=== PATIENT | female | born 1940 | race Caucasian/White ===

== ENCOUNTER 2017-10-14 03:24 | Emergency (ER) | payer OTHER ==
--- NOTE | 2017-10-14 04:00 | EDPHYS ---
Physician Documentation [facility] Name: Aida Robertson Age: 77 yrs Sex: Female : 1940 Arrival Date: 10/14/2017 Time: 03:25 Bed 6 Private MD: SUSI VILLAR ED Physician Narciso Omer HPI: 10/14 03:54 This 77 yrs old Female presents to ER via Wheelchair with complaints of Foot rn Pain. 03:54 The patient presents with pain, that is chronic. The complaints affect the right foot. rn Onset: The symptoms/episode began/occurred 2 day(s) ago. Modifying factors: The symptoms are alleviated by elevation of extremity, the symptoms are aggravated by weight bearing, movement, wearing shoes. Severity of symptoms: At their worst the symptoms were mild, in the emergency department the symptoms have improved. The patient has experienced similar episodes in the past. The patient has been recently seen by a physician:. 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 . Historical: - Allergies: 03:47 Aspirin; lp1 03:47 Vancomycin; sensitivity; lp1 - Home Meds: 03:47 Crestor 5 mg Oral tab 1 tab Mon, Wed, Fri [Active]; Lumigan 0.01 % ophthalmic drop lp1 daily [Active]; metformin 500 mg Oral tab 1 tab 2 times per day [Active]; metoprolol succinate 50 mg Oral Tb24 1 tab once daily [Active]; losartan 100 mg Oral tab 1 tab nightly [Active]; - PMHx: 03:47 Arthritis; breast cancer; c-pap; Hypertension; Lymphadema Right Arm; lymphedema to R lp1 arm s/p breast cancer radiation; Migraines; scoliosis; Hyperlipidemia; Diabetes - NIDDM; Glaucoma; - PSHx: 03:47 R hip surgery; Left knee surgery; R foot surery; Carpal Tunnel Repair; cataracts; lp1 - Immunization history:: Adult Immunizations up to date. - Social history:: Smoking status: Patient/guardian denies using tobacco, never smoked. - Ebola Screening: : No symptoms or risks identified at this time. - Family history:: not pertinent. - Hospitalizations: : No recent hospitalization is reported. ROS: 03:54 Constitutional: Negative for fever, chills, and weight loss, MS/Extremity: Negative for rn injury and deformity, Neuro: Negative for weakness, numbness, tingling Exam: 03:54 Constitutional: This is a well developed, well nourished patient who is awake, alert, rn and in no acute distress. Skin: Warm, dry with normal turgor. Normal color with no rashes, no lesions, and no evidence of cellulitis. MS/ Extremity: Pulses equal, no cyanosis. Neurovascular intact. Full, normal range of motion. Equal circumference. Well healed surgical scars along dorsum of right 2nd/3rd toes, no fluctuance, no warmth, no erythema. Vital Signs: 03:43 BP 144 / 75; Pulse 78; Resp 18; Temp 98.5(O); Pulse Ox 100% on R/A; Weight 68.04 kg; lp1 Height 4 ft. 11 in. (149.86 cm); Pain 0/10; 03:43 Body Mass Index 30.30 (68.04 kg, 149.86 cm) lp1 MDM: 03:39 Patient medically screened. rn 03:54 Differential diagnosis: sprain, arthritis, gout. Differential diagnosis: neuropathy. rn Data reviewed: vital signs, nurses notes. Counseling: I had a detailed discussion with the patient and/or guardian regarding: the historical points, exam findings, and any diagnostic results supporting the discharge/admit diagnosis, the need for outpatient follow up, to return to the emergency department if symptoms worsen or persist or if there are any questions or concerns that arise at home. Response to treatment: the patient's condition has returned to base line, the patient is now symptom free, and as a result, I will discharge patient. Special discussion: Based on the history and exam findings, there is no indication for further emergent testing or inpatient evaluation. I discussed with the patient/guardian the need to see the footwear factory worker for further evaluation of the symptoms. 03:54 ED course: No acute complaints or findings on exam, recommend f/u with her marketing production coordinator rn for further recs.. Administered Medications: No medications were administered Disposition: 10/14/17 03:59 Discharged to Home. Impression: Pain in right foot. - Condition is Stable. - Discharge Instructions: Musculoskeletal Pain, Pain Without a Known Cause. - Medication Reconciliation Form, Thank You Letter, Antibiotic Education, Prescription Opioid Use form. - Follow up: Private Physician; When: As needed; Reason: Recheck today's complaints, Re-evaluation by your physician. - Problem is new. - Symptoms have improved. Signatures: Narciso Omer MD MD rn JonesDebbie RN RN lp1 Corrections: (The following items were deleted from the chart) 04:08 03:59 10/14/2017 03:59 Discharged to Home. Impression: Pain in right foot. Condition is lp1 Stable. Forms are Medication Reconciliation Form, Thank You Letter, Antibiotic Education, Prescription Opioid Use. Follow up: Private Physician; When: As needed; Reason: Recheck today's complaints, Re-evaluation by your physician. Problem is new. Symptoms have improved. rn
--- NOTE | 2017-10-14 04:00 | ER ---
Nurse's Notes [facility] Name: Aida Robertson Age: 77 yrs Sex: Female : 1940 Arrival Date: 10/14/2017 Time: 03:25 Bed 6 Private MD: SUSI VILLAR Diagnosis: Pain in right foot Presentation: 10/14 03:40 Presenting complaint: Patient states: Pain to R great toe x2 days; states after a long lp1 day, R great toe will be red at end of the day; hx of R foot surgery from arthritis. Transition of care: patient was not received from another setting of care. Onset of symptoms was October 14, 2017. Risk Assessment: Do you want to hurt yourself or someone else? Patient reports no desire to harm self or others. Initial Sepsis Screen: Does the patient meet any 2 criteria? No. Patient's initial sepsis screen is negative. Does the patient have a suspected source of infection? No. Patient's initial sepsis screen is negative. Care prior to arrival: None. 03:40 Method Of Arrival: Wheelchair lp1 03:40 Acuity: MIRNA 5 lp1 Historical: - Allergies: 03:47 Aspirin; lp1 03:47 Vancomycin; sensitivity; lp1 - Home Meds: 03:47 Crestor 5 mg Oral tab 1 tab Mon, Wed, Fri [Active]; Lumigan 0.01 % ophthalmic drop lp1 daily [Active]; metformin 500 mg Oral tab 1 tab 2 times per day [Active]; metoprolol succinate 50 mg Oral Tb24 1 tab once daily [Active]; losartan 100 mg Oral tab 1 tab nightly [Active]; - PMHx: 03:47 Arthritis; breast cancer; c-pap; Hypertension; Lymphadema Right Arm; lymphedema to R lp1 arm s/p breast cancer radiation; Migraines; scoliosis; Hyperlipidemia; Diabetes - NIDDM; Glaucoma; - PSHx: 03:47 R hip surgery; Left knee surgery; R foot surery; Carpal Tunnel Repair; cataracts; lp1 - Immunization history:: Adult Immunizations up to date. - Social history:: Smoking status: Patient/guardian denies using tobacco, never smoked. - Ebola Screening: : No symptoms or risks identified at this time. - Family history:: not pertinent. - Hospitalizations: : No recent hospitalization is reported. Screenin:47 Abuse screen: Denies threats or abuse. Denies injuries from another. Nutritional lp1 screening: No deficits noted. Tuberculosis screening: No symptoms or risk factors identified. Fall Risk None identified. Assessment: 03:47 General: Appears in no apparent distress. Behavior is calm, cooperative, appropriate lp1 for age. Pain: Complains of pain in right first toe, right second toe and right third toe Pain currently is 0 out of 10 on a pain scale. Quality of pain is described as aching. Neuro: Level of Consciousness is awake, alert, obeys commands. Cardiovascular: Patient's skin is warm and dry. Respiratory: Respiratory effort is even, unlabored. GI: No signs and/or symptoms were reported involving the gastrointestinal system. : No signs and/or symptoms were reported regarding the genitourinary system. EENT: No signs and/or symptoms were reported regarding the EENT system. Derm: Skin is pink, warm \T\ dry. Musculoskeletal: Circulation, motion, and sensation intact. Capillary refill < 3 seconds, in bilateral toes. Vital Signs: 03:43 BP 144 / 75; Pulse 78; Resp 18; Temp 98.5(O); Pulse Ox 100% on R/A; Weight 68.04 kg; lp1 Height 4 ft. 11 in. (149.86 cm); Pain 0/10; 03:43 Body Mass Index 30.30 (68.04 kg, 149.86 cm) lp1 ED Course: 03:25 Patient arrived in ED. ds1 03:25 Gerson Chan MD is Private Physician. ds1 03:29 SUSI VILLAR is Private Physician. ds1 03:39 Narciso Omer MD is Attending Physician. rn 03:40 Debbie Jones, ANNE is Primary Nurse. lp1 03:43 Triage completed. lp1 03:43 Arm band placed on left wrist. lp1 03:49 Patient has correct armband on for positive identification. lp1 03:49 No provider procedures requiring assistance completed. Patient did not have IV access lp1 during this emergency room visit. Administered Medications: No medications were administered Outcome: 03:59 Discharge ordered by . rn 04:08 Discharged to home ambulatory, with significant other. lp1 04:08 Condition: good 04:08 Discharge instructions given to patient, Instructed on discharge instructions, follow up and referral plans. Demonstrated understanding of instructions, follow-up care. 04:08 Patient left the ED. lp1 Signatures: Nataliya Ruiz ds1 Narciso Omer MD MD rn Debbie Jones RN RN lp1
[2017-10-14 04:12] VITALS: BP 144/75; TEMP 98.5; O2SAT 100
== END 2017-10-14 04:08 | disposition home or self-care (01) ==
LOC: ER 03:24
DX: M79.671 Pain in right foot (principal); I10 Essential (primary) hypertension; E78.5 Hyperlipidemia, unspecified; E11.9 Type 2 diabetes mellitus without complications; Z88.6 Allergy status to analgesic agent; Z88.1 Allergy status to other antibiotic agents
CPT/HCPCS: 99281

== ENCOUNTER 2018-01-28 06:46 | Day surgery (SDC) | payer OTHER ==
[2018-01-25 15:49] LABS: Urine Appearance CLEAR; Urine Bilirubin NEGATIVE (NEG); Urine Blood TRACE (NEG); Urine Color YELLOW; Urine Glucose NEGATIVE (NEG); Urine Protein NEGATIVE (NEG); Urine Urobilinogen 0.2 mg/dL (0.2-1.0)
[2018-01-25 16:01] LABS: Urine Microscopic Reflex NO UMIC
[2018-01-25 16:13] LABS: Absolute Lymphocytes (CBC) 1.9 K/uL (0.7-4.9); Absolute Monocytes 0.6 K/uL (0.1-1.3); Absolute Neutrophil 5.2 K/uL (1.8-8.0); Basophils % 1.6 % (0-1.3); Eosinophils % 4.2 % (0-4.4); Hematocrit 44.5 % (36.0-45.0); Lymphocytes % 23.2 % (15.3-44.8); MCH 30.3 pg (27.0-35.0); MCV 89.5 fL (80-100); MPV 10.6 fL (7.6-11.3); Monocytes % 7.1 % (3.3-12.3); RBC Red Blood Cell Count 4.97 M/uL (3.86-4.86)
[2018-01-25 16:56] LABS: Protime INR 0.93
[2018-01-28] MEDS ORDERED: CEFAZOLIN/SWI 1gm 1 GM/10 ML SYR ONE ×2 (07:00→07:13)
[2018-01-28] MEDS ORDERED: NA CHLORIDE 0.9% 100 ML IV ONE (07:13)
[2018-01-28] MEDS ORDERED: ROCURONIUM 50 MG/5 ML VIAL IV ONE ×2 (07:13→09:41)
[2018-01-28] MEDS ORDERED: NA CHLORIDE 0.9% 1,000 ML ONE ×2 (07:13→09:14)
[2018-01-28] MEDS ORDERED: VASOPRESSIN 20 UNIT/ML VIAL ONE (07:13)
[2018-01-28] MEDS ORDERED: PROPOFOL 200 MG/20 ML VIAL IV ONE (07:13)
[2018-01-28] MEDS ORDERED: GLYCOPYRROLATE 0.2 MG/ML SYR ONE (07:14)
[2018-01-28] MEDS ORDERED: FENTANYL CITR 250 MCG/5 ML ONE (07:15)
[2018-01-28] MEDS ORDERED: LIDOCAINE 2% MPF 5 ML VIAL ONE (07:15)
[2018-01-28] MEDS ORDERED: NEOSTIGMINE 1 MG/ML -5 ML SYRINGE ONE (07:17)
[2018-01-28] MEDS ORDERED: ONDANSETRON HCL 40 MG/20 ML VIAL ONE (07:17)
[2018-01-28] MEDS: NA CHLORIDE 0.9% 1,000 ML ONE ×2 (07:34→07:46)
[2018-01-28] MEDS ORDERED: EPHEDRINE SULF 50 MG/10 ML SYR ONE (08:09)
[2018-01-28] MEDS: MEPERIDINE HCL 50 MG/ML AMP ONE ×4 (10:45→11:07)
[2018-01-28 11:00] VITALS: O2SAT 95
[2018-01-28] MEDS ORDERED: ACETAMINOPHEN 500 MG TAB PO PRN (11:11)
[2018-01-28] MEDS ORDERED: MORPHINE 4 MG/ML SYR IV PRN (11:11)
[2018-01-28] MEDS ORDERED: ONDANSETRON 4 MG/2 ML VIAL IV PRN (11:11)
[2018-01-28] MEDS ORDERED: IBUPROFEN 200 MG TAB PO PRN (11:11)
--- NOTE | 2018-01-28 11:21 | P.OP ---
Foot Orthopedist: Audrey Hernandez Preoperative diagnosis: [id number],incomplete uterovg porlapse, STEVEN Postoperative diagnosis: same Primary procedure: anterior repair with uphold, bilat SSLFcolpopexy, TVT-O,cysto Anesthesia: GETA Estimated blood loss: 100 Specimen: none Findings: 0/+2/-1/4/mod/7/-1/-1/-2 Operative Technique: vaginal Complications: None Drain(s): Urinary catheter Implants: uphold, tvt-o Transferred to: Recovery Room Condition: Good
[2018-01-28] MEDS ORDERED: MEPERIDINE HCL 25 MG/0.5 ML ONE (11:24)
[2018-01-28] MEDS ORDERED: Ringers Lactate 1,000 ML IV SCH (12:00)
[2018-01-28 12:22] VITALS: BMI 30.8
[2018-01-28] MEDS ORDERED: CEFAZOLIN/NS 1gm 1 GM/50 ML BAG IVPB SCH (15:30)
[2018-01-28] MEDS ORDERED: CEFAZOLIN/SWI 1gm 1 GM/10 ML SYR IV SCH (15:30)
[2018-01-28] MEDS ORDERED: BIMATOPROST OPHTH DROPS/2.5 ML BTL OPTH SCH (22:30)
--- NOTE | 2018-01-28 22:32 | OP ---
Date of Procedure: 01/28/2018 Surgeon: Cinthia Jacob MD Preoperative Diagnoses: Stage III anterior wall prolapse, incomplete uterovaginal prolapse, occult s tress urinary incontinence, rectocele. Postoperative Diagnoses: Stage III anterior wall prolapse, incomplete uterovaginal prolapse which in clude apical defect with uterine prolapse, insignificant rectocele, occult stress urinary incontinenc e. Procedures Performed: 1.Anterior repair with uphold graft (cystocele repair). 2.Bilateral sacrospinous ligament fixation for history of colpopexy. 3.Midurethral sling and cystoscopy. Anesthesia: General. Specimens: None. Complications: None. Drains: Xiao catheter and vaginal packing. Patient's Condition: Stable. Findings: POP-Q is as follows: 0, +2, -1, 4 cm, moderate, 7 cm, -1, -1, and -2. The patient is a 78-year-old who has been seeing me for her prolapse. After initial evaluation where she told me that she had been using pessary for a little bit; she had stopped that. She was unable to keep herself happy with the use of pessary. She could not do any self-care. She did not do well with coming back to the office. She wanted to have a surgical repair for fixation. The pessary did cause her to have stress urinary incontinence and so the patient was very insistent on having a surgi joey repair. We discussed about all the options of vaginal and abdominal reconstruction without any g raft augmentation with the biologic versus synthetic graft augmentation. Once all the benefits and r isks of all these were discussed, we agreed to proceed with the surgical repair vaginally with the us e of a synthetic graft augmentation on the anterior wall given the fact that this had best result as compared to primary repair on the anterior compartment done vaginally. She had medical clearance from Dr. Perez. She has been doing mostly well excepting for her back valentina n and scoliosis and her knee problems. She is a relatively healthy patient except for a remote histo ry of right breast cancer 19 years ago. She was evaluated with a cystoscopy and urodynamics in the o ffice, and found to have occult stress urinary incontinence. No evidence of any bladder tumors. After delay in the scheduled surgery for her 's health reasons, she finally came back. We agustina ked about the entire reconstruction, recovery, risks, and benefits, and she wanted to proceed with he r surgical repair. So, she was consented and brought to the OR. Description Of Procedure: After informed consent was verified, the patient was taken back to the OR, placed in a supine fashion on the operating table. She was placed in Henry stirrups and placed in a dorsal lithotomy position even before she was put to sleep. Then, she was given general anesthesia. She could not externally rotate her hip and the flexion at the knee was greater than 90 degrees in the obtuse angle due to the knee replacement on the left side. She had a hip replacement on the righ t and knee replacement on the left. Once this was positioned as optimally as possible for the patien t from her back pain standpoint, a large pink eggcrate was tucked under her bottom in the back betwee n the bed and the body. Vulva, vagina, and perineum were prepped and draped in a sterile fashion. Xiao was placed to drain the bladder and retracted with a Lupe occluding the Xiao catheter. The anterior wall starting abov e the level of the urethrovesical junction was held with Allis clamps all the way to the apex close t o the cervix. Once this was found, then the anterior midline was injected with dilute vasopressin 20 units in 50 cc of normal saline. About 20 units were injected here. Then, after the 15 blade was u sed to make an incision in the anterior wall, the incision was extended superiorly and inferiorly all the way to the neck of the bladder and posteriorly to the cervix. The bladder was dissected away fr om the vaginal epithelium, cervical epithelium, and the endopelvic fascia after entering the vesicova ginal space. The bladder was dissected first on the right side all the way to the sulcus and on the left side as well. The bladder was dissected all the way to the level of the cervix. Once this was done, I was able to open up the bladder incision under the urethrovesical junction as well. Once the bladder was dissected on all sides and reduced, the lateral paravaginal spaces were entered, first o n the right side, then on the left side. The ischial spine was palpated and going to the parametrium into the posterior pararectal space. The sacrospinous ligament was exposed through the coccygeus. The rectum was swept medially. Same dissection was performed in the opposite side as well. The sacr ospinous ligament was well exposed. Then, I was able to get the uphold open and the stitch was place d on the sacrospinous ligament on the right side, about 2 cm medial and posterior to the ischial spin e. Similar thing was done on the opposite side as well, and the bite on the left side appeared to be slightly less robust but it definitely went through the sacrospinous ligament. This was more calcif ied, so there was difficulty passing it. Once these were pulled through, the graft was attached at t he cervix with 3 PDS sutures in the midline and on either sides to the cervix. Then, the bladder was reduced into pursestring sutures with 3-0 Vicryl. The closure of the vaginal wall was done with 2-0 Vicryl in a continuous running horizontal mattress fashion for the first half and then the graft was tensioned appropriately pulling the uterus back up to at least -6. Once the graft was appropriately placed, the anterior part of the graft to the distal end was attached to the suburethral port below the urethrovesical junction with the help of 3-0 Monocryl in the center and on both sides. The mesh was laid flat. The arms were tensioned appropriately and the sheaths were taken out. The rest of th e closure was done in a continuous running locked fashion. Once this was done, Xiao was removed and cystoscopy was performed. No evidence of any trauma or foreign body in the bladder. There were nor mal jets of urine from both ureteric orifices. The suburethral area was identified again. Mid urethral area was picked up with the help of two Faheem s clamps on either side in the periurethral area. Injection with one vasopressin was done in the mid line as well as on the sides. Then, after making a 1 cm incision in the midline, a track was created all the way to the obturator space, dissecting into 45-degree angle to the midline vertical planes p ointing toward the ipsilateral shoulder, hugging the inferior pubic ramus and just entering the obtur ator space. Once this was done on the right side, similar dissection was performed on the left side. The TVT-O was opened up distally. Wing guide was placed. The spike was passed along the wing guid e after the obturator membrane was perforated. The wing guide was removed and this was rotated to ex it at the point that was marked for the exit points of the TVT-O as usual. On the left side, in a si milar fashion, the wing guide was placed, the spike was passed, and this was retrieved. Both sheaths were pulled out, both plastic dilators were pulled out. The sheath was left in place. The subureth ral area was visualized. The mesh was lying appropriately. Then using Metzenbaum scissors between t he urethra and the mesh, the arms were tensioned, sheaths were removed, and this mesh was cut very fl ushed with the skin. The skin incisions were closed with the help of Dermabond in the center and the re was a tear of the vaginal epithelium on the right side proximally, so this was repaired with the h elp of a 3-0 Vicryl in a continuous running locked fashion. The rest of the incision was closed with the help of a continuous running locked fashion 3-0 Vicryl as well. Cystoscopy was performed again. No evidence of any urethral erosion or problem of bladder perforation. The catheter was left in pl xiomara. Rectal exam was performed. No evidence of any trauma to the rectum. On examination of the pos terior wall after changing the gloves, the posterior wall was very nicely pulled up and did not appea r to have a major defect. The perineal body was moderate. However, the patient had no posterior com plaints. So, this was left alone. All the instruments, needle, and sponge counts were done and were correct at the end of the case. She tolerated the procedure well. She was recovered from anesthesi a and taken to PACU in a stable condition. She will follow up with me. She will be [facility] to [facility] or for overnight observation. In the morning, she will have a voiding trial. However, the packing a nd the Xiao were removed and she will be discharged home. After she recovered, she was doing well. Her back was not hurting too badly in the PACU. She had mild complaints of lower abdominal discomfo rt. So, she was overall well controlled. She has a followup appointment with me to see me back in 1 week. VIK/BELLA Voice ID: [id number] Report ID: [id number]
[2018-01-29] MEDS ORDERED: LEVOTHYROXINE SOD 0.025 MG TAB PO SCH (06:00)
[2018-01-29] MEDS ORDERED: METOPROLOL TAR 50 MG TAB PO SCH (06:00)
[2018-01-29 06:04] LABS: Absolute Lymphocytes (CBC) 1.9 K/uL (0.7-4.9); Absolute Monocytes 0.6 K/uL (0.1-1.3); Absolute Neutrophil 3.8 K/uL (1.8-8.0); Basophils % 0.6 % (0-1.3); Eosinophils % 4.1 % (0-4.4); Lymphocytes % 28.7 % (15.3-44.8); MCH 30.5 pg (27.0-35.0); MCV 90.2 fL (80-100); MPV 9.7 fL (7.6-11.3); RBC Red Blood Cell Count 3.88 M/uL (3.86-4.86)
[2018-01-29] MEDS ORDERED: METFORMIN HCL 500 MG TAB PO SCH (08:00)
[2018-01-29 08:23] VITALS: BP 144/71; TEMP 97
[2018-01-29] MEDS ORDERED: ROSUVASTATIN 10 MG TAB PO SCH (17:00)
[2018-01-29] MEDS ORDERED: LOSARTAN POTASSIUM 50 MG TABLET PO SCH (17:30)
== END 2018-01-29 09:55 | disposition home or self-care (01) ==
LOC: OR 06:46 → 2ND-WC 10:51 → OR 01-29 09:55
PROVIDERS: ATTEND Obstetrics & Gynecology
PROC: 0USG7ZZ Reposition Vagina, Via Natural or Artificial Opening (ICD-10-PCS; 2018-01-28)
PROC: 0TSD0ZZ Reposition Urethra, Open Approach (ICD-10-PCS; 2018-01-28)
PROC: 0JUC0JZ Supplement of Pelvic Region Subcutaneous Tissue and Fascia with Synthetic Substitute, Open Approach (ICD-10-PCS; principal; 2018-01-28 07:30)
DX: N81.2 Incomplete uterovaginal prolapse (principal); N39.3 Stress incontinence (female) (male); E11.9 Type 2 diabetes mellitus without complications; I10 Essential (primary) hypertension; E78.5 Hyperlipidemia, unspecified; K21.9 Gastro-esophageal reflux disease without esophagitis; G47.33 Obstructive sleep apnea (adult) (pediatric); Z88.3 Allergy status to other anti-infective agents; Z85.3 Personal history of malignant neoplasm of breast; Z82.49 Family history of ischemic heart disease and other diseases of the circulatory system
CPT/HCPCS: 36415 ×2; 57240; 57267; 57282; 57288; 81003; 82962 ×2; 85025 ×2; 85610; 85730; 86850; 86900; 86901; J0690 ×2; J2175 ×2; J2405; J2710; J7030 ×3

== ENCOUNTER → 2018-08-04 | Day surgery (SDC) | payer OTHER ==
--- OUTSIDE RECORDS SUMMARY | 2018-08-04 09:51 | XMS REPORT | Continuity of Care Document ---
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 [facility] Sleep apnea Resolved Problem 06/26/2018 [facility] UNILATERAL Active PRIMARY [facility] OSTEOARTHRITIS, LEFT Medications Medication Details Route Status Patient Ordering Order Source Instructions Provider Date rivaroxaban 10 mg 10 mg=1 tab, Active oral tablet PO, Q24H, 0 2018 [facility] Refill(s) Acetaminophen 325 1 tab, PO, Q4H, Active MG / Hydrocodone PRN Pain Score 2018 [facility] Bitartrate 10 MG 4-6, 0 Oral Tablet Refill(s) [[place] 10/325] Lopressor 50 mg, 1 tab, Inactive Route: PO, Drug 2018 [facility] form: TAB, Daily, Dosing Weight 70.455, kg, Start date: 06/24/18 9:00:00 BROADCAST SUPERVISOR, Duration: 30 day, Stop date: 07/23/18 9:00:00 CDTNotes: (Same as: Lopressor) Synthroid 25 microgram, 1 Inactive tab, Route: PO, 2018 [facility] Drug form: TAB, Q630AM, Dosing Weight 70.455, kg, Start date: 06/24/18 6:30:00 BROADCAST SUPERVISOR, Duration: 30 day, Stop date: 07/23/18 6:30:00 CDTNotes: Take 1 hour before or 2 hours after meal; Enteral feeds may interefere with the absorption of this medication. (Same as:Levothroid) Losartan 100 mg, 2 tab, No Longer Route: PO, Drug Active 2018 [facility] form: TAB, Bedtime, Dosing Weight 70.455, kg, Start date: 06/23/18 21:00:00 BROADCAST SUPERVISOR, Duration: 30 day, Stop date: 07/22/18 21:00:00 CDTNotes: (Same as: Cozaar) rosuvastatin 5 mg, 1 tab, No Longer Route: PO, Drug Active 2018 [facility] form: TAB, Q-M-W-F, Dosing Weight 70.455, kg, Start date: 06/23/18 21:00:00 BROADCAST SUPERVISOR, Duration: 30 day, Stop date: 07/21/18 21:00:00 CDTNotes: Same as Crestor Melatonin 3 mg, 1 tab, No Longer Route: PO, Drug Active 2018 [facility] form: TAB, Bedtime, Dosing Weight 70.455, kg, PRN Insomnia, Start date: 06/23/18 10:09:00 BROADCAST SUPERVISOR, Duration: 30 day, Stop date: 07/23/18 10:08:00 CDTNotes: (Same as: Melatonin) Thyroxine 25 microgram, 1 Inactive tab, Route: PO, 2018 [facility] Drug form: TAB, Q630AM, Dosing Weight 70.455, kg, Start date: 06/23/18 7:30:00 BROADCAST SUPERVISOR, Duration: 30 day, Stop date: 07/23/18 6:30:00 CDTNotes: Take 1 hour before or 2 hours after meal; Enteral feeds may interefere with the absorption of this medication. (Same as:Levothroid) Levothyroxine 25 microgram=1 Active Sodium 0.025 MG tab, PO, Daily, 2018 [facility] Oral Tablet 0 Refill(s) [Synthroid] Saline Flush 0.9% 10 ml, Route: No Longer IVP, Drug Form: Active 2018 [facility] INJ, Dosing Weight 69.545, kg, Q12H, Start date: 06/22/18 21:00:00 BROADCAST SUPERVISOR, Duration: 30 day, Stop date: 07/22/18 9:00:00 CDTNotes: (Same as: BD Posiflush) Vancomycin 1,000 mg, No Longer Route: IVPB, Active 2018 [facility] [id number], Dosing Weight 69.545, kg, Time Critical Medication, Start date: 06/22/18 18:00:00 BROADCAST SUPERVISOR, Duration: 2 doses or times, Stop date: 06/23/18 6:00:00 BROADCAST SUPERVISOR, Pharmacy to adjust dose for renal function, ABX Indication: Surgical Pr...Notes: TIME CRITICAL MEDICATION (Same As: Vancocin) Infusion rate 2001 mg: infuse over 2.5 hours For adult patients only: Round to nearest 250 mg per Medical Staff approval MEDICATION WASTE Product Size: 1000 mg Product Wasted: ___ mg Zofran 4 mg, 1 tab, No Longer Route: PO, Drug Active 2018 [facility] form: TAB, Q8H, Dosing Weight 70.455, kg, PRN Nausea, Start date: 06/22/18 17:09:00 BROADCAST SUPERVISOR, Duration: 30 day, Stop date: 07/22/18 17:08:00 CDTNotes: (Same as: Zofran) rivaroxaban 10 mg, 1 tab, No Longer Route: PO, Drug Active 2018 [facility] form: TAB, Q24H, Dosing Weight 69.545, kg, Start date: 06/22/18 15:15:00 BROADCAST SUPERVISOR, Stop date: 07/21/18 15:15:00 CDTNotes: (Same as: Xarelto) Cefazolin 1 gm, Route: No Longer IV, ABXQ8H, 2018 [facility] Dosing Weight 69.545, kg, Start date: 06/22/18 14:00:00 BROADCAST SUPERVISOR, Duration: 3 doses or times, Stop date: 06/23/18 7:05:00 BROADCAST SUPERVISOR, ABX Indication: Surgical ProphylaxisNote s: (Same As: Ancef Kefzol) MEDICATION WASTE Product Size: 1000 mg Product Wasted: ___ mg Streptococcus 0.5 mL, Route: No Longer pneumoniae IM, Drug Form: Active 2018 [facility] serotype 1 INJ, ONCALL, capsular antigen Start date: diphtheria [id number] 06/22/18 protein conjugate 10:32:40 BROADCAST SUPERVISOR, vaccine / Stop date: Streptococcus 07/22/18 pneumoniae 10:27:40 serotype 14 CDTNotes: Shake capsular antigen well prior to diphtheria [id number] use (Same as: protein conjugate Prevnar 13) vaccine / Streptococcus pneumoniae serotype 18C capsular antigen d Acetaminophen 325 2 tab, Route: No Longer MG / Hydrocodone PO, Drug Form: Active 2018 [facility] Bitartrate 10 MG TAB, Dosing Oral Tablet Weight 69.545, [[place] 10/325] kg, TID, PRN Pain Score 4-6, Start date: 06/22/18 9:18:00 BROADCAST SUPERVISOR, Duration: 4 doses or times, Stop date: Limited # of timesNotes: Do not exceed 4gm/day of acetaminophen. (Same as: [place] 325/10) Dilaudid 0.5 mg, 0.5 mL, No Longer Route: IVP, Active 2018 [facility] Drug form: SOLN, Q4H, Dosing Weight 69.545, kg, PRN Pain Score 7-10, Start date: 06/22/18 9:18:00 BROADCAST SUPERVISOR, Duration: 30 day, Stop date: 07/22/18 9:17:00 CDTNotes: (Same as: Dilaudid) Saline Flush 0.9% 10 ml, Route: No Longer IVP, Drug Form: Active 2018 [facility] INJ, Dosing Weight 69.545, kg, PRN, PRN Line Flush, Start date: 06/22/18 9:18:00 BROADCAST SUPERVISOR, Duration: 30 day, Stop date: 07/22/18 10:17:00 CDTNotes: (Same as: BD Posiflush) 1/2 NS 1,000 mL 1,000 mL, Rate: No Longer 75 ml/hr, Active 2018 [facility] Infuse over: 13.3 hr, Route: IV, Dosing Weight 69.545 kg, Total Volume: 1,000, Start date: 06/22/18 9:18:00 BROADCAST SUPERVISOR, Duration: 30 day, Stop date: 07/22/18 9:17:00 CDT, 1.74, m2 Ofirmev 1,000 mg, Inactive Route: IV, Drug 2018 [facility] form: INJ, ONCE, Dosing Weight 69.545, kg, PRN Pain Score 1-3, for > or=50 kg, Start date: 06/22/18 9:17:00 BROADCAST SUPERVISOR, Substitute Allowed No Oxycodone 10 mg, Route: Inactive PO, Drug form: 2019 [facility] TAB, Q4H, Dosing Weight 69.545, kg, PRN Pain Score 7-10, Start date: 06/22/18 9:17:00 BROADCAST SUPERVISOR, Duration: 30 day, Stop date: 07/22/18 9:16:00 CDT Hydromorphone 0.5 mg, Route: Inactive IVP, Q5Min, 2018 [facility] Dosing Weight 69.545, kg, PRN Pain Score 7-10, Start date: 06/22/18 9:17:00 BROADCAST SUPERVISOR, Duration: 4 doses or times, Stop date: Limited # of times Fentanyl 25 microgram, Inactive Route: IVP, 2018 [facility] Q5Min, Dosing Weight 69.545, kg, PRN Pain Score 4-6, Priority: Routine, Start date: 06/22/18 9:17:00 BROADCAST SUPERVISOR, Duration: 4 doses or times, Stop date: Limited # of times Labetalol 10 mg, Route: Inactive IVP, Q5Min, 2018 [facility] Dosing Weight 69.545, kg, PRN Elevated BP, Start date: 06/22/18 9:17:00 BROADCAST SUPERVISOR, Duration: 5 doses or times, Stop date: Limited # of times esmolol 10 mg, Route: Inactive IVP, Q5Min, 2018 [facility] Dosing Weight 69.545, kg, PRN Other -See Comment, Start date: 06/22/18 9:17:00 BROADCAST SUPERVISOR, Duration: 5 doses or times, Stop date: Limited # of times Hydralazine 10 mg, Route: Inactive IVP, Q20Min, 2018 [facility] Dosing Weight 69.545, kg, PRN Elevated BP, Start date: 06/22/18 9:17:00 BROADCAST SUPERVISOR, Duration: 2 doses or times, Stop date: Limited # of times Ondansetron 4 mg, Route: Inactive IVP, ONCE, 2018 [facility] Dosing Weight 69.545, kg, PRN Nausea & Vomiting, Start date: 06/22/18 9:17:00 BROADCAST SUPERVISOR Meperidine 12.5 mg, Route: Inactive IVP, Q30Min, 2018 [facility] Dosing Weight 69.545, kg, PRN Other -See Comment, For shivering, Start date: 06/22/18 9:17:00 BROADCAST SUPERVISOR, Duration: 2 doses or times, Stop date: Limited # of times Albuterol 0.83 2.49 mg, Route: Inactive MH MG/ML Inhalant NEB, Q20Min, 2018 [facility] Solution Dosing Weight 69.545, kg, PRN Wheezing, Priority: STAT, Start date: 06/22/18 9:17:00 BROADCAST SUPERVISOR, Duration: 30 day, Stop date: 07/22/18 10:16:00 CDT Diphenhydramine 12.5 mg, Route: Inactive 06/22/ MH IVP, Drug form: 2018 [facility] INJ, Q6H, Dosing Weight 69.545, kg, PRN Itching, Start date: 06/22/18 9:17:00 BROADCAST SUPERVISOR, Duration: 30 day, Stop date: 07/22/18 9:16:00 CDT Naloxone 0.4 mg, Route: Inactive MH IVP, Q2MIN, 2018 [facility] Dosing Weight 69.545, kg, PRN Narcotic Reversal, Start date: 06/22/18 9:17:00 BROADCAST SUPERVISOR, Duration: 8 doses or times, Stop date: Limited # of times Flumazenil 0.2 mg, Route: Inactive IVP, PRN, 2018 [facility] Dosing Weight 69.545, kg, PRN Benzodiazepine Reversal, Initial dose, Start date: 06/22/18 9:17:00 BROADCAST SUPERVISOR, Duration: 30 day, Stop date: 07/22/18 10:16:00 CDT neostigmine Route: IV, Drug Inactive 06/22/ MH (ANES) form: INJ, 2018 ONCE, Stop date: 06/22/18 9:00:00 BROADCAST SUPERVISOR glycopyrrolate Route: IV, Drug Inactive 06/22/ MH (ANES) form: INJ, 2018 ONCE, Stop date: 06/22/18 9:00:00 BROADCAST SUPERVISOR phenylephrine Route: IV, Drug Inactive 06/22/ MH (ANES) form: INJ, 2018 ONCE, Stop date: 06/22/18 7:52:00 BROADCAST SUPERVISOR ePHEDrine (ANES) Route: IV, Drug Inactive 06/22/ MH form: INJ, 2018 ONCE, Stop date: 06/22/18 7:52:00 BROADCAST SUPERVISOR tranexamic acid Route: IV, Drug Inactive 06/22/ MH (ANES) form: INJ, 2018, Stop date: 06/22/18 7:42:00 BROADCAST SUPERVISOR famotidine (ANES) Route: IV, Drug Inactive 06/22/ MH form: INJ, 2018, Stop date: 06/22/18 7:42:00 BROADCAST SUPERVISOR ondansetron Route: IV, Drug Inactive 06/22/ MH (ANES) form: INJ2018, Stop date: 06/22/18 7:42:00 BROADCAST SUPERVISOR acetaminophen Route: IV, Drug Inactive 06/22/ MH (ANES) form: INJ2018, Stop date: 06/22/18 7:42:00 BROADCAST SUPERVISOR ceFAZolin (ANES) Route: IV, Drug Inactive 06/22/ MH form: INJ2018, Stop date: 06/22/18 7:42:00 BROADCAST SUPERVISOR fentaNYL (ANES) Route: IV, Drug Inactive 06/22/ MH form: INJ2018, Stop date: 06/22/18 7:37:00 BROADCAST SUPERVISOR propofol (ANES) Route: IV, Drug Inactive 06/22/ MH form: INJ2018, Stop date: 06/22/18 7:37:00 BROADCAST SUPERVISOR rocuronium (ANES) Route: IV, Drug Inactive 06/22/ MH form: INJ2018, Stop date: 06/22/18 7:37:00 BROADCAST SUPERVISOR lidocaine (ANES) Route: IV, Drug Inactive 06/22/ MH form: INJ2018, Stop date: 06/22/18 7:32:00 BROADCAST SUPERVISOR vancomycin (ANES) Route: IV, Drug Inactive 06/22/ MH 1000 mg form: INJ, 2018 Start date: 06/22/18 6:45:00 BROADCAST SUPERVISOR, Stop date: 06/22/18 7:45:00 BROADCAST SUPERVISOR Lactated Ringers Route: IV, Inactive 06/22/ MH Injection IV Total Volume: 2018 (ANES) 1000 mL 1,000, Start date: 06/22/18 6:30:00 BROADCAST SUPERVISOR, Stop date: 06/22/18 7:30:00 BROADCAST SUPERVISOR gabapentin 600 MG 600 mg, 1 tab, Inactive Oral Tablet Route: PO, 2018, Dosing Weight 69.545, kg, Start date: 06/22/18 6:15:00 BROADCAST SUPERVISOR, Stop date: 06/22/18 6:15:00 BROADCAST SUPERVISOR ropivacaine 100 mL, Route: No Longer InFILtration(lo Active 2018 [facility]), Drug Form: INJ, Dosing Weight 69.545, kg, ONCALL, Start date: 06/21/18 20:00:00 BROADCAST SUPERVISOR, Duration: 30 day, Stop date: 07/21/18 20:59:00 CDTNotes: NOT FOR IV use Ropivacaine 5 mg/mL (49.25 mL) Epinephrine 1 mg/mL (0.5 mL) Clonidine 0.1 mg/mL (0.8 mL) Ketorolac 30 mg/mL (1 mL) Normal Saline 48.45 mL Calcium Chloride 1,000 mL, Rate: No Longer 0.0014 MEQ/ML / 25 ml/hr, Active 2018 [facility] Potassium Infuse over: 40 Chloride 0.004 hr, Route: IV, MEQ/ML / Sodium Dosing Weight Chloride 0.103 69.545 kg, MEQ/ML / Sodium Total Volume: Lactate 0.028 1,000, Start MEQ/ML Injectable date: 06/21/18 Solution 19:15:00 BROADCAST SUPERVISOR, Duration: 30 day, Stop date: 07/21/18 19:14:00 CDT Allergies, Adverse Reactions, Alerts Substance Category Reaction Severity Reaction Status Date Comments Source type Reported ciprofloxaci Assertion Drug Active n allergy [facility] vancomycin Assertion Drug Active allergy [facility] aspirin Assertion Drug Active allergy [facility] Adhesive Assertion Propensity Active Tape to adverse [facility] reactions to substance PHENobarbita Assertion Drug Active l allergy [facility] Immunizations Immunization Date Given Site Status Last Updated Comments Source Results Order Name Results Value Reference Date Interpretation Comments Source Range HEMATOLOGY MPV 9.8 fL 7.4 - 10.4 06/24 [facility] HEMATOLOGY Platelet 192 K/CMM 133 - 450 06/24 [facility] HEMATOLOGY RBC 4.06 M/CMM 4.20 - 06/24 5.40 [facility] HEMATOLOGY Hgb 12.3 g/dL 12.0 - 06/24 16.0 [facility] HEMATOLOGY Hct 36.8 % 36.0 - 06/24 48.0 [facility] HEMATOLOGY MCV 90.6 fL 80.0 - 06/24 98.0 /2019 [facility] HEMATOLOGY RDW 14.6 % 11.5 - 06/24 [facility] 14.5 [facility] HEMATOLOGY MCH 30.2 pg 27.0 - 06/24 31.0 [facility] HEMATOLOGY MCHC 33.3 g/dL 32.0 - 06/24 MH 36.0 /2018 [facility] HEMATOLOGY WBC 8.6 K/CMM 3.7 - 10.4 06/24 [facility] HEMATOLOGY Lymphocytes 1.5 K/CMM 1.0 - 5.5 06/24 MH # /2019 [facility] HEMATOLOGY Monocytes # 0.8 K/CMM 0.0 - 0.8 06/24 [facility] HEMATOLOGY Eosinophils 0.3 K/CMM 0.0 - 0.5 06/24 # /2018 [facility] HEMATOLOGY Lymphocytes 17.7 % 20.0 - 06/24 MH 40.0 /2018 [facility] HEMATOLOGY Monocytes 8.8 % 2.0 - 12.0 06/24 /2018 [facility] HEMATOLOGY Eosinophils 3.0 % 0.0 - 4.0 06/24 [facility] HEMATOLOGY Neutrophils 6.0 K/CMM 1.5 - 8.1 06/24 MH # /2019 [facility] HEMATOLOGY Basophils 0.4 % 0.0 - 1.0 06/24 /2018 [facility] HEMATOLOGY Segs 70.1 % 45.0 - 03 MH 75.0 /2019 [facility] HEMATOLOGY RBC 3.65 M/CMM 4.20 - 06/23 MH 5.40 /2019 [facility] HEMATOLOGY Hgb 11.1 g/dL 12.0 - 06/23 16.0 [facility] HEMATOLOGY Platelet 158 K/CMM 133 - 450 06/23 [facility] HEMATOLOGY RDW 14.5 % 11.5 - 06/23 MH 14.5 2019 [facility] HEMATOLOGY MCV 90.8 fL 80.0 - 06/23 MH 98.0 2019 [facility] HEMATOLOGY MCH 30.4 pg 27.0 - 06/23 31.0 [facility] HEMATOLOGY MPV 9.5 fL 7.4 - 10.4 06/23 [facility] HEMATOLOGY Hct 33.1 % 36.0 - 06/23 48.0 /2019 [facility] HEMATOLOGY WBC 7.1 K/CMM 3.7 - 10.4 06/23 [facility] HEMATOLOGY MCHC 33.5 g/dL 32.0 - 06/23 MH 36.0 [facility] HEMATOLOGY Segs 68.7 % 45.0 - 03/ 75.0 /2019 [facility] HEMATOLOGY Lymphocytes 20.3 % 20.0 - 03/ 40.0 /2018 [facility] HEMATOLOGY Monocytes 9.2 % 2.0 - 12.0 06/23 [facility] HEMATOLOGY Eosinophils 1.3 % 0.0 - 4.0 06/23 [facility] HEMATOLOGY Basophils 0.5 % 0.0 - 1.0 06/23 [facility] HEMATOLOGY Eosinophils 0.1 K/CMM 0.0 - 0.5 06/23 # [facility] HEMATOLOGY Neutrophils 4.9 K/CMM 1.5 - 8.1 06/23 [facility] HEMATOLOGY Lymphocytes 1.5 K/CMM 1.0 - 5.5 06/23 [facility] HEMATOLOGY Monocytes # 0.7 K/CMM 0.0 - 0.8 06/23 [facility] Pelvis AP Pelvis AP DX Patient Name: AJAY CORTEZ 06/22 - - [facility] : 1940; Age: 78 years y/o Female MR: [id number] Read by: Galen Arnold MD Dictated Date/time: 06/22/18 10:34 Electronically Signed by: Galen Arnold MD 06/22/18 10:35 FINAL REPORT PELVIS, 1 view, portable, postoperative HISTORY: Postoperative study, following left hip arthroplasty. TECHNIQUE: A single portable postoperative frontal view of the pelvis was obtained. IMPRESSION: The left total hip prosthesis is in good position. There is no evidence of unexpected fracture or other complication. There is postoperative soft tissue gas. The right hip prosthesis is also noted. SL: [id number] Pelvis AP Pelvis AP DX Patient Name: AJAY CORTEZ 06/22 - - [facility] : 1940; Age: 78 years y/o Female MR: [id number] Read by: Galen Arnold MD Dictated Date/time: 06/22/18 10:33 Electronically Signed by: Galen Arnold MD 06/22/18 10:34 FINAL REPORT * PELVIS, 1 view, intraoperative HISTORY: Intraoperative radiograph obtained during left hip arthroplasty. TECHNIQUE: A single portable intraoperative frontal view of the pelvis was obtained. IMPRESSION: There has been resection of the left femoral head and neck. The acetabular component has been placed. There is a femoral sizing component. There is no evidence of unexpected fracture. There is operative soft tissue gas. A right hip prosthesis is noted. SL: [id number] URINE AND UA Glucose Negative Negative 06/17 STOOL [facility] (06/17/18 9:53 AM) URINE AND UA Protein Negative Negative 06/17 STOOL [facility] (06/17/18 9:53 AM) URINE AND UA Bili Negative Negative 06/17 [facility] *NA* (06/17/18 9:53 AM) URINE AND UA Ketones Negative Negative 06/17 STOOL [facility] *NA* (06/17/18 9:53 AM) URINE AND UA pH 6.0 5.0 - 8.0 06/17 STOOL [facility] URINE AND UA Spec Grav 1.020 <=1.030 06/17 [facility] URINE AND UA Leuk Est Negative Negative 06/17 STOOL [facility] (06/17/18 9:53 AM) URINE AND UA WBC 1 /HPF 0 - 5 06/17 STOOL [facility] URINE AND UA Blood Small Negative 06/17 STOOL [facility] *ABN* (06/17/18 9:53 AM) URINE AND UA Nitrite Negative Negative 06/17 STOOL [facility] (06/17/18 9:53 AM) URINE AND UA Sq Epi Occasional Few /LPF 06/17 [facility]OOL /LPF [facility] URINE AND UA 0.2 EU/dL 0.1 - 1.0 06/17 STOOL Urobilinogen [facility] URINE AND UA Bacteria Occasional None Seen 06/17 [facility]OOL /HPF /HPF /2018 [facility] URINE AND UA RBC 3 /HPF 0 - 2 06/17 STOOL [facility] URINE AND UA Turbidity Clear Clear 06/17 STOOL [facility] (06/17/18 9:53 AM) URINE AND UA Color Yellow Yellow 06/17 STOOL [facility] *NA* (06/17/18 9:53 AM) BLOOD BANK Antibody Negative 06/17 RESULTS Scrn [facility] (06/17/18 9:36 AM) BLOOD BANK ABO/Rh A POS 06/17 RESULTS /2018 [facility] SPECIAL Hgb A1C 6.7 % <=5.6 % 06/17 CHEMISTRY /2018 [facility] Vital Signs Vital Sign Value Date Comments Source Temperature Oral (F) 98 F 06/24/2018 [facility] Heart Rate 75 06/24/2018 [facility] Respitory Rate 16 06/24/2018 [facility] Systolic (mm Hg) 118 06/24/2018 [facility] Diastolic (mm Hg) 73 06/24/2018 [facility] Systolic (mm Hg) 138 06/24/2018 [facility] Diastolic (mm Hg) 82 06/24/2018 [facility] Respitory Rate 16 06/24/2018 [facility] Heart Rate 97 06/24/2018 [facility] Temperature Oral (F) 98.9 F 06/24/2018 [facility] Heart Rate 84 06/24/2018 [facility] Temperature Oral (F) 97.9 F 06/24/2018 [facility] Systolic (mm Hg) 136 06/24/2018 [facility] Diastolic (mm Hg) 79 06/24/2018 [facility] Respitory Rate 16 06/24/2018 [facility] BMI Calculated 30.33 06/22/2018 [facility] Weight 70.455 06/22/2018 [facility] Height 152.4 cm 06/22/2018 [facility] BMI Calculated 29.94 06/17/2018 [facility] Height 152.4 cm 06/17/2018 [facility] Weight 69.545 06/17/2018 [facility] Encounters Location Location Encounter Encounter Reason Attending ADM DC Status Source Details Type Number For Provider Date Date Visit [facility] Inpatient [id number] Debbie 06/22 06/24 [place] /2018 [facility] Procedures Procedure Code Date Perfomer Comments Source Arthroplasty of [id number] right large [facility] joint of toe foot<sup>1</sup> Arthroscopy of [id number] left [facility] knee<sup>2</sup> Breast [id number] right breast [facility] lumpectomy<sup>3</ sup> Hip [id number] right-replacem [facility] arthroplasty<sup>4 ent </sup> Knee [id number] left [facility] replacement<sup>5< /sup>
--- NOTE | 2018-08-04 11:15 | RAD REPORT ---
EXAM DESCRIPTION: Ultrasound-guided vacuum assisted left breast core biopsy CLINICAL HISTORY: Breast mass R92.8 COMPARISON: U/S GUIDED FNA-NON BREAST dated 08/30/2007; 3D DIAG UNI F/U dated 06/18/2018; 3D SCR TU BI LAT W/CAD dated 06/03/2018 FINDINGS: Informed consent was obtained and time-out was performed. The patient's left breast was prepped and draped in the usual sterile fashion. 1% lidocaine was used for local anesthetic purposes. Utilizing aseptic technique and ultrasound guidance, a 12 gauge vacuum assisted core biopsy device wa s used to obtain a single core specimen through the small mass of interest in the left upper outer qu adrant. A post biopsy clip was then placed. All collected material was sent for cytology. Patient tolerated procedure well. IMPRESSION: Successful ultrasound guided vacuum assisted left breast mass biopsy.
== END ==
LOC: DS 09:46
PROVIDERS: ATTEND Obstetrics & Gynecology
DX: C50.912 Malignant neoplasm of unspecified site of left female breast (principal)
CPT/HCPCS: 19083; 88305

== ENCOUNTER 2018-10-13 07:32 | Day surgery (SDC) | payer OTHER ==
--- NOTE | 2018-10-08 10:47 | EKG ---
Test Date: 2018-10-08 Test Time: 09:44:13 Production Finisher: [employer] MEASUREMENT RESULTS: Intervals: Rate: 63 AL: 210 QRSD: 66 QT: 390 QTc: 399 [place]: P: 35 AL: 210 QRS: 1 T: 51 INTERPRETIVE STATEMENTS: Sinus rhythm with 1st degree AV block Low voltage QRS Borderline ECG Compared to ECG 03/05/2017 09:32:27 First degree AV block now present Electronically Signed On 10-08-18 10:47:30 CDT by Vincent Perez
[2018-10-08 11:09] LABS: Absolute Lymphocytes (CBC) 1.6 K/uL (0.7-4.9); Basophils % 0.6 % (0-1.3); Eosinophils % 5.9 % (0-4.4); Hematocrit 44.5 % (36.0-45.0); MPV 9.7 fL (7.6-11.3); RBC Red Blood Cell Count 4.96 M/uL (3.86-4.86)
[2018-10-08 11:21] LABS: Potassium 4.4 mmol/L (3.5-5.1)
--- OUTSIDE RECORDS SUMMARY | 2018-10-13 07:38 | XMS REPORT | Continuity of Care Document ---
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 [facility] Sleep apnea Resolved Problem 06/26/2018 [facility] UNILATERAL Active PRIMARY [facility] OSTEOARTHRITIS, LEFT Medications Medication Details Route Status Patient Ordering Order Source Instructions Provider Date rivaroxaban 10 mg 10 mg=1 tab, Active oral tablet PO, Q24H, 0 2018 [facility] Refill(s) Acetaminophen 325 1 tab, PO, Q4H, Active MG / Hydrocodone PRN Pain Score 2018 [facility] Bitartrate 10 MG 4-6, 0 Oral Tablet Refill(s) [Biddle 10/325] Lopressor 50 mg, 1 tab, Inactive Route: PO, Drug 2018 [facility] form: TAB, Daily, Dosing Weight 70.455, kg, Start date: 06/24/18 9:00:00 [employer], Duration: 30 day, Stop date: 07/23/18 9:00:00 CDTNotes: (Same as: Lopressor) Synthroid 25 microgram, 1 Inactive tab, Route: PO, 2018 [facility] Drug form: TAB, Q630AM, Dosing Weight 70.455, kg, Start date: 06/24/18 6:30:00 [employer], Duration: 30 day, Stop date: 07/23/18 6:30:00 CDTNotes: Take 1 hour before or 2 hours after meal; Enteral feeds may interefere with the absorption of this medication. (Same as:Levothroid) Losartan 100 mg, 2 tab, No Longer Route: PO, Drug Active 2018 [facility] form: TAB, Bedtime, Dosing Weight 70.455, kg, Start date: 06/23/18 21:00:00 [employer], Duration: 30 day, Stop date: 07/22/18 21:00:00 CDTNotes: (Same as: Cozaar) rosuvastatin 5 mg, 1 tab, No Longer Route: PO, Drug Active 2018 [facility] form: TAB, Q-M-W-F, Dosing Weight 70.455, kg, Start date: 06/23/18 21:00:00 [employer], Duration: 30 day, Stop date: 07/21/18 21:00:00 CDTNotes: Same as Crestor Melatonin 3 mg, 1 tab, No Longer Route: PO, Drug Active 2018 [facility] form: TAB, Bedtime, Dosing Weight 70.455, kg, PRN Insomnia, Start date: 06/23/18 10:09:00 [employer], Duration: 30 day, Stop date: 07/23/18 10:08:00 CDTNotes: (Same as: Melatonin) Thyroxine 25 microgram, 1 Inactive tab, Route: PO, 2018 [facility] Drug form: TAB, Q630AM, Dosing Weight 70.455, kg, Start date: 06/23/18 7:30:00 [employer], Duration: 30 day, Stop date: 07/23/18 6:30:00 CDTNotes: Take 1 hour before or 2 hours after meal; Enteral feeds may interefere with the absorption of this medication. (Same as:Levothroid) Levothyroxine 25 microgram=1 Active Sodium 0.025 MG tab, PO, Daily, 2018 [facility] Oral Tablet 0 Refill(s) [Synthroid] Saline Flush 0.9% 10 ml, Route: No Longer IVP, Drug Form: Active 2018 [facility] INJ, Dosing Weight 69.545, kg, Q12H, Start date: 06/22/18 21:00:00 [employer], Duration: 30 day, Stop date: 07/22/18 9:00:00 CDTNotes: (Same as: BD Posiflush) Vancomycin 1,000 mg, No Longer Route: IVPB, Active 2018 [facility] [id number], Dosing Weight 69.545, kg, Time Critical Medication, Start date: 06/22/18 18:00:00 [employer], Duration: 2 doses or times, Stop date: 06/23/18 6:00:00 [employer], Pharmacy to adjust dose for renal function, ABX Indication: Surgical Pr...Notes: TIME CRITICAL MEDICATION (Same As: Vancocin) Infusion rate 2001 mg: infuse over 2.5 hours For adult patients only: Round to nearest 250 mg per Medical Staff approval MEDICATION WASTE Product Size: 1000 mg Product Wasted: ___ mg Zofran 4 mg, 1 tab, No Longer Route: PO, Drug Active 2018 [facility] form: TAB, Q8H, Dosing Weight 70.455, kg, PRN Nausea, Start date: 06/22/18 17:09:00 [employer], Duration: 30 day, Stop date: 07/22/18 17:08:00 CDTNotes: (Same as: Zofran) rivaroxaban 10 mg, 1 tab, No Longer Route: PO, Drug Active 2018 [facility] form: TAB, Q24H, Dosing Weight 69.545, kg, Start date: 06/22/18 15:15:00 [employer], Stop date: 07/21/18 15:15:00 CDTNotes: (Same as: Xarelto) Cefazolin 1 gm, Route: No Longer IV, ABXQ8H, 2018 [facility] Dosing Weight 69.545, kg, Start date: 06/22/18 14:00:00 [employer], Duration: 3 doses or times, Stop date: 06/23/18 7:05:00 [employer], ABX Indication: Surgical ProphylaxisNote s: (Same As: Ancef Kefzol) MEDICATION WASTE Product Size: 1000 mg Product Wasted: ___ mg Streptococcus 0.5 mL, Route: No Longer pneumoniae IM, Drug Form: Active 2018 [facility] serotype 1 INJ, ONCALL, capsular antigen Start date: diphtheria [id number] 06/22/18 protein conjugate 10:32:40 [employer], vaccine / Stop date: Streptococcus 07/22/18 pneumoniae 10:27:40 serotype 14 CDTNotes: Shake capsular antigen well prior to diphtheria [id number] use (Same as: protein conjugate Prevnar 13) vaccine / Streptococcus pneumoniae serotype 18C capsular antigen d Acetaminophen 325 2 tab, Route: No Longer MG / Hydrocodone PO, Drug Form: Active 2018 [facility] Bitartrate 10 MG TAB, Dosing Oral Tablet Weight 69.545, [Biddle 10/325] kg, TID, PRN Pain Score 4-6, Start date: 06/22/18 9:18:00 [employer], Duration: 4 doses or times, Stop date: Limited # of timesNotes: Do not exceed 4gm/day of acetaminophen. (Same as: Biddle 325/10) Dilaudid 0.5 mg, 0.5 mL, No Longer Route: IVP, Active 2018 [facility] Drug form: SOLN, Q4H, Dosing Weight 69.545, kg, PRN Pain Score 7-10, Start date: 06/22/18 9:18:00 [employer], Duration: 30 day, Stop date: 07/22/18 9:17:00 CDTNotes: (Same as: Dilaudid) Saline Flush 0.9% 10 ml, Route: No Longer IVP, Drug Form: Active 2018 [facility] INJ, Dosing Weight 69.545, kg, PRN, PRN Line Flush, Start date: 06/22/18 9:18:00 [employer], Duration: 30 day, Stop date: 07/22/18 10:17:00 CDTNotes: (Same as: BD Posiflush) 1/2 NS 1,000 mL 1,000 mL, Rate: No Longer 75 ml/hr, Active 2018 [facility] Infuse over: 13.3 hr, Route: IV, Dosing Weight 69.545 kg, Total Volume: 1,000, Start date: 06/22/18 9:18:00 [employer], Duration: 30 day, Stop date: 07/22/18 9:17:00 CDT, 1.74, m2 Ofirmev 1,000 mg, Inactive Route: IV, Drug 2018 [facility] form: INJ, ONCE, Dosing Weight 69.545, kg, PRN Pain Score 1-3, for > or=50 kg, Start date: 06/22/18 9:17:00 [employer], Substitute Allowed No Oxycodone 10 mg, Route: Inactive PO, Drug form: 2019 [facility] TAB, Q4H, Dosing Weight 69.545, kg, PRN Pain Score 7-10, Start date: 06/22/18 9:17:00 [employer], Duration: 30 day, Stop date: 07/22/18 9:16:00 CDT Hydromorphone 0.5 mg, Route: Inactive IVP, Q5Min, 2018 [facility] Dosing Weight 69.545, kg, PRN Pain Score 7-10, Start date: 06/22/18 9:17:00 [employer], Duration: 4 doses or times, Stop date: Limited # of times Fentanyl 25 microgram, Inactive Route: IVP, 2018 [facility] Q5Min, Dosing Weight 69.545, kg, PRN Pain Score 4-6, Priority: Routine, Start date: 06/22/18 9:17:00 [employer], Duration: 4 doses or times, Stop date: Limited # of times Labetalol 10 mg, Route: Inactive IVP, Q5Min, 2018 [facility] Dosing Weight 69.545, kg, PRN Elevated BP, Start date: 06/22/18 9:17:00 [employer], Duration: 5 doses or times, Stop date: Limited # of times esmolol 10 mg, Route: Inactive IVP, Q5Min, 2018 [facility] Dosing Weight 69.545, kg, PRN Other -See Comment, Start date: 06/22/18 9:17:00 [employer], Duration: 5 doses or times, Stop date: Limited # of times Hydralazine 10 mg, Route: Inactive IVP, Q20Min, 2018 [facility] Dosing Weight 69.545, kg, PRN Elevated BP, Start date: 06/22/18 9:17:00 [employer], Duration: 2 doses or times, Stop date: Limited # of times Ondansetron 4 mg, Route: Inactive IVP, ONCE, 2018 [facility] Dosing Weight 69.545, kg, PRN Nausea & Vomiting, Start date: 06/22/18 9:17:00 [employer] Meperidine 12.5 mg, Route: Inactive IVP, Q30Min, 2018 [facility] Dosing Weight 69.545, kg, PRN Other -See Comment, For shivering, Start date: 06/22/18 9:17:00 [employer], Duration: 2 doses or times, Stop date: Limited # of times Albuterol 0.83 2.49 mg, Route: Inactive MH MG/ML Inhalant NEB, Q20Min, 2018 [facility] Solution Dosing Weight 69.545, kg, PRN Wheezing, Priority: STAT, Start date: 06/22/18 9:17:00 [employer], Duration: 30 day, Stop date: 07/22/18 10:16:00 CDT Diphenhydramine 12.5 mg, Route: Inactive 06/22/ MH IVP, Drug form: 2018 [facility] INJ, Q6H, Dosing Weight 69.545, kg, PRN Itching, Start date: 06/22/18 9:17:00 [employer], Duration: 30 day, Stop date: 07/22/18 9:16:00 CDT Naloxone 0.4 mg, Route: Inactive MH IVP, Q2MIN, 2018 [facility] Dosing Weight 69.545, kg, PRN Narcotic Reversal, Start date: 06/22/18 9:17:00 [employer], Duration: 8 doses or times, Stop date: Limited # of times Flumazenil 0.2 mg, Route: Inactive IVP, PRN, 2018 [facility] Dosing Weight 69.545, kg, PRN Benzodiazepine Reversal, Initial dose, Start date: 06/22/18 9:17:00 [employer], Duration: 30 day, Stop date: 07/22/18 10:16:00 CDT neostigmine Route: IV, Drug Inactive 06/22/ MH (ANES) form: INJ, 2018 ONCE, Stop date: 06/22/18 9:00:00 [employer] glycopyrrolate Route: IV, Drug Inactive 06/22/ MH (ANES) form: INJ, 2018 ONCE, Stop date: 06/22/18 9:00:00 [employer] phenylephrine Route: IV, Drug Inactive 06/22/ MH (ANES) form: INJ, 2018 ONCE, Stop date: 06/22/18 7:52:00 [employer] ePHEDrine (ANES) Route: IV, Drug Inactive 06/22/ MH form: INJ, 2018 ONCE, Stop date: 06/22/18 7:52:00 [employer] tranexamic acid Route: IV, Drug Inactive 06/22/ MH (ANES) form: INJ, 2018, Stop date: 06/22/18 7:42:00 [employer] famotidine (ANES) Route: IV, Drug Inactive 06/22/ MH form: INJ, 2018, Stop date: 06/22/18 7:42:00 [employer] ondansetron Route: IV, Drug Inactive 06/22/ MH (ANES) form: [id number], Stop date: 06/22/18 7:42:00 [employer] acetaminophen Route: IV, Drug Inactive 06/22/ MH (ANES) form: INJ2018, Stop date: 06/22/18 7:42:00 [employer] ceFAZolin (ANES) Route: IV, Drug Inactive 06/22/ MH form: [id number], Stop date: 06/22/18 7:42:00 [employer] fentaNYL (ANES) Route: IV, Drug Inactive 06/22/ MH form: [id number], Stop date: 06/22/18 7:37:00 [employer] propofol (ANES) Route: IV, Drug Inactive 06/22/ MH form: INJ2018, Stop date: 06/22/18 7:37:00 [employer] rocuronium (ANES) Route: IV, Drug Inactive 06/22/ MH form: INJ2018, Stop date: 06/22/18 7:37:00 [employer] lidocaine (ANES) Route: IV, Drug Inactive 06/22/ MH form: [id number], Stop date: 06/22/18 7:32:00 [employer] vancomycin (ANES) Route: IV, Drug Inactive 06/22/ MH 1000 mg form: INJ, 2018 Start date: 06/22/18 6:45:00 [employer], Stop date: 06/22/18 7:45:00 [employer] Lactated Ringers Route: IV, Inactive 06/22/ MH Injection IV Total Volume: 2018 (ANES) 1000 mL 1,000, Start date: 06/22/18 6:30:00 [employer], Stop date: 06/22/18 7:30:00 [employer] gabapentin 600 MG 600 mg, 1 tab, Inactive Oral Tablet Route: PO, 2018, Dosing Weight 69.545, kg, Start date: 06/22/18 6:15:00 [employer], Stop date: 06/22/18 6:15:00 [employer] ropivacaine 100 mL, Route: No Longer InFILtration(lo Active 2018 [facility]), Drug Form: INJ, Dosing Weight 69.545, kg, ONCALL, Start date: 06/21/18 20:00:00 [employer], Duration: 30 day, Stop date: 07/21/18 20:59:00 CDTNotes: NOT FOR IV use Ropivacaine 5 mg/mL (49.25 mL) Epinephrine 1 mg/mL (0.5 mL) Clonidine 0.1 mg/mL (0.8 mL) Ketorolac 30 mg/mL (1 mL) Normal Saline 48.45 mL Calcium Chloride 1,000 mL, Rate: No Longer 0.0014 MEQ/ML / 25 ml/hr, Active 2018 [facility] Potassium Infuse over: 40 Chloride 0.004 hr, Route: IV, MEQ/ML / Sodium Dosing Weight Chloride 0.103 69.545 kg, MEQ/ML / Sodium Total Volume: Lactate 0.028 1,000, Start MEQ/ML Injectable date: 06/21/18 Solution 19:15:00 [employer], Duration: 30 day, Stop date: 07/21/18 19:14:00 CDT Allergies, Adverse Reactions, Alerts Substance Category Reaction Severity Reaction Status Date Comments Source type Reported ciprofloxaci Assertion Drug Active n allergy [facility] vancomycin Assertion Drug Active allergy [facility] aspirin Assertion Drug Active allergy [facility] Adhesive Assertion Propensity Active Tape to adverse [facility] reactions to substance PHENobarbita Assertion Drug Active l allergy [facility] Immunizations Immunization Date Given Site Status Last Updated Comments Source Results Order Name Results Value Reference Date Interpretation Comments Source Range HEMATOLOGY MPV 9.8 fL 7.4 - 10.4 06/24 [facility] HEMATOLOGY Platelet 192 K/CMM 133 - 450 06/24 [facility] HEMATOLOGY RBC 4.06 M/CMM 4.20 - 06/24 5.40 [facility] HEMATOLOGY Hgb 12.3 g/dL 12.0 - 06/24 16.0 [facility] HEMATOLOGY Hct 36.8 % 36.0 - 06/24 48.0 [facility] HEMATOLOGY MCV 90.6 fL 80.0 - 06/24 [...] % 20.0 - 06/24 MH 40.0 /2018 [facility] HEMATOLOGY Monocytes 8.8 % 2.0 - 12.0 06/24 /2018 [facility] HEMATOLOGY Eosinophils 3.0 % 0.0 - 4.0 06/24 [facility] HEMATOLOGY Neutrophils 6.0 K/CMM 1.5 - 8.1 06/24 MH # /2019 [facility] HEMATOLOGY Basophils 0.4 % 0.0 - 1.0 06/24 /2018 [facility] HEMATOLOGY Segs 70.1 % 45.0 - 03 MH 75.0 /2019 [facility] HEMATOLOGY RBC 3.65 M/CMM 4.20 - 06/23 MH 5.40 /2019 [facility] HEMATOLOGY Hgb 11.1 g/dL 12.0 - 06/23 16.0 [facility] HEMATOLOGY Platelet 158 K/CMM 133 - 450 06/23 [facility] HEMATOLOGY RDW 14.5 % 11.5 - 06/23 MH 14.5 2019 [facility] HEMATOLOGY MCV 90.8 fL 80.0 - 06/23 MH 98.0 2019 [facility] HEMATOLOGY MCH 30.4 pg 27.0 - 06/23 31.0 [facility] HEMATOLOGY MPV 9.5 fL 7.4 - 10.4 06/23 [facility] HEMATOLOGY Hct 33.1 % 36.0 - 06/23 48.0 /2019 [facility] HEMATOLOGY WBC 7.1 K/CMM 3.7 - 10.4 06/23 [facility] HEMATOLOGY MCHC 33.5 g/dL 32.0 - 06/23 MH 36.0 [facility] HEMATOLOGY Segs 68.7 % 45.0 - 03/ 75.0 /2019 [facility] HEMATOLOGY Lymphocytes 20.3 % 20.0 - 03/ 40.0 /2018 [facility] HEMATOLOGY Monocytes 9.2 % 2.0 - 12.0 06/23 [facility] HEMATOLOGY Eosinophils 1.3 % 0.0 - 4.0 06/23 [facility] HEMATOLOGY Basophils 0.5 % 0.0 - 1.0 06/23 [facility] HEMATOLOGY Eosinophils 0.1 K/CMM 0.0 - 0.5 06/23 # [facility] HEMATOLOGY Neutrophils 4.9 K/CMM 1.5 - 8.1 06/23 [facility] HEMATOLOGY Lymphocytes 1.5 K/CMM 1.0 - 5.5 06/23 [facility] HEMATOLOGY Monocytes # 0.7 K/CMM 0.0 - 0.8 06/23 [facility] Pelvis AP Pelvis AP DX Patient Name: AJAY CORTEZ 06/22 - - [facility] : 1940; Age: 78 years y/o Female MR: [id number] Read by: Galen Arnold MD Dictated Date/time: [...] right hip prosthesis is also noted. SL: [id number] Pelvis AP Pelvis AP DX Patient Name: AJAY CORTEZ 06/22 - - [facility] : 1940; Age: 78 years y/o Female MR: [id number] Read by: Galen Arnold MD Dictated Date/time: [...] A right hip prosthesis is noted. SL: [id number] URINE AND UA Glucose Negative Negative 06/17 STOOL [facility] (06/17/18 9:53 AM) URINE AND UA Protein Negative Negative 06/17 STOOL [facility] (06/17/18 9:53 AM) URINE AND UA Bili Negative Negative 06/17 [facility] *NA* (06/17/18 9:53 AM) URINE AND UA Ketones Negative Negative 06/17 STOOL [facility] *NA* (06/17/18 9:53 AM) URINE AND UA pH 6.0 5.0 - 8.0 06/17 STOOL [facility] URINE AND UA Spec Grav 1.020 <=1.030 06/17 [facility] URINE AND UA Leuk Est Negative Negative 06/17 STOOL [facility] (06/17/18 9:53 AM) URINE AND UA WBC 1 /HPF 0 - 5 06/17 STOOL [facility] URINE AND UA Blood Small Negative 06/17 STOOL [facility] *ABN* (06/17/18 9:53 AM) URINE AND UA Nitrite Negative Negative 06/17 STOOL [facility] (06/17/18 9:53 AM) URINE AND UA Sq Epi Occasional Few /LPF 06/17 STOOL /LPF [facility] URINE AND UA 0.2 EU/dL 0.1 - 1.0 06/17 STOOL Urobilinogen [facility] URINE AND UA Bacteria Occasional None Seen 06/17 STOOL /HPF /HPF /2018 [facility] URINE AND UA RBC 3 /HPF 0 - 2 06/17 STOOL [facility] URINE AND UA Turbidity Clear Clear 06/17 STOOL [facility] (06/17/18 9:53 AM) URINE AND UA Color Yellow Yellow 06/17 STOOL [facility] *NA* (06/17/18 9:53 AM) BLOOD BANK Antibody Negative 06/17 RESULTS Scrn [facility] (06/17/18 9:36 AM) BLOOD BANK ABO/Rh A POS 06/17 RESULTS /2018 [facility] SPECIAL Hgb A1C 6.7 % <=5.6 % 06/17 CHEMISTRY /2018 [facility] Vital Signs Vital Sign Value Date Comments Source Temperature Oral (F) 98 F 06/24/2018 [facility] Heart Rate 75 06/24/2018 [facility] Respitory Rate 16 06/24/2018 [facility] Systolic (mm Hg) 118 06/24/2018 [facility] Diastolic (mm Hg) 73 06/24/2018 [facility] Systolic (mm Hg) 138 06/24/2018 [facility] Diastolic (mm Hg) 82 06/24/2018 [facility] Respitory Rate 16 06/24/2018 [facility] Heart Rate 97 06/24/2018 [facility] Temperature Oral (F) 98.9 F 06/24/2018 [facility] Heart Rate 84 06/24/2018 [facility] Temperature Oral (F) 97.9 F 06/24/2018 [facility] Systolic (mm Hg) 136 06/24/2018 [facility] Diastolic (mm Hg) 79 06/24/2018 [facility] Respitory Rate 16 06/24/2018 [facility] BMI Calculated 30.33 06/22/2018 [facility] Weight 70.455 06/22/2018 [facility] Height 152.4 cm 06/22/2018 [facility] BMI Calculated 29.94 06/17/2018 [facility] Height 152.4 cm 06/17/2018 [facility] Weight 69.545 06/17/2018 [facility] Encounters Location Location Encounter Encounter Reason Attending ADM DC Status Source Details Type Number For Provider Date Date Visit [facility] Inpatient [id number] Debbie 06/22 06/24 [place] /2018 [facility] Procedures Procedure Code Date Perfomer Comments Source Arthroplasty of [id number] right large [facility] joint of toe foot<sup>1</sup> Arthroscopy of [id number] left [facility] knee<sup>2</sup> Breast [id number] right breast [facility] lumpectomy<sup>3</ sup> Hip [id number] right-replacem [facility] arthroplasty<sup>4 ent </sup> Knee [id number] left [facility] replacement<sup>5< /sup>
[2018-10-13] MEDS ORDERED: CEFAZOLIN/SWI 1gm 1 GM/10 ML SYR ONE (08:04)
[2018-10-13] MEDS ORDERED: NA CHLORIDE 0.9% 1,000 ML ONE (08:04)
[2018-10-13] MEDS ORDERED: MIDAZOLAM HCL 2 MG/2 ML INJ ONE (10:36)
[2018-10-13] MEDS ORDERED: PROPOFOL 200 MG/20 ML VIAL IV ONE (10:36)
[2018-10-13] MEDS ORDERED: FENTANYL CITR 250 MCG/5 ML ONE (10:37)
[2018-10-13] MEDS ORDERED: LIDOCAINE 2% MPF 5 ML VIAL ONE (10:37)
[2018-10-13] MEDS ORDERED: GLYCOPYRROLATE 0.2 MG/ML SYR ONE (10:37)
[2018-10-13] MEDS ORDERED: ROCURONIUM 50 MG/5 ML VIAL IV ONE ×2 (10:38→11:06)
[2018-10-13] MEDS ORDERED: METHYLENE BLUE 0.5% 10 ML AMP ONE (10:39)
[2018-10-13] MEDS ORDERED: EPHEDRINE SULF 50 MG/ML VIAL ONE (11:06)
--- NOTE | 2018-10-13 11:37 | RAD REPORT ---
EXAM DESCRIPTION: US - Surgical Specimen - 10/13/2018 11:30 am CLINICAL HISTORY: SPEC Status postlumpectomy for carcinoma. COMPARISON: Brst,Preop NL Wire Init w/Guid dated 10/13/2018 FINDINGS: Sonography of the surgical specimen was performed. Small hypoechoic mass of interest is se en within the specimen. Findings were communicated to Dr. Montes De Oca.
[2018-10-13] MEDS ORDERED: NEOSTIGMINE 1 MG/ML -10 ML VIAL ONE (11:53)
[2018-10-13] MEDS: MEPERIDINE HCL 50 MG/ML AMP ONE ×3 (12:02→12:12)
[2018-10-13] MEDS ORDERED: NA CHLORIDE 0.9% 500 ML ONE (12:21)
[2018-10-13] MEDS: MEPERIDINE HCL 25 MG/0.5 ML ONE ×2 (12:24→12:29)
[2018-10-13] MEDS ORDERED: ONDANSETRON 4 MG/2 ML VIAL IV ONE (13:20)
[2018-10-13] MEDS ORDERED: ONDANSETRON 4 MG/2 ML VIAL ONE (13:38)
[2018-10-13] MEDS ORDERED: HYDROCODONE/APAP 5/325 MG TAB ONE (14:19)
[2018-10-13 14:43] VITALS: BP 127/44; TEMP 98.5; O2SAT 94
--- NOTE | 2018-10-13 23:00 | OP ---
Date of Procedure: 10/13/2018 Surgeon: Eusebio Montes De Oca MD Repairer Shoe Sticks: AGUSTIN Boateng. Preoperative Diagnosis: Left breast cancer. Postoperative Diagnosis: Left breast cancer. Procedure: Needle localization, left breast lumpectomy, and sentinel node biopsy. Estimated Blood Loss: Minimal. Specimen: Tyner node, which was negative for metastatic disease and lumpectomy specimen, which ma rgins were negative. Findings: As above. Anesthesia: General. Complications: None. Disposition: The patient tolerated the procedure in stable condition, was taken to recovery in good general condition. Procedure In Detail: The patient was brought to the OR and placed in supine position and then under sterile condition, methylene blue injected around the nipple-areolar margin and breast massaged and t hen patient was prepped and draped in usual sterile fashion. Then, the counting device used to isola te the sentinel node in the left axilla and then a 3-cm incision made and all the numbers recorded on the medical records and then a blue lymph node deep in the subcutaneous tissue identified, vascular clips use and vascular component of the lymph node clipped and then the lymph node sent to Pathology. Frozen section revealed no evidence of metastatic disease. Wound irrigated. Bleeding controlled w ith cautery. A 3-0 chromic used to approximate the subcutaneous tissue and close the skin. Then, a 6 x 4 cm incision made in the upper left breast around the needle that was present and then core tiss ue around the tip of the needle excised all the way around with flaps being created and then the lump ectomy specimen sent to Radiology, confirmation obtained. Margins negative. Wound was irrigated, bl eeding controlled with cautery. A 3-0 chromic used to approximate subcutaneous tissue and close the skin. Sterile dressing was applied. The patient was awakened and taken to Recovery in good general condition. Discharge Note: The patient will go to day surgery and home when stable. Disposition: Home. Condition: Stable. Discharge Instructions: Resume home meds and diet. Activity as tolerated. Keep dressing clean and dry. Sponge bathe only. Follow up in my office in 1 week. Call for appointment. Tylenol No. 3 one tablet p.o. q.4 p.r.n. pain, Keflex 500 mg p.o. q.6. /MODL Voice ID: [id number] Report ID: [id number]
== END 2018-10-13 15:20 | disposition home or self-care (01) ==
LOC: OR 07:32
PROVIDERS: ATTEND Surgery
PROC: 07B60ZX Excision of Left Axillary Lymphatic, Open Approach, Diagnostic (ICD-10-PCS; 2018-10-13)
PROC: 3E0W3KZ Introduction of Other Diagnostic Substance into Lymphatics, Percutaneous Approach (ICD-10-PCS; 2018-10-13)
PROC: 0HBU0ZX Excision of Left Breast, Open Approach, Diagnostic (ICD-10-PCS; principal; 2018-10-13 10:00)
DX: C50.912 Malignant neoplasm of unspecified site of left female breast (principal); Z17.0 Estrogen receptor positive status [ER+]; I10 Essential (primary) hypertension; E11.9 Type 2 diabetes mellitus without complications; Z79.84 Long term (current) use of oral hypoglycemic drugs; Z79.899 Other long term (current) drug therapy
CPT/HCPCS: 19125; 38525; 38900; 93005; 85025; 80048; 36415; 82962 ×2; 88307; 88333; 76098; J2704; J2710; J3010; J2175 ×2; J0690; J7030; J2405 ×2; 88305; 88331; J2250

== ENCOUNTER 2018-10-22 08:50 | Day surgery (SDC) | payer OTHER ==
--- OUTSIDE RECORDS SUMMARY | 2018-10-22 08:57 | XMS REPORT | Continuity of Care Document ---
:1940 Author Organization [facility] Care Team Providers Name Role Phone [facility] Unavailable Unavailable Problems Problem Status Onset Classification Date Comments Source Date Reported UNK Active 05/13/19 [place] 19 YOUNG Active 09/30/19 Finding 10/13/[address] [facility] Cellulitis of Active 09/30/19 Finding 10/13/[address] [facility] [place] DM2 Active 09/30/19 Finding 10/13/[address] [facility] HLD Active 09/30/19 Finding 10/13/[address] [facility] Sciatic leg pain Active 09/30/19 Finding 10/13/[address] [facility] Glaucoma Active 09/30/19 Finding 10/13/[address] [facility] HTN Active 09/30/19 Finding 10/13/[address] 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 [place] Bacteremia due to Active Finding 10/13/[address] [facility] [facility] St[facility] [place] UNILATERAL Active [facility] PRIMARY OSTEOARTHRITIS, LEFT Medications Medication Details Route Status Patient Ordering Order Source Instructions Provider Date Grape Seed DAILY ORAL Active 10/08/ [facility] [place] L.Acidoph,[place] DAILY ORAL Active 10/08/ [facility], B.Lactis [facility] [place] Magnesium Oxide DAILY ORAL Active [facility] [place] Milk Thistle DAILY ORAL Active 06/21/ [facility] [place] Selenium DAILY ORAL Active [facility] [place] Turmeric Root DAILY ORAL Active [facility] Extract 2019 [place] Ubidecarenone/Vi DAILY ORAL Active [facility] Acetate 2019 [facility] [place] Vitamin E DAILY ORAL Active . 2019 [facility] Vitamin B DAILY ORAL Active [facility] Complex 2019 [facility] [place] Ascorbic Acid DAILY ORAL Active [facility] 2019 [facility] [place] rivaroxaban 10 10 mg=1 tab, Active mg oral tablet PO, Q24H, 0 2018 [facility] Refill(s) Acetaminophen 1 tab, PO, Q4H, Active 325 MG / PRN Pain Score 2018 [facility] Hydrocodone 4-6, 0 Bitartrate 10 MG Refill(s) Oral Tablet [[place] 10/325] Lopressor 50 mg, 1 tab, Inactive Route: PO, Drug 2018 [facility] form: TAB, Daily, Dosing Weight 70.455, kg, Start date: 06/24/18 9:00:00 LOADER OPERATOR SUPERVISOR, Duration: 30 day, Stop date: 07/23/18 9:00:00 CDTNotes: (Same as: Lopressor) Synthroid 25 microgram, 1 Inactive tab, Route: PO, 2018 [facility] Drug form: TAB, Q630AM, Dosing Weight 70.455, kg, Start date: 06/24/18 6:30:00 LOADER OPERATOR SUPERVISOR, Duration: 30 day, Stop date: 07/23/18 6:30:00 CDTNotes: Take 1 hour before or 2 hours after meal; Enteral feeds may interefere with the absorption of this medication. (Same as:Levothroid) Losartan 100 mg, 2 tab, No Longer Route: PO, Drug Active 2018 [facility] form: TAB, Bedtime, Dosing Weight 70.455, kg, Start date: 06/23/18 21:00:00 LOADER OPERATOR SUPERVISOR, Duration: 30 day, Stop date: 07/22/18 21:00:00 CDTNotes: (Same as: Cozaar) rosuvastatin 5 mg, 1 tab, No Longer Route: PO, Drug Active 2018 [facility] form: TAB, Q-M-W-F, Dosing Weight 70.455, kg, Start date: 06/23/18 21:00:00 LOADER OPERATOR SUPERVISOR, Duration: 30 day, Stop date: 07/21/18 21:00:00 CDTNotes: Same as Crestor Melatonin 3 mg, 1 tab, No Longer Route: PO, Drug Active 2018 [facility] form: TAB, Bedtime, Dosing Weight 70.455, kg, PRN Insomnia, Start date: 06/23/18 10:09:00 LOADER OPERATOR SUPERVISOR, Duration: 30 day, Stop date: 07/23/18 10:08:00 CDTNotes: (Same as: Melatonin) Thyroxine 25 microgram, 1 Inactive tab, Route: PO, 2018 [facility] Drug form: TAB, Q630AM, Dosing Weight 70.455, kg, Start date: 06/23/18 7:30:00 LOADER OPERATOR SUPERVISOR, Duration: 30 day, Stop date: 07/23/18 6:30:00 CDTNotes: Take 1 hour before or 2 hours after meal; Enteral feeds may interefere with the absorption of this medication. (Same as:Levothroid) Levothyroxine 25 microgram=1 Active Sodium 0.025 MG tab, PO, Daily, 2018 [facility] Oral Tablet 0 Refill(s) [Synthroid] Saline Flush 10 ml, Route: No Longer 0.9% IVP, Drug Form: Active 2018 [facility] INJ, Dosing Weight 69.545, kg, Q12H, Start date: 06/22/18 21:00:00 LOADER OPERATOR SUPERVISOR, Duration: 30 day, Stop date: 07/22/18 9:00:00 CDTNotes: (Same as: BD Posiflush) Vancomycin 1,000 mg, No Longer Route: IVPB, Active 2018 [facility] [id number], Dosing Weight 69.545, kg, Time Critical Medication, Start date: 06/22/18 18:00:00 LOADER OPERATOR SUPERVISOR, Duration: 2 doses or times, Stop date: 06/23/18 6:00:00 LOADER OPERATOR SUPERVISOR, Pharmacy to adjust dose for renal function, ABX Indication: Surgical Pr...Notes: TIME CRITICAL MEDICATION (Same As: Vancocin) Infusion rate 2001 mg: infuse over 2.5 hours For adult patients only: Round to nearest 250 mg per Medical Staff approval MEDICATION WASTE Product Size: 1000 mg Product Wasted: ___ mg Zofran 4 mg, 1 tab, No Longer Route: PO, Drug Active 2018 [facility] form: TAB, Q8H, Dosing Weight 70.455, kg, PRN Nausea, Start date: 06/22/18 17:09:00 LOADER OPERATOR SUPERVISOR, Duration: 30 day, Stop date: 07/22/18 17:08:00 CDTNotes: (Same as: Zofran) rivaroxaban 10 mg, 1 tab, No Longer Route: PO, Drug Active 2018 [facility] form: TAB, Q24H, Dosing Weight 69.545, kg, Start date: 06/22/18 15:15:00 LOADER OPERATOR SUPERVISOR, Stop date: 07/21/18 15:15:00 CDTNotes: (Same as: Xarelto) Cefazolin 1 gm, Route: No Longer IV, ABXQ8H, Active 2018 [facility] Dosing Weight 69.545, kg, Start date: 06/22/18 14:00:00 LOADER OPERATOR SUPERVISOR, Duration: 3 doses or times, Stop date: 06/23/18 7:05:00 LOADER OPERATOR SUPERVISOR, ABX Indication: Surgical ProphylaxisNote s: (Same As: Ancef, Kefzol) MEDICATION WASTE Product Size: 1000 mg Product Wasted: ___ mg Streptococcus 0.5 mL, Route: No Longer pneumoniae IM, Drug Form: Active 2018 [facility] serotype 1 INJ, ONCALL, capsular antigen Start date: diphtheria 06/22/18 [id number] protein 10:32:40 LOADER OPERATOR SUPERVISOR, conjugate Stop date: 07/22/18 Streptococcus 10:27:40 pneumoniae CDTNotes: Shake serotype 14 well prior to capsular antigen use (Same as: diphtheria Prevnar 13) [id number] protein conjugate vaccine / Streptococcus pneumoniae serotype 18C capsular antigen d Acetaminophen 2 tab, Route: No Longer 325 MG / PO, Drug Form: Active 2018 [facility] Hydrocodone TAB, Dosing Bitartrate 10 MG Weight 69.545, Oral Tablet kg, TID, PRN [[place] 10/325] Pain Score 4-6, Start date: 06/22/18 9:18:00 LOADER OPERATOR SUPERVISOR, Duration: 4 doses or times, Stop date: Limited # of timesNotes: Do not exceed 4gm/day of acetaminophen. (Same as: [place] 325/10) Dilaudid 0.5 mg, 0.5 mL, No Longer Route: IVP, Active 2018 [facility] Drug form: SOLN, Q4H, Dosing Weight 69.545, kg, PRN Pain Score 7-10, Start date: 06/22/18 9:18:00 LOADER OPERATOR SUPERVISOR, Duration: 30 day, Stop date: 07/22/18 9:17:00 CDTNotes: (Same as: Dilaudid) Saline Flush 10 ml, Route: No Longer 0.9% IVP, Drug Form: Active 2018 [facility] INJ, Dosing Weight 69.545, kg, PRN, PRN Line Flush, Start date: 06/22/18 9:18:00 LOADER OPERATOR SUPERVISOR, Duration: 30 day, Stop date: 07/22/18 10:17:00 CDTNotes: (Same as: BD Posiflush) 1/2 NS 1,000 mL 1,000 mL, Rate: No Longer 75 ml/hr, Active 2018 [facility] Infuse over: 13.3 hr, Route: IV, Dosing Weight 69.545 kg, Total Volume: 1,000, Start date: 06/22/18 9:18:00 LOADER OPERATOR SUPERVISOR, Duration: 30 day, Stop date: 07/22/18 9:17:00 CDT, 1.74, m2 Ofirmev 1,000 mg, Inactive Route: IV, Drug 2018 [facility] form: INJ, ONCE, Dosing Weight 69.545, kg, PRN Pain Score 1-3, for > or=50 kg, Start date: 06/22/18 9:17:00 LOADER OPERATOR SUPERVISOR, Substitute Allowed No Oxycodone 10 mg, Route: Inactive PO, Drug form: 2018 [facility] TAB, Q4H, Dosing Weight 69.545, kg, PRN Pain Score 7-10, Start date: 06/22/18 9:17:00 LOADER OPERATOR SUPERVISOR, Duration: 30 day, Stop date: 07/22/18 9:16:00 CDT Hydromorphone 0.5 mg, Route: Inactive IVP, Q5Min, 2018 [facility] Dosing Weight 69.545, kg, PRN Pain Score 7-10, Start date: 06/22/18 9:17:00 LOADER OPERATOR SUPERVISOR, Duration: 4 doses or times, Stop date: Limited # of times Fentanyl 25 microgram, Inactive Route: IVP, 2018 [facility] Q5Min, Dosing Weight 69.545, kg, PRN Pain Score 4-6, Priority: Routine, Start date: 06/22/18 9:17:00 LOADER OPERATOR SUPERVISOR, Duration: 4 doses or times, Stop date: Limited # of times Labetalol 10 mg, Route: Inactive IVP, Q5Min, 2018 [facility] Dosing Weight 69.545, kg, PRN Elevated BP, Start date: 06/22/18 9:17:00 LOADER OPERATOR SUPERVISOR, Duration: 5 doses or times, Stop date: Limited # of times esmolol 10 mg, Route: Inactive IVP, Q5Min, 2018 [facility] Dosing Weight 69.545, kg, PRN Other -See Comment, Start date: 06/22/18 9:17:00 LOADER OPERATOR SUPERVISOR, Duration: 5 doses or times, Stop date: Limited # of times Hydralazine 10 mg, Route: Inactive IVP, Q20Min, 2018 [facility] Dosing Weight 69.545, kg, PRN Elevated BP, Start date: 06/22/18 9:17:00 LOADER OPERATOR SUPERVISOR, Duration: 2 doses or times, Stop date: Limited # of times Ondansetron 4 mg, Route: Inactive IVP, ONCE, 2018 [facility] Dosing Weight 69.545, kg, PRN Nausea & Vomiting, Start date: 06/22/18 9:17:00 LOADER OPERATOR SUPERVISOR Meperidine 12.5 mg, Route: Inactive IVP, Q30Min, 2018 [facility] Dosing Weight 69.545, kg, PRN Other -See Comment, For shivering, Start date: 06/22/18 9:17:00 LOADER OPERATOR SUPERVISOR, Duration: 2 doses or times, Stop date: Limited # of times Albuterol 0.83 2.49 mg, Route: Inactive MH MG/ML Inhalant NEB, Q20Min, 2018 [facility] Solution Dosing Weight 69.545, kg, PRN Wheezing, Priority: STAT, Start date: 06/22/18 9:17:00 LOADER OPERATOR SUPERVISOR, Duration: 30 day, Stop date: 07/22/18 10:16:00 CDT Diphenhydramine 12.5 mg, Route: Inactive MH IVP, Drug form: 2018 [facility] INJ, Q6H, Dosing Weight 69.545, kg, PRN Itching, Start date: 06/22/18 9:17:00 LOADER OPERATOR SUPERVISOR, Duration: 30 day, Stop date: 07/22/18 9:16:00 CDT Naloxone 0.4 mg, Route: Inactive MH IVP, Q2MIN, 2018 [facility] Dosing Weight 69.545, kg, PRN Narcotic Reversal, Start date: 06/22/18 9:17:00 LOADER OPERATOR SUPERVISOR, Duration: 8 doses or times, Stop date: Limited # of times Flumazenil 0.2 mg, Route: Inactive MH IVP, PRN, 2018 [facility] Dosing Weight 69.545, kg, PRN Benzodiazepine Reversal, Initial dose, Start date: 06/22/18 9:17:00 LOADER OPERATOR SUPERVISOR, Duration: 30 day, Stop date: 07/22/18 10:16:00 CDT neostigmine Route: IV, Drug Inactive 06/22/ MH (ANES) form: INJ, 2018 ONCE, Stop date: 06/22/18 9:00:00 LOADER OPERATOR SUPERVISOR glycopyrrolate Route: IV, Drug Inactive 06/22/ MH (ANES) form: INJ, 2018 ONCE, Stop date: 06/22/18 9:00:00 LOADER OPERATOR SUPERVISOR phenylephrine Route: IV, Drug Inactive 06/22/ MH (ANES) form: INJ, 2018 ONCE, Stop date: 06/22/18 7:52:00 LOADER OPERATOR SUPERVISOR ePHEDrine (ANES) Route: IV, Drug Inactive 06/22/ MH form: INJ, 2018 ONCE, Stop date: 06/22/18 7:52:00 LOADER OPERATOR SUPERVISOR tranexamic acid Route: IV, Drug Inactive 06/22/ MH (ANES) form: INJ, 2018 ONCE, Stop date: 06/22/18 7:42:00 LOADER OPERATOR SUPERVISOR famotidine Route: IV, Drug Inactive 03/05/ MH (ANES) form: INJ, 2018 ONCE, Stop date: 06/22/18 7:42:00 LOADER OPERATOR SUPERVISOR ondansetron Route: IV, Drug Inactive 06/22/ MH (ANES) form: INJ, 2018, Stop date: 06/22/18 7:42:00 LOADER OPERATOR SUPERVISOR acetaminophen Route: IV, Drug Inactive /05/ MH (ANES) form: INJ, 2018, Stop date: 06/22/18 7:42:00 LOADER OPERATOR SUPERVISOR ceFAZolin (ANES) Route: IV, Drug Inactive 05/ MH form: INJ, 2018, Stop date: 06/22/18 7:42:00 LOADER OPERATOR SUPERVISOR fentaNYL (ANES) Route: IV, Drug Inactive 05/ MH form: INJ, 2018, Stop date: 06/22/18 7:37:00 LOADER OPERATOR SUPERVISOR propofol (ANES) Route: IV, Drug Inactive 05/ MH form: INJ, 2018, Stop date: 06/22/18 7:37:00 LOADER OPERATOR SUPERVISOR rocuronium Route: IV, Drug Inactive 06/22/ MH (ANES) form: INJ, 2018, Stop date: 06/22/18 7:37:00 LOADER OPERATOR SUPERVISOR lidocaine (ANES) Route: IV, Drug Inactive 06/22/ MH form: INJ, 2018, Stop date: 06/22/18 7:32:00 LOADER OPERATOR SUPERVISOR vancomycin Route: IV, Drug Inactive 06/22/ MH (ANES) 1000 mg form: INJ, 2018 Start date: 06/22/18 6:45:00 LOADER OPERATOR SUPERVISOR, Stop date: 06/22/18 7:45:00 LOADER OPERATOR SUPERVISOR Lactated Ringers Route: IV, Inactive 06/22/ MH Injection IV Total Volume: 2018 (ANES) 1000 mL 1,000, Start date: 06/22/18 6:30:00 LOADER OPERATOR SUPERVISOR, Stop date: 06/22/18 7:30:00 LOADER OPERATOR SUPERVISOR gabapentin 600 600 mg, 1 tab, Inactive 06/22/ MH MG Oral Tablet Route: PO, 2018, Dosing Weight 69.545, kg, Start date: 06/22/18 6:15:00 LOADER OPERATOR SUPERVISOR, Stop date: 06/22/18 6:15:00 LOADER OPERATOR SUPERVISOR ropivacaine 100 mL, Route: No Longer InFILtration(lo Active 2018 joey), Drug Form: INJ, Dosing Weight 69.545, kg, ONCALL, Start date: 06/21/18 20:00:00 LOADER OPERATOR SUPERVISOR, Duration: 30 day, Stop date: 07/21/18 20:59:00 CDTNotes: NOT FOR IV use Ropivacaine 5 mg/mL (49.25 mL) Epinephrine 1 mg/mL (0.5 mL) Clonidine 0.1 mg/mL (0.8 mL) Ketorolac 30 mg/mL (1 mL) Normal Saline 48.45 mL Calcium Chloride 1,000 mL, Rate: No Longer 06/22/ 0.0014 MEQ/ML / 25 ml/hr, Active 2018 [facility] Potassium Infuse over: 40 Chloride 0.004 hr, Route: IV, MEQ/ML / Sodium Dosing Weight Chloride 0.103 69.545 kg, MEQ/ML / Sodium Total Volume: Lactate 0.028 1,000, Start MEQ/ML date: 06/21/18 Injectable 19:15:00 LOADER OPERATOR SUPERVISOR, Solution Duration: 30 day, Stop date: 07/21/18 19:14:00 CDT Metoprolol DAILY AT [address] Tartrate 2018 [facility] Losartan DAILY AFTER ORAL Active St. Potassium SUPPER 2018 [facility] [place] Levothyroxine DAILY ORAL Active [facility] Sodium 2017 [facility] [place] Bimatoprost AT BEDTIME EACH Active [facility] EYE 2017 [facility] [place] Rosuvastatin Thu,Thu,Thursday ORAL Active [facility] [place] Metformin Hcl TWICE DAILY ORAL Active St. WITH MEALS 2017 [facility] [place] Allergies, Adverse Reactions, Alerts Substance Category Reaction Severity Reaction Status Date Comments Source type Reported vancomycin migraine [facility]ergy to [facility] aspirin STOMACH Moderate Allergy to Active [facility] PROBLEMS [facility]stance [facility] NSAIDS stomach Allergy to Active [facility] (Non-S[facility]oid problems Substance [facility] [place] Anti-Inflamm t a ciprofloxaci Assertion Drug Active n allergy [place] Adhesive Assertion Propensity Active Tape to adverse [place] reactions to substance PHENobarbita Assertion Drug Active MH l allergy [place] Immunizations No Data Provided for This Section Results Order Name Results Value Reference Date Interpretation Comments Source Range Laboratory Bedside 85 65 - 120 10/13 [facility] Studies Glucose /2018 [facility] Laboratory Sodium Level 141 136 - 145 10/08 [facility]. Studies /2018 [facility] Laboratory Potassium 4.4 3.5 - 5.1 10/08 [facility] Studies Level /2018 [facility] [place] Laboratory Glucose Level 118 74 - 106 10/08 [facility]. Studies /2018 [facility] [place] Laboratory Estimat 87 90 10/08 [facility] Studies Glomerular /2018 [facility] Filtration [place] Rate Laboratory Creatinine 0.66 0.55 - 1.3 10/08 [facility]. Studies [facility] [place] Laboratory Chloride 106 98 - 107 10/08 [facility] Studies Level /2018 [facility] [place] Laboratory Carbon 28 21 - 32 10/08 [facility] Studies Dioxide Level /2018 [facility] [place] Laboratory Calcium Level 9.3 8.5 - 10.1 10/08 [facility]. Studies [facility] [place] Laboratory Blood Urea 19 7 - 18 10/08 [facility] Studies Nitrogen [facility] [place] Laboratory White Blood 9.0 4.3 - 10.9 10/08 [facility] Studies Count /2018 [facility] [place] Laboratory Red Cell 14.6 12.1 - 10/08 [facility] Studies Distribution 15.2 [facility] Width [place] Laboratory Red Blood 4.96 3.86 - 10/08 [facility] Studies Count 4.86 [facility] [place] Laboratory Platelet 227 152 - 406 10/08 [facility] Studies Count /2018 [facility] [place] Laboratory Neutrophils % 69.5 41.7 - 10/08 [facility]. Studies 73.7 /2018 [facility] [place] Laboratory Monocytes % 6.0 3.3 - 12.3 10/08 [facility]. Studies /2018 [facility] [place] Laboratory Mean Platelet 9.7 7.6 - 11.3 10/08 [facility] Studies Volume /2018 [facility] [place] Laboratory Mean 89.6 80 - 100 10/08 [facility] Studies Corpuscular /2019 [facility] Volume [place] Laboratory Mean 32.3 32.0 - 10/08 [facility]. Studies Corpuscular 36.0 /2018 [facility] Hemoglobin [place] [facility] Laboratory Mean 29.0 27.0 - 10/08 [facility]. Studies Corpuscular 35.0 /2018 [facility] Hemoglobin [place] Laboratory Lymphocytes % 18.0 15.3 - 10/[address] [facility] [address] Studies 44.8 /2018 [facility] [place] Laboratory Hemoglobin 14.4 12.0 - 10/[address] [facility] [address] Studies 15.0 /2018 [facility] [place] Laboratory Hematocrit 44.5 36.0 - 10/[address] [facility] [address] Studies 45.0 /2018 [facility] [place] Laboratory Eosinophils % 5.9 0 - 4.4 10/08 [facility] [address] Studies /2018 [facility] [place] Laboratory Basophils % 0.6 0 - 1.3 10/08 [facility]. Studies /2018 [facility] [place] Laboratory Absolute 6.3 1.8 - 8.0 10/08 [facility]. Studies Neutrophil /2018 [facility] [place] Laboratory Absolute 0.5 0.1 - 1.3 10/08 [facility]. Studies Monocytes /2018 [facility] (CBC) [place] Laboratory Absolute 1.6 0.7 - 4.9 10/08 [facility]. Studies Lymphocytes [facility] (CBC) [place] Laboratory Absolute 0.5 0 - 0.5 10/08 [facility]. Studies Eosinophils [facility] (CBC) [place] Laboratory Absolute 0.1 0 - 0.5 10/08 [facility]. Studies Basophils [facility] (CBC) [place] HEMATOLOGY MPV 9.8 7.4 - 10.4 06/24 [facility] HEMATOLOGY Platelet 192 133 - 450 06/24 /2018 [facility] HEMATOLOGY RBC 4.06 4.20 - 06/24 5.40 /2018 [facility] HEMATOLOGY Hgb 12.3 12.0 - 06/24 16.0 /2018 [facility] HEMATOLOGY Hct 36.8 36.0 - 06/24 48.0 /2018 [facility] HEMATOLOGY MCV 90.6 80.0 - 06/24 98.0 /2018 [facility] HEMATOLOGY RDW 14.6 11.5 - 06/24 14.5 /2018 [facility] HEMATOLOGY MCH 30.2 27.0 - 06/24 31.0 /2018 [facility] HEMATOLOGY MCHC 33.3 32.0 - 03/07 MH 36.0 /2019 [facility] HEMATOLOGY WBC 8.6 3.7 - 10.4 03/ /2018 [facility] HEMATOLOGY Lymphocytes # 1.5 1.0 - 5.5 03/ [facility] HEMATOLOGY Monocytes # 0.8 0.0 - 0.8 03/ [facility] HEMATOLOGY Eosinophils # 0.3 0.0 - 0.5 03/ [facility] HEMATOLOGY Lymphocytes 17.7 20.0 - 03/ MH 40.0 /2019 [facility] HEMATOLOGY Monocytes 8.8 2.0 - 12.0 03/ [facility] HEMATOLOGY Eosinophils 3.0 0.0 - 4.0 03/ [facility] HEMATOLOGY Neutrophils # 6.0 1.5 - 8.1 06/24 [facility] HEMATOLOGY Basophils 0.4 0.0 - 1.0 06/24 [facility] HEMATOLOGY Segs 70.1 45.0 - 03/ MH 75.0 /2018 [facility] HEMATOLOGY RBC 3.65 4.20 - 03 MH 5.40 /2018 [facility] HEMATOLOGY Hgb 11.1 12.0 - 03 MH 16.0 /2018 [facility] HEMATOLOGY Platelet 158 133 - 450 03/ [facility] HEMATOLOGY RDW 14.5 11.5 - 03/06 MH 14.5 /2019 [facility] HEMATOLOGY MCV 90.8 80.0 - 03/ 98.0 /2019 [facility] HEMATOLOGY MCH 30.4 27.0 - 03/06 MH 31.0 /2018 [facility] HEMATOLOGY MPV 9.5 7.4 - 10.4 03/ [facility] HEMATOLOGY Hct 33.1 36.0 - 03/06 MH 48.0 /2019 [facility] HEMATOLOGY WBC 7.1 3.7 - 10.4 03/06 [facility] HEMATOLOGY MCHC 33.5 32.0 - 03/06 MH 36.0 /2019 [facility] HEMATOLOGY Segs 68.7 45.0 - 03/06 MH 75.0 /2019 [facility] HEMATOLOGY Lymphocytes 20.3 20.0 - 03/ MH 40.0 /2019 [facility] HEMATOLOGY Monocytes 9.2 2.0 - 12.0 03/06 [facility] HEMATOLOGY Eosinophils 1.3 0.0 - 4.0 03/ [facility] HEMATOLOGY Basophils 0.5 0.0 - 1.0 03/ [facility] HEMATOLOGY Eosinophils # 0.1 0.0 - 0.5 03/06 2019 [facility] HEMATOLOGY Neutrophils # 4.9 1.5 - 8.1 06/23 [facility] HEMATOLOGY Lymphocytes # 1.5 1.0 - 5.5 06/23 [facility] HEMATOLOGY Monocytes # 0.7 0.0 - 0.8 06/23 [facility] URINE AND UA Glucose Negative Negative 06/17 STOOL (06/17/18 9:53 AM) [facility] URINE AND UA Protein Negative Negative 06/17 STOOL (06/17/18 9:53 AM) [facility] URINE AND UA Bili Negative Negative 06/17 STOOL *NA* /2018 [facility] (06/17/18 9:53 AM) URINE AND UA Ketones Negative Negative 06/17 STOOL *NA* [facility] (06/17/18 9:53 AM) URINE AND UA pH 6.0 5.0 - 8.0 06/17 STOOL /2018 [facility] URINE AND UA Spec Grav 1.020 <=1.030 06/17 STOOL [facility] URINE [facility] UA Leuk Est Negative Negative 06/17 STOOL (06/17/18 9:53 AM) [facility] URINE AND UA WBC 1 0 - 5 06/17 STOOL /2018 [facility] URINE AND UA Blood Small Negative 06/17 STOOL *ABN* [facility] (06/17/18 9:53 AM) URINE AND UA Nitrite Negative Negative 06/17 STOOL (06/17/18 9:53 AM) [facility] URINE AND UA Sq Epi Occasional Few /LPF 06/17 STOOL /LPF /2018 [facility] URINE AND UA 0.2 0.1 - 1.0 06/17 STOOL Urobilinogen /2018 [facility] URINE AND UA Bacteria Occasional None Seen 06/17 STOOL /HPF /HPF /2018 [facility] URINE AND UA RBC 3 0 - 2 06/17 STOOL /2018 [facility] URINE AND UA Turbidity Clear Clear 06/17 STOOL (06/17/18 9:53 AM) [facility] URINE AND UA Color Yellow Yellow 06/17 STOOL *NA* [facility] (06/17/18 9:53 AM) BLOOD BANK Antibody Scrn Negative 06/17 RESULTS (06/17/18 9:36 AM) [facility] BLOOD BANK ABO/Rh A POS 06/17 RESULTS /2018 [facility] SPECIAL Hgb A1C 6.7 <=5.6 % 06/17 CHEMISTRY [facility] Pathology Reports No Data Provided for This Section Diagnostic Reports Report Value Date Source Pelvis AP DX Patient Name: AIDA CORTEZ 06/22/2018 [facility] : 1940; Age: 78 years y/o Female MR: [id number] PELVIS, 1 view, portable, postoperative HISTORY: Postoperative study, following left hip arthroplasty. TECHNIQUE: A single portable postoperative frontal view of the pelvis was obtained. IMPRESSION: The left total hip prosthesis is in good position. There is no evidence of unexpected fracture or other complication. There is postoperative soft tissue gas. The right hip prosthesis is also noted. SL: [id number] Pelvis AP DX Patient Name: AIDA CORTEZ 06/22/2018 [facility] : 1940; Age: 78 years y/o Female MR: [id number] * PELVIS, 1 view, intraoperative HISTORY: Intraoperative [...] A right hip prosthesis is noted. SL: [id number] Consultation Notes No Data Provided for This Section Discharge Summaries No Data Provided for This Section History and Physicals No Data Provided for This Section Vital Signs Vital Sign Value Date Comments Source Temperature Oral (F) 98.5 F 10/13/2018 [facility] Heart Rate 63 10/13/[address] [facility] Respitory Rate 16 10/13/[address] [facility] Systolic (mm Hg) 127 10/13/2018 [facility] [facility] Diastolic (mm Hg) 44 10/13/2018 [facility] Height 60 10/08/2018 [facility] Weight 145.00 10/08/2018 [facility] Temperature Oral (F) 98 F 06/24/2018 [facility] Heart Rate 75 06/24/2018 [facility] Respitory Rate 16 06/24/2018 [facility] Systolic (mm Hg) 118 06/24/2018 [facility] Diastolic (mm Hg) 73 06/24/2018 [facility] Systolic (mm Hg) 138 06/24/2018 [facility] Diastolic (mm Hg) 82 06/24/2018 [facility] Respitory Rate 16 06/24/2018 [facility] Heart Rate 97 06/24/2018 [facility] Temperature Oral (F) 98.9 F 06/24/2018 [facility] Heart Rate 84 06/24/2018 [facility] Temperature Oral (F) 97.9 F 06/24/2018 [facility] Systolic (mm Hg) 136 06/24/2018 [facility] Diastolic (mm Hg) 79 06/24/2018 [facility] Respitory Rate 16 06/24/2018 [facility] BMI Calculated 30.33 06/22/2018 [facility] Weight 70.455 06/22/2018 [facility] Height 152.4 cm 06/22/2018 [facility] BMI Calculated 29.94 06/17/2018 [facility] Height 152.4 cm 06/17/2018 [facility] Weight 69.545 06/17/2018 [facility] Encounters Location Location Encounter Encounter Reason Attending ADM DC Status Source Details Type Number For Provider Date Date Visit [facility] Inpatient [id number] Debbie 06/22 06/24 [facility]2018 [facility] [address] Registered [id number] 07/23 [facility] Registered [id number] 08/04 [facility] Registered [id number] 09/27 [facility] [place] [facility] Registered [id number] 09/28 [facility] Departed [id number] 10/13 10/13 [facility] Procedures Procedure Code Date Perfomer Comments Source NEEDLE [id number] 10/13/[address] [facility] [place] [id number] 07/23/2018 [facility] [place] Count [id number] 07/23/2018 [facility] Arthroplasty of [id number] right large [facility] joint of toe foot<sup>1</sup> Arthroscopy of [id number] left [facility] knee<sup>2</sup> Breast [id number] right breast [facility] lumpectomy<sup>3</ sup> Hip [id number] right-replace [facility] arthroplasty<sup>4 ment </sup> Knee [id number] left [facility] replacement<sup>5< /sup> Assessment and Plan Assessment and Plan Date Source Extracted from:Title: Clinical Document 06/24/2018 [facility] Author: Debbie Nayak MD Date: 06/24/18 DISCHARGE SUMMARY PATIENT NAME: Aida Cortez ATTENDING PHYSICIAN: Debbie Nayak MD DATE OF ADMISSION: 06/22/2018 DATE OF DISCHARGE: 06/24/2018 ADMISSION DIAGNOSIS: 1. Left primary hip osteoarthritis DISCHARGE DIAGNOSES: 1. s/p Left CHET. HOSPITAL COURSE: Mrs. Cortez had left CHET on 06/22/2018 and did very well except little confused. She did not progress through therapy well the first day. So today she has performed much better and will discharge home. Dressing was changes as well. DISPOSITION: Home. CONDITION: Improving. ACTIVITY: Weight Bear As tolerated. FOLLOWUP: The patient will follow up with the orthopedist in 7- 10 days. rehabilitation. MEDICATIONS: Please see discharge medication reconciliation form. Rikki Celis Extracted from:Title: Clinical Document Author: Kamaljit Cavazos MD Date: 06/24/18 Daily Progress Note [facility] Kamaljit Cavazos MD SUBJECTIVE: pt seen and examined, events noted no new c/o today OBJECTIVE: Vitals and Temp: Vitals Tmp(F) Pulse BP RR SpO2 FIO2 06/24 07:30 98.9 97 138/82 16 97 --- 06/24 04:05 97.9 84 136/79 16 94 --- 06/24 00:26 98.0 83 131/75 18 95 --- 06/23 20:05 98.1 85 113/69 18 94 --- 06/23 15:57 97.7 86 110/68 18 92 --- 24 Hr Tmax: 98.9F (37.17c) at 06/24 07:30 Vital Signs are the last 5 in the past 48 hours. Labs (Last four charted values) WBC 8.6 (JUN 24) 7.1 (JUN 23) Hgb 12.3 (JUN 24) L 11.1 (JUN 23) Hct 36.8 (JUN 24) L 33.1 (JUN 23) Plt 192 (JUN 24) 158 (JUN 23) ASSESSMENT and EXAM: General: in no apparent distress at this time. Eyes: Pupils equal, round and reactive to light. Eyes normal inspection. ENT: Ears normal. Nose normal. Pharynx normal. Neck: Normal inspection. No jugular venous distention. Neck supple. CVS: Heart sounds normal. Pulses normal. no murmurs Respiratory: No respiratory distress. Breath sounds normal. no wheezing Abdomen: Soft and nontender. no organomegaly Back: Normal inspection. Skin: Skin warm and dry. Normal skin color. Extremities: Extremities exhibit normal ROM. No lower extremity edema. Neuro: Oriented X 3. No motor deficit. DIAGNOSES and PROBLEMS: 1. Status post left total hip 2. Diabetes mellitus type 2 3. Hypertension 4. Hyperlipidemia PLAN and TREATMENT: Continue postop care Patient's pain medications Continue PT OT Continue home medications restart metformin as outpt Hopeful discharge MEDICATIONS Scheduled Meds (6):levothyroxine (Synthroid), losartan, metoprolol (Lopressor) , rivaroxaban, rosuvastatin, sodium chloride (Saline Flush 0.9%) Unscheduled Meds (2):pneumococcal 13-valent vaccine, ropivacaine (LE Pericapsular INJ) PRN Meds (6):acetaminophen-hydrocodone ([place] 10/325 oral tablet), acetaminophen-hydrocodone ([place] 10/325 oral tablet), hydromorphone (Dilaudid), melatonin, ondansetron (Zofran), sodium chloride (Saline Flush 0.9%) One Time Meds: None Continuous Infusions (1):Sodium Chloride 0.45% IV 1,000 mL (1/2 NS 1,000 mL) Extracted from:Title: Clinical Document Author: Debbie Nayak MD Date: 06/22/18 OPERATIVE REPORT PATIENT NAME: Aida Cortez DATE OF OPERATION/PROCEDURE: 06/22/2018 PREOPERATIVE DIAGNOSIS: Primary left hip severe osteoarthritis. POSTOPERATIVE DIAGNOSIS: Primary left hip severe osteoarthritis. PROCEDURE: 1. Left total hip arthroplasty. SURGEON: Dr. Debbie Nayak. SUPERVISOR LAST MODEL DEPARTMENT: Quang Leon NP. Please note that it was medically necessary to have a knowledgeable assistant housekeeping manager present for the case. Quang was present for the entire case and assisted with retracting and positioning the limb and prot ecting the sciatic nerve, dislocation and relocation of the hip, and attempts with implantation. Quang was present for the entire case and also assisted with closure and dressing. ANESTHESIA: General/Iliofascilata. FLUIDS: 1000 cc. ESTIMATED BLOOD LOSS: 150 cc. DRAINS: None. COMPLICATIONS: None. CONDITION: To the recovery room in stable condition. INDICATIONS FOR PROCEDURE: The patient is a 78-year-old female with left hip osteoarthritis. The patient understands all the risks and benefits of the procedure and wishes to proceed. The patient has end stage osteoarthritis and had attempted all conservative measures, including PT, NSAIDS, and cane with no success. PROCEDURE IN DETAIL: The patient was brought to the operating room and transferred over to the hospital operating room table without any complications. The patient was given general anesthesia and successfully intubated. The patient was positioned in the lateral position with the left side up and all bony prominences well-padded, and had an axillary roll placed. The patient had TERRIE hose and SCDs on the right leg. The patient was given 2 grams Ancef, one gram of Vancomycin, and one gram of transaminic acid and had the left leg prepped and draped in standard sterile fashion. A standard posterior approach was taken to the hip. Dissection down to the fascia zuleyka was performed maintaining hemostasis with electrocautery. Fascia zuleyka was then incised and the greater trochanter ic bursa was excised. The piriformis was identified, tagged and elevated off the posterior aspect of the greater trochanter, short external rotators and posterior capsule was identified and elevated of f the greater trochanter. The hip was dislocated, the femoral neck was cut was made. At that point, a capsulotomy of the superior and anterior aspect was performed in order to mobilize the hip due to t he retraction of the capsule. The hip was able to be mobilized anteriorly, slightly, and the acetabulum was now visualized. Once visualization of the acetabulum was obtained, the reaming began at a si ze 43 and proceeded up to a size 48. The 48 mm cup was trialed and had excellent fit and stability. At that point, the [place] PSL size 48 mm cup was placed with one 6.5 screws which had an excellent b ite. The 10-degree liner was placed and the femur was prepared. Once visualization of the femur was obtained, a cookie cutter was used to remove the proximal aspect of the intramedullary area followed by the canal finder. Broaching began with a 0 and proceeded up t o a size 5. Calcar reamer was used to ream down the excess bone and a size 5 with 132 degree neck and a -4/32 mm head was placed and the hip was reduced, had good length, extension and had good stability. At that point, the trials were removed and the wound was copiously irrigated with normal saline and bacitracin. The femoral neck was removed and it was mobilized out of the way. The liner was placed wh ich was an 10-degree liner and a size 5 Accolade II femoral stem with 132 degree neck and a -4/32 mm ceramic head. The hip was reduced and had excellent length and stability. At that point, the wound was copiously irrigated with normal saline and bacitracin. The short external rotator piriformis and posterior capsule were all reattached to the posterior aspect of the greate r trochanter through a bony bridge. One gram of transaminic acid was placed in the wound with periarticular injection placed around all tissues for pain relief. The fascia zuleyka was closed with a #1 Vi cryl, 0 Vicryl for the Rebecca Monocryl for the subcutaneous layer and francisco for the skin. Xeroform, 4 x 4s, ABD and dressing were applied. The patient was repositioned in the supine position. The patient was awoken from general anesthesia, successfully extubated and taken to recovery room in stable condition. All the needle, lap and sponge counts were correct at the end of the case. IMPLANTS: Isidra PSL cup size 48 with one 6.5 mm screws. Isidra size 5 Accolade II 132 degree neck. Isidra size -4/32 mm ceramic head. [place] 10-degree X3 liner. Debbie Nayak MD Plan of Care Plan of Care Date Source No known plan of care. 10/13/2018 TIFFANI Pepper No known plan of care. 10/13/2018 TIFF[facility] Pepper Social History Social History Date Source Query Response Date Recorded Comment 10/13/2018 TIFFANI Pepper Alcohol Use? No January 28, 2018 11:50am CD- Drugs? No January 28, 2018 11:50am Social History TypeResponse 07/04/2013 [facility] Alcohol Current, Frequency: 1-2 times per month. Smoking Status Never smoker; Exposure to Tobacco Smoke None; Cigarette Smoking Last 365 Days No; Reg Smoking Cessation Counseling No entered on: 06/22/18 Family History Value Date Source Query Response Instance Date Recorded Comment 10/13/2018 TIFFANI Pepper Nurses notes scoliosis Mother January 28, 2018 11:50am Medical History Hypertension Mother January 28, 2018 11:50am Medical History Heart disease Father January 28, 2018 11:50am Nurses notes scoliosis September 26, 2016 4:41pm Medical History Hypertension September 26, 2016 4:41pm Advance Directives Order Name Results Value Date Source Advance Directives Advance Directives Advance Directive Response Recorded Date/Time 10/13/2018 TIFFANI Ahn - Does Patient Have Living Will [place] No January 28, 2018 11:50am Durable Power of Blocking Machine Operator Second for Health Care No January 28, 2018 11:50am Functional Status No Data Provided for This Section
[2018-10-22] MEDS ORDERED: NA CHLORIDE 0.9% 1,000 ML ONE (09:33)
[2018-10-22] MEDS ORDERED: CEFAZOLIN/SWI 1gm 1 GM/10 ML SYR ONE (09:34)
[2018-10-22] MEDS ORDERED: PROPOFOL 200 MG/20 ML VIAL IV ONE (10:40)
[2018-10-22] MEDS ORDERED: LIDOCAINE 2% MPF 5 ML VIAL ONE (10:40)
[2018-10-22] MEDS ORDERED: MIDAZOLAM HCL 2 MG/2 ML INJ ONE (10:40)
[2018-10-22] MEDS ORDERED: FENTANYL CITR 100 MCG/2 ML ONE (10:40)
[2018-10-22] MEDS ORDERED: LIDOCAINE 1% MPF 30 ML VIAL ONE (10:40)
[2018-10-22] MEDS ORDERED: GLYCOPYRROLATE 0.2 MG/ML SYR ONE (11:45)
[2018-10-22 13:01] VITALS: TEMP 98; O2SAT 97
[2018-10-22 13:06] VITALS: BP 128/72
--- NOTE | 2018-10-22 13:33 | OP ---
Date of Procedure: 10/22/2018 Surgeon: Eusebio Montes De Oca MD Double End Tenoner Operator: AGUSTIN Galan. Preoperative Diagnosis: Left breast cancer. Postoperative Diagnosis: Left breast cancer. Procedure: Left breast lumpectomy. Estimated Blood Loss: Minimal. Specimen: Left breast lumpectomy. Findings: Above. Anesthesia: MAC. Complications: None. Disposition: The patient tolerated the procedure in stable condition, was taken to Recovery in good general condition. Procedure In Detail: The patient was brought to the OR and placed in supine position. MAC anesthesi a was begun. The patient was prepped and draped in the usual sterile fashion. Marcaine 0.5% was inf iltrated locally and patient's low induration in her axillary wound and that was revised as well. Ap proximately 8 x 2 cm ellipse of skin incision was made around the previous lumpectomy as border was c lose on the superior aspect and dissection proceeded mostly in the superior aspect to excise at least 1 cm of tissue on the superior aspect of extended margin we just closed on the previous surgery and this was done all the way down all the way around the biopsy cavity and the entire specimen was excis ed, labeled appropriately and sent to Pathology. Wound irrigated. Bleeding controlled with cautery and then 3-0 chromic used to approximate the subcutaneous tissue and close the skin and the axillary wound reexcised by 4 x 1 cm incision and reclosed with 3-0 chromic as well. Subsequently a sterile d ressing was applied. The patient was awakened and taken to Recovery in good general condition. Discharge Note: The patient will go to Day-Surgery and home when stable. Disposition: Home. Condition: Stable. Discharge Instructions: Resume home medications and diet. Activity as tolerated. No lifting. Keep dressing clean and dry. Follow up in my office in a week. Call for appointment. Tylenol No.3 one tablet p.o. q.4 p.r.n. pain, Keflex 500 mg p.o. q.6h. /MODL Voice ID: [id number] Report ID: [id number]
== END 2018-10-22 12:52 | disposition home health service (06) ==
LOC: OR 08:50
PROVIDERS: ATTEND Surgery
PROC: 0HBU0ZX Excision of Left Breast, Open Approach, Diagnostic (ICD-10-PCS; principal; 2018-10-22 10:45)
DX: C50.912 Malignant neoplasm of unspecified site of left female breast (principal); E11.9 Type 2 diabetes mellitus without complications; I10 Essential (primary) hypertension; E07.9 Disorder of thyroid, unspecified; E78.00 Pure hypercholesterolemia, unspecified; M41.9 Scoliosis, unspecified; Z79.84 Long term (current) use of oral hypoglycemic drugs; Z79.899 Other long term (current) drug therapy
CPT/HCPCS: 19301; 82962 ×2; 88305; J2704; J3010; J0690; J7030; 88307; J2250

== ENCOUNTER 2019-08-30 22:27 | Emergency (ER) | payer OTHER ==
--- OUTSIDE RECORDS SUMMARY | 2019-08-30 22:30 | XMS REPORT ---
:[address] [facility] t Address [address] [place] [address] Dr. Polk [address] [place] [id number] Care Team Providers Name Role Phone Unavailable Unavailable Unavailable Problems This patient has no known problems. Allergies, Adverse Reactions, Alerts This patient has no known allergies or adverse reactions. Medications This patient has no known medications. Procedures This patient has no known procedures. Results This patient has no known results.
[2019-08-31 00:02] LABS: Protime INR 0.85
[2019-08-31 00:03] LABS: Absolute Lymphocytes (CBC) 1.7 K/uL (0.7-4.9); Basophils % 1.3 % (0-1.3); Hematocrit 44.3 % (36.0-45.0); Lymphocytes % 24.9 % (15.3-44.8); MPV 9.6 fL (7.6-11.3); RBC Red Blood Cell Count 4.89 M/uL (3.86-4.86)
[2019-08-31 00:17] LABS: BUN Blood Urea Nitrogen 28 mg/dL (7-18); Bicarbonate 27 mmol/L (21-32); Glucose Level 106 mg/dL (74-106); Magnesium 2.4 mg/dL (1.8-2.4); NT PRO-BNP 49 pg/mL (<450); Sodium Level 140 mmol/L (136-145); Troponin (Emerg Dept Use Only) < 0.02 ng/mL (0.0-0.045)
--- NOTE | 2019-08-31 01:03 | ER ---
Nurse's Notes [facility] Name: Aida Robertson Age: 79 yrs Sex: Female : 1940 Arrival Date: 08/30/2019 Time: 22:30 Bed 19 Private MD: Diagnosis: Essential (primary) hypertension;Headache Presentation: 08/29 22:57 Chief complaint: Patient states: Pt C/O headache, high blood pressure and high blood sugar. Pt also C/O chest tightness. Pt states was under a lot of stress lately. She might sleep better if she knows that she was tested. Coronavirus screen: Proceed with normal triage. Patient denies a cough. Patient denies shortness of breath or difficulty breathing. Patient denies measured and/or subjective temperature greater than 100.4F prior to today's visit. Patient denies travel on a cruise ship or to a country the [facility] currently lists as an affected area. Patient denies contact with known and/or suspected case of COVID-19. Ebola Screen: Patient negative for fever greater than or equal to 101.5 degrees Fahrenheit, and additional compatible Ebola Virus Disease symptoms Patient denies exposure to infectious person. Initial Sepsis Screen: Does the patient meet any 2 criteria? No. Patient's initial sepsis screen is negative. Does the patient have a suspected source of infection? No. Patient's initial sepsis screen is negative. Risk Assessment: Do you want to hurt yourself or someone else? Patient reports no desire to harm self or others. Onset of symptoms is unknown. 22:57 Method Of Arrival: Ambulatory 22:57 Acuity: MIRNA 3 Triage Assessment: 23:05 Pain: Pain currently is 4 out of 10 on a pain scale. Pain began a few days ago Also wh complains of no other associated symptoms. 23:05 Headache History: The patient has had previous headaches. General: Appears in no apparent distress. Historical: - Allergies: 23:01 Aspirin; 23:01 Vancomycin; sensitivity; - Home Meds: 23:01 Crestor 5 mg Oral tab 1 tab Mon, Wed, Fri [Active]; losartan 100 mg Oral tab 1 tab nightly [Active]; Lumigan 0.01 % ophthalmic drop daily [Active]; metformin 500 mg Oral tab 1 tab 2 times per day [Active]; metoprolol succinate 50 mg Oral Tb24 1 tab once daily [Active]; - PMHx: 23:01 Arthritis; breast cancer; c-pap; Diabetes - NIDDM; Glaucoma; Hyperlipidemia; wh Hypertension; Lymphadema Right Arm; lymphedema to R arm s/p breast cancer radiation; Migraines; scoliosis; Internal Shingles; - PSHx: 23:01 Tonsillectomy; wh - Immunization history:: Adult Immunizations up to date. - Social history:: Smoking status: Patient/guardian denies using. Screenin:02 Abuse screen: Denies threats or abuse. Denies injuries from another. Nutritional wh screening: No deficits noted. Tuberculosis screening: No symptoms or risk factors identified. Fall Risk None identified. Assessment: 23:02 General: Appears in no apparent distress. Behavior is calm, cooperative, appropriate wh for age. Pain: Complains of pain in headache and sinus area. Neuro: Level of Consciousness is awake, alert, obeys commands, Oriented to person, place, time, situation, Appropriate for age Reports headache. Cardiovascular: Reports chest tightness Heart tones S1 S2 Capillary refill < 3 seconds. Respiratory: Airway is patent Respiratory effort is even, unlabored, Respiratory pattern is regular, symmetrical, Breath sounds are clear bilaterally. GI: Abdomen is flat, non-distended. : No signs and/or symptoms were reported regarding the genitourinary system. EENT: No signs and/or symptoms were reported regarding the EENT system. Derm: Skin is intact, is healthy with good turgor, Skin is pink, warm \T\ dry. normal. Musculoskeletal: Circulation, motion, and sensation intact. 08/30 00:32 Reassessment: Patient appears in no apparent distress at this time. No changes from previously documented assessment. Patient and/or family updated on plan of care and expected duration. Pain level reassessed. Patient is alert, oriented x 3, equal unlabored respirations, skin warm/dry/pink. 01:13 Reassessment: Patient appears in no apparent distress at this time. No changes from previously documented assessment. Patient and/or family updated on plan of care and expected duration. Pain level reassessed. Patient is alert, oriented x 3, equal unlabored respirations, skin warm/dry/pink. Vital Signs: 08/29 22:57 BP 156 / 73; Pulse 67; Resp 18; Temp 98.2; Pulse Ox 98% ; Weight 65.77 kg; Height 4 ft. 11 in. (149.86 cm); 08/30 00:32 BP 135 / 66; Pulse 66; Resp 18; Pulse Ox 96% on R/A; 01:14 BP 138 / 73; Pulse 70; Resp 18; Pulse Ox 96% on R/A; wh 08/29 22:57 Body Mass Index 29.29 (65.77 kg, 149.86 cm) ED Course: 08/29 22:30 Patient arrived in ED. ag3 22:38 Soniya Houser FNP-C is [facility]. kb 22:38 Narciso Omer MD is Attending Physician. kb 22:44 Laura Santo is Primary Nurse. 23:00 Triage completed. 23:05 Arm band placed on right wrist. 23:06 Patient has correct armband on for positive identification. Bed in low position. Call light in reach. Side rails up X 1. quality assurance monitor chassis on. Pulse ox on. NIBP on. 23:15 Inserted saline lock: 22 gauge in left antecubital area, using aseptic technique. Blood wh collected. 23:23 XRAY Chest (1 view) In Process Unspecified. EDMS 08/30 00:45 CT Head Brain wo Cont In Process Unspecified. EDMS 01:14 No provider procedures requiring assistance completed. IV discontinued, intact, bleeding controlled, No redness/swelling at site. Administered Medications: No medications were administered Outcome: 01:02 Discharge ordered by . kb 01:15 Discharged to home ambulatory. 01:15 Condition: stable 01:15 Discharge instructions given to patient, Instructed on discharge instructions, follow up and referral plans. POC Demonstrated understanding of instructions, follow-up care, POC 01:15 Patient left the ED. Signatures: Dispatcher [employer] EDCT Soniya Houser FNP-C FNP-Ckb [place], Winsy Reema Machuca ag3
--- NOTE | 2019-08-31 01:03 | EDPHYS ---
Physician Documentation [facility] Name: Aida Robertson Age: 79 yrs Sex: Female : 1940 Arrival Date: 08/30/2019 Time: 22:30 Bed 19 Private MD: MOIZ Physician Narciso Omer HPI: 08/29 23:02 This 79 yrs old Female presents to ER via Ambulatory with complaints of Low kb Blood Sugar, Headache. 23:02 The patient has elevated blood pressure and discovered this at home, with a home kb device. Onset: The symptoms/episode began/occurred 3 week(s) ago. Associated signs and symptoms: Pertinent positives: chest pain, headache, Pertinent negatives: dizziness, dyspnea, lightheadedness, nausea, visual changes, vomiting, weakness. Severity of symptoms: At its worst the blood pressure was 160 mm Hg. The patient has not experienced similar symptoms in the past. The patient has not recently seen a physician. Pt reports high blood pressure for a couple of weeks. States it has been in the 140s, but today it was 160. Also reports headache to back of head. States she has had high blood sugar today (123). Also reports she has been upset about her scoliosis and recently diagnosed internal shingles so she has been having a funny feeling in her chest. "I would just sleep better tonight if I got checked to make sure I'm ok.". Historical: - Allergies: 23:01 Aspirin; wh 23:01 Vancomycin; sensitivity; wh - Home Meds: 23:01 Crestor 5 mg Oral tab 1 tab Mon, Wed, Fri [Active]; losartan 100 mg Oral tab 1 tab nightly [Active]; Lumigan 0.01 % ophthalmic drop daily [Active]; metformin 500 mg Oral tab 1 tab 2 times per day [Active]; metoprolol succinate 50 mg Oral Tb24 1 tab once daily [Active]; - PMHx: 23:01 Arthritis; breast cancer; c-pap; Diabetes - NIDDM; Glaucoma; Hyperlipidemia; Hypertension; Lymphadema Right Arm; lymphedema to R arm s/p breast cancer radiation; Migraines; scoliosis; Internal Shingles; - PSHx: 23:01 Tonsillectomy; wh - Immunization history:: Adult Immunizations up to date. - Social history:: Smoking status: Patient/guardian denies using. ROS: 23:01 Constitutional: Negative for fever, chills, and weight loss, ENT: Negative for injury, kb pain, and discharge, Neck: Negative for injury, pain, and swelling, Respiratory: Negative for shortness of breath, cough, wheezing, and pleuritic chest pain, Abdomen/GI: Negative for abdominal pain, nausea, vomiting, diarrhea, and constipation, Back: Negative for injury and pain, MS/Extremity: Negative for injury and deformity, Skin: Negative for injury, rash, and discoloration. 23:01 Cardiovascular: Positive for chest tightness. 23:01 Neuro: Positive for headache. Exam: 23:01 Constitutional: This is a well developed, well nourished patient who is awake, alert, kb and in no acute distress. Head/Face: Normocephalic, atraumatic. Chest/axilla: Normal chest wall appearance and motion. Nontender with no deformity. No lesions are appreciated. Cardiovascular: Regular rate and rhythm with a normal S1 and S2. No gallops, murmurs, or rubs. Normal PMI, no JVD. No pulse deficits. Respiratory: Lungs have equal breath sounds bilaterally, clear to auscultation and percussion. No rales, rhonchi or wheezes noted. No increased work of breathing, no retractions or nasal flaring. Abdomen/GI: Soft, non-tender, with normal bowel sounds. No distension or tympany. No guarding or rebound. No evidence of tenderness throughout. Back: No spinal tenderness. No costovertebral tenderness. Full range of motion. Skin: Warm, dry with normal turgor. Normal color with no rashes, no lesions, and no evidence of cellulitis. MS/ Extremity: Pulses equal, no cyanosis. Neurovascular intact. Full, normal range of motion. Neuro: Awake and alert, GCS 15, oriented to person, place, time, and situation. Cranial nerves II-XII grossly intact. Motor strength 5/5 in all extremities. Sensory grossly intact. Cerebellar exam normal. Normal gait. Vital Signs: 22:57 BP 156 / 73; Pulse 67; Resp 18; Temp 98.2; Pulse Ox 98% ; Weight 65.77 kg; Height 4 ft. wh 11 in. (149.86 cm); 08/30 00:32 BP 135 / 66; Pulse 66; Resp 18; Pulse Ox 96% on R/A; 01:14 BP 138 / 73; Pulse 70; Resp 18; Pulse Ox 96% on R/A; 08/29 22:57 Body Mass Index 29.29 (65.77 kg, 149.86 cm) MDM: 08/29 22:38 Patient medically screened. kb 23:02 Data reviewed: vital signs, nurses notes. Data interpreted: Pulse oximetry: on room air kb is 98 %. Interpretation: normal. 08/30 00:40 ED course: Pt had a nuclear stress test in May that was normal. Pt states she only kb had the "funny feeling" in her chest for a few seconds and it went away. . 01:01 Counseling: I had a detailed discussion with the patient and/or guardian regarding: the kb historical points, exam findings, and any diagnostic results supporting the discharge/admit diagnosis, lab results, radiology results, the need for outpatient follow up, a family practitioner, to return to the emergency department if symptoms worsen or persist or if there are any questions or concerns that arise at home. 08/29 22:49 Order name: Basic Metabolic Panel; Complete Time: 00:20 kb 08/29 22:49 Order name: CBC with Diff; Complete Time: 00:20 kb 08/29 22:49 Order name: Magnesium; Complete Time: 00:20 kb 08/29 22:49 Order name: NT PRO-BNP; Complete Time: 00:20 kb 08/29 22:50 Order name: PT-INR; Complete Time: 00:20 kb 08/29 22:50 Order name: Troponin (emerg Dept Use Only); Complete Time: 00:20 kb 08/29 22:50 Order name: XRAY Chest (1 view) kb 08/29 22:50 Order name: EKG; Complete Time: 22:50 kb 08/29 22:50 Order name: Cardiac monitoring; Complete Time: 23:34 kb 08/29 22:50 Order name: EKG - Nurse/Tech; Complete Time: 23:34 kb 08/29 22:50 Order name: IV Saline Lock; Complete Time: 23:34 kb 08/29 22:50 Order name: Labs collected and sent; Complete Time: 23:34 kb 08/29 22:50 Order name: O2 Per Protocol; Complete Time: 23:34 kb 08/30 00:03 Order name: CT Head Brain wo Cont kb 08/29 22:50 Order name: O2 Sat Monitoring; Complete Time: 23:34 kb Administered Medications: No medications were administered Disposition: 01:26 Co-signature as Attending Physician, Narciso Omer MD. rn Disposition: 08/31/19 01:02 Discharged to Home. Impression: Essential (primary) hypertension, Headache. - Condition is Stable. - Discharge Instructions: Hypertension, [id number], General Headache Without Cause, [id number]. - Medication Reconciliation Form, Thank You Letter, Antibiotic Education, Prescription Opioid Use form. - Follow up: Emergency Department; When: As needed; Reason: Worsening of condition. Follow up: Private Physician; When: 2 - 3 days; Reason: Recheck today's complaints, Continuance of care, Re-evaluation by your physician. Signatures: Dispatcher [employer] EDMS Soniya Houser, FIELD CONTRACTOR-C FIELD CONTRACTOR-CkNarciso Chavez MD MD rn [place], Winsy Corrections: (The following items were deleted from the chart) 01:15 01:02 08/31/2019 01:02 Discharged to Home. Impression: Essential (primary) wh hypertension; Headache. Condition is Stable. Forms are Medication Reconciliation Form, Thank You Letter, Antibiotic Education, Prescription Opioid Use. Follow up: Emergency Department; When: As needed; Reason: Worsening of condition. Follow up: Private Physician; When: 2 - 3 days; Reason: Recheck today's complaints, Continuance of care, Re-evaluation by your physician. kb
[2019-08-31 01:23] VITALS: TEMP 98.2
[2019-08-31 01:25] VITALS: O2SAT 96
[2019-08-31 01:26] VITALS: BP 138/73
--- NOTE | 2019-08-31 06:58 | RAD REPORT ---
EXAM DESCRIPTION: Juanjose Single View08/30/2019 11:23 pm CLINICAL HISTORY: Chest pain COMPARISON: 2018 FINDINGS: The lungs appear clear of acute infiltrate. The heart is mildly to moderately enlarged IMPRESSION: No acute abnormalities displayed
--- NOTE | 2019-08-31 07:23 | EKG ---
Test Date: 2019-08-30 Test Time: 23:17:37 Carpentry Specialist: MARIELA MEASUREMENT RESULTS: Intervals: Rate: 70 VA: 200 QRSD: 62 QT: 386 QTc: 416 [place]: P: 46 VA: 200 QRS: -3 T: 46 INTERPRETIVE STATEMENTS: Normal sinus rhythm Cannot rule out Anterior infarct, age undetermined Abnormal ECG Compared to ECG 10/08/2018 09:44:13 Myocardial infarct finding now present First degree AV block no longer present Electronically Signed On 08-31-19 07:22:52 CDT by Grant Hinson
--- NOTE | 2019-08-31 14:52 | RAD REPORT ---
EXAM DESCRIPTION: CT - Head Brain Wo Cont - 08/31/2019 5:58 am CLINICAL HISTORY: 79 years Female HEADACHE COMPARISON: None TECHNIQUE: Contiguous axial images of the brain were obtained without the administration of intraven ous contrast.This exam was performed according to our departmental dose-optimization program which in cludes use of Automated Exposure Control, adjustment of the mA and/or kV according to patient size an d/or use of iterative reconstruction technique. DLP: 841 mGy*cm FINDINGS: Brain: No acute intracranial hemorrhage. No extra-axial collection. No mass effect or mathieu iation. Prominence of the sulci and cisterns. Confluent periventricular and subcortical white matte r hypodensity is noted. Intracranial vascular calcifications. Ventricles: No hydrocephalus or herniation. Prominence of the ventricular system. Globes and orbits: No acute abnormality. Prior cataract surgery. Bones: No acute osseous finding Paranasal sinuses: Paranasal sinuses are clear. Mastoid air cells: Well pneumatized. Soft tissues: Within normal limits IMPRESSION: No acute intracranial hemorrhage, hydrocephalus or herniation. Cerebral volume loss and chronic small vessel ischemic changes. If persistent clinical concern for ac malachi ischemia, consider MRI brain without contrast for further evaluation. Electronically signed by: Tyron Elias DO 08/31/2019 12:52 AM CDT Due to temporary technical issues with the PACS/Fluency reporting system, reports are being signed by the in house radiologist as a courtesy to ensure prompt reporting. The interpreting radiologist is f ully responsible for the content of the report.
== END 2019-08-31 01:15 | disposition home or self-care (01) ==
LOC: ER 22:27
DX: I10 Essential (primary) hypertension (principal); E11.9 Type 2 diabetes mellitus without complications; Z85.3 Personal history of malignant neoplasm of breast; Z88.3 Allergy status to other anti-infective agents; Z88.6 Allergy status to analgesic agent
CPT/HCPCS: 36415; 70450; 71045; 80048; 83735; 83880; 84484; 85025; 85610; 93005; 99284

== ENCOUNTER 2020-02-25 13:52 | Emergency (ER) | payer OTHER ==
--- OUTSIDE RECORDS SUMMARY | 2020-02-25 13:55 | XMS REPORT | Continuity of Care Document ---
:1940 Author Organization [employer] [facility] Care Team Providers Name Role Phone [employer] [facility] Unavailable Un available Problems Problem Status Onset Classification Date Comments Sourc e Date Reported UNK Active 05/13/19 [facility] Diabetes mellitus Active Problem 02/18/2020 [facility]disorder[facility] Hyperlipidemia Active Problem 02/18/2020 [facility] edical (disorder) Group,Mis ch er Neuro Hypertensive Active Problem 02/18/2020 Med ical disorder, [facility], [place] Hypothyroidism Active Problem 02/18/2020 [facility] edical (disorder) Group,[facility] er Neuro,[facility] Low back pain Active Problem 02/18/2020 [facility] dical (disorder) Group,Mis ch er Neuro Malignant tumor of Active Problem 02/18/2020 Medical breast (disorder) [facility] [place] Neuropathy Active Problem 02/18/2020 Medic al (disorder) Group,Mis ch er Neuro,[facility] Osteoarthritis of Active Problem 02/18/2020 H Medical hip (disorder) Group ,Misch er Neuro,[facility] Osteopenia Active Problem 02/18/2020 Medic al (disorder) Group,Mis ch er Neuro Scoliosis deformity Active Problem 02/18/2020 Medical of spine (disorder) Group,Misch er Neuro Sleep apnea Resolved Problem 02/18/2020 Medi joey (finding) Group,Misc h er Neuro,[facility] Hypervitaminosis B6 Active Problem 02/18/2020 Medical (disorder) Group,[facility] er Neuro 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 Stop taking and call urologist if symptoms continue to worsen or develop fevers., # 10 tab, 1 Refill(s), Pharmacy: [facility]/pharmacy #[id number], 149.86, cm, 02/15/20 10:58:00 CDT, Height, 63.636, kg, ... Phenazopyridine 200 mg = 1 tab, Inactive Medical hydrochloride 200 PO, TID, PRN 2020 G roup MG Oral Tablet Dysuria, X 2 [Pyridium] day, # 6 tab, 0 Refill(s), Pharmacy: [facility]/pharmacy #[id number], 149.86, cm, 02/15/20 10:58:00 CDT, Height, 63.636, kg, 02/15/20 10:58:00 CDT, Weight Vantin 200 mg 200 mg = 1 tab, Active Medical oral tablet PO, Q12H, X 7 2020 Group day, # 14 tab, 0 Refill(s), Pharmacy: [facility]/pharmacy #[id number], 149.86, cm, 07/07/19 11:13:00 CDT, Height, 62.273, kg, 07/07/19 11:13:00 CDT, Weight Cephalexin 500 MG 500 mg = 1 cap, Active Medical Oral Capsule PO, BID, X 7 2019 Group [Keflex] day, # 14 cap, 0 Refill(s), Pharmacy: [facility]/pharmacy #[id number], 149.86, cm, 07/07/19 11:13:00 CDT, Height, 62.273, kg, 07/07/19 11:13:00 CDT, Weight Losartan 100 mg, PO, Active 05/24/ [facility] Daily, 0 2019 Neuro Refill(s) Cod Liver Oil PO, Daily, 0 Active Me dical Refill(s) 2019 Group bimatoprost 0.1 1 drp, BOTH Active M edical MG/ML Ophthalmic EYES, Bedtime, 2018 Group Solution # 5 mL, 4 [Lumigan] Refill(s) rivaroxaban 10 mg 10 mg = 1 tab, Active oral tablet PO, Q24H, 0 2018 [place] Ref[place]([facility]) Acetaminophen 325 1 tab, PO, Q4H, Active MG / Hydrocodone PRN Pain Score 2018 [facility] Bitartrate 10 MG 4-6, 0 Oral Tablet Refill(s) [Tallula 10/325] Lopressor Notes: (Same Inactive as: Lopressor) 2018 [facility] Synthroid Notes: Take 1 Inactive hour before or 2019 [facility] 2 hours after meal; Enteral feeds may interefere with the absorption of this medication. (Same as:Levothroid) Losartan Notes: (Same No Longer as: Cozaar) Active 2018 [facility] rosuvastatin Notes: Same as No Longer Crestor Active 2018 [facility] Melatonin Notes: (Same No Longer as: Melatonin) Active 2018 [facility] Thyroxine Notes: Take 1 Inactive hour before or 2018 [facility] 2 hours after meal; Enteral feeds may interefere with the absorption of this medication. (Same as:Levothroid) Levothyroxine 25 microgram = Active Sodium 0.025 MG 1 tab, PO, 2018 [facility] Oral Tablet Daily, 0 [Synthroid] Refill(s) Saline Flush 0.9% Notes: (Same No Longer as: BD Active 2018 [facility] Posiflush) Vancomycin 2001 mg: No Longer infuse over 2.5 Active 2018 [facility] [place] t hours For adult patients only: Round to nearest 250 mg per Medical Staff approval MEDICATION WASTE Product Size: 1000 mg Product Wasted: ___ mg Zofran Notes: (Same No Longer as: Zofran) Active 2018 [facility] rivaroxaban Notes: (Same No Longer as: Xarelto) Active 2018 [facility] Cefazolin Notes: (Same No Longer As: Ancef, Active 2018 [facility] Kefzol) MEDICATION WASTE Product Size: 1000 mg Product Wasted: ___ mg Streptococcus Notes: Shake No Longer pneumoniae well prior to Active 2018 [facility] [address] serotype 1 use (Same as: capsular antigen Prevnar 13) diphtheria [id number] protein conjugate vaccine / Streptococcus pneumoniae serotype 14 capsular antigen diphtheria [id number] protein conjugate vaccine / Streptococcus pneumoniae serotype 18C capsular antigen d Acetaminophen 325 Notes: Do not No Longer MG / Hydrocodone exceed 4gm/day Active 2018 [facility] Bitartrate 10 MG of Oral Tablet acetaminophen. [Tallula 10/325] (Same as: Tallula 325/10) Dilaudid Notes: (Same No Longer as: Dilaudid) Active 2018 [facility] Saline Flush 0.9% Notes: (Same No Longer as: BD Active 2018 [facility] Posiflush) 1/2 NS 1,000 mL 1,000 mL, Rate: No Longer 75 ml/hr, Active 2018 [facility] Infuse over: 13.3 hr, Route: IV, Dosing Weight 69.545 kg, Total Volume: 1,000, Start date: 06/22/18 9:18:00 RADIO PROGRAM CHECKER, Duration: 30 day, Stop date: 07/22/18 9:17:00 CDT, 1.74, m2 Ofirmev or = 50 kg, Inactive Start date: 2018 [facility] 06/22/18 9:17:00 RADIO PROGRAM CHECKER, Substitute Allowed No Oxycodone 10 mg, Route: Inactive PO, Drug form: 2018 [facility] TAB, Q4H, Dosing Weight 69.545, kg, PRN Pain Score 7-10, Start date: 06/22/18 9:17:00 RADIO PROGRAM CHECKER, Duration: 30 day, Stop date: 07/22/18 9:16:00 CDT Hydromorphone 0.5 mg, Route: Inactive IVP, Q5Min, 2018 [facility] Dosing Weight 69.545, kg, PRN Pain Score 7-10, Start date: 06/22/18 9:17:00 RADIO PROGRAM CHECKER, Duration: 4 doses or times, Stop date: Limited # of times Fentanyl 25 microgram, Inactive Route: IVP, 2018 [facility] Q5Min, Dosing Weight 69.545, kg, PRN Pain Score 4-6, Priority: Routine, Start date: 06/22/18 9:17:00 RADIO PROGRAM CHECKER, Duration: 4 doses or times, Stop date: Limited # of times Labetalol 10 mg, Route: Inactive IVP, Q5Min, 2018 [facility] Dosing Weight 69.545, kg, PRN Elevated BP, Start date: 06/22/18 9:17:00 RADIO PROGRAM CHECKER, Duration: 5 doses or times, Stop date: Limited # of times esmolol 10 mg, Route: Inactive IVP, Q5Min, 2019 [facility] Dosing Weight 69.545, kg, PRN Other -See Comment, Start date: 06/22/18 9:17:00 RADIO PROGRAM CHECKER, Duration: 5 doses or times, Stop date: Limited # of times Hydralazine 10 mg, Route: Inactive IVP, Q20Min, 2018 [facility] Dosing Weight 69.545, kg, PRN Elevated BP, Start date: 06/22/18 9:17:00 RADIO PROGRAM CHECKER, Duration: 2 doses or times, Stop date: Limited # of times Ondansetron 4 mg, Route: Inactive IVP, ONCE, 2018 [facility] Dosing Weight 69.545, kg, PRN Nausea & Vomiting, Start date: 06/22/18 9:17:00 RADIO PROGRAM CHECKER Meperidine 12.5 mg, Route: Inactive IVP, Q30Min, 2018 [facility] Dosing Weight 69.545, kg, PRN Other -See Comment, For shivering, Start date: 06/22/18 9:17:00 RADIO PROGRAM CHECKER, Duration: 2 doses or times, Stop date: Limited # of times Albuterol 0.83 2.49 mg, Route: Inactive MG/ML Inhalant NEB, Q20Min, 2019 [facility] Solution Dosing Weight 69.545, kg, PRN Wheezing, Priority: STAT, Start date: 06/22/18 9:17:00 RADIO PROGRAM CHECKER, Duration: 30 day, Stop date: 07/22/18 10:16:00 CDT Diphenhydramine 12.5 mg, Route: Inactive IVP, Drug form: 2019 [place] INJ, Q6H, Dosing Weight 69.545, kg, PRN Itching, Start date: 06/22/18 9:17:00 RADIO PROGRAM CHECKER, Duration: 30 day, Stop date: 07/22/18 9:16:00 CDT Naloxone 0.4 mg, Route: Inactive IVP, Q2MIN, 2018 [facility] Dosing Weight 69.545, kg, PRN Narcotic Reversal, Start date: 06/22/18 9:17:00 RADIO PROGRAM CHECKER, Duration: 8 doses or times, Stop date: Limited # of times Flumazenil 0.2 mg, Route: Inactive 06/22/ MH IVP, PRN, 2018 [facility] Dosing Weight 69.545, kg, PRN Benzodiazepine Reversal, Initial dose, Start date: 06/22/18 9:17:00 RADIO PROGRAM CHECKER, Duration: 30 day, Stop date: 07/22/18 10:16:00 CDT neostigmine Route: IV, Drug Inactive 06/22/ MH (ANES) form: INJ, 2018 ONCE, Stop date: 06/22/18 9:00:00 RADIO PROGRAM CHECKER glycopyrrolate Route: IV, Drug Inactive 06/22/ MH (ANES) form: INJ, 2018, Stop date: 06/22/18 9:00:00 RADIO PROGRAM CHECKER phenylephrine Route: IV, Drug Inactive /05/ M H (ANES) form: [id number], Stop date: 06/22/18 7:52:00 RADIO PROGRAM CHECKER ePHEDrine (ANES) Route: IV, Drug Inactive 06/22/ MH form: [id number], Stop date: 06/22/18 7:52:00 RADIO PROGRAM CHECKER tranexamic acid Route: IV, Drug Inactive 06/22/ MH (ANES) form: [id number], Stop date: 06/22/18 7:42:00 RADIO PROGRAM CHECKER famotidine (ANES) Route: IV, Drug Inactive 06/22 / MH form: [id number], Stop date: 06/22/18 7:42:00 RADIO PROGRAM CHECKER ondansetron Route: IV, Drug Inactive 06/22/ MH (ANES) form: [id number], Stop date: 06/22/18 7:42:00 RADIO PROGRAM CHECKER acetaminophen Route: IV, Drug Inactive /05/ M H (ANES) form: [id number], Stop date: 06/22/18 7:42:00 RADIO PROGRAM CHECKER ceFAZolin (ANES) Route: IV, Drug Inactive /05/ MH form: INJ, 2018, Stop date: 06/22/18 7:42:00 RADIO PROGRAM CHECKER fentaNYL (ANES) Route: IV, Drug Inactive /05/ MH form: [id number], Stop date: 06/22/18 7:37:00 RADIO PROGRAM CHECKER propofol (ANES) Route: IV, Drug Inactive 03/05/ MH form: INJ, 2018, Stop date: 06/22/18 7:37:00 RADIO PROGRAM CHECKER rocuronium (ANES) Route: IV, Drug Inactive 06/22 form: INJ, 2018, Stop date: 06/22/18 7:37:00 RADIO PROGRAM CHECKER lidocaine (ANES) Route: IV, Drug Inactive form: INJ, 2018, Stop date: 06/22/18 7:32:00 RADIO PROGRAM CHECKER vancomycin (ANES) Route: IV, Drug Inactive 06/22 1000 mg form: INJ, 2018 Start date: 06/22/18 6:45:00 RADIO PROGRAM CHECKER, Stop date: 06/22/18 7:45:00 RADIO PROGRAM CHECKER Lactated Ringers Route: IV, Inactive Injection IV Total Volume: 2018 [facility] (ANES) 1000 mL 1,000, Start date: 06/22/18 6:30:00 RADIO PROGRAM CHECKER, Stop date: 06/22/18 7:30:00 RADIO PROGRAM CHECKER gabapentin 600 MG 600 mg, 1 tab, Inactive Oral Tablet Route: PO, 2018, Dosing Weight 69.545, kg, Start date: 06/22/18 6:15:00 RADIO PROGRAM CHECKER, Stop date: 06/22/18 6:15:00 RADIO PROGRAM CHECKER ropivacaine Notes: NOT No Longer FOR IV use Active 2018 [facility] Ropivacaine 5 mg/mL (49.25 mL) Epinephrine 1 mg/mL (0.5 mL) Clonidine 0.1 mg/mL (0.8 mL) Ketorolac 30 mg/mL (1 mL) Normal Saline 48.45 mL Calcium Chloride 1,000 mL, Rate: No Longer 06/22 0.0014 MEQ/ML / 25 ml/hr, Active 2018 [facility] ast Potassium Infuse over: 40 Chloride 0.004 hr, Route: IV, MEQ/ML / Sodium Dosing Weight Chloride 0.103 69.545 kg, MEQ/ML / Sodium Total Volume: Lactate 0.028 1,000, Start MEQ/ML Injectable date: 06/21/18 Solution 19:15:00 RADIO PROGRAM CHECKER, Duration: 30 day, Stop date: 07/21/18 19:14:00 CDT Allergies, Adverse Reactions, Alerts Substance Category Reaction Severity Reaction Status Date Comments S ource type Reported ciprofloxacin Assertion Drug Active [facility] vancomycin Assertion Drug Active [facility] aspirin Assertion Drug Active [facility] Adhesive Tape Assertion Propensity Active MH to adverse Medic al reactions Group to substance PHENobarbital Assertion Drug Active [facility] Immunizations No Data Provided for This Section Results Order Name Results Value Reference Date Interpretation Comments Deb rce Range URINE AND POC UA Color Yellow Yellow 02/24 Medica l STOOL *NA Group (02/24/19 3:31 PM) URINE AND POC UA Clear Clear 02/24 Medical STOOL Turbidity *NA Group (02/24/19 3:31 PM) URINE AND POC UA SG 1.015 <=1.030 02/24 Medical STOOL Group URINE AND POC UA pH 5.5 5.0 - 8.0 02/24 Medical STOOL Group URINE AND POC UA Prot Negative Negative 02/24 Medic al STOOL mg/dL mg/dL Group URINE AND POC UA Glu Negative Negative 02/24 Medica l STOOL mg/dL mg/dL Group URINE AND POC UA Ket Negative Negative 02/24 Medica l STOOL mg/dL mg/dL Group URINE AND POC UA Bili Negative Negative 02/24 Medic al STOOL *NA Group (02/24/19 3:31 PM) URINE AND POC UA Bld Small Negative 02/24 Medical STOOL *ABN Group (02/24/19 3:31 PM) URINE AND POC UA Uro 0.2 0.1 - 1.0 02/24 Medica l STOOL Group URINE AND POC UA Nit Negative Negative 02/24 Medica l STOOL *NA Group (02/24/19 3:31 PM) URINE AND POC UA Small Negative 02/24 Medical STOOL LeukEst *ABN Group (02/24/19 3:31 PM) URINE AND POC UA Color Yellow Yellow 02/10 Medica l STOOL *NA Group (02/10/19 4:41 PM) URINE AND POC UA Clear Clear 02/10 Medical STOOL Turbidity *NA Group (02/10/19 4:41 PM) URINE AND POC UA SG 1.020 <=1.030 02/10 Medical STOOL Group URINE AND POC UA pH 5.5 5.0 - 8.0 02/10 Medical STOOL Group URINE AND POC UA Prot Negative Negative 02/10 Medic al STOOL mg/dL mg/dL Group URINE AND POC UA Glu Negative Negative 02/10 Medica l STOOL mg/dL mg/dL Group URINE AND POC UA Ket Negative Negative 02/10 Medica l STOOL mg/dL mg/dL Group URINE AND POC UA Bili Negative Negative 02/10 Medic al STOOL *NA* Group (02/10/19 4:41 PM) URINE AND POC UA Bld Small Negative 02/10 Medical STOOL *ABN* Group (02/10/19 4:41 PM) URINE AND POC UA Uro 0.2 0.1 - 1.0 02/10 Medica l STOOL Group URINE AND POC UA Nit Negative Negative 02/10 Medica l STOOL *NA* Group (02/10/19 4:41 PM) URINE AND POC UA Trace Negative 02/10 Medical STOOL LeukEst *ABN* Group (02/10/19 4:41 PM) HEMATOLOGY MPV 9.8 7.4 - 10.4 06/24 [facility] Platelet 192 133 - 450 06/24 [facility] HEMATOLOGY RBC 4.06 4.20 - 06/24 5.40 [facility] HEMATOLOGY Hgb 12.3 12.0 - 06/24 16.0 [facility] Hct 36.8 36.0 - 06/24 48.0 /2018 [facility] MCV 90.6 80.0 - 06/24 98.0 /2018 [facility] HEMATOLOGY RDW 14.6 11.5 - 06/24 14.5 /2018 [facility] HEMATOLOGY MCH 30.2 27.0 - 03 31.0 /2019 [facility] MCHC 33.3 32.0 - 06/24 36.0 2019 [facility] HEMATOLOGY WBC 8.6 3.7 - 10.4 06/24 [facility] Lymphocytes # 1.5 1.0 - 5.5 06/24 [facility] HEMATOLOGY Monocytes # 0.8 0.0 - 0.8 06/24 [facility] HEMATOLOGY Eosinophils # 0.3 0.0 - 0.5 06/24 [facility] Lymphocytes 17.7 20.0 - 06/24 MH 40.0 /2019 [facility] HEMATOLOGY Monocytes 8.8 2.0 - 12.0 03/ /2018 [facility] HEMATOLOGY Eosinophils 3.0 0.0 - 4.0 03/ [facility] HEMATOLOGY Neutrophils # 6.0 1.5 - 8.1 03/ [facility] HEMATOLOGY Basophils 0.4 0.0 - 1.0 03/ /2018 [facility] HEMATOLOGY Segs 70.1 45.0 - 03/ MH 75.0 /2018 [facility] HEMATOLOGY RBC 3.65 4.20 - 03/06 MH 5.40 /2018 [facility] HEMATOLOGY Hgb 11.1 12.0 - 03 MH 16.0 /2018 [facility] HEMATOLOGY Platelet 158 133 - 450 03 [facility] HEMATOLOGY RDW 14.5 11.5 - 06/23 14.5 /2018 [facility] HEMATOLOGY MCV 90.8 80.0 - 03/ MH 98.0 /2018 [facility] HEMATOLOGY MCH 30.4 27.0 - 03 MH 31.0 /2018 [facility] HEMATOLOGY MPV 9.5 7.4 - 10.4 03 [facility] HEMATOLOGY Hct 33.1 36.0 - 03/ MH 48.0 /2018 [facility] HEMATOLOGY WBC 7.1 3.7 - 10.4 03/ [facility] HEMATOLOGY MCHC 33.5 32.0 - 03/ MH 36.0 /2018 [facility] HEMATOLOGY Segs 68.7 45.0 - 03/ MH 75.0 /2018 [facility] HEMATOLOGY Lymphocytes 20.3 20.0 - 03/ 40.0 /2018 [facility] HEMATOLOGY Monocytes 9.2 2.0 - 12.0 06/23 [facility] HEMATOLOGY Eosinophils 1.3 0.0 - 4.0 06/23 [facility] HEMATOLOGY Basophils 0.5 0.0 - 1.0 06/23 [facility] HEMATOLOGY Eosinophils # 0.1 0.0 - 0.5 06/23 [facility] HEMATOLOGY Neutrophils # 4.9 1.5 - 8.1 06/23 [facility] HEMATOLOGY Lymphocytes # 1.5 1.0 - 5.5 06/23 [facility] HEMATOLOGY Monocytes # 0.7 0.0 - 0.8 06/23 [facility] URINE AND UA Glucose Negative Negative 06/17 STOOL (06/17/18 9:53 AM) /2018 [facility] ast URINE AND UA Protein Negative Negative 06/17 STOOL (06/17/18 9:53 AM) /2018 [facility] URINE AND UA Bili Negative Negative 06/17 STOOL *NA* [facility] (06/17/18 9:53 AM) URINE AND UA Ketones Negative Negative 06/17 STOOL *NA* [facility] (06/17/18 9:53 AM) URINE AND UA pH 6.0 5.0 - 8.0 06/17 STOOL /2018 [facility] URINE AND UA Spec Grav 1.020 <=1.030 06/17 STOOL /2018 [facility] URINE AND UA Leuk Est Negative Negative 06/17 [facility]OOL (06/17/18 9:53 AM) [facility] URINE AND UA WBC 1 0 - 5 06/17 STOOL /2018 [facility] URINE AND UA Blood Small Negative 06/17 STOOL *ABN* /2018 [facility] (06/17/18 9:53 AM) URINE AND UA Nitrite Negative Negative 06/17 STOOL (06/17/18 9:53 AM) [facility] URINE AND UA Sq Epi Occasional Few /LPF 06/17 STOOL /LPF /2018 [facility] URINE AND UA 0.2 0.1 - 1.0 06/17 STOOL Urobilinogen /2018 [facility] URINE AND UA Bacteria Occasional None Seen 06/17 STOOL /HPF /HPF /2018 [facility] URINE AND UA RBC 3 0 - 2 06/17 STOOL /2018 [facility] URINE AND UA Turbidity Clear Clear 06/17 [facility]OOL (06/17/18 9:53 AM) [facility] URINE AND UA Color Yellow Yellow 06/17 STOOL *NA* [facility] (06/17/18 9:53 AM) BLOOD BANK Antibody Scrn Negative 06/17 RESULTS (06/17/18 9:36 AM) [facility]/Rh A POS 06/17 RESULTS /2018 [facility] SPECIAL Hgb A1C 6.7 <=5.6 % 06/17 CHEMISTRY /2018 [facility] Pathology Reports No Data Provided for This Section Diagnostic Reports Report Value Date Source Pelvis AP DX Patient Name: AIDA CORTEZ 06/22/2018 [facility] : 1940; Age: 78 years y/o Female MR: [id number] PELVIS, 1 view, portable, postoperative HISTORY: Postoperative study, following left hip arthroplasty. TECHNIQUE: A single portable postoperative frontal view of the pelvis was obtained. IMPRESSION: The left total hip prosthesi s is in good position. There is no evidence of unexpected fracture or other complication. There is postoperative soft tissue gas. The right hip prosthesis is also noted. SL: [id number] Pelvis AP DX Patient Name: AIDA CORTEZ 06/22/2018 [facility] : 1940; Age: 78 years y/o Female MR: [id number] * PELVIS, 1 view, intraoperative HISTORY: Intraoperative radiograph obtained madie woods left hip arthroplasty. TECHNIQUE: A single portable intraoperative frontal view of the pelvis was obtained. IMPRESSION: There has been resection of the left femoral head and neck. The acetabular component has been placed. There is a femoral sizing component. There is no evidence of unexpected fracture. There is operative soft tissue gas. A right hip prosthesis is noted. SL: [id number] Consultation Notes No Data Provided for This Section Discharge Summaries No Data Provided for This Section History and Physicals No Data Provided for This Section Vital Signs Vital Sign Value Date Comments Source Height 149.86 cm 02/15/2020 [facility] p Weight 63.636 02/15/2020 [facility] Grou p BMI Calculated 28.34 02/15/2020 Medical Gr oup Systolic (mm Hg) 130 07/07/2019 [facility] Alon ro Diastolic (mm Hg) 65 07/07/2019 [facility] Ne uro Heart Rate 70 07/07/2019 [facility] Neuro Respitory Rate 16 07/07/2019 [facility] Neuro Height 149.86 cm 07/07/2019 [facility] Neuro Weight 62.273 07/07/2019 [facility] Neuro BMI Calculated 27.73 07/07/2019 [facility] Neuro Systolic (mm Hg) 122 06/02/2019 [facility] Alon ro Diastolic (mm Hg) 67 06/02/2019 [facility] Ne uro Heart Rate 66 06/02/2019 [facility] Neuro Respitory Rate 16 06/02/2019 [facility] Neuro Height 149.86 cm 06/02/2019 [facility] Neuro Weight 68.182 06/02/2019 [facility] Neuro BMI Calculated 30.36 06/02/2019 [facility] Neuro Systolic (mm Hg) 123 05/24/2019 [facility] Alon ro Diastolic (mm Hg) 65 05/24/2019 [facility] Ne uro Heart Rate 76 05/24/2019 [facility] Neuro Respitory Rate 16 05/24/2019 [facility] Neuro Height 147.32 cm [facility]/24[facility] 34.545 05/24/2019 [facility] Neuro BMI Calculated 15.92 05/24/2019 [facility] Neuro Height 149.86 cm 05/23/2019 [facility] Grou p Weight 66.364 05/23/2019 [facility] Grou p BMI Calculated 29.55 05/23/2019 Medical Gr oup Height 149.86 cm 02/24/2019 Medical Grou p Weight 66.364 02/24/2019 Medical Grou p BMI Calculated 29.55 02/24/2019 [facility] Gr oup Systolic (mm Hg) 122 02/23/[facility] Diastolic (mm Hg) 65 02/23/2019 [facility] Ne uro Heart Rate 78 02/23/2019 [facility] Neuro Respitory Rate 16 02/23/2019 [facility] Neuro Height 149.86 cm 02/23/2019 [facility] Neuro Weight 66.364 02/23/2019 [facility] Neuro BMI Calculated 29.55 02/23/2019 [facility] Neuro Height 149.86 cm 02/10/2019 Medical Grou p Weight 65.909 02/10/2019 Medical Grou p BMI Calculated 29.35 02/10/2019 Medical Gr oup Systolic (mm Hg) 118 2019 [facility] Alon ro Diastolic (mm Hg) 66 2019 [facility] Ne uro Heart Rate 68 2019 [facility] Neuro Respitory Rate 16 2019 [facility] Neuro Height 147.32 cm 2019 [facility] Neuro Weight 64.091 2019 [facility] Neuro BMI Calculated 29.53 2019 [facility] Neuro Temperature Oral (F) 98 F 06/24/2018 [facility] Heart Rate 75 06/24/2018 [facility] Respitory Rate 16 06/24/2018 [facility] Systolic (mm Hg) 118 06/24/2018 [facility] Diastolic (mm Hg) 73 06/24/[address] Systolic (mm Hg) 138 06/24/2018 [facility] Diastolic (mm Hg) 82 06/24/[address] Respitory Rate 16 06/24/2018 [facility] Heart Rate 97 06/24/2018 [facility] Temperature Oral (F) 98.9 F 06/24/2018 [facility] Heart Rate 84 06/24/2018 [facility] Temperature Oral (F) 97.9 F 06/24/2018 [facility] Systolic (mm Hg) 136 06/24/2018 [facility] Diastolic (mm Hg) 79 06/24/[address] Respitory Rate 16 06/24/2018 [facility] BMI Calculated 30.33 06/22/2018 [facility] Weight 70.455 06/22/2018 [facility] Height 152.4 cm 06/22/2018 [facility] BMI Calculated 29.94 06/17/2018 [facility] Hospital Height 152.4 cm 06/17/2018 [facility] Weight 69.545 06/17/2018 [facility] Encounters Location Location Encounter Encounter Reason Attending ADM DC Stat us Source Details Type Number For Provider Date Date Visit [facility] [id number] Debbie 06/22 06/24 [facility] Outpatient [id number] Wayne 12/21 [facility] Outpatient [id number] Wayne 01/19 Active [facility] Outpatient [id number] Wayne 01/19 01/20 [facility] Neurology [facility] Outpatient [id number] Negar02/09 Active [facility] Multi Ambulatory [id number] Negar02/09 Specialty Pre-Reg [facility] Medic al Clinic [facility] Outpatient [id number] Negar02/10 [facility] [id number] Negar02/10 Urology [facility] Outpatient [id number] Wayne 02/23 Active [facility] [place] [facility] Outpatient [id number] Wayne 02/23 02/24 [facility] Neurology [facility] Outpatient [id number] Negar02/24 Active [facility] [place] Outpatient [id number] MED_ASST 02/24 Activ e [facility] [place] [facility] Outpatient [id number] Negar 02/24 02/25 Urology [facility] Outpatient [id number] Negar05/23 Active [facility] Multi Outpatient [id number] Negar 05/23 05/24 MH Specialty [facility] /20192020 [facility] Outpatient [id number] Negar 05/24 Active [facility] /2020 [place] Outpatient [id number] Wayne 05/24 Active [facility] /2020 [place] [facility] Ambulatory [id number] Negar 05/24 05/24 MH Urology Pre-Reg [place] /20192020 [facility] MNA Outpatient [id number] Wayne 05/24 05/25 [facility] /20192020 [facility] Outpatient [id number] Wayne 05/25 Active [facility] /2020 [facility] Ambulatory [id number] Wayne 05/25 05/25 [facility] Pre-Reg [facility] /2019 [facility] Outpatient [id number] Wayne 06/02 Active [facility] /2020 [place] [facility] Outpatient [id number] Wayne 06/02 06/03 [facility] /2019 [facility] Outpatient [id number] Wayne 07/06 Active [facility] /2020 [facility] Outpatient [id number] Wayne 07/06 Active [facility] /2020 [facility]NA Ambulatory [id number] Wayne 07/06 07/06 [facility] Pre-Reg [facility] /2019 [facility] MNA Outpatient [id number] Wayne 07/06 07/07 [facility] /2019 [facility] MNA Outside [id number] 11/03 11/05 Mis simran Neurology Medical /2019 [facility] Records Outpatient [id number] MED_ASST 11/24 Activ e [facility] VISIT /2020 [place] [facility] Ambulatory [id number] Raytoysha 11/24 11/24 MH Urology Pre-Reg Radha /2019 [facility] Between [id number] 11/27 11/28 MH Urology Visit /2019 [facility] Outpatient [id number] Negar 02/14 Active [facility] /2020 [facility] Multi Outpatient [id number] Negar 02/14 02/15 MH Specialty [place] /20192020 [facility] Outpatient [id number] Negar 06/20 Active [facility] [place] Procedures Procedure Code Date Perfomer Comments Source Cystourethroscopy 71274 [facility] joey (separate procedure) 9 Grou p Arthroplasty of joint [id number] right large Medical of foot<sup>1</sup> toe Group ,[facility] Neuro,[facility] Arthroscopy of [id number] left Medical knee<sup>2</sup> Group,[facility] Breast [id number] right breast Medical lumpectomy<sup>3</sup> [facility] Hip [id number] right-replace Medical arthroplasty<sup>4</dietz ment Gr oup,[facility] p> Neuro,[facility] Knee [id number] left Medical replacement<sup>5</sup Gr oup,[facility] > Neuro,[facility] Assessment and Plan Assessment and Plan Date Source Extracted from:Title: Clinical Document 06/24/2018 [facility] Author: Debbie Nayak MD Date: 06/24/18 [...] up with the orthopedist in 7- 10 day s. rehabilitation. MEDICATIONS: Please see discharge medication reconciliation form. Rikki Celis Extracted from:Title: Clinical Document Author: Kamaljit Cavazos MD Date: 06/24/18 Daily Progress Note [facility] Kamaljit Cavazos MD SUBJECTIVE: pt seen and [...] 24 Hr Tmax: 98.9F (37.17c) at 06/24 07:3 0 Vital Signs are the last 5 in the past 48 hours. Labs (Last four charted values) WBC 8.6 (JUN 24) 7.1 (JUN 23) Hgb 12.3 (JUN 24) L 11.1 (Jun) Hct 36.8 (JUN 24) L 33.1 (Jun) Plt 192 (JUN 24) 158 (JUN 23) ASSESSMENT and EXAM: General: in no apparent distress at this time. Eyes: Pupils equal, round and reactive to light. Eyes luci l inspection. ENT: Ears normal. Nose normal. Pharynx normal. Neck: Normal inspection. No jugular venous distention. Nec k supple. CVS: Heart sounds normal. Pulses normal. no murmurs Respiratory: No respiratory distress. Breath sounds normal. no wheezing Abdomen: Soft and nontender. no organomegaly Back: Normal inspection. Skin: Skin warm and dry. Normal skin color. Extremities: Extremities exhibit normal ROM. No lower extre mity edema. Neuro: Oriented X 3. No motor deficit. DIAGNOSES and PROBLEMS: 1. Status post left total hip 2. Diabetes mellitus type 2 3. Hypertension 4. Hyperlipidemia PLAN and TREATMENT: Continue postop care Patient's pain medications Continue PT OT Continue home medications restart metformin as outpt Hopeful discharge MEDICATIONS Scheduled Meds (6):levothyroxine (Synthr oid), losartan, metoprolol (Lopressor), rivaroxaban, rosuvastatin, sodium chloride (Saline Flush 0.9%) Unscheduled Meds (2):pneumococcal 13-liam ent vaccine, ropivacaine (LE Pericapsular INJ) PRN Meds (6):acetaminophen-hydrocodone ( [place] 10/325 oral tablet), acetaminophen-hydrocodone ([place] 10/325 oral tablet), hydromorphone (Dilaudid), melatonin, ondansetron (Zofran), sodium chloride (Saline Flush 0.9%) One Time Meds: None Continuous Infusions (1):Sodium Chloride 0.45% IV 1,000 mL ( 1/2 NS 1,000 mL) Extracted from:Title: Clinical Document Author: Debbie Nayak MD Date: 06/22/18 OPERATIVE REPORT PATIENT NAME: Aida Cortez DATE OF OPERATION/PROCEDURE: 06/22/2018 PREOPERATIVE DIAGNOSIS: Primary left hip severe osteoarthritis. POSTOPERATIVE DIAGNOSIS: Primary left hip severe osteoarthritis. PROCEDURE: 1. Left total hip arthroplasty. SURGEON: Dr. Debbie Nayak. CORK GRINDER: Quang Leon NP. Please note that it was medically necess helena to have a knowledgeable insurance legal assistant present for the case. Quang was present for the entire case and assisted with retracting and positioning the limb and prot ecting the sciatic nerve, dislocation an d relocation of the hip, and attempts with [...] stage osteoarthritis and had attempted all conservative measures , including PT, NSAIDS, and cane with no success. PROCEDURE IN DETAIL: The patient was brought to the operating room and transferred over to the hospital operating room table without any complications. The patient was given general anesthesia and successfully intubated. The patient was positioned in the latera l position with the left side up and all bony prominences well-padded, and had an axillary roll placed. The patient had TERRIE hose and SCDs on the right leg. The patient was given 2 grams Ancef, one gra m of Vancomycin, and one gram of transaminic acid and had the left leg prepped and draped in standard sterile fashion. A standard posterior approach was taken to the hip. Dissection down to the fascia zuleyka was performed maintaining hemostasis with electrocautery. Fascia zuleyka was then incised and the greater trochanter ic bursa was excised. The piriformis wa s identified, tagged and elevated off the posterior aspect of the greater trochanter, short external rotators and posterior capsule was identified and elevated of f the greater trochanter. The hip was d islocated, the femoral neck was cut was made. At that point, a capsulotomy of the superior and anterior aspect was performed in order to mobilize the hip due to t he retraction of the capsule. The hip w as able to be mobilized anteriorly, slightly, and the acetabulum was now visualized. Once visualization of the acetabulum was obtained, the reaming began at a si ze 43 and proceeded up to a size 48. The 48 mm cup was trialed and had excellent fit and stability. At that point, the Isidra PSL size 48 mm cup was placed with one 6.5 screws which had an excellent b ite. The 10-degree liner was placed and the femur was prepa red. Once visualization of the femur was obta ined, a [employer] cutter was used to remove the proximal aspect of the intramedullary area followed by the canal finder. Broaching began with a 0 and proceeded up t o a size 5. Calcar reamer was used to r eam down the excess bone and a size 5 with 132 degree neck and a -4/32 mm head was placed and the hip was reduced, had good length, extension and had good stability. At that point, the trials were removed a nd the wound was copiously irrigated with normal [...] At that point, the wound was copiously i rrigated with normal saline and bacitracin. The short [...] cryl, 0 Vicryl for the Rebecca Monocryl f or the subcutaneous layer and francisco for the skin. Xeroform, 4 x 4s, ABD and dressing were applied. The patient was repositioned in the supine position. The patient was awoken from general anes thesia, successfully extubated and taken to recovery room in stable condition. All the needle, lap and sponge counts were correct at the end of the case. IMPLANTS: Isidra PSL cup size 48 with one 6.5 mm screws. [place] size 5 Accolade II 132 degree neck. Isidra size -4/32 mm ceramic head. [place] 10-degree X3 liner. Debbie Nayak MD Plan of Care No Data Provided for This Section Social History Social History Date Source Social History TypeResponse 07/04/2013 [facility] Alcohol Current, Frequency: 1-2 times per month. Smoking Status Never smoker; Exposure to Tobacco Smoke None; Exposure to Tobacco Smoke Unable to obtain; Cigarette Smoking Last 365 Days No; Reg Smoking Cessation Counseling No entered on: 07/07/19 Social History TypeResponse 07/04/2013 [facility] rou Alcohol Current, Frequency: 1-2 times per month. Smoking Status Never smoker; Exposure to Tobacco Smoke None; Cigarette Smoking Last 365 Days No; Reg Smoking Cessation Counseling No entered on: 02/15/20 Social History TypeResponse 07/04/2013 [facility] Alcohol Current, Frequency: 1-2 times per month. Smoking Status Never smoker; Exposure to Tobacco Smoke None; Cigarette Smoking Last 365 Days No; Reg Smoking Cessation Counseling No entered on: 06/22/18 Family History No Data Provided for This Section Advance Directives No Data Provided for This Section Functional Status No Data Provided for This Section
--- OUTSIDE RECORDS SUMMARY | 2020-02-25 13:56 | XMS REPORT | Summary of Care ---
:1940 Author Organization [facility] Address [address], [place] [address]- Encounter HQ Mani(FIN) [id number] Date(s): 02/15/20 - 02/15/20 [facility] [address], [place] [address]- Discharge Disposition: Home or Self Care Attending Physician: Negar Weber MD Vital Signs Most recent to oldest [Reference Range]: 1 Height 149.86 cm (02/15/20 10:58 AM) Weight 63.636 kg (02/15/20 10:58 AM) Body Mass Index 28.34 m2 (02/15/20 10:58 AM) Problem List Condition Effective Dates Status Health Status Informant Diabetes(Confirmed) Active Hyperlipidemia(Confirmed) Active Hypertension(Confirmed) Active Hypervitaminosis B6(Confirmed) Active Hypothyroid(Confirmed) Active Lumbar pain(Confirmed) Active Breast cancer(Confirmed) Active Monoclonal gammopathy(Confirmed) Active Neuropathy(Confirmed) Active Osteoarthritis of hip(Confirmed) Active Osteopenia(Confirmed) Active Scoliosis(Confirmed) Active Sleep apnea(Confirmed) Resolved Allergies, Adverse Reactions, Alerts Substance Reaction Severity Status ciprofloxacin Active vancomycin Active aspirin Active Adhesive Tape Active PHENobarbital Active Medications Pyridium 200 mg oral tablet See Instructions, PRN Dysuria, 1 tab PO TID PRN dysuria. Stop taking and call urologist if symptoms continue to worsen or develop fevers., # 10 tab, 1 Refill(s), Pharmacy: [id number], 149.86, cm, 02/15/20 10:58:00 CDT, Height, 63.636, kg, ... Start Date: 02/15/20 Stop Date: 02/15/21 Status: OrderedPyridium 200 mg oral tablet 200 mg = 1 tab, PO, TID, PRN Dysuria, X 2 day, # 6 tab, 0 Refill(s), Pharmacy: [id number], 149.86, cm, 02/15/20 10:58:00 CDT, Height, 63.636, kg, 02/15/20 10:58:00 CDT, Weight Start Date: 02/15/20 Stop Date: 02/15/20 Status: Discontinued Results No data available for this section Immunizations No data available for this section Procedures Procedure Date Related Diagnosis Body Site Status Arthroplasty of joint of foot1 Completed Arthroscopy of knee2 Complet ed Breast lumpectomy3 Completed Hip arthroplasty4 Completed Knee replacement5 Completed 1right large [id number] Social History Social History Type Response Alcohol Current, Frequency: 1-2 time s per month. Smoking Status Never smoker; Exposure to To bacco Smoke None; Cigarette Smoking Last 365 Days No; Reg Smoking Cessation Counseling No entered on: 02/15/20 Assessment and Plan No data available for this section
--- OUTSIDE RECORDS SUMMARY | 2020-02-25 13:57 | XMS REPORT | Continuity of Care Document ---
:1940 Author Organization [facility] t Address [address] [place] [address] Care Team Providers Name Role Phone Malu Weber Attending Clinician VISIT, UA Attending Clinician Unavailable Stephon Harris Attending Clinician Nael Attending Clinician Nael Admitting Clinician Problems Condition Condition Condition Status Onset Resolution Last Treating Co mments Source Name Details Category Date Date Treatment Clinician Date UNK Diagnosis Active 2018-07-02 Mem oria 1-24 22:03:00 l UNK 00:00: [place] 00 Active 05/13/2018 [facility] Sleep Problem Resolve 2020-02-18 Juan F adalberto apnea d 00:48:00 l (finding) Sleep Anant n apnea (finding) Resolved Problem 02/18/2020 [facility], [place] Diabetes Problem Active 2020-02-18 Mem oria mellitus 00:48:00 l (disorder) Diabetes He rmann mellitus (disorder) Active Problem 02/18/2020 [facility] her [facility], [place] Hyperlipid Problem Active 2020-02-18 M emoria emia 00:48:00 l (disorder) Anant n Hyperlipid emia (disorder) Active Problem 02/18/2020 Medical Group,[facility] her Neuro Hypertensi Problem Active 2020-02-18 M emoria ve 00:48:00 l disorder, Cruz systemic Hypertensi arterial ve (disorder) disorder, systemic arterial (disorder) Active Problem 02/18/2020 Medical Group,[facility] her [facility], [place] Hypothyroi Problem Active 2020-02-18 M emoria dism 00:48:00 l (disorder) Anant n Hypothyroi dism (disorder) Active Problem 02/18/2020 [facility] her [facility], [place] Low back Problem Active 2020-02-18 Mem oria pain 00:48:00 l (disorder) Low back He rmann pain (disorder) Active Problem 02/18/2020 [facility] her Neuro Malignant Problem Active 2020-02-18 Me moria tumor of 00:48:00 l breast [place] (disorder) Malignant tumor of breast (disorder) Active Problem 02/18/2020 [facility] her [facility], [place] Neuropathy Problem Active 2020-02-18 M emoria (disorder) 00:48:00 l [place] Neuropathy (disorder) Active Problem 02/18/2020 [facility] her Neuro,[facility] Osteoarthr Problem Active 2020-02-18 M emoria itis of 00:48:00 l hip [place] (disorder) Osteoarthr itis of hip (disorder) Active Problem 02/18/2020 [facility] her [facility], [place] Osteopenia Problem Active 2020-02-18 M emoria (disorder) 00:48:00 l [place] Osteopenia (disorder) Active Problem 02/18/2020 [facility] her Neuro Scoliosis Problem Active 2020-02-18 Me moria deformity 00:48:00 l of spine Cruz (disorder) Scoliosis deformity of spine (disorder) Active Problem 02/18/2020 [facility] her Neuro 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 00:48:00 l (disorder) Anant n Hypervitam inosis B6 (disorder) Active Problem 02/18/2020 [facility] her Neuro Monoclonal Problem Active 2020-02-18 M emoria gammopathy 00:48:00 l (disorder) Anant n Monoclonal gammopathy (disorder) Active Problem 02/18/2020 [facility] her Neuro UNILATERAL Diagnosis Active 2018-07-02 Memoria PRIMARY 22:03:00 l OSTEOARTHR Anant n ITIS, LEFT UNILATERAL PRIMARY OSTEOARTHR ITIS, LEFT Active [facility] Allergies, Adverse Reactions, Alerts Allergy Allergy Status Severity Reaction(s) Onset Inactive Treating Comm ents Source Name Type Date Date Clinician ciproflo ciproflo Active Memori a xacin xacin l [place] vancomyc vancomyc Active Memori a in in l [place] aspirin aspirin Active Memoria malu [place] Adhesive Adhesive Active Memori a Tape Tape l [place] PHENobar PHENobar Active Memori a bital bital malu [place] Social History Social Habit Start Date Stop Date Quantity Comments Source Social History 2013-07-04 2013-07-04 Suni salas 18:23:20 18:23:20 Medications Ordered Filled Start Stop Current Ordering Indication Dosage Frequency Signature Comments Components Source Medication Medication Date Date Medication? Clinician (SIG) Name Name Phenazopyri 2019-04 Yes See Memori a dine 0-28 Instructio l hydrochlori 17:10: ns, PRN Her reese de 200 MG 00 Dysuria, 1 Oral Tablet tab PO TID [Pyridium] PRN dysuria. Stop taking and call urologist if symptoms continue to worsen or develop fevers., # 10 tab, 1 Refill(s), Pharmacy: [facility] #[id number], 149.86, cm, 02/15/20 10:58:00 CDT, Height, 63.636, kg, ... Phenazopyri 2019-04 No 200 mg = 1 Memoria dine 0-28 tab, PO, l hydrochlori 16:10: TID, PRN He rmann de 200 MG 00 Dysuria, X Oral Tablet 2 day, # 6 [Pyridium] tab, 0 Refill(s), Pharmacy: [facility] #[id number], 149.86, cm, 02/15/20 10:58:00 CDT, Height, 63.636, kg, 02/15/20 10:58:00 CDT, Weight Vantin 200 Yes 200 mg = 1 M emoria mg oral 8-10 tab, PO, l tablet 21:48: Q12H, X 7 Anant n 00 day, # 14 tab, 0 Refill(s), Pharmacy: [facility] #[id number], 149.86, cm, 07/07/19 11:13:00 CDT, Height, 62.273, kg, 07/07/19 11:13:00 CDT, Weight Cephalexin Yes 500 mg = 1 M emoria 500 MG Oral 8-07 cap, PO, l Capsule 15:48: BID, X 7 Anant n [Keflex] 00 day, # 14 cap, 0 Refill(s), Pharmacy: [facility] #[id number], 149.86, cm, 07/07/19 11:13:00 CDT, Height, 62.273, kg, 07/07/19 11:13:00 CDT, Weight Losartan Yes 100 mg, Memori a 2-04 PO, Daily, l 21:19: 0 [place] 00 Refill(s) Cod Liver Yes PO, Daily, Me moria Oil 2-03 0 l 20:44: Refill(s) Cruz 00 bimatoprost 2018-04 Yes 1 drp, Juan F adalberto 0.1 MG/ML 0-24 BOTH EYES, l Ophthalmic 21:15: Bedtime, # H ermann Solution 00 5 mL, 4 [Lumigan] Refill(s) rivaroxaban Yes 10 mg = 1 M emoria 10 mg oral 307 tab, PO, l tablet 20:28: Q24H, 0 Refill(s) Acetaminoph Yes 1 tab, PO, Memoria en 325 MG / 3-07 Q4H, PRN l Hydrocodone 20:28: Pain Score Cruz Bitartrate 00 4-6, 0 10 MG Oral Refill(s) Tablet [Bergholz 10/325] Lopressor No Notes: Memori a 3-07 (Same as: l 15:00: Lopressor) Synthroid No Notes: Memori a 3-07 Take 1 l 12:30: hour [place] 00 before or 2 hours after meal; Enteral feeds may interefere with the absorption of this medication . (Same as:Levothr oid) Losartan No Notes: Memoria 3-07 (Same as: l 03:00: Cozaar) rosuvastati No Notes: Juan F adalberto n 3-07 Same as l 03:00: Crestor Melatonin No Notes: Memori a 3-06 (Same as: l 16:09: Melatonin) Thyroxine No Notes: Memori a 3-06 Take 1 l 13:30: hour [place] 00 before or 2 hours after meal; Enteral feeds may interefere with the absorption of this medication . (Same as:Levothr oid) Levothyroxi Yes 25 Memori a ne Sodium -06 microgram l 0.025 MG 13:08: = 1 tab, Rebecca nn Oral Tablet 00 PO, Daily, [Synthroid] 0 Refill(s) Saline No Notes: Memoria Flush 0.9% 06-23 (Same as: l 03:00: BD Cruz 00 Posiflush) Vancomycin No 2001 mg: Me moria 3-06 infuse l 00:00: over 2.5 [place] 00 hours For adult patients only: Round to nearest 250 mg per Medical Staff approval MEDICATION WASTE Product Size: 1000 mg Product Wasted: ___ mg Zofran No Notes: Memoria 3-05 (Same as: l 23:09: Zofran) rivaroxaban No Notes: Juan F adalberto -05 (Same as: l 21:15: Xarelto) Cefazolin No Notes: Memori a 3-05 (Same As: l 20:00: Ancef, [place] Kefzol) MEDICATION WASTE Product Size: 1000 mg Product Wasted: ___ mg Streptococc No Notes: Juan F adalberto us - Shake well l pneumoniae 16:32: prior to Her reese serotype 1 40 use (Same capsular as: antigen Prevnar diphtheria 13) [id number] protein conjugate vaccine / Streptococc us pneumoniae serotype 14 capsular antigen diphtheria [id number] protein conjugate vaccine / Streptococc us pneumoniae serotype 18C capsular antigen d Acetaminoph No Notes: Do M emoria en 325 MG / 3-05 not exceed l Hydrocodone 15:18: 4gm/day of Cruz Bitartrate 00 acetaminop 10 MG Oral hen. Tablet (Same as: [Bergholz Bergholz 10/325] 325/10) Dilaudid No Notes: Memoria 3-05 (Same as: l 15:18: Dilaudid) Saline No Notes: Memoria Flush 0.9% 3-05 (Same as: l 15:18: BD Posiflush) 1/2 NS No 1,000 mL, Memori a 1,000 mL 3-05 Rate: 75 l 15:18: ml/hr, Cruz 00 Infuse over: 13.3 hr, Route: IV, Dosing Weight 69.545 kg, Total Volume: 1,000, Start date: 06/22/18 9:18:00 PUZZLE ASSEMBLER, Duration: 30 day, Stop date: 07/22/18 9:17:00 CDT, 1.74, m2 Ofirmev 2019-0 No or = 50 Memori a 3-05 kg, Start l 15:17: date: [place] 00 06/22/18 9:17:00 PUZZLE ASSEMBLER, Substitute Allowed No Oxycodone 2019-0 No 10 mg, Memori a 3-05 Route: PO, l 15:17: Drug form: Cruz 00 TAB, Q4H, Dosing Weight 69.545, kg, PRN Pain Score 7-10, Start date: 06/22/18 9:17:00 PUZZLE ASSEMBLER, Duration: 30 day, Stop date: 07/22/18 9:16:00 CDT Hydromorpho 2019-0 No 0.5 mg, Mem oria ne 3-05 Route: l 15:17: IVP, [place] 00 Q5Min, Dosing Weight 69.545, kg, PRN Pain Score 7-10, Start date: 06/22/18 9:17:00 PUZZLE ASSEMBLER, Duration: 4 doses or times, Stop date: Limited # of times Fentanyl 2019-0 No 25 Memoria 3-05 microgram, l 15:17: Route: [place] 00 IVP, Q5Min, Dosing Weight 69.545, kg, PRN Pain Score 4-6, Priority: Routine, Start date: 06/22/18 9:17:00 PUZZLE ASSEMBLER, Duration: 4 doses or times, Stop date: Limited # of times Labetalol 2019-0 No 10 mg, Memori a 3-05 Route: l 15:17: IVP, [place] 00 Q5Min, Dosing Weight 69.545, kg, PRN Elevated BP, Start date: 06/22/18 9:17:00 PUZZLE ASSEMBLER, Duration: 5 doses or times, Stop date: Limited # of times esmolol 2019-0 No 10 mg, Memoria 3-05 Route: l 15:17: IVP, [place] 00 Q5Min, Dosing Weight 69.545, kg, PRN Other -See Comment, Start date: 06/22/18 9:17:00 PUZZLE ASSEMBLER, Duration: 5 doses or times, Stop date: Limited # of times Hydralazine 2019-0 No 10 mg, Juan F adalberto 3 Route: l 15:17: IVP, [place] 00 Q20Min, Dosing Weight 69.545, kg, PRN Elevated BP, Start date: 06/22/18 9:17:00 PUZZLE ASSEMBLER, Duration: 2 doses or times, Stop date: Limited # of times Ondansetron 2019-0 No 4 mg, Memor ia 06-22 Route: l 15:17: IVP, ONCE, [place] 00 Dosing Weight 69.545, kg, PRN Nausea & Vomiting, Start date: 06/22/18 9:17:00 PUZZLE ASSEMBLER Meperidine 2019-0 No 12.5 mg, Mem oria 06-22 Route: l 15:17: IVP, [place] 00 Q30Min, Dosing Weight 69.545, kg, PRN Other -See Comment, For shivering, Start date: 06/22/18 9:17:00 PUZZLE ASSEMBLER, Duration: 2 doses or times, Stop date: Limited # of times Albuterol 2019-0 No 2.49 mg, Juan F adalberto 0.83 MG/ML 06-22 Route: l Inhalant 15:17: NEB, [place] Solution 00 Q20Min, Dosing Weight 69.545, kg, PRN Wheezing, Priority: STAT, Start date: 06/22/18 9:17:00 PUZZLE ASSEMBLER, Duration: 30 day, Stop date: 07/22/18 10:16:00 CDT Diphenhydra 2019-0 No 12.5 mg, Me moria mine 06-22 Route: l 15:17: IVP, Drug [place] 00 form: INJ, Q6H, Dosing Weight 69.545, kg, PRN Itching, Start date: 06/22/18 9:17:00 PUZZLE ASSEMBLER, Duration: 30 day, Stop date: 07/22/18 9:16:00 CDT Naloxone 2019-0 No 0.4 mg, Memori a 06-22 Route: l 15:17: IVP, [place] 00 Q2MIN, Dosing Weight 69.545, kg, PRN Narcotic Reversal, Start date: 06/22/18 9:17:00 PUZZLE ASSEMBLER, Duration: 8 doses or times, Stop date: Limited # of times Flumazenil No 0.2 mg, Juan F adalberto 06-22 Route: l 15:17: IVP, PRN, Dosing Weight 69.545, kg, PRN Benzodiaze pine Reversal, Initial dose, Start date: 06/22/18 9:17:00 PUZZLE ASSEMBLER, Duration: 30 day, Stop date: 07/22/18 10:16:00 CDT neostigmine No Route: IV, Memoria (ANES) 06-22 Drug form: l 15:00: INJ, ONCE, Stop date: 06/22/18 9:00:00 PUZZLE ASSEMBLER glycopyrrol No Route: IV, Memoria ate (ANES) 06-22 Drug form: l 15:00: INJ, ONCE, Stop date: 06/22/18 9:00:00 PUZZLE ASSEMBLER phenylephri No Route: IV, Memoria ne (ANES) 06-22 Drug form: l 13:52: INJ, ONCE, Stop date: 06/22/18 7:52:00 PUZZLE ASSEMBLER ePHEDrine No Route: IV, Me moria (ANES) 06-22 Drug form: l 13:52: INJ, ONCE, Stop date: 06/22/18 7:52:00 PUZZLE ASSEMBLER tranexamic No Route: IV, M emoria acid (ANES) 06-22 Drug form: l 13:42: INJ, ONCE, Stop date: 06/22/18 7:42:00 PUZZLE ASSEMBLER famotidine No Route: IV, M emoria (ANES) 06-22 Drug form: l 13:42: INJ, ONCE, Stop date: 06/22/18 7:42:00 PUZZLE ASSEMBLER ondansetron No Route: IV, Memoria (ANES) 3 Drug form: l 13:42: INJ, ONCE, Stop date: 06/22/18 7:42:00 PUZZLE ASSEMBLER acetaminoph No Route: IV, Memoria en (ANES) 06-22 Drug form: l 13:42: INJ, ONCE, Stop date: 06/22/18 7:42:00 PUZZLE ASSEMBLER ceFAZolin 2019-0 No Route: IV, Me moria (ANES) 3-05 Drug form: l 13:42: INJ, ONCE, Stop date: 06/22/18 7:42:00 PUZZLE ASSEMBLER fentaNYL 2019-0 No Route: IV, Mem oria (ANES) 3-05 Drug form: l 13:37: INJ, ONCE, Stop date: 06/22/18 7:37:00 PUZZLE ASSEMBLER propofol 2019-0 No Route: IV, Mem oria (ANES) 3-05 Drug form: l 13:37: INJ, ONCE, Stop date: 06/22/18 7:37:00 PUZZLE ASSEMBLER rocuronium 2019-0 No Route: IV, M emoria (ANES) 3-05 Drug form: l 13:37: INJ, ONCE, Stop date: 06/22/18 7:37:00 PUZZLE ASSEMBLER lidocaine 2019-0 No Route: IV, Me moria (ANES) 3-05 Drug form: l 13:32: INJ, ONCE, Stop date: 06/22/18 7:32:00 PUZZLE ASSEMBLER vancomycin 2019-0 No Route: IV, M emoria (ANES) 1000 06-22 Drug form: l mg 12:45: INJ, Start date: 06/22/18 6:45:00 PUZZLE ASSEMBLER, Stop date: 06/22/18 7:45:00 PUZZLE ASSEMBLER Lactated 2019-0 No Route: IV, Mem oria Ringers 3-05 Total l Injection 12:30: Volume: Rebecca nn IV (ANES) 00 1,000, 1000 mL Start date: 06/22/18 6:30:00 PUZZLE ASSEMBLER, Stop date: 06/22/18 7:30:00 PUZZLE ASSEMBLER gabapentin 2019-0 No 600 mg, 1 Me moria 600 MG Oral 3-05 tab, l Tablet 12:15: Route: PO, Rebecca nn 00 ONCE, Dosing Weight 69.545, kg, Start date: 06/22/18 6:15:00 PUZZLE ASSEMBLER, Stop date: 06/22/18 6:15:00 PUZZLE ASSEMBLER ropivacaine 2019-0 No Notes: Memoria 3-05 NOT FOR IV l 02:00: use Cruz 00 Ropivacain e 5 mg/mL (49.25 mL) Epinephrin e 1 mg/mL (0.5 mL) Clonidine 0.1 mg/mL (0.8 mL) Ketorolac 30 mg/mL (1 mL) Normal Saline 48.45 mL Calcium 2019-0 No 1,000 mL, Memor ia Chloride 3-05 Rate: 25 l 0.0014 01:15: ml/hr, [place] MEQ/ML / 00 Infuse Potassium over: 40 Chloride hr, Route: 0.004 IV, Dosing MEQ/ML / Weight Sodium 69.545 kg, Chloride Total 0.103 Volume: MEQ/ML / 1,000, Sodium Start Lactate date: 0.028 06/21/18 MEQ/ML 19:15:00 Injectable PUZZLE ASSEMBLER, Solution Duration: 30 day, Stop date: 07/21/18 19:14:00 CDT Vital Signs Vital Name Observation Time Observation Value Comments Source Height 2020-02-15 15:58:00 149.86 cm [facility] Weight 2020-02-15 15:58:00 [facility] Calculated 2020-02-15 15:58:00 Memori al [place] Systolic (mm Hg) 2019-07-07 16:13:00 Juan F rial [place] Diastolic (mm Hg) 2019-07-07 16:13:00 [facility] orial Cruz Heart Rate 2019-07-07 16:13:00 [facility] [place] Respitory Rate 2019-07-07 16:13:00 Memori al [place] Height 2019-07-07 16:13:00 149.[facility] 2019-07-07 16:13:00 [facility] BMI Calculated 2019-07-07 16:13:00 Memori al [place] Systolic (mm Hg) 2019-06-02 16:12:00 Juan F rial [place] Diastolic (mm Hg) 2019-06-02 16:12:00 [facility] orial [place] Heart Rate 2019-06-02 16:12:00 [facility] [place] Respitory Rate 2019-06-02 16:12:00 Memori al [place] Height 2019-06-02 16:12:00 [facility] 2019-06-02 16:12:00 [facility] [place] BMI Calculated 2019-06-02 16:12:00 Memori al [place] Systolic (mm Hg) 2019-05-24 20:09:00 Juan F rial [place] Diastolic (mm Hg) 2019-05-24 20:09:00 Mem orial [place] Heart Rate 2019-05-24 20:09:00 [facility] [place] Respitory Rate 2019-05-24 20:09:00 Memori al [place] Height 2019-05-24 20:09:00 147.32 cm [facility] [place] Weight 2019-05-24 20:09:00 [facility] [place] BMI Calculated 2019-05-24 20:09:00 Memori al [place] Height 2019-05-23 20:14:00 149.86 cm [facility] [place] Weight 2019-05-23 20:14:00 [facility] [place] BMI Calculated 2019-05-23 20:14:00 Memori al [place] Height 2019-02-24 20:32:00 149.86 cm [facility] [place] Weight 2019-02-24 20:32:00 [facility] [place] BMI Calculated 2019-02-24 20:32:00 Memori al [place] Systolic (mm Hg) 2019-02-23 19:26:00 Juan F rial [place] Diastolic (mm Hg) 2019-02-23 19:26:00 Mem orial [place] Heart Rate 2019-02-23 19:26:00 [facility] [place] Respitory Rate 2019-02-23 19:26:00 Memori al [place] Height 2019-02-23 19:26:00 149.86 cm [facility] [place] Weight 2019-02-23 19:26:00 [facility] [place] BMI Calculated 2019-02-23 19:26:00 Memori al [place] Height 2019-02-10 21:11:00 149.86 cm [facility] [place] Weight 2019-02-10 21:11:00 [facility] [place] BMI Calculated 2019-02-10 21:11:00 Memori al [place] Systolic (mm Hg) 2019 14:55:00 Juan F rial [place] Diastolic (mm Hg) 2019 14:55:00 Mem orial [place] Heart Rate 2019 14:55:00 [facility] [place] Respitory Rate 2019 14:55:00 Memori al [place] Height 2019 14:55:00 147.32 cm [facility] [place] Weight 2019 14:55:00 [facility] [place] BMI Calculated 2019 14:55:00 Memori al [place] Temperature Oral (F) 2018-06-24 17:51:00 98 F [facility] [place] Heart Rate 2018-06-24 17:51:00 [facility] [place] Respitory Rate 2018-06-24 17:51:00 Memori al [place] Systolic (mm Hg) 2018-06-24 17:51:00 Juan F rial [place] Diastolic (mm Hg) 2018-06-24 17:51:00 Mem orial [place] Systolic (mm Hg) 2018-06-24 13:30:00 Juan F rial [place] Diastolic (mm Hg) 2018-06-24 13:30:00 Mem orial [place] Respitory Rate 2018-06-24 13:30:00 Memori al [place] Heart Rate 2018-06-24 13:30:00 [facility] [place] Temperature Oral (F) 2018-06-24 13:30:00 98.9 F [facility] [place] Heart Rate 2018-06-24 10:05:00 [facility] [place] Temperature Oral (F) 2018-06-24 10:05:00 97.9 F [facility] [place] Systolic (mm Hg) 2018-06-24 10:05:00 Juan F rial [place] Diastolic (mm Hg) 2018-06-24 10:05:00 Mem orial [place] Respitory Rate 2018-06-24 10:05:00 Memori al [place] BMI Calculated 2018-06-22 16:31:00 Memori al [place] Weight 2018-06-22 16:31:00 [facility] [place] Height 2018-06-22 16:31:00 152.4 cm [facility] [place] BMI Calculated 2018-06-17 14:41:00 Memori al [place] Height 2018-06-17 14:41:00 152.4 cm [facility] [place] Weight 2018-06-17 14:41:00 [facility] [place] Procedures Procedure Date / Time Performing Clinician Source Performed Cystourethroscopy (separate 2019-02-24 21:18:00 [facility] [place] procedure) Arthroplasty of joint of Memoria l Cruz foot<sup>1</sup> Arthroscopy of [facility] [place] knee<sup>2</sup> Breast [facility] [place] lumpectomy<sup>3</sup> Hip arthroplasty<sup>4</sup> Mem orial [place] Knee replacement<sup>5</sup> Mem orial Cruz Encounters Start End Encounter Admission Attending Care Care Encounter Source Date/Time Date/Time Type Type Clinicians Facility Department ID 2020-02-15 2020-02-15 Outpatient Tia [facility] [id number] 10:20:00 23:59:59 Negar Turner 15 2019-11-28 2019-11-29 Outpatient [facility] [id number] 14:00:38 14:00:38 05 2019-11-25 2019-11-25 Outpatient VISIT, [facility] [id number] 13:30:00 13:30:00 MED_ASST 14 [facility] 2019-11-04 2019-11-05 Outpatient MHMISCHER MHMISCHER [id number] 15:54:05 23:59:59 00 2019-07-07 2019-07-07 Outpatient Steven, MHMISCHER MHMISCHER [id number] 10:45:00 23:59:59 Wayne 13 Stephon 2019-07-07 2019-07-07 Outpatient Steven, MHMISCHER MHMISCHER [id number] 10:45:00 10:45:00 Wayne 11 Stephon 2019-06-02 2019-06-02 Outpatient Bereketmiladys, MHMISCHER MHMISCHER [id number] 10:00:00 23:59:59 Wayne 12 Stephon 2019-05-25 2019-05-25 Outpatient Steven, MHMISCHER MHMISCHER [id number] 10:00:00 10:00:00 Wayne 02 Stephon 2019-05-24 2019-05-24 Outpatient Steven, MHMISCHER MHMISCHER [id number] 14:00:00 23:59:59 Wayne 09 Stehpon 2019-05-24 2019-05-24 Outpatient Tia, [facility] [id number] 10:35:00 10:35:00 Negar Turner 08 2019-05-23 2019-05-23 Outpatient Tia, [facility] [id number] 13:55:00 23:59:59 Negar Turner 2019-02-24 2019-02-24 Outpatient Tia, [facility] [id number] 14:00:00 23:59:59 Negar Turner 2019-02-23 2019-02-23 Outpatient Steven, MHMISCHER MHMISCHER [id number] 13:00:00 23:59:59 Wayne 07 Stephon 2019-02-10 2019-02-10 Outpatient Tia [facility] [id number] 15:30:00 23:59:59 Negar Turner 04 2019-02-09 2019-02-09 Outpatient Tia [facility] [id number] 09:00:00 09:00:00 [place] 2019 2019 [id number] 09:45:00 23:59:59 Wayne 01 Stephon 2018-06-22 2018-06-24 Outpatient David [facility] [id number] 05:35:00 16:15:00 branden Debbie 03 Results Test Description Test Time Test Comments Results Result Comments Source URINE AND STOOL 2019-02-24 Yellow [facility] 21:31:00 *NA*(02/24/19 [place] 3:31 PM) URINE AND STOOL 2019-02-24 Clear [facility] 21:31:00 *NA*(02/24/19 Cruz 3:31 PM) URINE AND STOOL 2019-02-24 21:31:00 Test Item Value Reference Range Interpretation Comme nts POC UA SG (test code = POC UA SG) 1.015 1 [facility] [id number] 21:31:00 Test Item Value Reference Range Interpretation Comments POC UA pH (test code = POC UA pH) 5.5 1 5.0-8.0 [facility] [id number] 21:31:00Negative *NA*(02/24/19 3:31 PM) [facility] [id number] 21:31:00Small *ABN*(02/24/19 3:31 PM) [facility] [id number] 21:31:000.2[facility] [id number] 21:31:00Negative *NA*(02/24/19 3:31 PM)[facility] [id number] 21:31:00Small *ABN*(02/24/19 3:31 PM)[facility] [id number] 21:41:00Yellow *NA*(02/10/19 4:41 PM)[facility] [id number] 21:41:00Clear *NA*(02/10/19 4:41 PM)[facility] [id number] 21:41:00 Test Item Value Reference Range Interpretation Comments POC UA SG (test code = POC UA SG) 1.020 1 [facility] [id number] 21:41:00 Test Item Value Reference Range Interpretation Comments POC UA pH (test code = POC UA pH) 5.5 1 5.0-8.0 [facility] [id number] 21:41:00Negative *NA*(02/10/19 4:41 PM)[facility] [id number] 21:41:00Small *ABN*(02/10/19 4:41 PM)[facility] [id number] 21:41:000.2[facility] [id number] 21:41:00Negative *NA*(02/10/19 4:41 PM)[facility] [id number] 21:41:00Trace *ABN*(02/10/19 4:41 PM)[facility] [place] [id number] 16:19:009.8[facility] [id number] 16:19:06580 [facility] [id number] 16:19:004.06[facility] 2018-06-24 16:19:0012.3[facility] [id number] 16:19:0036.8[facility] [id number] 16:19:0090.6[facility] [id number] 16:19:0014.6[facility] [id number] 16:19:00 Test Item Value Reference Range Interpretation Comments MCH (test code = MCH) 30.2 pg 27.0-31.0 [facility] [id number] 16:19:0033.3[facility]ann[facility]OLOGY 2018-06-24 16:19:008.6[facility] MqdfoxdWRRZGENFPO5541-23-24 16:19:001.5[facility] XdbukwcENOSKSISIZ5887-19-60 16:19:000.8[facility] NmedebnXENKBIWFHX4621-40-26 16:19:000.3[facility] HrzeowvUHYXTKOYVH6212-60-54 16:19:0017.7[facility] XWLNXGLLPA5694-29-41 16:19:008.8[facility] PtijttqWQJNJJAEHA1214-43-70 16:19:003.0 [facility] KtpfuoaANJDSQMAYX9421-18-52 16:19:006.0[facility]annHE[facility]OLOGY 2018-06-24 16:19:000.4[facility] KrlvmetWHDNYCXWIN2529-68-74 16:19:0070.1[facility] BtjhbbiZHNCYTPHSA9530-34-87 10:23:003.65[facility] BzbcgnhYUBWNSIHXQ3962-86-93 10:23:0011.1[facility] QmmhxqaLIFXSSGHKU6893-81-02 10:23:14810Jfzprjgk [facility] ZGCYYBGDJI0522-66-94 10:23:0014.5[facility] XxexeoeOEVTPZUNIB0511-41-28 10:23:00 90.8[facility] XgfdhiiZADSEGHMHI2752-40-13 10:23:00 Test Item Value Reference Range Interpretation Comments MCH (test code = MCH) 30.4 pg 27.0-31.0 [facility] LhkkusiFUXJGCVQNY8055-66-91 10:23:009.5[facility]annHE[facility]OLOGY 2018-06-23 10:23:0033.1[facility] LsenqotSVYMOICVEM5091-50-68 10:23:007.1[facility] GgartxzHGZWBTJDHZ3179-60-58 10:23:0033.5[facility] LggquunEGWRZOGQDO2405-92-90 10:23:0068.7[facility] MxymkqlYIFIOSZXFI7702-09-41 10:23:0020.3[facility] [id number] 10:23:009.2[facility] [id number] 10:23:001.3 [facility] [id number] 10:23:000.5[facility] 2018-06-23 10:23:000.1[facility] [id number] 10:23:004.9[facility] [id number] 10:23:001.5[facility] [id number] 10:23:000.7[facility] [id number] 15:53:00Negative (06/17/18 9:53 AM)[facility] [id number] 15:53:00Negative (06/17/18 9:53 AM)[facility] [id number] 15:53:00Negative *NA*(06/17/18 9:53 AM)[facility] [id number] 15:53:00Negative *NA*(06/17/18 9:53 AM)[facility] [id number] 15:53:00 Test Item Value Reference Range Interpretation Comments UA pH (test code = UA pH) 6.0 1 5.0-8.0 [facility] [id number] 15:53:00 Test Item Value Reference Range Interpretation Comments UA Spec Grav (test code = UA Spec 1.020 1 Grav) [facility] [id number] 15:53:00Negative (06/17/18 9:53 AM) [facility] [id number] 15:53:001[facility] [id number] 15:53:00Small *ABN*(06/17/18 9:53 AM)[facility] [id number] 15:53:00Negative (06/17/18 9:53 AM)[facility] [id number] 15:53:000.2[facility] [id number] 15:53:003 [facility] [id number] 15:53:00Clear (06/17/18 9:53 AM) [facility] [id number] 15:53:00Yellow *NA*(06/17/18 9:53 AM) [facility] [id number] 15:36:00Negative (06/17/18 9:36 AM) [facility] [id number] 15:36:006.7[facility]
--- NOTE | 2020-02-25 15:20 | RAD REPORT ---
EXAM DESCRIPTION: Juanjose Peng And Viky (2 Views)02/25/2020 2:58 pm CLINICAL HISTORY: Cough COMPARISON: August 2019 FINDINGS: The lungs appear clear of acute infiltrate. The heart is mildly enlarged. Scoliosis invol ves the spine IMPRESSION: No acute abnormalities displayed
--- NOTE | 2020-02-25 15:42 | ER ---
Nurse's Notes [facility] Name: Aida Robertson Age: 80 yrs Sex: Female : 1940 Arrival Date: 02/25/2020 Time: 13:58 Bed 20 Private MD: Noel Richardson V Diagnosis: Acute sinusitis;Acute upper respiratory infection, unspecified Presentation: 02/24 14:07 Chief complaint: Patient states: feels like she has a sinus infection, is having a lot iw of sinus pressure, has allergies, started coughing more, everything started a week ago, no fever. Coronavirus screen: congestion, cough unrelated to allergies, Client presents with at least one sign or symptom that may indicate coronavirus-19. Standard/surgical mask placed on the client. Provider contacted for isolation considerations. Ebola Screen: Patient negative for fever greater than or equal to 101.5 degrees Fahrenheit, and additional compatible Ebola Virus Disease symptoms Patient denies exposure to infectious person. Patient denies travel to an Ebola-affected area in the 21 days before illness onset. No symptoms or risks identified at this time. Initial Sepsis Screen: Does the patient meet any 2 criteria? No. Patient's initial sepsis screen is negative. Does the patient have a suspected source of infection? No. Patient's initial sepsis screen is negative. Risk Assessment: Do you want to hurt yourself or someone else? Patient reports no desire to harm self or others. Onset of symptoms was February 19, 2020. 14:07 Method Of Arrival: Ambulatory iw 14:07 Acuity: MIRNA 3 iw Historical: - Allergies: 14:09 Aspirin; iw 14:09 Vancomycin; sensitivity; iw - PMHx: 14:09 Arthritis; breast cancer; c-pap; Diabetes - NIDDM; Glaucoma; Hyperlipidemia; iw Hypertension; Internal Shingles; Lymphadema Right Arm; lymphedema to R arm s/p breast cancer radiation; Migraines; scoliosis; - PSHx: 14:09 Tonsillectomy; iw - Immunization history:: Adult Immunizations up to date. - Social history:: Smoking status: Patient denies any tobacco usage or history of. - Family history:: not pertinent. Screenin:52 Abuse screen: Denies threats or abuse. Denies injuries from another. Nutritional iw screening: No deficits noted. Tuberculosis screening: No symptoms or risk factors identified. Fall Risk None identified. Assessment: 14:51 General: Appears in no apparent distress. Behavior is calm, cooperative. Pain: iw Complains of pain in forehead, right eye and left eye. Neuro: Level of Consciousness is awake, alert, obeys commands, Oriented to person, place, time, situation, Moves all extremities. Full function. Cardiovascular: Capillary refill < 3 seconds in bilateral fingers. Respiratory: Respiratory effort is even, unlabored, Respiratory pattern is regular, symmetrical. Derm: Skin is intact, is healthy with good turgor. Musculoskeletal: Range of motion: intact in all extremities. 15:50 Reassessment: Patient and/or family updated on plan of care and expected duration. Pain ll1 level reassessed. Patient is alert, oriented x 3, equal unlabored respirations, skin warm/dry/pink. Vital Signs: 14:07 BP 144 / 68; Pulse 80; Resp 18; Pulse Ox 97% on R/A; Weight 65.77 kg; Height 4 ft. 11 iw in. (149.86 cm); Pain 0/10; 16:00 BP 144 / 68; Pulse 80; Resp 18; Pulse Ox 97% ; Pain 0/10; ll1 14:07 Body Mass Index 29.29 (65.77 kg, 149.86 cm) iw ED Course: 13:58 Patient arrived in ED. mr 13:58 Noel Richardson MD is Private Physician. mr 14:09 Triage completed. iw 14:10 Soniya Houser FNP-C is [facility]. kb 14:10 Beau Moore MD is Attending Physician. kb 14:10 Arm band placed on. iw 14:32 Beau Moore MD is Attending Physician. jeffrey 14:51 Trisha Piña, RN is Primary Nurse. iw 14:58 Chest Pa And Lat (2 Views) XRAY In Process Unspecified. EDMS 15:00 Patient has correct armband on for positive identification. Bed in low position. Call ll1 light in reach. Side rails up X 1. Cardiac monitoring not applicable on this patient. 15:21 Primary Nurse role handed off by Trisha Piña, RN ll1 15:21 Bryan Iyer, ANNE is Primary Nurse. ll1 15:40 Noel Richardson MD is Referral Physician. jeffrey 16:10 No provider procedures requiring assistance completed. Patient did not have IV access ll1 during this emergency room visit. Administered Medications: 16:00 Drug: Augmentin 875 mg Route: PO; ll1 16:11 Follow up: Response: No adverse reaction; RASS: Alert and Calm (0) ll1 Outcome: 15:42 Discharge ordered by . jeffrey 16:11 Patient left the ED. ll1 16:11 Discharged to home ambulatory. ll1 16:11 Condition: stable 16:11 Discharge instructions given to patient, Instructed on discharge instructions, follow up and referral plans. medication usage, Demonstrated understanding of instructions, follow-up care, medications, Prescriptions given X 3. Signatures: Dispatcher [employer] EDSoniya Ruiz, OUTDOOR ILLUMINATING ENGINEER-C OUTDOOR ILLUMINATING ENGINEER-Beau Sarabia MD MD cha Rivera Sita Trisha Bajwa, Bryan Zelaya RN, RN RN [facility]
--- NOTE | 2020-02-25 15:42 | EDPHYS ---
Physician Documentation [facility] Name: Aida Robertson Age: 80 yrs Sex: Female : 1940 Arrival Date: 02/25/2020 Time: 13:58 Bed 20 Private MD: Noel Richardson V ED Physician Beau Moore HPI: 02/24 15:27 This 80 yrs old Female presents to ER via Ambulatory with complaints of Sinus jeffrey Congestion. 15:27 The patient or guardian reports cough. Onset: The symptoms/episode began/occurred 3 jeffrey day(s) ago. Severity of symptoms: At their worst the symptoms were very mild, in the emergency department the symptoms are unchanged. Modifying factors: The symptoms are alleviated by nothing, the symptoms are aggravated by nothing. Associated signs and symptoms: The patient has no apparent associated signs or symptoms. The patient has not experienced similar symptoms in the past. Historical: - Allergies: 14:09 Aspirin; iw 14:09 Vancomycin; sensitivity; iw - PMHx: 14:09 Arthritis; breast cancer; c-pap; Diabetes - NIDDM; Glaucoma; Hyperlipidemia; iw Hypertension; Internal Shingles; Lymphadema Right Arm; lymphedema to R arm s/p breast cancer radiation; Migraines; scoliosis; - PSHx: 14:09 Tonsillectomy; iw - Immunization history:: Adult Immunizations up to date. - Social history:: Smoking status: Patient denies any tobacco usage or history of. - Family history:: not pertinent. ROS: 15:27 Constitutional: Negative for fever, chills, and weight loss, Eyes: Negative for injury, jeffrey pain, redness, and discharge, Neck: Negative for injury, pain, and swelling, Cardiovascular: Negative for chest pain, palpitations, and edema, Abdomen/GI: Negative for abdominal pain, nausea, vomiting, diarrhea, and constipation, Back: Negative for injury and pain, : Negative for injury, bleeding, discharge, and swelling, MS/Extremity: Negative for injury and deformity, Skin: Negative for injury, rash, and discoloration, Neuro: Negative for headache, weakness, numbness, tingling, and seizure, Psych: Negative for depression, anxiety, suicide ideation, homicidal ideation, and hallucinations, Allergy/Immunology: Negative for hives, rash, and allergies, Endocrine: Negative for neck swelling, polydipsia, polyuria, polyphagia, and marked weight changes, Hematologic/Lymphatic: Negative for swollen nodes, abnormal bleeding, and unusual bruising. 15:27 ENT: Positive for nasal discharge, rhinorrhea, sinus congestion, sinus pain. 15:27 Neck: Negative for mass, pain with movement, pain at rest. 15:27 Cardiovascular: Negative for chest pain, edema, orthopnea, palpitations. 15:27 Respiratory: Negative for dyspnea on exertion, hemoptysis, orthopnea, pleurisy, shortness of breath, sputum production, wheezing, acute changes. 15:27 MS/extremity: Negative for acute changes. Exam: 15:27 Constitutional: This is a well developed, well nourished patient who is awake, alert, jeffrey and in no acute distress. Head/Face: Normocephalic, atraumatic. Eyes: Pupils equal round and reactive to light, extra-ocular motions intact. Lids and lashes normal. Conjunctiva and sclera are non-icteric and not injected. Cornea within normal limits. Periorbital areas with no swelling, redness, or edema. Neck: Trachea midline, no thyromegaly or masses palpated, and no cervical lymphadenopathy. Supple, full range of motion without nuchal rigidity, or vertebral point tenderness. No Meningismus. Chest/axilla: Normal chest wall appearance and motion. Nontender with no deformity. No lesions are appreciated. Cardiovascular: Regular rate and rhythm with a normal S1 and S2. No gallops, murmurs, or rubs. Normal PMI, no JVD. No pulse deficits. Respiratory: Lungs have equal breath sounds bilaterally, clear to auscultation and percussion. No rales, rhonchi or wheezes noted. No increased work of breathing, no retractions or nasal flaring. Abdomen/GI: Soft, non-tender, with normal bowel sounds. No distension or tympany. No guarding or rebound. No evidence of tenderness throughout. Back: No spinal tenderness. No costovertebral tenderness. Full range of motion. Skin: Warm, dry with normal turgor. Normal color with no rashes, no lesions, and no evidence of cellulitis. MS/ Extremity: Pulses equal, no cyanosis. Neurovascular intact. Full, normal range of motion. Neuro: Awake and alert, GCS 15, oriented to person, place, time, and situation. Cranial nerves II-XII grossly intact. Motor strength 5/5 in all extremities. Sensory grossly intact. Cerebellar exam normal. Normal gait. Psych: Awake, alert, with orientation to person, place and time. Behavior, mood, and affect are within normal limits. 15:27 ENT: Nose: no acute changes, External nose: no obvious acute abnormality, Nasal mucosa: normal, Turbinates: are normal, abrasion, is not appreciated, bleeding, is not appreciated, clotted blood, is not appreciated, Posterior pharynx: is normal, no acute changes. Vital Signs: 14:07 BP 144 / 68; Pulse 80; Resp 18; Pulse Ox 97% on R/A; Weight 65.77 kg; Height 4 ft. 11 iw in. (149.86 cm); Pain 0/10; 16:00 BP 144 / 68; Pulse 80; Resp 18; Pulse Ox 97% ; Pain 0/10; ll1 14:07 Body Mass Index 29.29 (65.77 kg, 149.86 cm) iw MDM: 14:32 Patient medically screened. [facility] 15:36 Differential Diagnosis: Bronchitis Influenza Upper Respiratory Infection Sinusitis jeffrey Pharyngitis Allergic Rhinitis. Data reviewed: vital signs, nurses notes, radiologic studies, plain films. Data interpreted: clay hoister: not applicable for this patient encounter. rate is 18 beats/min, rhythm is normal sinus rhythm, Pulse oximetry: on room air is 97 %. Test interpretation: by ED physician or midlevel provider: ECG, plain radiologic studies. Counseling: I had a detailed discussion with the patient and/or guardian regarding: the historical points, exam findings, and any diagnostic results supporting the discharge/admit diagnosis, radiology results, the need for outpatient follow up, for definitive care, a family practitioner. 02/24 14:10 Order name: Chest Pa And Lat (2 Views) XRAY; Complete Time: 15:22 kb Administered Medications: 16:00 Drug: Augmentin 875 mg Route: PO; ll1 16:11 Follow up: Response: No adverse reaction; RASS: Alert and Calm (0) ll1 Disposition: 02/25/20 15:42 Discharged to Home. Impression: Acute sinusitis, Acute upper respiratory infection, unspecified. - Condition is Stable. - Discharge Instructions: Sinusitis, Adult, Upper Respiratory Infection, Adult, Cool Mist Vaporizer, Sinusitis, Adult, [id number]. - Prescriptions for Augmentin 500- 125 mg Oral Tablet - take 1 tablet by ORAL route every 8 hours for 10 days; 30 tablet. Medrol (Marcelino) 4 mg Oral Tablets, Dose Pack - take 1 tablet by ORAL route as directed - follow package instructions; 1 packet. Claritin 10 mg Oral Tablet - take 1 tablet by ORAL route once daily As needed; 20 tablet. - Medication Reconciliation Form, Thank You Letter, Antibiotic Education, Prescription Opioid Use form. - Follow up: Noel Richardson MD; When: 2 - 3 days; Reason: Recheck today's complaints, Re-evaluation by your physician. - Problem is new. - Symptoms have improved. Signatures: Dispatcher [employer] EDBeau Pena MD MD cha Williams, Irene, RN RN Bryan Bauer RN RN ll1 Corrections: (The following items were deleted from the chart) 16:11 15:42 02/25/2020 15:42 Discharged to Home. Impression: Acute sinusitis; Acute upper ll1 respiratory infection, unspecified. Condition is Stable. Forms are Medication Reconciliation Form, Thank You Letter, Antibiotic Education, Prescription Opioid Use. Follow up: Noel Richardson; When: 2 - 3 days; Reason: Recheck today's complaints, Re-evaluation by your physician. Problem is new. Symptoms have improved. jeffrey
[2020-02-25] MEDS ORDERED: AMOX TR/K CLAV 400MG CHEW TAB PO ONE (16:13)
[2020-02-25] MEDS ORDERED: AMOX/K CLAV 875 MG TAB ONE (16:14)
[2020-02-25 16:27] VITALS: BP 144/68; O2SAT 97
== END 2020-02-25 16:11 | disposition home or self-care (01) ==
LOC: ER 13:52
DX: J01.90 Acute sinusitis, unspecified (principal); J06.9 Acute upper respiratory infection, unspecified; I10 Essential (primary) hypertension; Z88.3 Allergy status to other anti-infective agents; Z88.6 Allergy status to analgesic agent; Z85.3 Personal history of malignant neoplasm of breast
CPT/HCPCS: 71046; 99283

== ENCOUNTER 2022-10-14 19:26 | Inpatient (IN) | payer OTHER ==
--- OUTSIDE RECORDS SUMMARY | 2022-10-14 19:36 | XMS REPORT | Continuity of Care Document ---
:1940 Author Organization [facility] t Address [address] [place] [address] Care Team Providers Name Role Phone Stuart Richardson MD Primary Care Physician Stuart Richardson Attending Clinician Unavailable Gisela Bell Attending Clinician Unavailable Arnulfo Attending Clinician Unavailable Nahun Jacobson Attending Clinician [phone] Negar Weber Attending Clinician VISIT, MED_ASST UA Attending Clinician Unavailable Wayne Harris Attending Clinician Debbie Nayak Attending Clinician Gisela Bell Admitting Clinician Unavailable Arnulfo Admitting Clinician Unavailable Debbie Nayak Admitting Clinician Payers Payer Name Policy Type Policy Number Effective Date Expiration Date Luci knox AETNA [id number] 2021 00:00:00 AETNA MEDICARE ADV [id number] 2013 00:00:00 Problems Condition Condition Condition Status Onset Resolution Last Treating Co mments Source Name Details Category Date Date Treatment Clinician Date 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 navi rigid Rigid 8-16 Orthope 00:00: dic 00 [facility] Sesamoidit Sesamoidit Problem Active A zalea is is 8-16 Orthope 00:00: dic 00 [facility] Metatarsal Metatarsal Problem Active A zalea ankit of ankit of 8-16 Orthope right foot Right Foot 00:00: di c 00 [facility] Medic[facility] e Pain in Pain in Problem Active Geraldine right foot Right Foot 8-15 Or thope 00:00: dic 00 Sports Medicin e UNK UNK Diagnosis Active 2018-07-02 Mem oria Active 05-13 22:03:00 l 05/13/2018 00:00: Anant dawson 00 [place] Hammer toe Hammer Toe Problem Active A zalea 5-16 Orthope 00:00: dic 00 [facility] Carpal Carpal Problem Active 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 00:00: dic 00 Sports Medicin e Degenerati Degenerati Problem Active A zalea ve joint ve Joint 9-20 Orthop e disease of Disease of 00:00: di c ankle Ankle 00 Sports AND/OR AND/OR Medicin foot Foot e Congenital Congenital Problem Active A zalea pes planus Pes Planus 9-20 Or thope 00:00: dic 00 [facility] Medic[facility] Sleep Sleep Problem Active Geraldine apnea Apnea 9-20 Orthope 00:00: dic 00 Sports Medicin e Repair of Repair of Problem Active Aza navi hip Hip 9-20 Orthope 00:00: dic 00 Sports Medicin e Diabetes Diabetes Problem Active 2021-10-05 Memoria mellitus mellitus 04:02:04 l (disorder) (disorder) He rmann Active Problem 10/05/2021 [facility] Hyperlipid Hyperlipi Problem Active 2021-10-05 Memoria emia demia 04:02:04 l (disorder) (disorder) He rmann Active Problem 10/05/2021 [facility] Hypertensi Hypertens Problem Active 2021-10-05 Memoria ve jay 04:02:04 l disorder, disorder, Herm dex systemic systemic arterial arterial (disorder) (disorder) Active Problem 10/05/2021 [facility] Hypothyroi Hypothyro Problem Active 2021-10-05 Memoria dism idism 04:02:04 l (disorder) (disorder) He rmann Active Problem 10/05/2021 [facility] Low back Low back Problem Active 2021-10-05 Memoria pain pain 04:02:04 l (disorder) (disorder) He rmann Active Problem 10/05/2021 Medical [facility] her Neuro Malignant Malignant Problem Active 2021-10-05 Memoria tumor of tumor of 04:02:04 l breast breast [place] (disorder) (disorder) Active Problem 10/05/2021 [facility] her Neuro,[facility] Neuropathy Neuropath Problem Active 2021-10-05 Memoria (disorder) y 04:02:04 l (disorder) Anant n Active Problem 10/05/2021 [facility] her Neuro,[facility] Osteoarthr Osteoarth Problem Active 2021-10-05 Memoria itis of ritis of 04:02:04 l hip hip Cruz (disorder) (disorder) Active Problem 10/05/2021 [facility] her Neuro,[facility] Osteopenia Osteopeni Problem Active 2021-10-05 Memoria (disorder) a 04:02:04 l (disorder) Anant n Active Problem 10/05/2021 [facility] her Neuro Scoliosis Scoliosis Problem Active 2021-10-05 Memoria deformity deformity 04:02:04 l of spine of spine Anant n (disorder) (disorder) Active Problem 10/05/2021 [facility] her Neuro 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 B6 04:02:04 l (disorder) (disorder) He rmann Active Problem 10/05/2021 [facility] her Neuro 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 l 04:02:04 l (disorder) gammopathy He rmann (disorder) Active Problem 10/05/2021 [facility] her Neuro UNILATERAL UNILATERA Diagnosis Active 2018-07-02 Memoria PRIMARY L PRIMARY 22:03:00 l OSTEOARTHR 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, LEFT ITIS, LEFT Active [facility] Allergies, Adverse Reactions, Alerts Allergy Allergy Status Severity Reaction(s) Onset Inactive Treating Comm ents Source Name Type Date Date Clinician REJI DRUG Active Unknown-Cmnt Un giorgi DENTONYCIN INGREDI 01-15 ity of 00:00: [place] [facility] OFLOXACI DRUG Active Unknown-Cmnt Un giorgi N INGREDI 01-15 ity of 00:00: [place] [facility] CORN DRUG Active Rash Univers INGREDI 01-13 ity of 00:00: [place] [facility] SOY DRUG Active Unknown-Cmnt Univ ers INGREDI 01-13 ity of 00:00: [place] [facility] WHEAT DRUG Active Other-Cmnt Univer s INGREDI 01-13 ity of 00:00: [place] [facility] VANCOMYC DRUG Active Other-Cmnt Univ ers IN INGREDI 01-04 ity of 00:00: [place] [facility] ASPIRIN DRUG Active Other-Cmnt Unive rs INGREDI 01-04 ity of 00:00: [place] [facility] ciproflo ciproflo Active Memori a xacin xacin l [place] vancomyc vancomyc Active Memori a in in l [place] aspirin aspirin Active Memoria l [place] Adhesive Adhesive Active Memori a Tape Tape l [place] PHENobar PHENobar Active Memori a bital bital l [place] Social History Social Habit Start Date Stop Date Quantity Comments Source Gender identity [facility] Sexual orientation Method [facility] Social History 2013-07-04 2013-07-04 [facility] 18:23:20 18:23:20 Sex Assigned At [birth year] [facility] 00:00:00 00:00:00 Smoking Status Start Date Stop Date Source Tobacco smoking consumption unknown [facility] Medications Ordered Filled Start Stop Current Ordering Indication Dosage Frequency Signature Comments Components Source Medication Medication Date Date Medication? Clinician (SIG) Name Name Keeley Yes 0 Memoria 3-02 Refill(s) l 22:12: [place] Yes 0 Memoria 3-02 Refill(s) l 22:12: [place] Yes 0 Memoria 3-02 Refill(s) l 22:12: [place] Yes 0 Memoria 3-02 Refill(s) l 22:12: [place] Yes 0 Memoria 3-02 Refill(s) l 22:12: [place] Yes 0 Memoria 3-02 Refill(s) l 22:12: [place] 00 [place] 2020-0 Yes 0 Memoria 3-02 Refill(s) l 22:12: [place] Phenazopyri 2019-04 Yes See Memori a dine 0-28 Instructio l hydrochlori 17:10: ns, PRN Her reese de 200 MG 00 Dysuria, 1 Oral Tablet tab PO TID [Pyridium] PRN dysuria. Stop taking and call urologist if symptoms continue to worsen or develop fevers., # 10 tab, 1 Refill(s), Pharmacy: [facility] #[id number], 149.86, cm, 02/15/20 10:58:00 CDT, Height, 63.636, kg, ... Phenazopyri 2019-04 Yes See Memori a dine 0-28 Instructio l hydrochlori 17:10: ns, PRN Her reese de 200 MG 00 Dysuria, 1 Oral Tablet tab PO TID [Pyridium] PRN dysuria. Stop taking and call urologist if symptoms continue to worsen or develop fevers., # 10 tab, 1 Refill(s), Pharmacy: [facility] #[id number], 149.86, cm, 02/15/20 10:58:00 CDT, Height, 63.636, kg, ... Phenazopyri 2019-04 Yes See Memori a dine 0-28 Instructio l hydrochlori 17:10: ns, PRN Her reese de 200 MG 00 Dysuria, 1 Oral Tablet tab PO TID [Pyridium] PRN dysuria. Stop taking and call urologist if symptoms continue to worsen or develop fevers., # 10 tab, 1 Refill(s), Pharmacy: [facility] #[id number], 149.86, cm, 02/15/20 10:58:00 CDT, Height, 63.636, kg, ... Phenazopyri 2019-04 Yes See Memori a dine 0-28 Instructio l hydrochlori 17:10: ns, PRN Her reese de 200 MG 00 Dysuria, 1 Oral Tablet tab PO TID [Pyridium] PRN dysuria. Stop taking and call urologist if symptoms continue to worsen or develop fevers., # 10 tab, 1 Refill(s), Pharmacy: [facility] #[id number], 149.86, cm, 02/15/20 10:58:00 CDT, Height, 63.636, kg, 10/... Phenazopyri 2019-04 Yes See Memori a dine 0-28 Instructio l hydrochlori 17:10: ns, PRN Her reese de 200 MG 00 Dysuria, 1 Oral Tablet tab PO TID [Pyridium] PRN dysuria. Stop taking and call urologist if symptoms continue to worsen or develop fevers., # 10 tab, 1 Refill(s), Pharmacy: [facility] #[id number], 149.86, cm, 02/15/20 10:58:00 CDT, Height, 63.636, kg, 10... Phenazopyri 2019-04 Yes See Memori a dine 0-28 Instructio l hydrochlori 17:10: ns, PRN Her reese de 200 MG 00 Dysuria, 1 Oral Tablet tab PO TID [Pyridium] PRN dysuria. Stop taking and call urologist if symptoms continue to worsen or develop fevers., # 10 tab, 1 Refill(s), Pharmacy: [facility] #[id number], 149.86, cm, 02/15/20 10:58:00 CDT, Height, 63.636, kg, ... Phenazopyri 2019-04 Yes See Memori a dine 0-28 Instructio l hydrochlori 17:10: ns, PRN Her reese de 200 MG 00 Dysuria, 1 Oral Tablet tab PO TID [Pyridium] PRN dysuria. Stop taking and call urologist if symptoms continue to worsen or develop fevers., # 10 tab, 1 Refill(s), Pharmacy: [facility] #[id number], 149.86, cm, 02/15/20 10:58:00 CDT, Height, 63.636, kg, 10/... Phenazopyri 2019-04 No 200 mg = 1 Memoria dine 0-28 tab, PO, l hydrochlori 16:10: TID, PRN He rmann de 200 MG 00 Dysuria, X Oral Tablet 2 day, # 6 [Pyridium] tab, 0 Refill(s), Pharmacy: [facility] #[id number], 149.86, cm, 02/15/20 10:58:00 CDT, Height, 63.636, kg, 02/15/20 10:58:00 CDT, Weight Phenazopyri 2019-04 No 200 mg = 1 Memoria dine 0-28 tab, PO, l hydrochlori 16:10: TID, PRN He rmann de 200 MG 00 Dysuria, X Oral Tablet 2 day, # 6 [Pyridium] tab, 0 Refill(s), Pharmacy: [id number], 149.86, cm, 02/15/20 10:58:00 CDT, Height, 63.636, kg, 02/15/20 10:58:00 CDT, Weight Phenazopyri 2019-04 No 200 mg = 1 Memoria dine 0-28 tab, PO, l hydrochlori 16:10: TID, PRN He rmann de 200 MG 00 Dysuria, X Oral Tablet 2 day, # 6 [Pyridium] tab, 0 Refill(s), Pharmacy: [id number], 149.86, cm, 02/15/20 10:58:00 CDT, Height, 63.636, kg, 02/15/20 10:58:00 CDT, Weight Phenazopyri 2019-04 No 200 mg = 1 Memoria dine 0-28 tab, PO, l hydrochlori 16:10: TID, PRN He rmann de 200 MG 00 Dysuria, X Oral Tablet 2 day, # 6 [Pyridium] tab, 0 Refill(s), Pharmacy: [id number], 149.86, cm, 02/15/20 10:58:00 CDT, Height, 63.636, kg, 02/15/20 10:58:00 CDT, Weight Phenazopyri 2019-04 No 200 mg = 1 Memoria dine 0-28 tab, PO, l hydrochlori 16:10: TID, PRN He rmann de 200 MG 00 Dysuria, X Oral Tablet 2 day, # 6 [Pyridium] tab, 0 Refill(s), Pharmacy: [id number], 149.86, cm, 02/15/20 10:58:00 CDT, Height, 63.636, kg, 02/15/20 10:58:00 CDT, Weight Phenazopyri 2019-04 No 200 mg = 1 Memoria dine 0-28 tab, PO, l hydrochlori 16:10: TID, PRN He rmann de 200 MG 00 Dysuria, X Oral Tablet 2 day, # 6 [Pyridium] tab, 0 Refill(s), Pharmacy: [id number], 149.86, cm, 02/15/20 10:58:00 CDT, Height, 63.636, kg, 02/15/20 10:58:00 CDT, Weight Phenazopyri 2019-04 No 200 mg = 1 Memoria dine 0-28 tab, PO, l hydrochlori 16:10: TID, PRN He rmann de 200 MG 00 Dysuria, X Oral Tablet 2 day, # 6 [Pyridium] tab, 0 Refill(s), Pharmacy: [facility] #[id number], 149.86, cm, 02/15/20 10:58:00 CDT, Height, 63.636, kg, 02/15/20 10:58:00 CDT, Weight Vantin 200 2020-0 Yes 200 mg = 1 M emoria mg oral 8-10 tab, PO, l tablet 21:48: Q12H, X 7 Anant n 00 day, # 14 tab, 0 Refill(s), Pharmacy: [id number], 149.86, cm, 07/07/19 11:13:00 CDT, Height, 62.273, kg, 07/07/19 11:13:00 CDT, Weight Vantin 200 2020-0 Yes 200 mg = 1 M emoria mg oral 8-10 tab, PO, l tablet 21:48: Q12H, X 7 Anant n 00 day, # 14 tab, 0 Refill(s), Pharmacy: [id number], 149.86, cm, 07/07/19 11:13:00 CDT, Height, 62.273, kg, 07/07/19 11:13:00 CDT, Weight Vantin 200 2020-0 Yes 200 mg = 1 M emoria mg oral 8-10 tab, PO, l tablet 21:48: Q12H, X 7 Anant n 00 day, # 14 tab, 0 Refill(s), Pharmacy: [id number], 149.86, cm, 07/07/19 11:13:00 CDT, Height, 62.273, kg, 07/07/19 11:13:00 CDT, Weight Vantin 200 2020-0 Yes 200 mg = 1 M emoria mg oral 8-10 tab, PO, l tablet 21:48: Q12H, X 7 Anant n 00 day, # 14 tab, 0 Refill(s), Pharmacy: [id number], 149.86, cm, 07/07/19 11:13:00 CDT, Height, 62.273, kg, 07/07/19 11:13:00 CDT, Weight Vantin 200 2020-0 Yes 200 mg = 1 M emoria mg oral 8-10 tab, PO, l tablet 21:48: Q12H, X 7 Anant n 00 day, # 14 tab, 0 Refill(s), Pharmacy: [id number], 149.86, cm, 07/07/19 11:13:00 CDT, Height, 62.273, kg, 07/07/19 11:13:00 CDT, Weight Vantin 200 2020-0 Yes 200 mg = 1 M emoria mg oral 8-10 tab, PO, l tablet 21:48: Q12H, X 7 Anant n 00 day, # 14 tab, 0 Refill(s), Pharmacy: [id number], 149.86, cm, 07/07/19 11:13:00 CDT, Height, 62.273, kg, 07/07/19 11:13:00 CDT, Weight Vantin 200 2020-0 Yes 200 mg = 1 M emoria mg oral 8-10 tab, PO, l tablet 21:48: Q12H, X 7 Anant n 00 day, # 14 tab, 0 Refill(s), Pharmacy: [id number], 149.86, cm, 07/07/19 11:13:00 CDT, Height, 62.273, kg, 07/07/19 11:13:00 CDT, Weight Cephalexin 2020-0 Yes 500 mg = 1 M emoria 500 MG Oral 8-07 cap, PO, l Capsule 15:48: BID, X 7 Anant n [Keflex] 00 day, # 14 cap, 0 Refill(s), Pharmacy: [id number], 149.86, cm, 07/07/19 11:13:00 CDT, Height, 62.273, kg, 07/07/19 11:13:00 CDT, Weight Cephalexin 2020-0 Yes 500 mg = 1 M emoria 500 MG Oral 8-07 cap, PO, l Capsule 15:48: BID, X 7 Anant n [Keflex] day, # 14 cap, 0 Refill(s), Pharmacy: [id number], 149.86, cm, 07/07/19 11:13:00 CDT, Height, 62.273, kg, 07/07/19 11:13:00 CDT, Weight Cephalexin 2020-0 Yes 500 mg = 1 M emoria 500 MG Oral 8-07 cap, PO, l Capsule 15:48: BID, X 7 Anant n [Keflex] day, # 14 cap, 0 Refill(s), Pharmacy: [id number], 149.86, cm, 07/07/19 11:13:00 CDT, Height, 62.273, kg, 07/07/19 11:13:00 CDT, Weight Cephalexin 2020-0 Yes 500 mg = 1 M emoria 500 MG Oral 8-07 cap, PO, l Capsule 15:48: BID, X 7 Anant n [Keflex] day, # 14 cap, 0 Refill(s), Pharmacy: [id number], 149.86, cm, 07/07/19 11:13:00 CDT, Height, 62.273, kg, 07/07/19 11:13:00 CDT, Weight Cephalexin 2020-0 Yes 500 mg = 1 M emoria 500 MG Oral 8-07 cap, PO, l Capsule 15:48: BID, X 7 Anant n [Keflex] 00 day, # 14 cap, 0 Refill(s), Pharmacy: [id number], 149.86, cm, 07/07/19 11:13:00 CDT, Height, 62.273, kg, 07/07/19 11:13:00 CDT, Weight Cephalexin 2020-0 Yes 500 mg = 1 M emoria 500 MG Oral 8-07 cap, PO, l Capsule 15:48: BID, X 7 Anant n [Keflex] 00 day, # 14 cap, 0 Refill(s), Pharmacy: [facility] #[id number], 149.86, cm, 07/07/19 11:13:00 CDT, Height, 62.273, kg, 07/07/19 11:13:00 CDT, Weight Cephalexin 2020-0 Yes 500 mg = 1 M emoria 500 MG Oral 8-07 cap, PO, l Capsule 15:48: BID, X 7 Anant n [Keflex] 00 day, # 14 cap, 0 Refill(s), Pharmacy: [facility] #[id number], 149.86, cm, 07/07/19 11:13:00 CDT, Height, 62.273, kg, 07/07/19 11:13:00 CDT, Weight Losartan 2020-0 Yes 100 mg, Memori a 2-04 PO, Daily, l 21:19: 0 [place] 00 Refill(s) Losartan 2020-0 Yes 100 mg, Memori a 2-04 PO, Daily, l 21:19: 0 [place] 00 Refill(s) Losartan 2020-0 Yes 100 mg, Memori a 2-04 PO, Daily, l 21:19: 0 [place] 00 Refill(s) Losartan 2020-0 Yes 100 mg, Memori a 2-04 PO, Daily, l 21:19: 0 [place] 00 Refill(s) Losartan 2020-0 Yes 100 mg, Memori a 2-04 PO, Daily, l 21:19: 0 [place] 00 Refill(s) Losartan 2020-0 Yes 100 mg, Memori a 2-04 PO, Daily, l 21:19: 0 [place] 00 Refill(s) Losartan 2020-0 Yes 100 mg, Memori a 2-04 PO, Daily, l 21:19: 0 [place] 00 Refill(s) Cod Liver 2020-0 Yes PO, Daily, Me moria Oil 2-03 0 l 20:44: Refill(s) [place] 00 Cod Liver 2020-0 Yes PO, Daily, Me moria Oil 2-03 0 l 20:44: Refill(s) [place] 00 Cod Liver 2020-0 Yes PO, Daily, Me moria Oil 2-03 0 l 20:44: Refill(s) [place] 00 Cod Liver 2020-0 Yes PO, Daily, Me moria Oil 2-03 0 l 20:44: Refill(s) [place] 00 Cod Liver 2020-0 Yes PO, Daily, Me moria Oil 2-03 0 l 20:44: Refill(s) [place] 00 Cod Liver 2020-0 Yes PO, Daily, Me moria Oil 2-03 0 l 20:44: Refill(s) [place] 00 Cod Liver 2020-0 Yes PO, Daily, Me moria Oil 2-03 0 l 20:44: Refill(s) bimatoprost 2018-04 Yes 1 drp, Juan F adalberto 0.1 MG/ML 0-24 BOTH EYES, l Ophthalmic 21:15: Bedtime, # H ermann Solution 00 5 mL, 4 [Lumigan] Refill(s) bimatoprost 2018-04 Yes 1 drp, Juan F adalberto 0.1 MG/ML 0-24 BOTH EYES, l Ophthalmic 21:15: Bedtime, # H ermann Solution 00 5 mL, 4 [Lumigan] Refill(s) bimatoprost 2018-04 Yes 1 drp, Juan F adalberto 0.1 MG/ML 0-24 BOTH EYES, l Ophthalmic 21:15: Bedtime, # H ermann Solution 00 5 mL, 4 [Lumigan] Refill(s) bimatoprost 2018-04 Yes 1 drp, Juan F adalberto 0.1 MG/ML 0-24 BOTH EYES, l Ophthalmic 21:15: Bedtime, # H ermann Solution 00 5 mL, 4 [Lumigan] Refill(s) bimatoprost 2018-04 Yes 1 drp, Juan F adalberto 0.1 MG/ML 0-24 BOTH EYES, l Ophthalmic 21:15: Bedtime, # H ermann Solution 00 5 mL, 4 [Lumigan] Refill(s) bimatoprost 2018-04 Yes 1 drp, Juan F adalberto 0.1 MG/ML 0-24 BOTH EYES, l Ophthalmic 21:15: Bedtime, # H ermann Solution 00 5 mL, 4 [Lumigan] Refill(s) bimatoprost 2018-04 Yes 1 drp, Juan F adalberto 0.1 MG/ML 0-24 BOTH EYES, l Ophthalmic 21:15: Bedtime, # H ermann Solution 00 5 mL, 4 [Lumigan] Refill(s) rivaroxaban Yes 10 mg = 1 M emoria 10 mg oral 3-07 tab, PO, l tablet 20:28: Q24H, 0 [place] 00 Refill(s) Acetaminoph 0 Yes 1 tab, PO, Memoria en 325 MG / 3-07 Q4H, PRN l Hydrocodone 20:28: Pain Score [place] Bitartrate 00 4-6, 0 10 MG Oral Refill(s) Tablet [[place] 10/325] rivaroxaban Yes 10 mg = 1 M emoria 10 mg oral 3-07 tab, PO, l tablet 20:28: Q24H, 0 [place] 00 Refill(s) Acetaminoph 0 Yes 1 tab, PO, Memoria en 325 MG / 3-07 Q4H, PRN l Hydrocodone 20:28: Pain Score [place] Bitartrate 00 4-6, 0 10 MG Oral Refill(s) Tablet [[place] 10/325] rivaroxaban Yes 10 mg = 1 M emoria 10 mg oral 3-07 tab, PO, l tablet 20:28: Q24H, 0 [place] 00 Refill(s) Acetaminoph 0 Yes 1 tab, PO, Memoria en 325 MG / 3-07 Q4H, PRN l Hydrocodone 20:28: Pain Score [place] Bitartrate 00 4-6, 0 10 MG Oral Refill(s) Tablet [[place] 10/325] rivaroxaban Yes 10 mg = 1 M emoria 10 mg oral 3-07 tab, PO, l tablet 20:28: Q24H, 0 [place] 00 Refill(s) Acetaminoph 2018-0 Yes 1 tab, PO, Memoria en 325 MG / 3-07 Q4H, PRN l Hydrocodone 20:28: Pain Score [place] Bitartrate 00 4-6, 0 10 MG Oral Refill(s) Tablet [[place] 10/325] rivaroxaban Yes 10 mg = 1 M emoria 10 mg oral 3-07 tab, PO, l tablet 20:28: Q24H, 0 [place] 00 Refill(s) Acetaminoph Yes 1 tab, PO, Memoria en 325 MG / 3-07 Q4H, PRN l Hydrocodone 20:28: Pain Score [place] Bitartrate 00 4-6, 0 10 MG Oral Refill(s) Tablet [[place] 10/325] rivaroxaban Yes 10 mg = 1 M emoria 10 mg oral 3-07 tab, PO, l tablet 20:28: Q24H, 0 [place] 00 Refill(s) Acetaminoph Yes 1 tab, PO, Memoria en 325 MG / 3-07 Q4H, PRN l Hydrocodone 20:28: Pain Score [place] Bitartrate 00 4-6, 0 10 MG Oral Refill(s) Tablet [[place] 10/325] rivaroxaban Yes 10 mg = 1 M emoria 10 mg oral 3-07 tab, PO, l tablet 20:28: Q24H, 0 [place] 00 Refill(s) Acetaminoph Yes 1 tab, PO, Memoria en 325 MG / 3-07 Q4H, PRN l Hydrocodone 20:28: Pain Score [place] Bitartrate 00 4-6, 0 10 MG Oral Refill(s) Tablet [[place] 10/325] Lopressor No Notes: Memori a 3-07 (Same as: l 15:00: Lopressor) [place] Lopressor No Notes: Memori a 3-07 (Same as: l 15:00: Lopressor) [place] Lopressor No Notes: Memori a 3-07 (Same as: l 15:00: Lopressor) [place] Lopressor No Notes: Memori a 3-07 (Same as: l 15:00: Lopressor) [place] Lopressor No Notes: Memori a 3-07 (Same as: l 15:00: Lopressor) [place] Lopressor No Notes: Memori a 3-07 (Same as: l 15:00: Lopressor) [place] Lopressor No Notes: Memori a 3-07 (Same as: l 15:00: Lopressor) [place] 00 Synthroid No Notes: Memori a 3-07 Take 1 l 12:30: hour [place] 00 before or 2 hours after meal; Enteral feeds may interefere with the absorption of this medication . (Same as:Levothr oid) Synthroid No Notes: Memori a 3-07 Take 1 l 12:30: hour [place] 00 before or 2 hours after meal; Enteral feeds may interefere with the absorption of this medication . (Same as:Levothr oid) Synthroid No Notes: Memori a 3-07 Take 1 l 12:30: hour [place] 00 before or 2 hours after meal; Enteral feeds may interefere with the absorption of this medication . (Same as:Levothr oid) Synthroid No Notes: Memori a 3-07 Take 1 l 12:30: hour [place] 00 before or 2 hours after meal; Enteral feeds may interefere with the absorption of this medication . (Same as:Levothr oid) Synthroid No Notes: Memori a 3-07 Take 1 l 12:30: hour [place] 00 before or 2 hours after meal; Enteral feeds may interefere with the absorption of this medication . (Same as:Levothr oid) Synthroid No Notes: Memori a 3-07 Take 1 l 12:30: hour [place] 00 before or 2 hours after meal; Enteral feeds may interefere with the absorption of this medication . (Same as:Levothr oid) Synthroid No Notes: Memori a 3-07 Take 1 l 12:30: hour [place] 00 before or 2 hours after meal; Enteral feeds may interefere with the absorption of this medication . (Same as:Levothr oid) Losartan No Notes: Memoria 3-07 (Same as: l 03:00: Cozaar) [place] rosuvastati No Notes: Juan F adalberto n 3-07 Same as l 03:00: Crestor [place] 00 Losartan No Notes: Memoria 3-07 (Same as: l 03:00: Cozaar) [place] 00 rosuvastati 2018- No Notes: Juan F adalberto n 3-07 Same as l 03:00: Crestor [place] Losartan No Notes: Memoria 3-07 (Same as: l 03:00: Cozaar) [place] 00 rosuvastati 2018- No Notes: Juan F adalberto n 3-07 Same as l 03:00: Crestor [place] 00 Losartan No Notes: Memoria 3-07 (Same as: l 03:00: Cozaar) [place] Losartan No Notes: Memoria 3-07 (Same as: l 03:00: Cozaar) [place] rosuvastati No Notes: Juan F adalberto n 3-07 Same as l 03:00: Crestor [place] 00 rosuvastati 2018- No Notes: Juan F adalberto n 3-07 Same as l 03:00: Crestor [place] 00 Losartan No Notes: Memoria 3-07 (Same as: l 03:00: Cozaar) [place] rosuvastati No Notes: Juan F adalberto n 3-07 Same as l 03:00: Crestor [place] Losartan No Notes: Memoria 3-07 (Same as: l 03:00: Cozaar) [place] rosuvastati No Notes: Juan F adalberto n 3-07 Same as l 03:00: Crestor [place] 00 Melatonin No Notes: Memori a 3-06 (Same as: l 16:09: Melatonin) [place] Melatonin No Notes: Memori a 3-06 (Same as: l 16:09: Melatonin) [place] Melatonin No Notes: Memori a 3-06 (Same as: l 16:09: Melatonin) [place] Melatonin No Notes: Memori a 3-06 (Same as: l 16:09: Melatonin) [place] Melatonin No Notes: Memori a 3-06 (Same as: l 16:09: Melatonin) [place] Melatonin 2018- No Notes: Memori a 3-06 (Same as: l 16:09: Melatonin) [place] Melatonin No Notes: Memori a 3-06 (Same as: l 16:09: Melatonin) [place] 00 Thyroxine No Notes: Memori a 3-06 Take 1 l 13:30: hour [place] 00 before or 2 hours after meal; Enteral feeds may interefere with the absorption of this medication . (Same as:Levothr oid) Thyroxine No Notes: Memori a 3-06 Take 1 l 13:30: hour [place] 00 before or 2 hours after meal; Enteral feeds may interefere with the absorption of this medication . (Same as:Levothr oid) Thyroxine No Notes: Memori a 3-06 Take 1 l 13:30: hour [place] 00 before or 2 hours after meal; Enteral feeds may interefere with the absorption of this medication . (Same as:Levothr oid) Thyroxine No Notes: Memori a 3-06 Take 1 l 13:30: hour [place] 00 before or 2 hours after meal; Enteral feeds may interefere with the absorption of this medication . (Same as:Levothr oid) Thyroxine No Notes: Memori a 3-06 Take 1 l 13:30: hour [place] 00 before or 2 hours after meal; Enteral feeds may interefere with the absorption of this medication . (Same as:Levothr oid) Thyroxine No Notes: Memori a 3-06 Take 1 l 13:30: hour [place] 00 before or 2 hours after meal; Enteral feeds may interefere with the absorption of this medication . (Same as:Levothr oid) Thyroxine No Notes: Memori a 3-06 Take 1 l 13:30: hour [place] 00 before or 2 hours after meal; Enteral feeds may interefere with the absorption of this medication . (Same as:Levothr oid) Levothyroxi Yes 25 Memori a ne Sodium 3-06 microgram l 0.025 MG 13:08: = 1 tab, Rebecca nn Oral Tablet 00 PO, Daily, [Synthroid] 0 Refill(s) Levothyroxi Yes 25 Memori a ne Sodium 3-06 microgram l 0.025 MG 13:08: = 1 tab, Rebecca nn Oral Tablet 00 PO, Daily, [Synthroid] 0 Refill(s) Levothyroxi 0 Yes 25 Memori a ne Sodium 3-06 microgram l 0.025 MG 13:08: = 1 tab, Rebecca nn Oral Tablet 00 PO, Daily, [Synthroid] 0 Refill(s) Levothyroxi Yes 25 Memori a ne Sodium 3-06 microgram l 0.025 MG 13:08: = 1 tab, Rebecca nn Oral Tablet 00 PO, Daily, [Synthroid] 0 Refill(s) Levothyroxi Yes 25 Memori a ne Sodium 3-06 microgram l 0.025 MG 13:08: = 1 tab, Rebecca nn Oral Tablet 00 PO, Daily, [Synthroid] 0 Refill(s) Levothyroxi Yes 25 Memori a ne Sodium 3-06 microgram l 0.025 MG 13:08: = 1 tab, Rebecca nn Oral Tablet 00 PO, Daily, [Synthroid] 0 Refill(s) Levothyroxi Yes 25 Memori a ne Sodium 3-06 microgram l 0.025 MG 13:08: = 1 tab, Rebecca nn Oral Tablet 00 PO, Daily, [Synthroid] 0 Refill(s) Saline No Notes: Memoria Flush 0.9% 3-06 (Same as: l 03:00: BD [place] 00 Posiflush) Saline No Notes: Memoria Flush 0.9% 3-06 (Same as: l 03:00: BD [place] 00 Posiflush) Saline No Notes: Memoria Flush 0.9% 3-06 (Same as: l 03:00: BD [place] 00 Posiflush) Saline No Notes: Memoria Flush 0.9% 3-06 (Same as: l 03:00: BD [place] 00 Posiflush) Saline No Notes: Memoria Flush 0.9% 3-06 (Same as: l 03:00: BD [place] 00 Posiflush) Saline No Notes: Memoria Flush 0.9% 3-06 (Same as: l 03:00: BD [place] 00 Posiflush) Saline No Notes: Memoria Flush 0.9% 3-06 (Same as: l 03:00: BD [place] 00 Posiflush) Vancomycin No 2001 mg: Me moria 3-06 infuse l 00:00: over 2.5 [place] 00 hours For adult patients only: Round to nearest 250 mg per Medical Staff approval MEDICATION WASTE Product Size: 1000 mg Product Wasted: ___ mg Vancomycin 2019-0 No 2001 mg: Me moria 3-06 infuse l 00:00: over 2.5 [place] 00 hours For adult patients only: Round to nearest 250 mg per Medical Staff approval MEDICATION WASTE Product Size: 1000 mg Product Wasted: ___ mg Vancomycin 2019-0 No 2001 mg: Me moria 3-06 infuse l 00:00: over 2.5 [place] 00 hours For adult patients only: Round to nearest 250 mg per Medical Staff approval MEDICATION WASTE Product Size: 1000 mg Product Wasted: ___ mg Vancomycin 2019-0 No 2001 mg: Me moria 3-06 infuse l 00:00: over 2.5 [place] 00 hours For adult patients only: Round to nearest 250 mg per Medical Staff approval MEDICATION WASTE Product Size: 1000 mg Product Wasted: ___ mg Vancomycin 2019-0 No 2001 mg: Me moria 3-06 infuse l 00:00: over 2.5 [place] 00 hours For adult patients only: Round to nearest 250 mg per Medical Staff approval MEDICATION WASTE Product Size: 1000 mg Product Wasted: ___ mg Vancomycin 2019-0 No 2001 mg: Me moria 3-06 infuse l 00:00: over 2.5 [place] 00 hours For adult patients only: Round to nearest 250 mg per Medical Staff approval MEDICATION WASTE Product Size: 1000 mg Product Wasted: ___ mg Vancomycin 2019-0 No 2001 mg: Me moria 3-06 infuse l 00:00: over 2.5 [place] 00 hours For adult patients only: Round to nearest 250 mg per Medical Staff approval MEDICATION WASTE Product Size: 1000 mg Product Wasted: ___ mg Zofran 2018- No Notes: Memoria 3-05 (Same as: l 23:09: Zofran) [place] Zofran 2018- No Notes: Memoria 3-05 (Same as: l 23:09: Zofran) [place] Zofran 2018- No Notes: Memoria 3-05 (Same as: l 23:09: Zofran) [place] Zofran No Notes: Memoria 3-05 (Same as: l 23:09: Zofran) [place] Zofran No Notes: Memoria 3-05 (Same as: l 23:09: Zofran) [place] Zofran No Notes: Memoria 3-05 (Same as: l 23:09: Zofran) [place] 00 Zofran No Notes: Memoria 3-05 (Same as: l 23:09: Zofran) [place] rivaroxaban No Notes: Juan F adalberto 3-05 (Same as: l 21:15: Xarelto) [place] 00 rivaroxaban No Notes: Juan F adalberto 3-05 (Same as: l 21:15: Xarelto) [place] 00 rivaroxaban No Notes: Juan F adalberto 3-05 (Same as: l 21:15: Xarelto) rivaroxaban No Notes: Juan F adalberto 3-05 (Same as: l 21:15: Xarelto) rivaroxaban No Notes: Juan F adalberto 3-05 (Same as: l 21:15: Xarelto) [place] 00 rivaroxaban No Notes: Juan F adalberto 3-05 (Same as: l 21:15: Xarelto) [place] rivaroxaban No Notes: Juan F adalberto 3-05 (Same as: l 21:15: Xarelto) Cefazolin No Notes: Memori a 3-05 (Same As: l 20:00: Ancef, [place] 00 Kefzol) MEDICATION WASTE Product Size: 1000 mg Product Wasted: ___ mg Cefazolin No Notes: Memori a 3-05 (Same As: l 20:00: Ancef, [place] 00 Kefzol) MEDICATION WASTE Product Size: 1000 mg Product Wasted: ___ mg Cefazolin No Notes: Memori a 3-05 (Same As: l 20:00: Ancef, [place] 00 Kefzol) MEDICATION WASTE Product Size: 1000 mg Product Wasted: ___ mg Cefazolin No Notes: Memori a 3-05 (Same As: l 20:00: Ancef, [place] 00 Kefzol) MEDICATION WASTE Product Size: 1000 mg Product Wasted: ___ mg Cefazolin 2019-0 No Notes: Memori a 3-05 (Same As: l 20:00: Ancef, [place] 00 Kefzol) MEDICATION WASTE Product Size: 1000 mg Product Wasted: ___ mg Cefazolin 2019-0 No Notes: Memori a 3-05 (Same As: l 20:00: Ancef, [place] 00 Kefzol) MEDICATION WASTE Product Size: 1000 mg Product Wasted: ___ mg Cefazolin 2019-0 No Notes: Memori a 3-05 (Same As: l 20:00: Ancef, [place] 00 Kefzol) MEDICATION WASTE Product Size: 1000 mg Product Wasted: ___ mg Streptococc 2019-0 No Notes: Juan F adalberto 3-05 Shake well l pneumoniae 16:32: prior to Her reese serotype 1 40 use (Same capsular as: antigen Prevnar diphtheria 13) [id number] protein conjugate vaccine / Streptococc us pneumoniae serotype 14 capsular antigen diphtheria [id number] protein conjugate vaccine / Streptococc us pneumoniae serotype 18C capsular antigen d Streptococc 2019- No Notes: Juan F adalberto 3-05 Shake well l pneumoniae 16:32: prior to Her reese serotype 1 40 use (Same capsular as: antigen Prevnar diphtheria 13) [id number] protein conjugate vaccine / Streptococc us pneumoniae serotype 14 capsular antigen diphtheria [id number] protein conjugate vaccine / Streptococc us pneumoniae serotype 18C capsular antigen d Streptococc 2019- No Notes: Juan F adalberto us 3-05 Shake well l pneumoniae 16:32: prior to Her reese serotype 1 40 use (Same capsular as: antigen Prevnar diphtheria 13) [id number] protein conjugate vaccine / Streptococc us pneumoniae serotype 14 capsular antigen diphtheria [id number] protein conjugate vaccine / Streptococc us pneumoniae serotype 18C capsular antigen d Streptococc 2019-0 No Notes: Juan F adalberto us 3-05 Shake well l pneumoniae 16:32: prior to Her reese serotype 1 40 use (Same capsular as: antigen Prevnar diphtheria 13) [id number] protein conjugate vaccine / Streptococc us pneumoniae serotype 14 capsular antigen diphtheria [id number] protein conjugate vaccine / Streptococc us pneumoniae serotype 18C capsular antigen d Streptococc No Notes: Juan F adalberto us 3-05 Shake well l pneumoniae 16:32: prior to Her reese serotype 1 40 use (Same capsular as: antigen Prevnar diphtheria 13) [id number] protein conjugate vaccine / Streptococc us pneumoniae serotype 14 capsular antigen diphtheria [id number] protein conjugate vaccine / Streptococc us pneumoniae serotype 18C capsular antigen d Streptococc No Notes: Juan F adalberto us 3-05 Shake well l pneumoniae 16:32: prior to Her reese serotype 1 40 use (Same capsular as: antigen Prevnar diphtheria 13) [id number] protein conjugate vaccine / Streptococc us pneumoniae serotype 14 capsular antigen diphtheria [id number] protein conjugate vaccine / Streptococc us pneumoniae serotype 18C capsular antigen d Streptococc No Notes: Juan F adalberto us 3-05 Shake well l pneumoniae 16:32: prior to Her reese serotype 1 40 use (Same capsular as: antigen Prevnar diphtheria 13) [id number] protein conjugate vaccine / Streptococc us pneumoniae serotype 14 capsular antigen diphtheria [id number] protein conjugate vaccine / Streptococc us pneumoniae serotype 18C capsular antigen d Acetaminoph No Notes: Do M emoria en 325 MG / 3-05 not exceed l Hydrocodone 15:18: 4gm/day of [place] Bitartrate 00 acetaminop 10 MG Oral hen. 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 (Same Tablet as: [place] [[place] 325/10) 10] Dilaudid No Notes: Memoria 3-05 (Same as: l 15:18: Dilaudid) [place] 00 Saline No Notes: Memoria Flush 0.9% 3-05 (Same as: l 15:18: BD [place] 00 Posiflush) 04/21 NS No 1,000 mL, Memori a 1,000 mL 3-05 Rate: 75 l 15:18: ml/hr, [place] 00 Infuse over: 13.3 hr, Route: IV, Dosing Weight 69.545 kg, Total Volume: 1,000, Start date: 06/22/18 9:18: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, Duration: 30 day, Stop date: 07/22/18 9:17:00 CDT, 1.74, m2 Acetaminoph No Notes: Do M emoria en 325 MG / 3-05 not exceed l Hydrocodone 15:18: 4gm/day of [place] Bitartrate 00 acetaminop 10 MG Oral hen. (Same Tablet as: [place] [[place] 325/10) ] Dilaudid No Notes: Memoria 3-05 (Same as: l 15:18: Dilaudid) [place] 00 Saline No Notes: Memoria Flush 0.9% 3-05 (Same as: l 15:18: BD [place] 00 Posiflush) 04/21 NS No 1,000 mL, Memori a 1,000 mL 3-05 Rate: 75 l 15:18: ml/hr, [place] 00 Infuse over: 13.3 hr, Route: IV, Dosing Weight 69.545 kg, Total Volume: 1,000, Start date: 06/22/18 9:18: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, Duration: 30 day, Stop date: 07/22/18 9:17:00 CDT, 1.74, m2 Acetaminoph No Notes: Do M emoria en 325 MG / 3-05 not exceed l Hydrocodone 15:18: 4gm/day of [place] Bitartrate 00 acetaminop 10 MG Oral hen. 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 (Same Tablet as: [place] [[place] 325/10) 10325] Dilaudid No Notes: Memoria 3-05 (Same as: l 15:18: Dilaudid) [place] 00 Saline No Notes: Memoria Flush 0.9% 3-05 (Same as: l 15:18: BD [place] 00 Posiflush) 04/21 NS No 1,000 mL, Memori a 1,000 mL 3-05 Rate: 75 l 15:18: ml/hr, [place] 00 Infuse over: 13.3 hr, Route: IV, Dosing Weight 69.545 kg, Total Volume: 1,000, Start date: 06/22/18 9:18: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, Duration: 30 day, Stop date: 07/22/18 9:17:00 CDT, 1.74, m2 Acetaminoph No Notes: Do M emoria en 325 MG / 3-05 not exceed l Hydrocodone 15:18: 4gm/day of [place] Bitartrate 00 acetaminop 10 MG Oral hen. (Same Tablet as: [place] [[place] 325/10) 10/325] Dilaudid No Notes: Memoria 3-05 (Same as: l 15:18: Dilaudid) [place] Saline No Notes: Memoria Flush 0.9% 3-05 (Same as: l 15:18: BD [place] 00 Posiflush) 04/21 NS No 1,000 mL, Memori a 1,000 mL 3-05 Rate: 75 l 15:18: ml/hr, [place] 00 Infuse over: 13.3 hr, Route: IV, Dosing Weight 69.545 kg, Total Volume: 1,000, Start date: 06/22/18 9:18: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, Duration: 30 day, Stop date: 07/22/18 9:17:00 CDT, 1.74, m2 Acetaminoph No Notes: Do M emoria en 325 MG / 3-05 not exceed l Hydrocodone 15:18: 4gm/day of [place] Bitartrate 00 acetaminop 10 MG Oral hen. (Same Tablet as: [place] [[place] 325/10) ] Dilaudid No Notes: Memoria 3-05 (Same as: l 15:18: Dilaudid) [place] 00 Saline No Notes: Memoria Flush 0.9% 3-05 (Same as: l 15:18: BD [place] 00 Posiflush) 04/21 NS No 1,000 mL, Memori a 1,000 mL 3-05 Rate: 75 l 15:18: ml/hr, [place] 00 Infuse over: 13.3 hr, Route: IV, Dosing Weight 69.545 kg, Total Volume: 1,000, Start date: 06/22/18 9:18: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, Duration: 30 day, Stop date: 07/22/18 9:17:00 CDT, 1.74, m2 Diphenhydra No 12.5 mg, Me moria mine 3-05 Route: l 15:17: IVP, Drug form: INJ, Q6H, Dosing Weight 69.545, kg, PRN Itching, Start date: 06/22/18 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, Duration: 30 day, Stop date: 07/22/18 9:16:00 CDT Naloxone 2019-0 No 0.4 mg, Memori a 3-05 Route: l 15:17: IVP, [place] 00 Q2MIN, Dosing Weight 69.545, kg, PRN Narcotic Reversal, Start date: 06/22/18 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, Duration: 8 doses or times, Stop date: Limited # of times Flumazenil 2019-0 No 0.2 mg, Juan F adalberto 3-05 Route: l 15:17: IVP, PRN, [place] 00 Dosing Weight 69.545, kg, PRN Benzodiaze pine Reversal, Initial dose, Start date: 06/22/18 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, Duration: 30 day, Stop date: 07/22/18 10:16:00 CDT Ofirmev 2019-0 No or = 50 Memori a 3-05 kg, Start l 15:17: date: [place] 00 06/22/18 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, Substitute Allowed No Oxycodone 2019-0 No 10 mg, Memori a 3-05 Route: PO, l 15:17: Drug form: [place] 00 TAB, Q4H, Dosing Weight 69.545, kg, PRN Pain Score 7-10, Start date: 06/22/18 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, Duration: 30 day, Stop date: 07/22/18 9:16:00 CDT Hydromorpho 2019-0 No 0.5 mg, Mem oria ne 3-05 Route: l 15:17: IVP, [place] 00 Q5Min, Dosing Weight 69.545, kg, PRN Pain Score 7-10, Start date: 06/22/18 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, Duration: 4 doses or times, Stop date: Limited # of times Fentanyl 2019-0 No 25 Memoria 3-05 microgram, l 15:17: Route: [place] 00 IVP, Q5Min, Dosing Weight 69.545, kg, PRN Pain Score 4-6, Priority: Routine, Start date: 06/22/18 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, Duration: 4 doses or times, Stop date: Limited # of times Labetalol 2019-0 No 10 mg, Memori a 3-05 Route: l 15:17: IVP, [place] 00 Q5Min, Dosing Weight 69.545, kg, PRN Elevated BP, Start date: 06/22/18 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, Duration: 5 doses or times, Stop date: Limited # of times esmolol 2019-0 No 10 mg, Memoria 3-05 Route: l 15:17: IVP, [place] 00 Q5Min, Dosing Weight 69.545, kg, PRN Other -See Comment, Start date: 06/22/18 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, Duration: 5 doses or times, Stop date: Limited # of times Hydralazine 2019-0 No 10 mg, Juan F adalberto 3-05 Route: l 15:17: IVP, [place] 00 Q20Min, Dosing Weight 69.545, kg, PRN Elevated BP, Start date: 06/22/18 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, Duration: 2 doses or times, Stop date: Limited # of times Ondansetron 2019-0 No 4 mg, Memor ia 3 Route: l 15:17: IVP, ONCE, [place] 00 Dosing Weight 69.545, kg, PRN Nausea & Vomiting, Start date: 06/22/18 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 Meperidine 2019-0 No 12.5 mg, Mem oria 05 Route: l 15:17: IVP, [place] 00 Q30Min, Dosing Weight 69.545, kg, PRN Other -See Comment, For shivering, Start date: 06/22/18 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, Duration: 2 doses or times, Stop date: Limited # of times Albuterol 2019-0 No 2.49 mg, Juan F adalberto 0.83 MG/ML 305 Route: l Inhalant 15:17: NEB, [place] Solution 00 Q20Min, Dosing Weight 69.545, kg, PRN Wheezing, Priority: STAT, Start date: 06/22/18 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, Duration: 30 day, Stop date: 07/22/18 10:16:00 CDT Ofirmev 2019-0 No or = 50 Memori a 3-05 kg, Start l 15:17: date: [place] 00 06/22/18 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, Substitute Allowed No Oxycodone 2019-0 No 10 mg, Memori a 3-05 Route: PO, l 15:17: Drug form: [place] 00 TAB, Q4H, Dosing Weight 69.545, kg, PRN Pain Score 7-10, Start date: 06/22/18 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, Duration: 30 day, Stop date: 07/22/18 9:16:00 CDT Hydromorpho 2019-0 No 0.5 mg, Mem oria ne 3-05 Route: l 15:17: IVP, [place] 00 Q5Min, Dosing Weight 69.545, kg, PRN Pain Score 7-10, Start date: 06/22/18 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, Duration: 4 doses or times, Stop date: Limited # of times Fentanyl 2019-0 No 25 Memoria 3-05 microgram, l 15:17: Route: [place] 00 IVP, Q5Min, Dosing Weight 69.545, kg, PRN Pain Score 4-6, Priority: Routine, Start date: 06/22/18 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, Duration: 4 doses or times, Stop date: Limited # of times Labetalol 2019-0 No 10 mg, Memori a 3-05 Route: l 15:17: IVP, [place] 00 Q5Min, Dosing Weight 69.545, kg, PRN Elevated BP, Start date: 06/22/18 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, Duration: 5 doses or times, Stop date: Limited # of times esmolol 2019-0 No 10 mg, Memoria 3-05 Route: l 15:17: IVP, [place] 00 Q5Min, Dosing Weight 69.545, kg, PRN Other -See Comment, Start date: 06/22/18 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, Duration: 5 doses or times, Stop date: Limited # of times Hydralazine 2019-0 No 10 mg, Juan F adalberto 3-05 Route: l 15:17: IVP, [place] 00 Q20Min, Dosing Weight 69.545, kg, PRN Elevated BP, Start date: 06/22/18 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, Duration: 2 doses or times, Stop date: Limited # of times Ondansetron 2019-0 No 4 mg, Memor ia 3-05 Route: l 15:17: IVP, ONCE, [place] 00 Dosing Weight 69.545, kg, PRN Nausea & Vomiting, Start date: 06/22/18 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 Meperidine 2019-0 No 12.5 mg, Mem oria 3 Route: l 15:17: IVP, [place] 00 Q30Min, Dosing Weight 69.545, kg, PRN Other -See Comment, For shivering, Start date: 06/22/18 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, Duration: 2 doses or times, Stop date: Limited # of times Albuterol 2019-0 No 2.49 mg, Juan F adalberto 0.83 MG/ML 3 Route: l Inhalant 15:17: NEB, [place] Solution 00 Q20Min, Dosing Weight 69.545, kg, PRN Wheezing, Priority: STAT, Start date: 06/22/18 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, Duration: 30 day, Stop date: 07/22/18 10:16:00 CDT Diphenhydra 2019-0 No 12.5 mg, Me moria mine 06-22 Route: l 15:17: IVP, Drug form: INJ, Q6H, Dosing Weight 69.545, kg, PRN Itching, Start date: 06/22/18 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, Duration: 30 day, Stop date: 07/22/18 9:16:00 CDT Naloxone 2019-0 No 0.4 mg, Memori a 06-22 Route: l 15:17: IVP, [place] 00 Q2MIN, Dosing Weight 69.545, kg, PRN Narcotic Reversal, Start date: 06/22/18 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, Duration: 8 doses or times, Stop date: Limited # of times Flumazenil 2019-0 No 0.2 mg, Juan F adalberto 3-05 Route: l 15:17: IVP, PRN, [place] 00 Dosing Weight 69.545, kg, PRN Benzodiaze pine Reversal, Initial dose, Start date: 06/22/18 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, Duration: 30 day, Stop date: 07/22/18 10:16:00 CDT Ofirmev 2019-0 No or = 50 Memori a 3-05 kg, Start l 15:17: date: [place] 00 06/22/18 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, Substitute Allowed No Oxycodone 2019-0 No 10 mg, Memori a 3-05 Route: PO, l 15:17: Drug form: [place] 00 TAB, Q4H, Dosing Weight 69.545, kg, PRN Pain Score 7-10, Start date: 06/22/18 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, Duration: 30 day, Stop date: 07/22/18 9:16:00 CDT Hydromorpho 2019-0 No 0.5 mg, Mem oria ne 3-05 Route: l 15:17: IVP, [place] 00 Q5Min, Dosing Weight 69.545, kg, PRN Pain Score 7-10, Start date: 06/22/18 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, Duration: 4 doses or times, Stop date: Limited # of times Fentanyl 2019-0 No 25 Memoria 3-05 microgram, l 15:17: Route: [place] 00 IVP, Q5Min, Dosing Weight 69.545, kg, PRN Pain Score 4-6, Priority: Routine, Start date: 06/22/18 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, Duration: 4 doses or times, Stop date: Limited # of times Labetalol 2019-0 No 10 mg, Memori a 3-05 Route: l 15:17: IVP, [place] 00 Q5Min, Dosing Weight 69.545, kg, PRN Elevated BP, Start date: 06/22/18 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, Duration: 5 doses or times, Stop date: Limited # of times esmolol 2019-0 No 10 mg, Memoria 3-05 Route: l 15:17: IVP, [place] 00 Q5Min, Dosing Weight 69.545, kg, PRN Other -See Comment, Start date: 06/22/18 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, Duration: 5 doses or times, Stop date: Limited # of times Hydralazine 2019-0 No 10 mg, Juan F adalberto 3-05 Route: l 15:17: IVP, [place] 00 Q20Min, Dosing Weight 69.545, kg, PRN Elevated BP, Start date: 06/22/18 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, Duration: 2 doses or times, Stop date: Limited # of times Ondansetron 2019-0 No 4 mg, Memor ia 06-22 Route: l 15:17: IVP, ONCE, [place] 00 Dosing Weight 69.545, kg, PRN Nausea & Vomiting, Start date: 06/22/18 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 Meperidine 2019-0 No 12.5 mg, Mem oria 06-22 Route: l 15:17: IVP, [place] 00 Q30Min, Dosing Weight 69.545, kg, PRN Other -See Comment, For shivering, Start date: 06/22/18 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, Duration: 2 doses or times, Stop date: Limited # of times Albuterol 2019-0 No 2.49 mg, Juan F adalberto 0.83 MG/ML 06-22 Route: l Inhalant 15:17: NEB, [place] Solution 00 Q20Min, Dosing Weight 69.545, kg, PRN Wheezing, Priority: STAT, Start date: 06/22/18 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, Duration: 30 day, Stop date: 07/22/18 10:16:00 CDT Diphenhydra 2019-0 No 12.5 mg, Me moria mine 06-22 Route: l 15:17: IVP, Drug [place] 00 form: INJ, Q6H, Dosing Weight 69.545, kg, PRN Itching, Start date: 06/22/18 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, Duration: 30 day, Stop date: 07/22/18 9:16:00 CDT Naloxone 2019-0 No 0.4 mg, Memori a 06-22 Route: l 15:17: IVP, [place] 00 Q2MIN, Dosing Weight 69.545, kg, PRN Narcotic Reversal, Start date: 06/22/18 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, Duration: 8 doses or times, Stop date: Limited # of times Flumazenil 2019-0 No 0.2 mg, Juan F adalberto 3 Route: l 15:17: IVP, PRN, [place] 00 Dosing Weight 69.545, kg, PRN Benzodiaze pine Reversal, Initial dose, Start date: 06/22/18 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, Duration: 30 day, Stop date: 07/22/18 10:16:00 CDT Ofirmev 2019-0 No or = 50 Memori a 3-05 kg, Start l 15:17: date: [place] 00 06/22/18 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, Substitute Allowed No Oxycodone 2019-0 No 10 mg, Memori a 3-05 Route: PO, l 15:17: Drug form: [place] 00 TAB, Q4H, Dosing Weight 69.545, kg, PRN Pain Score 7-10, Start date: 06/22/18 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, Duration: 30 day, Stop date: 07/22/18 9:16:00 CDT Hydromorpho 2019-0 No 0.5 mg, Mem oria ne 3-05 Route: l 15:17: IVP, [place] 00 Q5Min, Dosing Weight 69.545, kg, PRN Pain Score 7-10, Start date: 06/22/18 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, Duration: 4 doses or times, Stop date: Limited # of times Fentanyl 2019-0 No 25 Memoria 3-05 microgram, l 15:17: Route: [place] 00 IVP, Q5Min, Dosing Weight 69.545, kg, PRN Pain Score 4-6, Priority: Routine, Start date: 06/22/18 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, Duration: 4 doses or times, Stop date: Limited # of times Labetalol 2019-0 No 10 mg, Memori a 3-05 Route: l 15:17: IVP, [place] 00 Q5Min, Dosing Weight 69.545, kg, PRN Elevated BP, Start date: 06/22/18 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, Duration: 5 doses or times, Stop date: Limited # of times esmolol 2019-0 No 10 mg, Memoria 3-05 Route: l 15:17: IVP, [place] 00 Q5Min, Dosing Weight 69.545, kg, PRN Other -See Comment, Start date: 06/22/18 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, Duration: 5 doses or times, Stop date: Limited # of times Hydralazine 2019-0 No 10 mg, Juan F adalberto 3-05 Route: l 15:17: IVP, [place] 00 Q20Min, Dosing Weight 69.545, kg, PRN Elevated BP, Start date: 06/22/18 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, Duration: 2 doses or times, Stop date: Limited # of times Ondansetron 2019-0 No 4 mg, Memor ia 3 Route: l 15:17: IVP, ONCE, [place] 00 Dosing Weight 69.545, kg, PRN Nausea & Vomiting, Start date: 06/22/18 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 Meperidine 2019-0 No 12.5 mg, Mem oria 3 Route: l 15:17: IVP, [place] 00 Q30Min, Dosing Weight 69.545, kg, PRN Other -See Comment, For shivering, Start date: 06/22/18 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, Duration: 2 doses or times, Stop date: Limited # of times Albuterol 2019-0 No 2.49 mg, Juan F adalberto 0.83 MG/ML 06-22 Route: l Inhalant 15:17: NEB, [place] Solution 00 Q20Min, Dosing Weight 69.545, kg, PRN Wheezing, Priority: STAT, Start date: 06/22/18 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, Duration: 30 day, Stop date: 07/22/18 10:16:00 CDT Diphenhydra 2019-0 No 12.5 mg, Me moria mine 06-22 Route: l 15:17: IVP, Drug [place] 00 form: INJ, Q6H, Dosing Weight 69.545, kg, PRN Itching, Start date: 06/22/18 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, Duration: 30 day, Stop date: 07/22/18 9:16:00 CDT Naloxone 2019-0 No 0.4 mg, Memori a 06-22 Route: l 15:17: IVP, [place] 00 Q2MIN, Dosing Weight 69.545, kg, PRN Narcotic Reversal, Start date: 06/22/18 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, Duration: 8 doses or times, Stop date: Limited # of times Flumazenil 2019-0 No 0.2 mg, Juan F adalberto 3-05 Route: l 15:17: IVP, PRN, [place] 00 Dosing Weight 69.545, kg, PRN Benzodiaze pine Reversal, Initial dose, Start date: 06/22/18 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, Duration: 30 day, Stop date: 07/22/18 10:16:00 CDT Ofirmev 2019-0 No or = 50 Memori a 3-05 kg, Start l 15:17: date: 06/22/18 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, Substitute Allowed No Ofirmev 2019-0 No or = 50 Memori a 3-05 kg, Start l 15:17: date: 06/22/18 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, Substitute Allowed No Oxycodone 2019-0 No 10 mg, Memori a 3-05 Route: PO, l 15:17: Drug form: [place] 00 TAB, Q4H, Dosing Weight 69.545, kg, PRN Pain Score 7-10, Start date: 06/22/18 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, Duration: 30 day, Stop date: 07/22/18 9:16:00 CDT Hydromorpho 2019-0 No 0.5 mg, Mem oria ne 3-05 Route: l 15:17: IVP, [place] 00 Q5Min, Dosing Weight 69.545, kg, PRN Pain Score 7-10, Start date: 06/22/18 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, Duration: 4 doses or times, Stop date: Limited # of times Oxycodone 2019-0 No 10 mg, Memori a 3-05 Route: PO, l 15:17: Drug form: [place] 00 TAB, Q4H, Dosing Weight 69.545, kg, PRN Pain Score 7-10, Start date: 06/22/18 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, Duration: 30 day, Stop date: 07/22/18 9:16:00 CDT Fentanyl 2019-0 No 25 Memoria 3-05 microgram, l 15:17: Route: [place] 00 IVP, Q5Min, Dosing Weight 69.545, kg, PRN Pain Score 4-6, Priority: Routine, Start date: 06/22/18 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, Duration: 4 doses or times, Stop date: Limited # of times Labetalol 2019-0 No 10 mg, Memori a 3-05 Route: l 15:17: IVP, [place] 00 Q5Min, Dosing Weight 69.545, kg, PRN Elevated BP, Start date: 06/22/18 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, Duration: 5 doses or times, Stop date: Limited # of times esmolol 2019-0 No 10 mg, Memoria 3-05 Route: l 15:17: IVP, [place] 00 Q5Min, Dosing Weight 69.545, kg, PRN Other -See Comment, Start date: 06/22/18 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, Duration: 5 doses or times, Stop date: Limited # of times Hydralazine 2019-0 No 10 mg, Juan F adalberto 3-05 Route: l 15:17: IVP, [place] 00 Q20Min, Dosing Weight 69.545, kg, PRN Elevated BP, Start date: 06/22/18 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, Duration: 2 doses or times, Stop date: Limited # of times Ondansetron 2019-0 No 4 mg, Memor ia 3 Route: l 15:17: IVP, ONCE, [place] 00 Dosing Weight 69.545, kg, PRN Nausea & Vomiting, Start date: 06/22/18 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 Meperidine 2019-0 No 12.5 mg, Mem oria 3- Route: l 15:17: IVP, [place] 00 Q30Min, Dosing Weight 69.545, kg, PRN Other -See Comment, For shivering, Start date: 06/22/18 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, Duration: 2 doses or times, Stop date: Limited # of times Albuterol 2019-0 No 2.49 mg, Juan F adalberto 0.83 MG/ML 3 Route: l Inhalant 15:17: NEB, [place] Solution 00 Q20Min, Dosing Weight 69.545, kg, PRN Wheezing, Priority: STAT, Start date: 06/22/18 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, Duration: 30 day, Stop date: 07/22/18 10:16:00 CDT Diphenhydra 2019-0 No 12.5 mg, Me moria mine 3-05 Route: l 15:17: IVP, Drug [place] 00 form: INJ, Q6H, Dosing Weight 69.545, kg, PRN Itching, Start date: 06/22/18 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, Duration: 30 day, Stop date: 07/22/18 9:16:00 CDT Naloxone 2019-0 No 0.4 mg, Memori a 3-05 Route: l 15:17: IVP, [place] 00 Q2MIN, Dosing Weight 69.545, kg, PRN Narcotic Reversal, Start date: 06/22/18 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, Duration: 8 doses or times, Stop date: Limited # of times Flumazenil 2019-0 No 0.2 mg, Juan F adalberto 3-05 Route: l 15:17: IVP, PRN, [place] 00 Dosing Weight 69.545, kg, PRN Benzodiaze pine Reversal, Initial dose, Start date: 06/22/18 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, Duration: 30 day, Stop date: 07/22/18 10:16:00 CDT Hydromorpho 2019-0 No 0.5 mg, Mem oria ne 3-05 Route: l 15:17: IVP, [place] 00 Q5Min, Dosing Weight 69.545, kg, PRN Pain Score 7-10, Start date: 06/22/18 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, Duration: 4 doses or times, Stop date: Limited # of times Fentanyl 2019-0 No 25 Memoria 3-05 microgram, l 15:17: Route: [place] 00 IVP, Q5Min, Dosing Weight 69.545, kg, PRN Pain Score 4-6, Priority: Routine, Start date: 06/22/18 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, Duration: 4 doses or times, Stop date: Limited # of times Labetalol 2019-0 No 10 mg, Memori a 3-05 Route: l 15:17: IVP, [place] 00 Q5Min, Dosing Weight 69.545, kg, PRN Elevated BP, Start date: 06/22/18 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, Duration: 5 doses or times, Stop date: Limited # of times esmolol 2019-0 No 10 mg, Memoria 3-05 Route: l 15:17: IVP, [place] 00 Q5Min, Dosing Weight 69.545, kg, PRN Other -See Comment, Start date: 06/22/18 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, Duration: 5 doses or times, Stop date: Limited # of times Hydralazine 2019-0 No 10 mg, Juan F adalberto 3-05 Route: l 15:17: IVP, [place] 00 Q20Min, Dosing Weight 69.545, kg, PRN Elevated BP, Start date: 06/22/18 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, Duration: 2 doses or times, Stop date: Limited # of times Ondansetron 2019-0 No 4 mg, Memor ia 06-22 Route: l 15:17: IVP, ONCE, [place] 00 Dosing Weight 69.545, kg, PRN Nausea & Vomiting, Start date: 06/22/18 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 Meperidine 2019-0 No 12.5 mg, Mem oria 06-22 Route: l 15:17: IVP, [place] 00 Q30Min, Dosing Weight 69.545, kg, PRN Other -See Comment, For shivering, Start date: 06/22/18 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, Duration: 2 doses or times, Stop date: Limited # of times Albuterol 2019-0 No 2.49 mg, Juan F adalberto 0.83 MG/ML 06-22 Route: l Inhalant 15:17: NEB, [place] Solution 00 Q20Min, Dosing Weight 69.545, kg, PRN Wheezing, Priority: STAT, Start date: 06/22/18 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, Duration: 30 day, Stop date: 07/22/18 10:16:00 CDT Diphenhydra 2019-0 No 12.5 mg, Me moria mine 06-22 Route: l 15:17: IVP, Drug [place] 00 form: INJ, Q6H, Dosing Weight 69.545, kg, PRN Itching, Start date: 06/22/18 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, Duration: 30 day, Stop date: 07/22/18 9:16:00 CDT Naloxone 2019-0 No 0.4 mg, Memori a 06-22 Route: l 15:17: IVP, [place] 00 Q2MIN, Dosing Weight 69.545, kg, PRN Narcotic Reversal, Start date: 06/22/18 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, Duration: 8 doses or times, Stop date: Limited # of times Flumazenil 2019-0 No 0.2 mg, Juan F adalberto 3-05 Route: l 15:17: IVP, PRN, [place] 00 Dosing Weight 69.545, kg, PRN Benzodiaze pine Reversal, Initial dose, Start date: 06/22/18 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, Duration: 30 day, Stop date: 07/22/18 10:16:00 CDT Ofirmev 2019-0 No or = 50 Memori a 3-05 kg, Start l 15:17: date: [place] 00 06/22/18 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, Substitute Allowed No Oxycodone 2019-0 No 10 mg, Memori a 3-05 Route: PO, l 15:17: Drug form: [place] 00 TAB, Q4H, Dosing Weight 69.545, kg, PRN Pain Score 7-10, Start date: 06/22/18 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, Duration: 30 day, Stop date: 07/22/18 9:16:00 CDT Hydromorpho 2019-0 No 0.5 mg, Mem oria ne 3-05 Route: l 15:17: IVP, [place] 00 Q5Min, Dosing Weight 69.545, kg, PRN Pain Score 7-10, Start date: 06/22/18 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, Duration: 4 doses or times, Stop date: Limited # of times Fentanyl 2019-0 No 25 Memoria 3-05 microgram, l 15:17: Route: [place] 00 IVP, Q5Min, Dosing Weight 69.545, kg, PRN Pain Score 4-6, Priority: Routine, Start date: 06/22/18 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, Duration: 4 doses or times, Stop date: Limited # of times Labetalol 2019-0 No 10 mg, Memori a 3-05 Route: l 15:17: IVP, [place] 00 Q5Min, Dosing Weight 69.545, kg, PRN Elevated BP, Start date: 06/22/18 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, Duration: 5 doses or times, Stop date: Limited # of times esmolol 2019-0 No 10 mg, Memoria 3-05 Route: l 15:17: IVP, [place] 00 Q5Min, Dosing Weight 69.545, kg, PRN Other -See Comment, Start date: 06/22/18 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, Duration: 5 doses or times, Stop date: Limited # of times Hydralazine 2019-0 No 10 mg, Juan F adalberto 3-05 Route: l 15:17: IVP, [place] 00 Q20Min, Dosing Weight 69.545, kg, PRN Elevated BP, Start date: 06/22/18 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, Duration: 2 doses or times, Stop date: Limited # of times Ondansetron 2019-0 No 4 mg, Memor ia 3 Route: l 15:17: IVP, ONCE, [place] 00 Dosing Weight 69.545, kg, PRN Nausea & Vomiting, Start date: 06/22/18 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 Meperidine 2019-0 No 12.5 mg, Mem oria 3 Route: l 15:17: IVP, [place] 00 Q30Min, Dosing Weight 69.545, kg, PRN Other -See Comment, For shivering, Start date: 06/22/18 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, Duration: 2 doses or times, Stop date: Limited # of times Albuterol 2019-0 No 2.49 mg, Juan F adalberto 0.83 MG/ML 3 Route: l Inhalant 15:17: NEB, [place] Solution 00 Q20Min, Dosing Weight 69.545, kg, PRN Wheezing, Priority: STAT, Start date: 06/22/18 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, Duration: 30 day, Stop date: 07/22/18 10:16:00 CDT Diphenhydra 2019-0 No 12.5 mg, Me moria mine 3 Route: l 15:17: IVP, Drug [place] 00 form: INJ, Q6H, Dosing Weight 69.545, kg, PRN Itching, Start date: 06/22/18 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, Duration: 30 day, Stop date: 07/22/18 9:16:00 CDT Naloxone 2019-0 No 0.4 mg, Memori a 3 Route: l 15:17: IVP, [place] 00 Q2MIN, Dosing Weight 69.545, kg, PRN Narcotic Reversal, Start date: 06/22/18 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, Duration: 8 doses or times, Stop date: Limited # of times Flumazenil 2018-0 No 0.2 mg, Jaun F adalberto 3-05 Route: l 15:17: IVP, PRN, Dosing Weight 69.545, kg, PRN Benzodiaze pine Reversal, Initial dose, Start date: 06/22/18 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, Duration: 30 day, Stop date: 07/22/18 10:16:00 CDT neostigmine 2019-0 No Route: IV, Memoria (ANES) 3-05 Drug form: l 15:00: INJ, ONCE, Stop date: 06/22/18 9:00: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 glycopyrrol 2018-0 No Route: IV, Memoria ate (ANES) 3-05 Drug form: l 15:00: INJ, ONCE, Stop date: 06/22/18 9:00: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 neostigmine 2019-0 No Route: IV, Memoria (ANES) 3-05 Drug form: l 15:00: INJ, ONCE, Stop date: 06/22/18 9:00: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 glycopyrrol 2019-0 No Route: IV, Memoria ate (ANES) 3-05 Drug form: l 15:00: INJ, ONCE, Stop date: 06/22/18 9:00: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 neostigmine 2019-0 No Route: IV, Memoria (ANES) 3-05 Drug form: l 15:00: INJ, ONCE, Stop date: 06/22/18 9:00: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 glycopyrrol 2019-0 No Route: IV, Memoria ate (ANES) 3-05 Drug form: l 15:00: INJ, ONCE, Stop date: 06/22/18 9:00: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 neostigmine 2019-0 No Route: IV, Memoria (ANES) 3-05 Drug form: l 15:00: INJ, ONCE, Stop date: 06/22/18 9:00: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 glycopyrrol 2019-0 No Route: IV, Memoria ate (ANES) 3-05 Drug form: l 15:00: INJ, ONCE, Stop date: 06/22/18 9:00: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 neostigmine 2019-0 No Route: IV, Memoria (ANES) 3- Drug form: l 15:00: INJ, ONCE, Stop date: 06/22/18 9:00: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 glycopyrrol 2019-0 No Route: IV, Memoria ate (ANES) 3- Drug form: l 15:00: INJ, ONCE, Stop date: 06/22/18 9:00: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 neostigmine 2019-0 No Route: IV, Memoria (ANES) 3 Drug form: l 15:00: INJ, ONCE, Stop date: 06/22/18 9:00: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 glycopyrrol 2019-0 No Route: IV, Memoria ate (ANES) 3 Drug form: l 15:00: INJ, ONCE, Stop date: 06/22/18 9:00: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 neostigmine 2019-0 No Route: IV, Memoria (ANES) 3 Drug form: l 15:00: INJ, ONCE, Stop date: 06/22/18 9:00: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 glycopyrrol 2019-0 No Route: IV, Memoria ate (ANES) 06-22 Drug form: l 15:00: INJ, ONCE, Stop date: 06/22/18 9:00: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 phenylephri 2019-0 No Route: IV, Memoria ne (ANES) 3 Drug form: l 13:52: INJ, ONCE, Stop date: 06/22/18 7:52: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 ePHEDrine 2019-0 No Route: IV, Me moria (ANES) 3- Drug form: l 13:52: INJ, ONCE, Stop date: 06/22/18 7:52: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 phenylephri 2019-0 No Route: IV, Memoria ne (ANES) 3- Drug form: l 13:52: INJ, ONCE, Stop date: 06/22/18 7:52: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 ePHEDrine 2019-0 No Route: IV, Me moria (ANES) 3- Drug form: l 13:52: INJ, ONCE, Stop date: 06/22/18 7:52: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 phenylephri 2019-0 No Route: IV, Memoria ne (ANES) 3- Drug form: l 13:52: INJ, ONCE, Stop date: 06/22/18 7:52: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 ePHEDrine 2018-0 No Route: IV, Me moria (ANES) 3- Drug form: l 13:52: INJ, ONCE, Stop date: 06/22/18 7:52: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 phenylephri 2019-0 No Route: IV, Memoria ne (ANES) 06-22 Drug form: l 13:52: INJ, ONCE, Stop date: 06/22/18 7:52: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 ePHEDrine 2018-0 No Route: IV, Me moria (ANES) 06-22 Drug form: l 13:52: INJ, ONCE, Stop date: 06/22/18 7:52: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 phenylephri 2018-0 No Route: IV, Memoria ne (ANES) 06-22 Drug form: l 13:52: INJ, ONCE, Stop date: 06/22/18 7:52: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 ePHEDrine 2018-0 No Route: IV, Me moria (ANES) 06-22 Drug form: l 13:52: INJ, ONCE, Stop date: 06/22/18 7:52: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 phenylephri 2018-0 No Route: IV, Memoria ne (ANES) 06-22 Drug form: l 13:52: INJ, ONCE, Stop date: 06/22/18 7:52: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 ePHEDrine 2018-0 No Route: IV, Me moria (ANES) 06-22 Drug form: l 13:52: INJ, ONCE, Stop date: 06/22/18 7:52: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 phenylephri 2018-0 No Route: IV, Memoria ne (ANES) 3 Drug form: l 13:52: INJ, ONCE, Stop date: 06/22/18 7:52: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 ePHEDrine 2018-0 No Route: IV, Me moria (ANES) 3 Drug form: l 13:52: INJ, ONCE, Stop date: 06/22/18 7:52: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 tranexamic 2019-0 No Route: IV, M emoria acid (ANES) - Drug form: l 13:42: INJ, ONCE, Stop date: 06/22/18 7:42: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 famotidine 2018-0 No Route: IV, M emoria (ANES) 06-22 Drug form: l 13:42: INJ, ONCE, Stop date: 06/22/18 7:42: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 ondansetron 2018-0 No Route: IV, Memoria (ANES) 06-22 Drug form: l 13:42: INJ, ONCE, Stop date: 06/22/18 7:42: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 acetaminoph 2018- No Route: IV, Memoria en (ANES) 06-22 Drug form: l 13:42: INJ, ONCE, Stop date: 06/22/18 7:42: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 ceFAZolin 2018- No Route: IV, Me moria (ANES) 06-22 Drug form: l 13:42: INJ, ONCE, Stop date: 06/22/18 7:42: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 tranexamic 0 No Route: IV, M emoria acid (ANES) 06-22 Drug form: l 13:42: INJ, ONCE, Stop date: 06/22/18 7:42: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 famotidine 2018-0 No Route: IV, M emoria (ANES) 06-22 Drug form: l 13:42: INJ, ONCE, Stop date: 06/22/18 7:42: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 ondansetron 0 No Route: IV, Memoria (ANES) 06-22 Drug form: l 13:42: INJ, ONCE, Stop date: 06/22/18 7:42: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 acetaminoph 0 No Route: IV, Memoria en (ANES) 06-22 Drug form: l 13:42: INJ, ONCE, Stop date: 06/22/18 7:42: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 ceFAZolin 2018-0 No Route: IV, Me moria (ANES) 06-22 Drug form: l 13:42: INJ, ONCE, Stop date: 06/22/18 7:42: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 tranexamic 2019-0 No Route: IV, M emoria acid (ANES) 3- Drug form: l 13:42: INJ, ONCE, Stop date: 06/22/18 7:42: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 famotidine 2018-0 No Route: IV, M emoria (ANES) 3- Drug form: l 13:42: INJ, ONCE, Stop date: 06/22/18 7:42: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 ondansetron 2019-0 No Route: IV, Memoria (ANES) 3 Drug form: l 13:42: INJ, ONCE, Stop date: 06/22/18 7:42: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 acetaminoph 2018-0 No Route: IV, Memoria en (ANES) 06-22 Drug form: l 13:42: INJ, ONCE, Stop date: 06/22/18 7:42: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 ceFAZolin 2018-0 No Route: IV, Me moria (ANES) 06-22 Drug form: l 13:42: INJ, ONCE, Stop date: 06/22/18 7:42: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 tranexamic 2018-0 No Route: IV, M emoria acid (ANES) 06-22 Drug form: l 13:42: INJ, ONCE, Stop date: 06/22/18 7:42: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 famotidine 2018-0 No Route: IV, M emoria (ANES) 06-22 Drug form: l 13:42: INJ, ONCE, Stop date: 06/22/18 7:42: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 ondansetron 2018-0 No Route: IV, Memoria (ANES) 3 Drug form: l 13:42: INJ, ONCE, Stop date: 06/22/18 7:42: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 acetaminoph 2018-0 No Route: IV, Memoria en (ANES) 06-22 Drug form: l 13:42: INJ, ONCE, Stop date: 06/22/18 7:42: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 ceFAZolin 2018-0 No Route: IV, Me moria (ANES) 3 Drug form: l 13:42: INJ, ONCE, Stop date: 06/22/18 7:42: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 tranexamic 2019-0 No Route: IV, M emoria acid (ANES) 3- Drug form: l 13:42: INJ, ONCE, Stop date: 06/22/18 7:42: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 famotidine 2018-0 No Route: IV, M emoria (ANES) 3 Drug form: l 13:42: INJ, ONCE, Stop date: 06/22/18 7:42: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 ondansetron 2019-0 No Route: IV, Memoria (ANES) 3 Drug form: l 13:42: INJ, ONCE, Stop date: 06/22/18 7:42: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 acetaminoph 2018-0 No Route: IV, Memoria en (ANES) 06-22 Drug form: l 13:42: INJ, ONCE, Stop date: 06/22/18 7:42: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 ceFAZolin 2018-0 No Route: IV, Me moria (ANES) 06-22 Drug form: l 13:42: INJ, ONCE, Stop date: 06/22/18 7:42: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 tranexamic 2018-0 No Route: IV, M emoria acid (ANES) 06-22 Drug form: l 13:42: INJ, ONCE, Stop date: 06/22/18 7:42: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 famotidine 2018-0 No Route: IV, M emoria (ANES) 06-22 Drug form: l 13:42: INJ, ONCE, Stop date: 06/22/18 7:42: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 ondansetron 2018-0 No Route: IV, Memoria (ANES) 3 Drug form: l 13:42: INJ, ONCE, Stop date: 06/22/18 7:42: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 acetaminoph 2018-0 No Route: IV, Memoria en (ANES) 3 Drug form: l 13:42: INJ, ONCE, Stop date: 06/22/18 7:42: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 ceFAZolin 2018-0 No Route: IV, Me moria (ANES) 3 Drug form: l 13:42: INJ, ONCE, Stop date: 06/22/18 7:42: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 tranexamic 2019-0 No Route: IV, M emoria acid (ANES) 3-05 Drug form: l 13:42: INJ, ONCE, Stop date: 06/22/18 7:42: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 famotidine 2019-0 No Route: IV, M emoria (ANES) 3-05 Drug form: l 13:42: INJ, ONCE, Stop date: 06/22/18 7:42: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 ondansetron 2019-0 No Route: IV, Memoria (ANES) 3- Drug form: l 13:42: INJ, ONCE, Stop date: 06/22/18 7:42: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 acetaminoph 2019- No Route: IV, Memoria en (ANES) 3- Drug form: l 13:42: INJ, ONCE, Stop date: 06/22/18 7:42: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 ceFAZolin 2019-0 No Route: IV, Me moria (ANES) 3- Drug form: l 13:42: INJ, ONCE, Stop date: 06/22/18 7:42: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 fentaNYL 2019-0 No Route: IV, Mem oria (ANES) 3- Drug form: l 13:37: INJ, ONCE, Stop date: 06/22/18 7:37: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 propofol 2019-0 No Route: IV, Mem oria (ANES) 3-05 Drug form: l 13:37: INJ, ONCE, Stop date: 06/22/18 7:37: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 rocuronium 2019-0 No Route: IV, M emoria (ANES) 3-05 Drug form: l 13:37: INJ, ONCE, Stop date: 06/22/18 7:37: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 fentaNYL 2019-0 No Route: IV, Mem oria (ANES) 3-05 Drug form: l 13:37: INJ, ONCE, Stop date: 06/22/18 7:37: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 propofol 2019-0 No Route: IV, Mem oria (ANES) 3-05 Drug form: l 13:37: INJ, ONCE, Stop date: 06/22/18 7:37: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 rocuronium 2019-0 No Route: IV, M emoria (ANES) 3-05 Drug form: l 13:37: INJ, ONCE, [place] 00 Stop date: 06/22/18 7:37: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 fentaNYL 2019-0 No Route: IV, Mem oria (ANES) 3-05 Drug form: l 13:37: INJ, ONCE, Stop date: 06/22/18 7:37: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 propofol 2019-0 No Route: IV, Mem oria (ANES) 3-05 Drug form: l 13:37: INJ, ONCE, [place] 00 Stop date: 06/22/18 7:37: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 rocuronium 2019-0 No Route: IV, M emoria (ANES) 3-05 Drug form: l 13:37: INJ, ONCE, [place] 00 Stop date: 06/22/18 7:37: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 fentaNYL 2019-0 No Route: IV, Mem oria (ANES) 3-05 Drug form: l 13:37: INJ, ONCE, Stop date: 06/22/18 7:37: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 propofol 2019-0 No Route: IV, Mem oria (ANES) 3-05 Drug form: l 13:37: INJ, ONCE, Stop date: 06/22/18 7:37: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 rocuronium 2019-0 No Route: IV, M emoria (ANES) 3-05 Drug form: l 13:37: INJ, ONCE, Stop date: 06/22/18 7:37: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 fentaNYL 2019-0 No Route: IV, Mem oria (ANES) 3-05 Drug form: l 13:37: INJ, ONCE, [place] 00 Stop date: 06/22/18 7:37: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 propofol 2019-0 No Route: IV, Mem oria (ANES) 3-05 Drug form: l 13:37: INJ, ONCE, [place] 00 Stop date: 06/22/18 7:37: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 rocuronium 2019-0 No Route: IV, M emoria (ANES) 3-05 Drug form: l 13:37: INJ, ONCE, Stop date: 06/22/18 7:37: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 fentaNYL 2019-0 No Route: IV, Mem oria (ANES) 3-05 Drug form: l 13:37: INJ, ONCE, [place] 00 Stop date: 06/22/18 7:37: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 propofol 2019-0 No Route: IV, Mem oria (ANES) 3-05 Drug form: l 13:37: INJ, ONCE, Stop date: 06/22/18 7:37: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 rocuronium 2019-0 No Route: IV, M emoria (ANES) 3-05 Drug form: l 13:37: INJ, ONCE, [place] 00 Stop date: 06/22/18 7:37: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 fentaNYL 2019-0 No Route: IV, Mem oria (ANES) 3-05 Drug form: l 13:37: INJ, ONCE, Stop date: 06/22/18 7:37: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 propofol 2019-0 No Route: IV, Mem oria (ANES) 3-05 Drug form: l 13:37: INJ, ONCE, Stop date: 06/22/18 7:37: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 rocuronium 2019-0 No Route: IV, M emoria (ANES) 3-05 Drug form: l 13:37: INJ, ONCE, Stop date: 06/22/18 7:37: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 lidocaine 2019-0 No Route: IV, Me moria (ANES) 3-05 Drug form: l 13:32: INJ, ONCE, Stop date: 06/22/18 7: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 lidocaine 2019-0 No Route: IV, Me moria (ANES) 3-05 Drug form: l 13:32: INJ, ONCE, [place] 00 Stop date: 06/22/18 7: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 lidocaine 2019-0 No Route: IV, Me moria (ANES) 3-05 Drug form: l 13:32: INJ, ONCE, Stop date: 06/22/18 7: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 lidocaine 2019-0 No Route: IV, Me moria (ANES) 3-05 Drug form: l 13:32: INJ, ONCE, Stop date: 06/22/18 7: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 lidocaine 2019-0 No Route: IV, Me moria (ANES) 3-05 Drug form: l 13:32: INJ, ONCE Stop date: 06/22/18 7: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 lidocaine 2019-0 No Route: IV, Me moria (ANES) 06-22 Drug form: l 13:32: INJ, ONCE Stop date: 06/22/18 7: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 lidocaine 2019-0 No Route: IV, Me moria (ANES) 06-22 Drug form: l 13:32: INJ, ONCE Stop date: 06/22/18 7: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 vancomycin 2019-0 No Route: IV, M emoria (ANES) 1000 06-22 Drug form: l mg 12:45: INJ, date: 06/22/18 6:45: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, Stop date: 06/22/18 7:45: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 vancomycin 2019-0 No Route: IV, M emoria (ANES) 1000 06-22 Drug form: l mg 12:45: INJ, date: 06/22/18 6:45: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, Stop date: 06/22/18 7:45: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 vancomycin 2019-0 No Route: IV, M emoria (ANES) 1000 06-22 Drug form: l mg 12:45: INJ, date: 06/22/18 6:45: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, Stop date: 06/22/18 7:45: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 vancomycin 2019-0 No Route: IV, M emoria (ANES) 1000 06-22 Drug form: l mg 12:45: INJ, date: 06/22/18 6:45: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, Stop date: 06/22/18 7:45: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 vancomycin 2019-0 No Route: IV, M emoria (ANES) 1000 06-22 Drug form: l mg 12:45: INJ, date: 06/22/18 6:45: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, Stop date: 06/22/18 7:45: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 vancomycin 2019-0 No Route: IV, M emoria (ANES) 1000 06-22 Drug form: l mg 12:45: INJ, date: 06/22/18 6:45: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, Stop date: 06/22/18 7:45:00 BULK DELIVERY DRIVER vancomycin 2019-0 No Route: IV, Pat nelsonria (ANES) 1000 3-05 Drug form: l mg 12:45: INJ, Start [place] 00 date: 06/22/18 6:45:00 BULK DELIVERY DRIVER, Stop date: 06/22/18 7:45:00 BULK DELIVERY DRIVER Lactated 2019-0 No Route: IV, Mem oria Ringers 3-05 Total l Injection 12:30: Volume: Rebecca nn IV (ANES) 00 1,000, 1000 mL Start date: 06/22/18 6:30:00 BULK DELIVERY DRIVER, Stop date: 06/22/18 7:30:00 BULK DELIVERY DRIVER Lactated 2019-0 No Route: IV, Mem oria Ringers 3-05 Total l Injection 12:30: Volume: Rebecca nn IV (ANES) 00 1,000, 1000 mL Start date: 06/22/18 6:30:00 BULK DELIVERY DRIVER, Stop date: 06/22/18 7:30:00 BULK DELIVERY DRIVER Lactated 2019-0 No Route: IV, Mem oria Ringers 3-05 Total l Injection 12:30: Volume: Rebecca nn IV (ANES) 00 1,000, 1000 mL Start date: 06/22/18 6:30:00 BULK DELIVERY DRIVER, Stop date: 06/22/18 7:30:00 BULK DELIVERY DRIVER Lactated 2019-0 No Route: IV, Mem oria Ringers 3-05 Total l Injection 12:30: Volume: Rebecca nn IV (ANES) 00 1,000, 1000 mL Start date: 06/22/18 6:30:00 BULK DELIVERY DRIVER, Stop date: 06/22/18 7:30:00 BULK DELIVERY DRIVER Lactated 2019-0 No Route: IV, Mem oria Ringers 3-05 Total l Injection 12:30: Volume: Rebecca nn IV (ANES) 00 1,000, 1000 mL Start date: 06/22/18 6:30:00 BULK DELIVERY DRIVER, Stop date: 06/22/18 7:30:00 BULK DELIVERY DRIVER Lactated 2019-0 No Route: IV, Mem oria Ringers 3-05 Total l Injection 12:30: Volume: Rebecca nn IV (ANES) 00 1,000, 1000 mL Start date: 06/22/18 6:30:00 BULK DELIVERY DRIVER, Stop date: 06/22/18 7:30:00 BULK DELIVERY DRIVER Lactated 2019-0 No Route: IV, Mem oria Ring[place] 3-05 Total l Injection 12:30: Volume: Rebecca nn IV (ANES) 00 1,000, 1000 mL Start date: 06/22/18 6:30:00 BULK DELIVERY DRIVER, Stop date: 06/22/18 7:30:00 BULK DELIVERY DRIVER gabapentin 2019-0 No 600 mg, 1 Me moria 600 MG Oral 3-05 tab, l Tablet 12:15: Route: PO, Rebecca nn 00 ONCE, Dosing Weight 69.545, kg, Start date: 06/22/18 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, Stop date: 06/22/18 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 gabapentin 2019-0 No 600 mg, 1 Me moria 600 MG Oral 3-05 tab, l Tablet 12:15: Route: PO, Rebecca nn 00 ONCE, Dosing Weight 69.545, kg, Start date: 06/22/18 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, Stop date: 06/22/18 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 gabapentin 2019-0 No 600 mg, 1 Me moria 600 MG Oral 3-05 tab, l Tablet 12:15: Route: PO, Rebecca nn 00 ONCE, Dosing Weight 69.545, kg, Start date: 06/22/18 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, Stop date: 06/22/18 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 gabapentin 2019-0 No 600 mg, 1 Me moria 600 MG Oral 3-05 tab, l Tablet 12:15: Route: PO, Rebecca nn 00 ONCE, Dosing Weight 69.545, kg, Start date: 06/22/18 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, Stop date: 06/22/18 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 gabapentin 2019-0 No 600 mg, 1 Me moria 600 MG Oral 3-05 tab, l Tablet 12:15: Route: PO, Rebecca nn 00 ONCE, Dosing Weight 69.545, kg, Start date: 06/22/18 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, Stop date: 06/22/18 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 gabapentin 2019-0 No 600 mg, 1 Me moria 600 MG Oral 3-05 tab, l Tablet 12:15: Route: PO, Rebecca nn 00 ONCE, Dosing Weight 69.545, kg, Start date: 06/22/18 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, Stop date: 06/22/18 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 gabapentin 2019-0 No 600 mg, 1 Me moria 600 MG Oral 3-05 tab, l Tablet 12:15: Route: PO, Rebecca nn 00 ONCE, Dosing Weight 69.545, kg, Start date: 06/22/18 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, Stop date: 06/22/18 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 ropivacaine 2019-0 No Notes: Memoria 3-05 NOT FOR IV l 02:00: use [place] 00 Ropivacain e 5 mg/mL (49.25 mL) Epinephrin e 1 mg/mL (0.5 mL) Clonidine 0.1 mg/mL (0.8 mL) Ketorolac 30 mg/mL (1 mL) Normal Saline 48.45 mL ropivacaine 2019-0 No Notes: Memoria 3-05 NOT FOR IV l 02:00: use [place] 00 Ropivacain e 5 mg/mL (49.25 mL) Epinephrin e 1 mg/mL (0.5 mL) Clonidine 0.1 mg/mL (0.8 mL) Ketorolac 30 mg/mL (1 mL) Normal Saline 48.45 mL ropivacaine 2019-0 No Notes: Memoria 3-05 NOT FOR IV l 02:00: use [place] 00 Ropivacain e 5 mg/mL (49.25 mL) Epinephrin e 1 mg/mL (0.5 mL) Clonidine 0.1 mg/mL (0.8 mL) Ketorolac 30 mg/mL (1 mL) Normal Saline 48.45 mL ropivacaine 2019-0 No Notes: Memoria 3-05 NOT FOR IV l 02:00: use [place] 00 Ropivacain e 5 mg/mL (49.25 mL) Epinephrin e 1 mg/mL (0.5 mL) Clonidine 0.1 mg/mL (0.8 mL) Ketorolac 30 mg/mL (1 mL) Normal Saline 48.45 mL ropivacaine 2019-0 No Notes: Memoria 3-05 NOT FOR IV l 02:00: use [place] 00 Ropivacain e 5 mg/mL (49.25 mL) Epinephrin e 1 mg/mL (0.5 mL) Clonidine 0.1 mg/mL (0.8 mL) Ketorolac 30 mg/mL (1 mL) Normal Saline 48.45 mL ropivacaine 2018- No Notes: Memoria 3-05 NOT FOR IV l 02:00: use [place] 00 Ropivacain e 5 mg/mL (49.25 mL) Epinephrin e 1 mg/mL (0.5 mL) Clonidine 0.1 mg/mL (0.8 mL) Ketorolac 30 mg/mL (1 mL) Normal Saline 48.45 mL ropivacaine 2018-0 No Notes: Mem[facility] 3-05 NOT FOR IV l 02:00: use [place] Ropivacain e 5 mg/mL (49.25 mL) Epinephrin e 1 mg/mL (0.5 mL) Clonidine 0.1 mg/mL (0.8 mL) Ketorolac 30 mg/mL (1 mL) Normal Saline 48.45 mL Calcium 2018-0 No 1,000 mL, Memor ia Chloride 3-05 Rate: 25 l 0.0014 01:15: ml/hr, [place] MEQ/ML / 00 Infuse Potassium over: 40 Chloride hr, Route: 0.004 IV, Dosing MEQ/ML / Weight Sodium 69.545 kg, Chloride Total 0.103 Volume: MEQ/ML / 1,000, Sodium Start Lactate date: 0.028 06/21/18 MEQ/ML 19:15:00 Injectable BULK DELIVERY DRIVER, Solution Duration: 30 day, Stop date: 07/21/18 19:14:00 CDT Calcium 2018-0 No 1,000 mL, Memor ia Chloride 3-05 Rate: 25 l 0.0014 01:15: ml/hr, [place] MEQ/ML / 00 Infuse Potassium over: 40 Chloride hr, Route: 0.004 IV, Dosing MEQ/ML / Weight Sodium 69.545 kg, Chloride Total 0.103 Volume: MEQ/ML / 1,000, Sodium Start Lactate date: 0.028 06/21/18 MEQ/ML 19:15:00 Injectable BULK DELIVERY DRIVER, Solution Duration: 30 day, Stop date: 07/21/18 19:14:00 CDT Calcium 2018-0 No 1,000 mL, Memor ia Chloride 3-05 Rate: 25 l 0.0014 01:15: ml/hr, [place] MEQ/ML / 00 Infuse Potassium over: 40 Chloride hr, Route: 0.004 IV, Dosing MEQ/ML / Weight Sodium 69.545 kg, Chloride Total 0.103 Volume: MEQ/ML / 1,000, Sodium Start Lactate date: 0.028 06/21/18 MEQ/ML 19:15:00 Injectable BULK DELIVERY DRIVER, Solution Duration: 30 day, Stop date: 07/21/18 19:14:00 CDT Calcium 2019-0 No 1,000 mL, Memor ia Chloride 3-05 Rate: 25 l 0.0014 01:15: ml/hr, [place] MEQ/ML / 00 Infuse Potassium over: 40 Chloride hr, Route: 0.004 IV, Dosing MEQ/ML / Weight Sodium 69.545 kg, Chloride Total 0.103 Volume: MEQ/ML / 1,000, Sodium Start Lactate date: 0.028 06/21/18 MEQ/ML 19:15:00 Injectable BULK DELIVERY DRIVER, Solution Duration: 30 day, Stop date: 07/21/18 19:14:00 CDT Calcium 2019-0 No 1,000 mL, Memor ia Chloride 3-05 Rate: 25 l 0.0014 01:15: ml/hr, [place] MEQ/ML / 00 Infuse Potassium over: 40 Chloride hr, Route: 0.004 IV, Dosing MEQ/ML / Weight Sodium 69.545 kg, Chloride Total 0.103 Volume: MEQ/ML / 1,000, Sodium Start Lactate date: 0.028 06/21/18 MEQ/ML 19:15:00 Injectable BULK DELIVERY DRIVER, Solution Duration: 30 day, Stop date: 07/21/18 19:14:00 CDT Calcium 2019-0 No 1,000 mL, Memor ia Chloride 3-05 Rate: 25 l 0.0014 01:15: ml/hr, [place] MEQ/ML / 00 Infuse Potassium over: 40 Chloride hr, Route: 0.004 IV, Dosing MEQ/ML / Weight Sodium 69.545 kg, Chloride Total 0.103 Volume: MEQ/ML / 1,000, Sodium Start Lactate date: 0.028 06/21/18 MEQ/ML 19:15:00 Injectable BULK DELIVERY DRIVER, Solution Duration: 30 day, Stop date: 07/21/18 19:14:00 CDT Calcium 2019-0 No 1,000 mL, Memor ia Chloride 3-05 Rate: 25 l 0.0014 01:15: ml/hr, [place] MEQ/ML / 00 Infuse Potassium over: 40 Chloride hr, Route: 0.004 IV, Dosing MEQ/ML / Weight Sodium 69.545 kg, Chloride Total 0.103 Volume: MEQ/ML / 1,000, Sodium Start Lactate date: 0.028 06/21/18 MEQ/ML 19:15:00 Injectable BULK DELIVERY DRIVER, Solution Duration: 30 day, Stop date: 07/21/18 19:14:00 CDT Voltaren 1 Voltaren 1 No Voltaren 1 Geraldine % topical % topical 6-06 % topical Orthope gel APPLY 1 gel APPLY 1 00:00: gel APPLY dic GR TO RIGHT GR TO RIGHT 00 1 GR TO Sports FOOT UP TO FOOT UP TO RIGHT FOOT Medicin QID PRN QID PRN UP TO QID e PAIN PAIN PRN PAIN Crestor 5 Crestor 5 No Crestor 5 Geraldine mg tablet mg tablet 9-20 mg tablet Orthope RX by other RX by other 00:00: RX by lukas GONZALEZ MD 00 other MD Bienvenido otero metformin metformin No metformin Geraldine ER 500 mg ER 500 mg 9-20 ER 500 mg Orthope tablet,exte tablet,exte 00:00: tablet,ext dic nded nded 00 ended Sports release 24 release 24 release 24 Medicin hr RX by hr RX by hr RX by nivia martinez MD metoprolol metoprolol No metoprolol Geraldine succinate succinate 9-20 succinate Orthope ER 50 mg ER 50 mg 00:00: ER 50 mg d ic tablet,exte tablet,exte 00 tablet,ext Sports nded nded ended Medicin release 24 release 24 release 24 e hr RX by hr RX by hr RX by other MD juan martinez MD Norvasc 2.5 Norvasc 2.5 No Norvasc Geraldine mg tablet mg tablet 9-20 2.5 mg Ort hope RX by other RX by other 00:00: tablet RX lukas GONZALEZ MD 00 by other Bienvenido otero Vital Signs Vital Name Observation Time Observation Value Comments Source Height 2020-06-19 22:10:00 149.86 cm [facility] [place] Weight 2020-06-19 22:10:00 [facility] [place] BMI Calculated 2020-06-19 22:10:00 [facility] [place] Height 2020-06-19 22:06:00 149.86 cm [facility] [place] Weight 2020-06-19 22:06:00 [facility] [place] BMI Calculated 2020-06-19 22:06:00 [facility] [place] Height 2020-02-15 15:58:00 149.86 cm [facility] [place] Weight 2020-02-15 15:58:00 [facility] [place] BMI Calculated 2020-02-15 15:58:00 [facility] [place] Systolic (mm Hg) 2019-07-07 16:13:00 Juan F rial [place] Diastolic (mm Hg) 2019-07-07 16:13:00 Mem orial [place] Heart Rate 2019-07-07 16:13:00 [facility] [place] Respitory Rate 2019-07-07 16:13:00 [facility] [place] Height 2019-07-07 16:13:00 149.86 cm [facility] [place] Weight 2019-07-07 16:13:00 [facility] [place] BMI Calculated 2019-07-07 16:13:00 [facility] [place] Systolic (mm Hg) 2019-06-02 16:12:00 Juan F rial [place] Diastolic (mm Hg) 2019-06-02 16:12:00 Mem orial [place] Heart Rate 2019-06-02 16:12:00 [facility] [place] Respitory Rate 2019-06-02 16:12:00 Mem[facility] [place] Height 2019-06-02 16:12:00 149.86 cm [facility] [place] Weight 2019-06-02 16:12:00 [facility] [place] BMI Calculated 2019-06-02 16:12:00 [facility] [place] Systolic (mm Hg) 2019-05-24 20:09:00 Juan F rial [place] Diastolic (mm Hg) 2019-05-24 20:09:00 Mem orial [place] Heart Rate 2019-05-24 20:09:00 [facility] [place] Respitory Rate 2019-05-24 20:09:00 Mem[facility] [place] Height 2019-05-24 20:09:00 147.32 cm [facility] [place] Weight 2019-05-24 20:09:00 [facility] [place] BMI Calculated 2019-05-24 20:09:00 Memori al [place] Height 2019-05-23 20:14:00 149.86 cm [facility] [place] Weight 2019-05-23 20:14:00 [facility] [place] BMI Calculated 2019-05-23 20:14:00 Mem[facility] [place] Height 2019-02-24 20:32:00 149.86 cm [facility] [place] Weight 2019-02-24 20:32:00 [facility] [place] BMI Calculated 2019-02-24 20:32:00 Memori [facility] [place] Systolic (mm Hg) 2019-02-23 19:26:00 Juan F rial [place] Diastolic (mm Hg) 2019-02-23 19:26:00 Mem orial [place] Heart Rate 2019-02-23 19:26:00 [facility] [place] Respitory Rate 2019-02-23 19:26:00 Memori al [place] Height 2019-02-23 19:26:00 149.86 cm [facility] [place] Weight 2019-02-23 19:26:00 [facility] [place] BMI Calculated 2019-02-23 19:26:00 Memori al [place] Height 2019-02-10 21:11:00 149.86 cm [facility] [place] Weight 2019-02-10 21:11:00 [facility] [place] BMI Calculated 2019-02-10 21:11:00 [facility] [place] BMI Calculated 2019 14:55:00 [facility] [place] Systolic (mm Hg) 2019 14:55:00 Juan F rial [place] Diastolic (mm Hg) 2019 14:55:00 Mem orial [place] Heart Rate 2019 14:55:00 [facility] [place] Respitory Rate 2019 14:55:00 Mem[facility] [place] Height 2019 14:55:00 147.32 cm [facility] [place] Weight 2019 14:55:00 [facility] [place] Temperature Oral (F) 2018-06-24 17:51:00 98 F [facility] [place] Heart Rate 2018-06-24 17:51:00 [facility] [place] Respitory Rate 2018-06-24 17:51:00 [facility] [place] Systolic (mm Hg) 2018-06-24 17:51:00 Juan F rial [place] Diastolic (mm Hg) 2018-06-24 17:51:00 Mem orial [place] Systolic (mm Hg) 2018-06-24 13:30:00 Juan F rial [place] Diastolic (mm Hg) 2018-06-24 13:30:00 Mem orial [place] Respitory Rate 2018-06-24 13:30:00 Memori al [place] Heart Rate 2018-06-24 13:30:00 [facility] [place] Temperature Oral (F) 2018-06-24 13:30:00 98.9 F [facility] [place] Heart Rate 2018-06-24 10:05:00 [facility] [place] Temperature Oral (F) 2018-06-24 10:05:00 97.9 F [facility] [place] Systolic (mm Hg) 2018-06-24 10:05:00 Juan F rial [place] Diastolic (mm Hg) 2018-06-24 10:05:00 Mem orial [place] Respitory Rate 2018-06-24 10:05:00 Memori [facility] [place] BMI Calculated 2018-06-22 16:31:00 Mem[facility] [place] Weight 2018-06-22 16:31:00 [facility] [place] Height 2018-06-22 16:31:00 152.4 cm [facility] [place] BMI Calculated 2018-06-17 14:41:00 [facility] [place] Height 2018-06-17 14:41:00 152.4 cm [facility] [place] Weight 2018-06-17 14:41:00 [facility] [place] Procedures Procedure Date / Time Performing Clinician Source Performed XR, foot, 2 view 2021-12-03 00:00:00 Geraldine Thurston opedic Sports Medicine Cystourethroscopy (separate 2019-02-24 21:18:00 [facility] [place] procedure) Arthroplasty of joint of Vijayoria l [place] foot<sup>1</sup> Arthroscopy of [facility] knee<sup>2</sup> Breast [facility] [place] lumpectomy<sup>3</sup> Hip [facility] [place] arthroplasty<sup>4</sup> Knee [facility] [place] replacement<sup>5</sup> Plan of Care Planned Activity Planned Date Details Comments Source Future Scheduled Test 2022-10-08 SHINGLES VACCINES (1 [facility] 15:17:32 of 2) [code = SHINGLES VACCINES (1 of 2)] Future Scheduled Test 2022-10-08 65+ PNEUMOCOCCAL Me [facility] 15:17:32 VACCINE (1 - PCV) [code = 65+ PNEUMOCOCCAL VACCINE (1 - PCV)] Future Scheduled Test 2022-10-08 COVID-19 VACCINE ([address] [place] [address] 15:17:32 Pfizer series) [code = COVID-19 VACCINE (3 - Pfizer series)] Future Scheduled Test 2022-10-08 INFLUENZA VACCINE [facility] 15:17:32 [code = INFLUENZA VACCINE] Future Scheduled Test 2022-07-23 SHINGLES VACCINES (1 [facility] 17:52:28 of 2) [code = SHINGLES VACCINES (1 of 2)] Future Scheduled Test 2022-07-23 65+ PNEUMOCOCCAL [facility] 17:52:28 VACCINE (1 - PCV) [code = 65+ PNEUMOCOCCAL VACCINE (1 - PCV)] Future Scheduled Test 2022-07-23 COVID-19 VACCINE ([address] [place] [address] 17:52:28 Booster for Pfizer series) [code = COVID-19 VACCINE (3 - Booster for Pfizer series)] Future Scheduled Test 2022-07-23 INFLUENZA VACCINE [facility] 17:52:28 [code = INFLUENZA VACCINE] Future Scheduled Test 2022-05-04 SHINGLES VACCINES (1 [facility] 12:43:14 of 2) [code = SHINGLES VACCINES (1 of 2)] Future Scheduled Test 2022-05-04 65+ PNEUMOCOCCAL [facility] 12:43:14 VACCINE (1 - PCV) [code = 65+ PNEUMOCOCCAL VACCINE (1 - PCV)] Future Scheduled Test 2022-05-04 COVID-19 VACCINE (3 [facility] 12:43:14 Booster for Pfizer series) [code = COVID-19 VACCINE (3 - Booster for Pfizer series)] Future Scheduled Test 2022-05-04 INFLUENZA VACCINE [facility] 12:43:14 [code = INFLUENZA VACCINE] Future Scheduled Test 2022-05-04 SHINGLES VACCINES (1 [facility] 12:43:14 of 2) [code = SHINGLES VACCINES (1 of 2)] Future Scheduled Test 2022-05-04 65+ PNEUMOCOCCAL [facility] 12:43:14 VACCINE (1 - PCV) [code = 65+ PNEUMOCOCCAL VACCINE (1 - PCV)] Future Scheduled Test 2022-05-04 COVID-19 VACCINE (3 [facility] 12:43:14 Booster for Pfizer series) [code = COVID-19 VACCINE (3 - Booster for Pfizer series)] Future Scheduled Test 2022-05-04 INFLUENZA VACCINE [facility] 12:43:14 [code = INFLUENZA VACCINE] Future Scheduled Test 2022-04-24 SHINGLES VACCINES (1 [facility] 13:11:47 of 2) [code = SHINGLES VACCINES (1 of 2)] Future Scheduled Test 2022-04-24 65+ PNEUMOCOCCAL [facility] 13:11:47 VACCINE (1 - PCV) [code = 65+ PNEUMOCOCCAL VACCINE (1 - PCV)] Future Scheduled Test 2022-04-24 COVID-19 VACCINE (3 [facility] 13:11:47 Booster for Pfizer series) [code = COVID-19 VACCINE (3 - Booster for Pfizer series)] Future Scheduled Test 2022-04-24 INFLUENZA VACCINE [facility] 13:11:47 [code = INFLUENZA VACCINE] Future Scheduled Test 2022-04-02 COVID-19 VACCINE ([address] [place] [address] 15:33:07 Booster for Pfizer series) [code = COVID-19 VACCINE (3 - Booster for Pfizer series)] Future Scheduled Test 2022-04-02 INFLUENZA VACCINE [facility] 15:33:07 [code = INFLUENZA VACCINE] Future Scheduled Test 2022-04-02 SHINGLES VACCINES (1 [facility] 15:33:07 of 2) [code = SHINGLES VACCINES (1 of 2)] Future Scheduled Test 2022-04-02 65+ PNEUMOCOCCAL [facility] 15:33:07 VACCINE (1 - PCV) [code = 65+ PNEUMOCOCCAL VACCINE (1 - PCV)] Instructions Geraldine Orthoped ic Sports Medicine Encounters Start End Encounter Admission Attending Care Care Encounter Source Date/Time Date/Time Type Type Clinicians Facility Department ID 2022-08-21 Outpatient Debra, [facility] [id number] Common 14:14:[id number] [facility] 2022-08-14 Outpatient Pant, [facility] [id number] Common 14:02:[id number] [facility] 2021-05-15 Outpatient Pant, [facility] [id number] Common 11:53:[id number] [facility] 2021-12-31 2021-12-31 Outpatient FOG_[place]_ AOSM AOSM [id number] Geraldine 00:00:00 00:00:00 Mary [id number] Ortho pe dic Sports Medicin e 2021-12-23 2021-12-23 Outpatient FOG_[place]_ AOSM AOSM [id number] Geraldine 00:00:00 00:00:00 Mary [id number] Ortho pe dic Sports Medicin e 2021-12-03 2021-12-03 Outpatient FOG_[place]_ AOSM AOSM [id number] Geraldine 00:00:00 00:00:00 Mary [id number] Ortho pe dic Sports Medicin e 2021-12-03 2021-12-03 Nahun Stewart AOSM [place] - Ortho [id number] Geraldine 00:00:00 00:00:00 Arlette Jacobson MD: [id number] FOG_Ofc dic [facility], [place] [id number] , Ph. [phone] 2021-12-03 2021-12-03 Outpatient [place], AOSM AOSM [id number] 00:00:00 00:00:00 Nahun Stewart [id number] 2021-12-02 2021-12-02 Outpatient FOG_[place]_ AOSM AOSM [id number] Geraldine 00:00:00 00:00:00 Mary [id number] Ortho pe dic Sports Medicin e 2021-10-01 2021-10-03 Outside nullFlavo MNA [id number] Memoria 16:21:29 04:59:59 Medical r Neurology 01 l Records Charlene Arroyo 2021-10-01 2021-10-03 Outside nullFlavo MNA [id number] Memoria 16:21:29 04:59:59 Medical r Neurology 01 l Records Charlene Ramonann 2021-10-01 2021-10-02 Outpatient MHMISCHER MHMISCHER [id number] 11:21:29 23:59:59 01 2021-01-09 2021-01-09 Outpatient DEBRA [facility] [id number] [address] [place] [address] 00:00:00 00:00:00 STUART Ornelas [facility] 2021-01-09 2021-01-09 Outpatient DEBRA [facility] [id number] [place] 00:00:00 00:00:00 STUART [address] 2020-07-07 2020-07-07 Outpatient [facility] [id number] [facility] 09:55:00 09:55:00 ity [facility] 2020-06-20 2020-06-20 Ambulatory nullFlavo [facility] Multi 45 [id number] Memoria 16:20:00 16:20:00 Pre-Reg r Specialty 16 l Clinic [facility] 2020-06-20 2020-06-20 Ambulatory nullFlavo [facility] Multi 45 [id number] Memoria 16:20:00 16:20:00 Pre-Reg r Specialty 16 l [facility] 2020-06-20 2020-06-20 Outpatient MHIE MHIE [id number] Memoria 10:20:00 10:20:00 16 malu Arroyo 2020-06-20 2020-06-20 Outpatient Carlaer, [place] [id number] 10:20:00 10:20:00 Negar L 16 2020-06-19 2020-06-20 [place] [id number] Memoria 21:00:00 05:59:59 r Urology 17 l Associates Rebecca nn Time Share 2020-06-19 2020-06-20 [place] [id number] Memoria 21:00:00 05:59:59 r Urology 17 l Associates Rebecca nn Time Share 2020-06-19 2020-06-19 Outpatient Staller, MG [place] [id number] 15:00:00 23:59:59 Negar L 17 2020-06-19 2020-06-19 Outpatient MHIE MHIE [id number] Memoria 15:00:00 15:00:00 17 malu Arroyo 2020-06-16 2020-06-16 Outpatient [facility] [id number] Univers 10:15:00 10:15:00 ity [facility] 2020-02-15 2020-02-16 Outpatient nullFlavo [facility] Multi 45 [id number] Memoria 15:20:00 04:59:59 r Specialty 15 l [facility] 2020-02-15 2020-02-16 Outpatient nullFlavo [facility] 45 [id number] Memoria 15:20:00 04:59:59 r Specialty 15 l [facility] 2020-02-15 2020-02-15 [facility] [id number] 10:20:00 23:59:59 Negar Malu 2020-02-15 2020-02-15 Outpatient MHIE ARIIE [id number] Memoria 10:20:00 10:20:00 15 [facility] 2019-11-28 2019-11-29 Between nullFlavo MG [id number] Memoria 19:00:38 19:00:38 Visit r Urology 05 malu Fernandez [facility] 2019-11-28 2019-11-29 Between nullFlavo MG [id number] Memoria 19:00:38 19:00:38 Visit r Urology 05 malu Fernandez [facility] 2019-11-28 2019-11-29 Outpatient MG MG [id number] 14:00:38 14:00:38 2019-11-25 2019-11-25 [place] [id number] Memoria 18:30:00 18:30:00 Pre-Reg r Urology 14 malu Fernandez [facility] 2019-11-25 2019-11-25 [place] [id number] Memoria 18:30:00 18:30:00 Pre-Reg r Urology 14 malu Fernandez [facility] 2019-11-25 2019-11-25 Outpatient ARIIE ARIIE [id number] Memoria 13:30:00 13:30:00 14 [facility] 2019-11-25 2019-11-25 Outpatient VISIT, MG MG [id number] 13:30:00 13:30:00 MED_ASST 14 [facility]A 2019-11-04 2019-11-06 Outside nullFlavo MNA [id number] Memoria 20:54:05 04:59:59 Medical r Neurology 00 l Records Charlene Ramonann 2019-11-04 2019-11-06 Outside nullFlavo MNA [id number] Memoria 20:54:05 04:59:59 Medical r Neurology 00 l Records Charlene Ramonann 2019-11-04 2019-11-05 [facility] [id number] 15:54:05 23:59:59 00 2019-07-07 2019-07-08 Outpatient nullFlavo MNA [id number] Memoria 15:45:00 04:59:59 r Neurology 13 l [place] 2019-07-07 2019-07-08 Outpatient nullFlavo MNA [id number] Memoria 15:45:00 04:59:59 r Neurology 13 l [place] 2019-07-07 2019-07-07 [facility] [id number] 10:45:00 23:59:59 Wayne 13 Stephon 2019-07-07 2019-07-07 Ambulatory nullFlavo MNA [id number] Memoria 15:45:00 15:45:00 Pre-Reg r Neurology 11 l [place] 2019-07-07 2019-07-07 Ambulatory nullFlavo MNA [id number] Memoria 15:45:00 15:45:00 Pre-Reg r Neurology 11 l [place] 2019-07-07 2019-07-07 Outpatient MHIE MHIE [id number] Memoria 10:45:00 10:45:00 11 l [place] 2019-07-07 2019-07-07 Outpatient MHIE MHIE [id number] Memoria 10:45:00 10:45:00 13 malu Arroyo 2019-07-07 2019-07-07 [id number] 10:45:00 10:45:00 Wayne 11 Stephon 2019-06-02 2019-06-03 Outpatient nullFlavo MNA [id number] Memoria 16:00:00 05:59:59 r Neurology 12 l [place] 2019-06-02 2019-06-03 Outpatient nullFlavo MNA [id number] Memoria 16:00:00 05:59:59 r Neurology 12 l [place] 2019-06-02 2019-06-02 [facility] [id number] 10:00:00 23:59:59 Wayne 12 Stephon 2019-06-02 2019-06-02 Outpatient MHIE MHIE [id number] Memoria 10:00:00 10:00:00 12 malu RamonCruz 2019-05-25 2019-05-25 Ambulatory nullFlavo MNA [id number] Memoria 16:00:00 16:00:00 Pre-Reg r Neurology 02 l Charlene [place] 2019-05-25 2019-05-25 Ambulatory nullFlavo MNA [id number] Memoria 16:00:00 16:00:00 Pre-Reg r Neurology 02 malu Chang [place] 2019-05-25 2019-05-25 Outpatient MHIE MHIE [id number] Memoria 10:00:00 10:00:00 02 malu [place] 2019-05-25 2019-05-25 Outpatient [facility] [id number] 10:00:00 10:00:00 Wayne [place] 2019-05-24 2019-05-25 Outpatient nullFlavo MNA [id number] Memoria 20:00:00 05:59:59 r Neurology 09 malu Chang [place] 2019-05-24 2019-05-25 Outpatient nullFlavo MNA [id number] Memoria 20:00:00 05:59:59 r Neurology 09 malu Chang [place] 2019-05-24 2019-05-24 [facility] [id number] 14:00:00 23:59:59 Wayne 09 Ste[place] 2019-05-24 2019-05-24 Ambulatory nullFlavo [facility] [id number] Memoria 16:35:00 16:35:00 Pre-Reg r Urology 08 [facility] 2019-05-24 2019-05-24 Ambulatory nullFlavo [facility] [id number] Memoria 16:35:00 16:35:00 Pre-Reg r Urology 08 [facility] 2019-05-24 2019-05-24 Outpatient MHIE MHIE [id number] Memoria 14:00:00 14:00:00 09 [facility] 2019-05-24 2019-05-24 Outpatient MHIE MHIE [id number] Memoria 10:35:00 10:35:00 08 malu [place] 2019-05-24 2019-05-24 Outpatient Tia MG MG [id number] 10:35:00 10:35:00 Negar Mal[place] 2019-05-23 2019-05-24 Outpatient nullFlavo [facility] 45 [id number] Memoria 19:55:00 05:59:59 r Specialty 10 l [facility] 2019-05-23 2019-05-24 Outpatient nullFlavo [facility] 45 [id number] Memoria 19:55:00 05:59:59 r Specialty 10 l [facility] 2019-05-23 2019-05-23 Outpatient Tia, ARIMG MG [id number] 13:55:00 23:59:59 Negar L Yovani 2019-05-23 2019-05-23 Outpatient MHIE MHIE [id number] Memoria 13:55:00 13:55:00 10 mal[place] 2019-02-24 2019-02-25 Outpatient nullFlavo MHMG [id number] Memoria 20:00:00 05:59:59 r Urology 05 malu Fernandez [facility] 2019-02-24 2019-02-25 Outpatient nullFlavo MHMG [id number] Memoria 20:00:00 05:59:59 r Urology 05 malu Fernandez [facility] 2019-02-24 2019-02-24 Outpatient Tia, [facility] [id number] 14:00:00 23:59:59 Negarbranden Landaverde 2019-02-24 2019-02-24 Outpatient MHIE MHIE [id number] Memoria 14:00:00 14:00:00 06 mal[place] 2019-02-24 2019-02-24 Outpatient MHIE MHIE [id number] Memoria 14:00:00 14:00:00 05 malu [place] 2019-02-24 2019-02-24 Outpatient MHIE MHIE [id number] Memoria 14:00:00 14:00:00 06 malu [place] 2019-02-23 2019-02-24 Outpatient nullFlavo MNA [id number] Memoria 19:00:00 05:59:59 r Neurology 07 [facility] [place] 2019-02-23 2019-02-24 Outpatient nullFlavo MNA [id number] Memoria 19:00:00 05:59:59 r Neurology 07 [facility] [place] 2019-02-23 2019-02-23 [id number] 13:00:00 23:59:59 Wayne Bony Szymanski 2019-02-23 2019-02-23 Outpatient MHIE MHIE [id number] Memoria 13:00:00 13:00:00 07 malu Cruz 2019-02-10 2019-02-11 Outpatient nullFlavo [facility] [id number] Memoria 20:30:00 04:59:59 r Urology 04 malu Fernandez [facility] 2019-02-10 2019-02-11 Outpatient nullFlavo [facility] [id number] Memoria 20:30:00 04:59:59 r Urology 04 Marisela Fernandez [facility] 2019-02-10 2019-02-10 Outpatient Tia MG MG [id number] 15:30:00 23:59:59 Negar L 2019-02-10 2019-02-10 Outpatient MHIE ARIIE [id number] Memoria 15:30:00 15:30:00 04 malu [place] 2019-02-09 2019-02-09 Ambulatory nullFlavo [facility] Multi [id number] Memoria 14:00:00 14:00:00 Pre-Reg r Specialty 03 l [facility] 2019-02-09 2019-02-09 Ambulatory nullFlavo [facility] Multi 45 [id number] Memoria 14:00:00 14:00:00 Pre-Reg r Specialty 03 l [facility] 2019-02-09 2019-02-09 Outpatient MHIE ARIIE [id number] Memoria 09:00:00 09:00:00 03 malu [place] 2019-02-09 2019-02-09 Outpatient Tia MG MG [id number] 09:00:00 09:00:00 Negar Turner 2019 2019-01-20 Outpatient nullFlavo MNA [id number] Memoria 14:45:00 04:59:59 r Neurology 01 malu Arroyo 2019 2019-01-20 Outpatient nullFlavo MNA [id number] Memoria 14:45:00 04:59:59 r Neurology 01 malu Arroyo 2019 2019 [id number] 09:45:00 23:59:59 Wayne Szymanski 2019 2019 Outpatient MHIE ARIIE [id number] Memoria 09:45:00 09:45:00 malu Arroyo 2018-12-21 2018-12-21 Outpatient IE IE [id number] Memoria 10:45:00 10:45:00 00 l Cruz 2018-12-21 2018-12-21 Outpatient IE IE [id number] Memoria 10:45:00 10:45:00 00 l [place] 2018-06-22 2018-06-24 Inpatient [facility] [id number] Memoria 11:35:00 22:15:[address] [facility] 2018-06-22 2018-06-24 Inpatient [facility] [id number] Memoria 11:35:00 22:15:[address] [place] [address] [facility] 2018-06-22 2018-06-24 [facility] [id number] 05:35:00 16:15:00 Debbie otero 03 Results Test Description Test Time Test Comments Results Result Comments Source URINE AND STOOL 2019-02-24 21:31:00 Test Item Value Reference Range Interpretation Comme nts POC UA Color (test code = POC UA Color) Yellow *NA*(02/24/19 3:31 PM ) [facility] AND [id number] 21:31:00 Test Item Value Reference Range Interpretation Comments POC UA Turbidity (test Clear *NA*(02/24/19 code = POC UA Turbidity) 3:31 PM) [facility] AND [id number] 21:31:00Yellow *NA*(02/24/19 3:31 PM) [facility] AND [id number] 21:31:00 Test Item Value Reference Range Interpretation Comments POC UA SG (test code = POC UA SG) 1.015 1 [facility] AND [id number] 21:31:00 Test Item Value Reference Range Interpretation Comments POC UA pH (test code = POC UA pH) 5.5 1 5.0-8.0 [facility] AND [id number] 21:31:00 Test Item Value Reference Range Interpretation Comments POC UA Prot (test code = POC Negative mg/dL UA Prot) [facility] AND [id number] 21:31:00 Test Item Value Reference Range Interpretation Comments POC UA Glu (test code = POC UA Negative mg/dL Glu) [facility] AND [id number] 21:31:00 Test Item Value Reference Range Interpretation Comments POC UA Ket (test code = POC UA Negative mg/dL Ket) [facility] [id number] 21:31:00 Test Item Value Reference Range Interpretation Comments POC UA Bili (test Negative *NA*(02/24/19 code = POC UA Bili) 3:31 PM) [facility] [id number] 21:31:00 Test Item Value Reference Range Interpretation Comments POC UA Bld (test code Small *ABN*(02/24/19 = POC UA Bld) 3:31 PM) [facility] [id number] 21:31:00 Test Item Value Reference Range Interpretation Comments POC UA Uro (test code = POC UA Uro) 0.2 0.1-1.0 [facility] [id number] 21:31:00 Test Item Value Reference Range Interpretation Comments POC UA Nit (test code Negative *NA*(02/24/19 = POC UA Nit) 3:31 PM) [facility] [id number] 21:31:00 Test Item Value Reference Range Interpretation Comments POC UA LeukEst (test Small *ABN*(02/24/19 code = POC UA LeukEst) 3:31 PM) [facility] [id number] 21:31:00Clear *NA*(02/24/19 3:31 PM) [facility] [id number] 21:31:00 Test Item Value Reference Range Interpretation Comments POC UA SG (test code = POC UA SG) 1.015 1 [facility] [id number] 21:31:00 Test Item Value Reference Range Interpretation Comments POC UA pH (test code = POC UA pH) 5.5 1 5.0-8.0 [facility] [id number] 21:31:00Negative *NA*(02/24/19 3:31 PM) [facility] [id number] 21:31:00Small *ABN*(02/24/19 3:31 PM) [facility] [id number] 21:31:000.2[facility] [id number] 21:31:00Negative *NA*(02/24/19 3:31 PM)[facility] [id number] 21:31:00Small *ABN*(02/24/19 3:31 PM)[facility] [id number] 21:31:00 Test Item Value Reference Range Interpretation Comments POC UA Color (test Yellow *NA*(02/24/19 code = POC UA Color) 3:31 PM) [facility] [id number] 21:31:00 Test Item Value Reference Range Interpretation Comments POC UA Turbidity (test Clear *NA*(02/24/19 code = POC UA Turbidity) 3:31 PM) [facility] [id number] 21:31:00 Test Item Value Reference Range Interpretation Comments POC UA SG (test code = POC UA SG) 1.015 1 [facility] [id number] 21:31:00 Test Item Value Reference Range Interpretation Comments POC UA pH (test code = POC UA pH) 5.5 1 5.0-8.0 [facility] [id number] 21:31:00 Test Item Value Reference Range Interpretation Comments POC UA Prot (test code = POC Negative mg/dL UA Prot) [facility] [id number] 21:31:00 Test Item Value Reference Range Interpretation Comments POC UA Glu (test code = POC UA Negative mg/dL Glu) [facility] [id number] 21:31:00 Test Item Value Reference Range Interpretation Comments POC UA Ket (test code = POC UA Negative mg/dL Ket) [facility] [id number] 21:31:00 Test Item Value Reference Range Interpretation Comments POC UA Bili (test Negative *NA*(02/24/19 code = POC UA Bili) 3:31 PM) [facility] [id number] 21:31:00 Test Item Value Reference Range Interpretation Comments POC UA Bld (test code Small *ABN*(02/24/19 = POC UA Bld) 3:31 PM) [facility] [id number] 21:31:00 Test Item Value Reference Range Interpretation Comments POC UA Uro (test code = POC UA Uro) 0.2 0.1-1.0 [facility] [id number] 21:31:00 Test Item Value Reference Range Interpretation Comments POC UA Nit (test code Negative *NA*(02/24/19 = POC UA Nit) 3:31 PM) [facility] [id number] 21:31:00 Test Item Value Reference Range Interpretation Comments POC UA LeukEst (test Small *ABN*(02/24/19 code = POC UA LeukEst) 3:31 PM) [facility] [id number] 21:31:00 Test Item Value Reference Range Interpretation Comments POC UA Color (test Yellow *NA*(02/24/19 code = POC UA Color) 3:31 PM) [facility] [id number] 21:31:00 Test Item Value Reference Range Interpretation Comments POC UA Turbidity (test Clear *NA*(02/24/19 code = POC UA Turbidity) 3:31 PM) [facility] [id number] 21:31:00 Test Item Value Reference Range Interpretation Comments POC UA SG (test code = POC UA SG) 1.015 1 [facility] [id number] 21:31:00 Test Item Value Reference Range Interpretation Comments POC UA pH (test code = POC UA pH) 5.5 1 5.0-8.0 [facility] [id number] 21:31:00 Test Item Value Reference Range Interpretation Comments POC UA Prot (test code = POC Negative mg/dL UA Prot) [facility] [id number] 21:31:00 Test Item Value Reference Range Interpretation Comments POC UA Glu (test code = POC UA Negative mg/dL Glu) [facility] [id number] 21:31:00 Test Item Value Reference Range Interpretation Comments POC UA Ket (test code = POC UA Negative mg/dL Ket) [facility] [id number] 21:31:00 Test Item Value Reference Range Interpretation Comments POC UA Bili (test Negative *NA*(02/24/19 code = POC UA Bili) 3:31 PM) [facility] [id number] 21:31:00 Test Item Value Reference Range Interpretation Comments POC UA Bld (test code Small *ABN*(02/24/19 = POC UA Bld) 3:31 PM) [facility] [id number] 21:31:00 Test Item Value Reference Range Interpretation Comments POC UA Uro (test code = POC UA Uro) 0.2 0.1-1.0 [facility] [id number] 21:31:00 Test Item Value Reference Range Interpretation Comments POC UA Nit (test code Negative *NA*(02/24/19 = POC UA Nit) 3:31 PM) [facility] [id number] 21:31:00 Test Item Value Reference Range Interpretation Comments POC UA LeukEst (test Small *ABN*(02/24/19 code = POC UA LeukEst) 3:31 PM) [facility] [id number] 21:31:00 Test Item Value Reference Range Interpretation Comments POC UA Color (test Yellow *NA*(02/24/19 code = POC UA Color) 3:31 PM) [facility] [id number] 21:31:00 Test Item Value Reference Range Interpretation Comments POC UA Turbidity (test Clear *NA*(02/24/19 code = POC UA Turbidity) 3:31 PM) [facility] [id number] 21:31:00 Test Item Value Reference Range Interpretation Comments POC UA SG (test code = POC UA SG) 1.015 1 [facility] [id number] 21:31:00 Test Item Value Reference Range Interpretation Comments POC UA pH (test code = POC UA pH) 5.5 1 5.0-8.0 [facility] [id number] 21:31:00 Test Item Value Reference Range Interpretation Comments POC UA Prot (test code = POC Negative mg/dL UA Prot) [facility] [id number] 21:31:00 Test Item Value Reference Range Interpretation Comments POC UA Glu (test code = POC UA Negative mg/dL Glu) [facility] [id number] 21:31:00 Test Item Value Reference Range Interpretation Comments POC UA Ket (test code = POC UA Negative mg/dL Ket) [facility] [id number] 21:31:00 Test Item Value Reference Range Interpretation Comments POC UA Bili (test Negative *NA*(02/24/19 code = POC UA Bili) 3:31 PM) [facility] [id number] 21:31:00 Test Item Value Reference Range Interpretation Comments POC UA Bld (test code Small *ABN*(02/24/19 = POC UA Bld) 3:31 PM) [facility] [id number] 21:31:00 Test Item Value Reference Range Interpretation Comments POC UA Uro (test code = POC UA Uro) 0.2 0.1-1.0 [facility] [id number] 21:31:00 Test Item Value Reference Range Interpretation Comments POC UA Nit (test code Negative *NA*(02/24/19 = POC UA Nit) 3:31 PM) [facility] [id number] 21:31:00 Test Item Value Reference Range Interpretation Comments POC UA LeukEst (test Small *ABN*(02/24/19 code = POC UA LeukEst) 3:31 PM) [facility] [id number] 21:31:00 Test Item Value Reference Range Interpretation Comments POC UA Color (test Yellow *NA*(02/24/19 code = POC UA Color) 3:31 PM) [facility] [id number] 21:31:00 Test Item Value Reference Range Interpretation Comments POC UA Turbidity (test Clear *NA*(02/24/19 code = POC UA Turbidity) 3:31 PM) [facility] [id number] 21:31:00 Test Item Value Reference Range Interpretation Comments POC UA SG (test code = POC UA SG) 1.015 1 [facility] [id number] 21:31:00 Test Item Value Reference Range Interpretation Comments POC UA pH (test code = POC UA pH) 5.5 1 5.0-8.0 [facility] [id number] 21:31:00 Test Item Value Reference Range Interpretation Comments POC UA Prot (test code = POC Negative mg/dL UA Prot) [facility] [id number] 21:31:00 Test Item Value Reference Range Interpretation Comments POC UA Glu (test code = POC UA Negative mg/dL Glu) [facility] [id number] 21:31:00 Test Item Value Reference Range Interpretation Comments POC UA Ket (test code = POC UA Negative mg/dL Ket) [facility] [id number] 21:31:00 Test Item Value Reference Range Interpretation Comments POC UA Bili (test Negative *NA*(02/24/19 code = POC UA Bili) 3:31 PM) [facility] [id number] 21:31:00 Test Item Value Reference Range Interpretation Comments POC UA Bld (test code Small *ABN*(02/24/19 = POC UA Bld) 3:31 PM) [facility] [id number] 21:31:00 Test Item Value Reference Range Interpretation Comments POC UA Uro (test code = POC UA Uro) 0.2 0.1-1.0 [facility] [id number] 21:31:00 Test Item Value Reference Range Interpretation Comments POC UA Nit (test code Negative *NA*(02/24/19 = POC UA Nit) 3:31 PM) [facility] [id number] 21:31:00 Test Item Value Reference Range Interpretation Comments POC UA LeukEst (test Small *ABN*(02/24/19 code = POC UA LeukEst) 3:31 PM) [facility] [id number] 21:31:00 Test Item Value Reference Range Interpretation Comments POC UA Color (test Yellow *NA*(02/24/19 code = POC UA Color) 3:31 PM) [facility] [id number] 21:31:00 Test Item Value Reference Range Interpretation Comments POC UA Turbidity (test Clear *NA*(02/24/19 code = POC UA Turbidity) 3:31 PM) [facility] [id number] 21:31:00 Test Item Value Reference Range Interpretation Comments POC UA SG (test code = POC UA SG) 1.015 1 [facility] [id number] 21:31:00 Test Item Value Reference Range Interpretation Comments POC UA pH (test code = POC UA pH) 5.5 1 5.0-8.0 [facility] [id number] 21:31:00 Test Item Value Reference Range Interpretation Comments POC UA Prot (test code = POC Negative mg/dL UA Prot) [facility] [id number] 21:31:00 Test Item Value Reference Range Interpretation Comments POC UA Glu (test code = POC UA Negative mg/dL Glu) [facility] [id number] 21:31:00 Test Item Value Reference Range Interpretation Comments POC UA Ket (test code = POC UA Negative mg/dL Ket) [facility] [id number] 21:31:00 Test Item Value Reference Range Interpretation Comments POC UA Bili (test Negative *NA*(02/24/19 code = POC UA Bili) 3:31 PM) [facility] [id number] 21:31:00 Test Item Value Reference Range Interpretation Comments POC UA Bld (test code Small *ABN*(02/24/19 = POC UA Bld) 3:31 PM) [facility] [id number] 21:31:00 Test Item Value Reference Range Interpretation Comments POC UA Uro (test code = POC UA Uro) 0.2 0.1-1.0 [facility] AND [id number] 21:31:00 Test Item Value Reference Range Interpretation Comments POC UA Nit (test code Negative *NA*(02/24/19 = POC UA Nit) 3:31 PM) [facility] [id number] 21:31:00 Test Item Value Reference Range Interpretation Comments POC UA LeukEst (test Small *ABN*(02/24/19 code = POC UA LeukEst) 3:31 PM) [facility] [id number] 21:41:00 Test Item Value Reference Range Interpretation Comments POC UA Color (test Yellow *NA*(02/10/19 code = POC UA Color) 4:41 PM) [facility] [id number] 21:41:00 Test Item Value Reference Range Interpretation Comments POC UA Turbidity (test Clear *NA*(02/10/19 code = POC UA Turbidity) 4:41 PM) [facility] [id number] 21:41:00 Test Item Value Reference Range Interpretation Comments POC UA SG (test code = POC UA SG) 1.020 1 [facility] [id number] 21:41:00 Test Item Value Reference Range Interpretation Comments POC UA pH (test code = POC UA pH) 5.5 1 5.0-8.0 [facility] [id number] 21:41:00 Test Item Value Reference Range Interpretation Comments POC UA Prot (test code = POC Negative mg/dL UA Prot) [facility] [id number] 21:41:00 Test Item Value Reference Range Interpretation Comments POC UA Glu (test code = POC UA Negative mg/dL Glu) [facility] [id number] 21:41:00 Test Item Value Reference Range Interpretation Comments POC UA Ket (test code = POC UA Negative mg/dL Ket) [facility] [id number] 21:41:00 Test Item Value Reference Range Interpretation Comments POC UA Bili (test Negative *NA*(02/10/19 code = POC UA Bili) 4:41 PM) [facility] [id number] 21:41:00 Test Item Value Reference Range Interpretation Comments POC UA Bld (test code Small *ABN*(02/10/19 = POC UA Bld) 4:41 PM) [facility] [id number] 21:41:00 Test Item Value Reference Range Interpretation Comments POC UA Uro (test code = POC UA Uro) 0.2 0.1-1.0 [facility] [id number] 21:41:00 Test Item Value Reference Range Interpretation Comments POC UA Nit (test code Negative *NA*(02/10/19 = POC UA Nit) 4:41 PM) [facility] [id number] 21:41:00 Test Item Value Reference Range Interpretation Comments POC UA LeukEst (test Trace *ABN*(02/10/19 code = POC UA LeukEst) 4:41 PM) [facility] [id number] 21:41:00Yellow *NA*(02/10/19 4:41 PM) [facility] [id number] 21:41:00Clear *NA*(02/10/19 4:41 PM) [facility] [id number] 21:41:00 Test Item Value Reference Range Interpretation Comments POC UA SG (test code = POC UA SG) 1.020 1 [facility] [id number] 21:41:00 Test Item Value Reference Range Interpretation Comments POC UA pH (test code = POC UA pH) 5.5 1 5.0-8.0 [facility] [id number] 21:41:00Negative *NA*(02/10/19 4:41 PM)[facility] [id number] 21:41:00Small *ABN*(02/10/19 4:41 PM)[facility] [id number] 21:41:000.2[facility] [id number] 21:41:00Negative *NA*(02/10/19 4:41 PM)[facility] [id number] 21:41:00Trace *ABN*(02/10/19 4:41 PM)[facility] [id number] 21:41:00 Test Item Value Reference Range Interpretation Comments POC UA Color (test Yellow *NA*(02/10/19 code = POC UA Color) 4:41 PM) [facility] [id number] 21:41:00 Test Item Value Reference Range Interpretation Comments POC UA Turbidity (test Clear *NA*(02/10/19 code = POC UA Turbidity) 4:41 PM) [facility] [id number] 21:41:00 Test Item Value Reference Range Interpretation Comments POC UA SG (test code = POC UA SG) 1.020 1 [facility] [id number] 21:41:00 Test Item Value Reference Range Interpretation Comments POC UA pH (test code = POC UA pH) 5.5 1 5.0-8.0 [facility] [id number] 21:41:00 Test Item Value Reference Range Interpretation Comments POC UA Prot (test code = POC Negative mg/dL UA Prot) [facility] [id number] 21:41:00 Test Item Value Reference Range Interpretation Comments POC UA Glu (test code = POC UA Negative mg/dL Glu) [facility] [id number] 21:41:00 Test Item Value Reference Range Interpretation Comments POC UA Ket (test code = POC UA Negative mg/dL Ket) [facility] [id number] 21:41:00 Test Item Value Reference Range Interpretation Comments POC UA Bili (test Negative *NA*(02/10/19 code = POC UA Bili) 4:41 PM) [facility] [id number] 21:41:00 Test Item Value Reference Range Interpretation Comments POC UA Bld (test code Small *ABN*(02/10/19 = POC UA Bld) 4:41 PM) [facility] [id number] 21:41:00 Test Item Value Reference Range Interpretation Comments POC UA Uro (test code = POC UA Uro) 0.2 0.1-1.0 [facility] [id number] 21:41:00 Test Item Value Reference Range Interpretation Comments POC UA Nit (test code Negative *NA*(02/10/19 = POC UA Nit) 4:41 PM) [facility] [id number] 21:41:00 Test Item Value Reference Range Interpretation Comments POC UA LeukEst (test Trace *ABN*(02/10/19 code = POC UA LeukEst) 4:41 PM) [facility] [id number] 21:41:00 Test Item Value Reference Range Interpretation Comments POC UA Color (test Yellow *NA*(02/10/19 code = POC UA Color) 4:41 PM) [facility] [id number] 21:41:00 Test Item Value Reference Range Interpretation Comments POC UA Turbidity (test Clear *NA*(02/10/19 code = POC UA Turbidity) 4:41 PM) [facility] [id number] 21:41:00 Test Item Value Reference Range Interpretation Comments POC UA SG (test code = POC UA SG) 1.020 1 [facility] [id number] 21:41:00 Test Item Value Reference Range Interpretation Comments POC UA pH (test code = POC UA pH) 5.5 1 5.0-8.0 [facility] [id number] 21:41:00 Test Item Value Reference Range Interpretation Comments POC UA Prot (test code = POC Negative mg/dL UA Prot) [facility] [id number] 21:41:00 Test Item Value Reference Range Interpretation Comments POC UA Glu (test code = POC UA Negative mg/dL Glu) [facility] [id number] 21:41:00 Test Item Value Reference Range Interpretation Comments POC UA Ket (test code = POC UA Negative mg/dL Ket) [facility] [id number] 21:41:00 Test Item Value Reference Range Interpretation Comments POC UA Bili (test Negative *NA*(02/10/19 code = POC UA Bili) 4:41 PM) [facility] [id number] 21:41:00 Test Item Value Reference Range Interpretation Comments POC UA Bld (test code Small *ABN*(02/10/19 = POC UA Bld) 4:41 PM) [facility] [id number] 21:41:00 Test Item Value Reference Range Interpretation Comments POC UA Uro (test code = POC UA Uro) 0.2 0.1-1.0 [facility] [id number] 21:41:00 Test Item Value Reference Range Interpretation Comments POC UA Nit (test code Negative *NA*(02/10/19 = POC UA Nit) 4:41 PM) [facility] [id number] 21:41:00 Test Item Value Reference Range Interpretation Comments POC UA LeukEst (test Trace *ABN*(02/10/19 code = POC UA LeukEst) 4:41 PM) [facility] [id number] 21:41:00 Test Item Value Reference Range Interpretation Comments POC UA Color (test Yellow *NA*(02/10/19 code = POC UA Color) 4:41 PM) [facility] [id number] 21:41:00 Test Item Value Reference Range Interpretation Comments POC UA Turbidity (test Clear *NA*(02/10/19 code = POC UA Turbidity) 4:41 PM) [facility] [id number] 21:41:00 Test Item Value Reference Range Interpretation Comments POC UA SG (test code = POC UA SG) 1.020 1 [facility] [id number] 21:41:00 Test Item Value Reference Range Interpretation Comments POC UA pH (test code = POC UA pH) 5.5 1 5.0-8.0 [facility] [id number] 21:41:00 Test Item Value Reference Range Interpretation Comments POC UA Prot (test code = POC Negative mg/dL UA Prot) [facility] [id number] 21:41:00 Test Item Value Reference Range Interpretation Comments POC UA Glu (test code = POC UA Negative mg/dL Glu) [facility] [id number] 21:41:00 Test Item Value Reference Range Interpretation Comments POC UA Ket (test code = POC UA Negative mg/dL Ket) [facility] [id number] 21:41:00 Test Item Value Reference Range Interpretation Comments POC UA Bili (test Negative *NA*(02/10/19 code = POC UA Bili) 4:41 PM) [facility] [id number] 21:41:00 Test Item Value Reference Range Interpretation Comments POC UA Bld (test code Small *ABN*(02/10/19 = POC UA Bld) 4:41 PM) [facility] [id number] 21:41:00 Test Item Value Reference Range Interpretation Comments POC UA Uro (test code = POC UA Uro) 0.2 0.1-1.0 [facility] [id number] 21:41:00 Test Item Value Reference Range Interpretation Comments POC UA Nit (test code Negative *NA*(02/10/19 = POC UA Nit) 4:41 PM) [facility] [id number] 21:41:00 Test Item Value Reference Range Interpretation Comments POC UA LeukEst (test Trace *ABN*(02/10/19 code = POC UA LeukEst) 4:41 PM) [facility] [id number] 21:41:00 Test Item Value Reference Range Interpretation Comments POC UA Color (test Yellow *NA*(02/10/19 code = POC UA Color) 4:41 PM) [facility] [id number] 21:41:00 Test Item Value Reference Range Interpretation Comments POC UA Turbidity (test Clear *NA*(02/10/19 code = POC UA Turbidity) 4:41 PM) [facility] [id number] 21:41:00 Test Item Value Reference Range Interpretation Comments POC UA SG (test code = POC UA SG) 1.020 1 [facility] [id number] 21:41:00 Test Item Value Reference Range Interpretation Comments POC UA pH (test code = POC UA pH) 5.5 1 5.0-8.0 [facility] [id number] 21:41:00 Test Item Value Reference Range Interpretation Comments POC UA Prot (test code = POC Negative mg/dL UA Prot) [facility] [id number] 21:41:00 Test Item Value Reference Range Interpretation Comments POC UA Glu (test code = POC UA Negative mg/dL Glu) [facility] [id number] 21:41:00 Test Item Value Reference Range Interpretation Comments POC UA Ket (test code = POC UA Negative mg/dL Ket) [facility] [id number] 21:41:00 Test Item Value Reference Range Interpretation Comments POC UA Bili (test Negative *NA*(02/10/19 code = POC UA Bili) 4:41 PM) [facility] [id number] 21:41:00 Test Item Value Reference Range Interpretation Comments POC UA Bld (test code Small *ABN*(02/10/19 = POC UA Bld) 4:41 PM) [facility] [id number] 21:41:00 Test Item Value Reference Range Interpretation Comments POC UA Uro (test code = POC UA Uro) 0.2 0.1-1.0 [facility] [id number] 21:41:00 Test Item Value Reference Range Interpretation Comments POC UA Nit (test code Negative *NA*(02/10/19 = POC UA Nit) 4:41 PM) [facility] [id number] 21:41:00 Test Item Value Reference Range Interpretation Comments POC UA LeukEst (test Trace *ABN*(02/10/19 code = POC UA LeukEst) 4:41 PM) [facility] [id number] 21:41:00 Test Item Value Reference Range Interpretation Comments POC UA Color (test Yellow *NA*(02/10/19 code = POC UA Color) 4:41 PM) [facility] [id number] 21:41:00 Test Item Value Reference Range Interpretation Comments POC UA Turbidity (test Clear *NA*(02/10/19 code = POC UA Turbidity) 4:41 PM) [facility] [id number] 21:41:00 Test Item Value Reference Range Interpretation Comments POC UA SG (test code = POC UA SG) 1.020 1 [facility] AND [id number] 21:41:00 Test Item Value Reference Range Interpretation Comments POC UA pH (test code = POC UA pH) 5.5 1 5.0-8.0 [facility] AND [id number] 21:41:00 Test Item Value Reference Range Interpretation Comments POC UA Prot (test code = POC Negative mg/dL UA Prot) [facility] AND [id number] 21:41:00 Test Item Value Reference Range Interpretation Comments POC UA Glu (test code = POC UA Negative mg/dL Glu) [facility] AND [id number] 21:41:00 Test Item Value Reference Range Interpretation Comments POC UA Ket (test code = POC UA Negative mg/dL Ket) [facility] AND [id number] 21:41:00 Test Item Value Reference Range Interpretation Comments POC UA Bili (test Negative *NA*(02/10/19 code = POC UA Bili) 4:41 PM) [facility] AND [id number] 21:41:00 Test Item Value Reference Range Interpretation Comments POC UA Bld (test code Small *ABN*(02/10/19 = POC UA Bld) 4:41 PM) [facility] AND [id number] 21:41:00 Test Item Value Reference Range Interpretation Comments POC UA Uro (test code = POC UA Uro) 0.2 0.1-1.0 [facility] AND [id number] 21:41:00 Test Item Value Reference Range Interpretation Comments POC UA Nit (test code Negative *NA*(02/10/19 = POC UA Nit) 4:41 PM) [facility] AND [id number] 21:41:00 Test Item Value Reference Range Interpretation Comments POC UA LeukEst (test Trace *ABN*(02/10/19 code = POC UA LeukEst) 4:41 PM) [facility]LxwkilbYKTMNQGDFN1766-07-39 16:19:00 Test Item Value Reference Range Interpretation Comments MPV (test code = MPV) 9.8 7.4-10.4 [facility]vineUzzjxtoSIXIMPNFJU2710-09-45 16:19:00 Test Item Value Reference Range Interpretation Comments Platelet (test code = Platelet) 192 133-450 [facility]rapevineOanmgmzDZGQLSOPSN2811-45-63 16:19:00 Test Item Value Reference Range Interpretation Comments RBC (test code = RBC) 4.06 4.20-5.40 [facility]rapevineHhosymgLPVJDCYPRE8323-57-69 16:19:00 Test Item Value Reference Range Interpretation Comments Hgb (test code = Hgb) 12.3 12.0-16.0 [facility]rapevineYoxyeaxLCMXXWTXBC8341-28-77 16:19:00 Test Item Value Reference Range Interpretation Comments Hct (test code = Hct) 36.8 36.0-48.0 [facility]rapevineMkndaitQLNNBCGULS1954-42-64 16:19:00 Test Item Value Reference Range Interpretation Comments MCV (test code = MCV) 90.6 80.0-98.0 [facility]rapevineJzqmmpcGAFPXFCRPS0992-09-85 16:19:00 Test Item Value Reference Range Interpretation Comments RDW (test code = RDW) 14.6 11.5-14.5 [facility]rapevineBomvjrjLKQKSDLFEL7764-00-57 16:19:00 Test Item Value Reference Range Interpretation Comments MCH (test code = MCH) 30.2 pg 27.0-31.0 [facility] GrapevineXylwduiPDZAFWRDIA9807-86-60 16:19:00 Test Item Value Reference Range Interpretation Comments MCHC (test code = MCHC) 33.3 32.0-36.0 [facility]rapevineYmcgadeXHCZOGSVNQ4256-03-53 16:19:00 Test Item Value Reference Range Interpretation Comments WBC (test code = WBC) 8.6 3.7-10.4 [facility]rapevineCurueigGPOQIWHMRV2527-01-59 16:19:00 Test Item Value Reference Range Interpretation Comments Lymphocytes # (test code = Lymphocytes 1.5 1.0-5.5 #) [facility]rapevineWuwkuftEEHMUIGKGM9352-56-02 16:19:00 Test Item Value Reference Range Interpretation Comments Monocytes # (test code 0.8 See_Comment [Aut omated message] The = Monocytes #) system which generated this result tra nsmitted reference range : <=0.8. The reference r olu was not used to int erpret this result as normal/abnormal . [facility] GrapevineFpxcfkoHTLYOZEMTU5104-64-18 16:19:00 Test Item Value Reference Range Interpretation Comments Eosinophils # (test code 0.3 See_Comment [A utomated message] The = Eosinophils #) system whic h generated this result tra nsmitted reference range : <=0.5. The reference r olu was not used to int erpret this result as normal/abnormal . [facility] GrapevineTgzskexMWIFGFAEBA4537-40-83 16:19:00 Test Item Value Reference Range Interpretation Comments Lymphocytes (test code = Lymphocytes) 17.7 20.0-40.0 [facility]rapevinePeesglvESNKNDTIZW6768-55-58 16:19:00 Test Item Value Reference Range Interpretation Comments Monocytes (test code = Monocytes) 8.8 2.0-12.0 [facility] GrapevineFyzysyvKPTDVEMMAL4782-75-79 16:19:00 Test Item Value Reference Range Interpretation Comments Eosinophils (test code = 3.0 See_Comment [A utomated message] The Eosinophils) system which ge nerated this result tra nsmitted reference range : <=4.0. The reference r olu was not used to int erpret this result as normal/abnormal . [facility]rapevineKghcsspEBDNXZTMHF3390-19-15 16:19:00 Test Item Value Reference Range Interpretation Comments Neutrophils # (test code = Neutrophils 6.0 1.5-8.1 #) [facility]rapevineBimfrobQTVQGAYVSS9691-16-12 16:19:00 Test Item Value Reference Range Interpretation Comments Basophils (test code = 0.4 See_Comment [Aut omated message] The Basophils) system which ge nerated this result tra nsmitted reference range : <=1.0. The reference r olu was not used to int erpret this result as normal/abnormal . [facility]rapevineHqatfveKNOTPPLZIB4966-11-85 16:19:00 Test Item Value Reference Range Interpretation Comments Segs (test code = Segs) 70.1 45.0-75.0 [facility] RegionPoghdaxJMBACZOKSJ4612-57-29 16:19:[facility].8[facility] 16:19:27505Wdnxgjwm GuckiquJLJUQDYWHG2296-61-14 16:19:004.06[facility] ZydofmeUNJAAYQUUV6892-81-94 16:19:0012.3[facility] PbqtinkYKZTFXWBZE9200-60-31 16:19:0036.8[facility] JrqxndmKSDFIVUPOL0897-33-35 16:19:0090.6[facility] OUUOHIYPPD4596-92-47 16:19:0014.6[facility] XueodaoZUHWOVSMBC1740-07-57 16:19:00 Test Item Value Reference Range Interpretation Comments MCH (test code = MCH) 30.2 pg 27.0-31.0 [facility] WorthBegmmblYGIQOSKPAX2274-05-88 16:19:0033.3[facility] 2018-[facility] 16:19:008.6[facility] WhraulrPTOSTILJOZ6586-30-77 16:19:001.5[facility] YacgijnIBGUXYSVDW2703-59-06 16:19:000.8[facility] SwxkqipLMGIINTQWA7058-38-82 16:19:000.3[facility] VhncsmqNWGPOUKUPU5014-41-68 16:19:0017.7[facility] AUDDUBWBJY2362-24-74 16:19:008.8[facility] DshqeprOMUQBQRSCX2754-60-94 16:19:003.0 [facility] WorthPnudkduNJBNSNQIYY0758-38-77 16:19:006.0[facility] 2018-06-24 16:19:000.4[facility] GotzgfaEFUQFSXAVU6498-80-24 16:19:0070.1[facility] OczeymbBZPEAVWGKX9078-06-23 16:19:00 Test Item Value Reference Range Interpretation Comments MPV (test code = MPV) 9.8 7.4-10.4 [facility]QwctzzgMVLUXHVFHQ1571-73-19 16:19:00 Test Item Value Reference Range Interpretation Comments Platelet (test code = Platelet) 192 133-450 [facility]evilleQkzsfrlNPCSPOPSJC8526-44-07 16:19:00 Test Item Value Reference Range Interpretation Comments RBC (test code = RBC) 4.06 4.20-5.40 [facility] WorthLiocydgSFBTWTMRJQ2521-42-68 16:19:00 Test Item Value Reference Range Interpretation Comments Hgb (test code = Hgb) 12.3 12.0-16.0 [facility] WorthMqbnbndOJRSPKFMLI7767-18-91 16:19:00 Test Item Value Reference Range Interpretation Comments Hct (test code = Hct) 36.8 36.0-48.0 [facility] WorthWpnarrbSKWGBNSAME4252-92-20 16:19:00 Test Item Value Reference Range Interpretation Comments MCV (test code = MCV) 90.6 80.0-98.0 [facility]vineLztkfnjHMQNZCYBFK2345-22-60 16:19:00 Test Item Value Reference Range Interpretation Comments RDW (test code = RDW) 14.6 11.5-14.5 [facility] GrapevineSxrbvmkUKIZWGURRO6957-51-45 16:19:00 Test Item Value Reference Range Interpretation Comments MCH (test code = MCH) 30.2 pg 27.0-31.0 [facility]rapevineWbgjsrjJAZNKBVVIB8999-81-42 16:19:00 Test Item Value Reference Range Interpretation Comments MCHC (test code = MCHC) 33.3 32.0-36.0 [facility]rapevineBhhfcabITSYYIWFFC5875-85-59 16:19:00 Test Item Value Reference Range Interpretation Comments WBC (test code = WBC) 8.6 3.7-10.4 [facility] GrapevineIiqjjifPBZBXIQIFN5053-14-97 16:19:00 Test Item Value Reference Range Interpretation Comments Lymphocytes # (test code = Lymphocytes 1.5 1.0-5.5 #) [facility]rapevineDxbxknbXBSBJTEPPO1670-12-69 16:19:00 Test Item Value Reference Range Interpretation Comments Monocytes # (test code 0.8 See_Comment [Aut omated message] The = Monocytes #) system which generated this result tra nsmitted reference range : <=0.8. The reference r olu was not used to int erpret this result as normal/abnormal . [facility]rapevineHtyjfgqXYUYUSJCJL7187-02-27 16:19:00 Test Item Value Reference Range Interpretation Comments Eosinophils # (test code 0.3 See_Comment [A utomated message] The = Eosinophils #) system whic h generated this result tra nsmitted reference range : <=0.5. The reference r olu was not used to int erpret this result as normal/abnormal . [facility]rapevineFocxaduYNXFWSPHYO2976-87-30 16:19:00 Test Item Value Reference Range Interpretation Comments Lymphocytes (test code = Lymphocytes) 17.7 20.0-40.0 [facility]rapevineWpmzpuzRNQJHDLTWO6619-57-84 16:19:00 Test Item Value Reference Range Interpretation Comments Monocytes (test code = Monocytes) 8.8 2.0-12.0 [facility]rapevineOklwwbePIFEHMXENM4014-51-04 16:19:00 Test Item Value Reference Range Interpretation Comments Eosinophils (test code = 3.0 See_Comment [A utomated message] The Eosinophils) system which ge nerated this result tra nsmitted reference range : <=4.0. The reference r olu was not used to int erpret this result as normal/abnormal . [facility]rapevineWkdcduoJUSEMDSDNN8263-70-07 16:19:00 Test Item Value Reference Range Interpretation Comments Neutrophils # (test code = Neutrophils 6.0 1.5-8.1 #) [facility]rapevineIwiejttZLNTGOJAGK5421-57-84 16:19:00 Test Item Value Reference Range Interpretation Comments Basophils (test code = 0.4 See_Comment [Aut omated message] The Basophils) system which ge nerated this result tra nsmitted reference range : <=1.0. The reference r olu was not used to int erpret this result as normal/abnormal . [facility]rapevineMtxejcsJNAHXAMZSS8074-73-85 16:19:00 Test Item Value Reference Range Interpretation Comments Segs (test code = Segs) 70.1 45.0-75.0 [facility] GrapevineDnufrphPGGPOOSJHY6168-05-76 16:19:00 Test Item Value Reference Range Interpretation Comments MPV (test code = MPV) 9.8 7.4-10.4 [facility]rapevineFznckbiGNYLOQMIQE2701-34-96 16:19:00 Test Item Value Reference Range Interpretation Comments Platelet (test code = Platelet) 192 133-450 [facility] GrapevineNofeubbMVCJAWFHTF2399-59-44 16:19:00 Test Item Value Reference Range Interpretation Comments RBC (test code = RBC) 4.06 4.20-5.40 [facility] GrapevineGtgotapDVUYESHVSB5404-58-73 16:19:00 Test Item Value Reference Range Interpretation Comments Hgb (test code = Hgb) 12.3 12.0-16.0 [facility]rapevinePwbstssLLOKKFSZMW4614-89-29 16:19:00 Test Item Value Reference Range Interpretation Comments Hct (test code = Hct) 36.8 36.0-48.0 [facility] GrapevineLthhbxqMWXNJUXFCJ3976-93-64 16:19:00 Test Item Value Reference Range Interpretation Comments MCV (test code = MCV) 90.6 80.0-98.0 [facility]rapevineCntbbqbEHDQLWAMMI9765-83-21 16:19:00 Test Item Value Reference Range Interpretation Comments RDW (test code = RDW) 14.6 11.5-14.5 [facility]rapevineDhqgjlfSVUGNPAPEE3259-48-58 16:19:00 Test Item Value Reference Range Interpretation Comments MCH (test code = MCH) 30.2 pg 27.0-31.0 [facility]rapevineGmffzcvKZUAKLOHHH7726-01-93 16:19:00 Test Item Value Reference Range Interpretation Comments MCHC (test code = MCHC) 33.3 32.0-36.0 [facility] GrapevineTdoccjpMAGYIPFFQD9347-14-68 16:19:00 Test Item Value Reference Range Interpretation Comments WBC (test code = WBC) 8.6 3.7-10.4 [facility] GrapevineZaqlbduYVNECHQPZX3730-54-21 16:19:00 Test Item Value Reference Range Interpretation Comments Lymphocytes # (test code = Lymphocytes 1.5 1.0-5.5 #) [facility] GrapevineIkmxyvwNNNRZNEMBE3934-66-77 16:19:00 Test Item Value Reference Range Interpretation Comments Monocytes # (test code 0.8 See_Comment [Aut omated message] The = Monocytes #) system which generated this result tra nsmitted reference range : <=0.8. The reference r olu was not used to int erpret this result as normal/abnormal . [facility] GrapevineJqatpybMYSMCWCIEA4142-02-04 16:19:00 Test Item Value Reference Range Interpretation Comments Eosinophils # (test code 0.3 See_Comment [A utomated message] The = Eosinophils #) system whic h generated this result tra nsmitted reference range : <=0.5. The reference r olu was not used to int erpret this result as normal/abnormal . [facility]rapevineWqhyedsTWOODQYIEN2193-27-91 16:19:00 Test Item Value Reference Range Interpretation Comments Lymphocytes (test code = Lymphocytes) 17.7 20.0-40.0 [facility]rapevineFadzlbxSGZNNHPGJI3103-90-38 16:19:00 Test Item Value Reference Range Interpretation Comments Monocytes (test code = Monocytes) 8.8 2.0-12.0 [facility]rapevineFrjpsuwRKNTKAQBNE6895-43-46 16:19:00 Test Item Value Reference Range Interpretation Comments Eosinophils (test code = 3.0 See_Comment [A utomated message] The Eosinophils) system which ge nerated this result tra nsmitted reference range : <=4.0. The reference r olu was not used to int erpret this result as normal/abnormal . [facility] GrapevineZyyvpruSKLCTOAIIV4312-91-94 16:19:00 Test Item Value Reference Range Interpretation Comments Neutrophils # (test code = Neutrophils 6.0 1.5-8.1 #) [facility] GrapevineRvzgmefLBXOLDCBBT4265-39-46 16:19:00 Test Item Value Reference Range Interpretation Comments Basophils (test code = 0.4 See_Comment [Aut omated message] The Basophils) system which ge nerated this result tra nsmitted reference range : <=1.0. The reference r olu was not used to int erpret this result as normal/abnormal . [facility] GrapevineBauifzaGWNLBXADFS7334-66-22 16:19:00 Test Item Value Reference Range Interpretation Comments Segs (test code = Segs) 70.1 45.0-75.0 [facility] GrapevineYnjiesdXRPGHEOULY2631-23-40 16:19:00 Test Item Value Reference Range Interpretation Comments MPV (test code = MPV) 9.8 7.4-10.4 [facility]rapevineWwnyxowUOVUHTOXNM7071-31-93 16:19:00 Test Item Value Reference Range Interpretation Comments Platelet (test code = Platelet) 192 133-450 [facility] GrapevineVbbubciLICCOAKVCM7688-81-23 16:19:00 Test Item Value Reference Range Interpretation Comments RBC (test code = RBC) 4.06 4.20-5.40 [facility] GrapevineVilbxibZHXRAORLUI8414-44-10 16:19:00 Test Item Value Reference Range Interpretation Comments Hgb (test code = Hgb) 12.3 12.0-16.0 [facility] GrapevineZauqgbyYPWHDVYJKU9701-96-48 16:19:00 Test Item Value Reference Range Interpretation Comments Hct (test code = Hct) 36.8 36.0-48.0 [facility] GrapevineSstzqhoAHMUENHYSI7429-72-36 16:19:00 Test Item Value Reference Range Interpretation Comments MCV (test code = MCV) 90.6 80.0-98.0 [facility] GrapevineLqeqedyGTACJIPXFB7698-92-01 16:19:00 Test Item Value Reference Range Interpretation Comments RDW (test code = RDW) 14.6 11.5-14.5 [facility]rapevineXfqkrsxNZSWQUKFBR0670-18-38 16:19:00 Test Item Value Reference Range Interpretation Comments MCH (test code = MCH) 30.2 pg 27.0-31.0 [facility] GrapevineGxxnmxgIVXKQZXCNE7808-22-36 16:19:00 Test Item Value Reference Range Interpretation Comments MCHC (test code = MCHC) 33.3 32.0-36.0 [facility] GrapevineHlranezABGAPAKHXH7188-47-55 16:19:00 Test Item Value Reference Range Interpretation Comments WBC (test code = WBC) 8.6 3.7-10.4 [facility]rapevineEjwguooNLFRTSCKMR9497-40-76 16:19:00 Test Item Value Reference Range Interpretation Comments Lymphocytes # (test code = Lymphocytes 1.5 1.0-5.5 #) [facility] GrapevineCufnxzuKZPENMPCQG3595-65-91 16:19:00 Test Item Value Reference Range Interpretation Comments Monocytes # (test code 0.8 See_Comment [Aut omated message] The = Monocytes #) system which generated this result tra nsmitted reference range : <=0.8. The reference r olu was not used to int erpret this result as normal/abnormal . [facility] GrapevineTjyknlgDDIWLPYJGY7879-99-03 16:19:00 Test Item Value Reference Range Interpretation Comments Eosinophils # (test code 0.3 See_Comment [A utomated message] The = Eosinophils #) system whic h generated this result tra nsmitted reference range : <=0.5. The reference r olu was not used to int erpret this result as normal/abnormal . [facility] GrapevineUargoxwRNNLECXGVS4416-88-98 16:19:00 Test Item Value Reference Range Interpretation Comments Lymphocytes (test code = Lymphocytes) 17.7 20.0-40.0 [facility]rapevineIdwhxfgUQRVSVAVBN1150-03-10 16:19:00 Test Item Value Reference Range Interpretation Comments Monocytes (test code = Monocytes) 8.8 2.0-12.0 [facility]rapevineMvnczfkOGFGEVQZRS8205-91-69 16:19:00 Test Item Value Reference Range Interpretation Comments Eosinophils (test code = 3.0 See_Comment [A utomated message] The Eosinophils) system which ge nerated this result tra nsmitted reference range : <=4.0. The reference r olu was not used to int erpret this result as normal/abnormal . [facility] GrapevineGponfteNSSRVRWCBR6155-96-81 16:19:00 Test Item Value Reference Range Interpretation Comments Neutrophils # (test code = Neutrophils 6.0 1.5-8.1 #) [facility] GrapevineGjtpkitPRVZOUEGAG3915-48-73 16:19:00 Test Item Value Reference Range Interpretation Comments Basophils (test code = 0.4 See_Comment [Aut omated message] The Basophils) system which ge nerated this result tra nsmitted reference range : <=1.0. The reference r olu was not used to int erpret this result as normal/abnormal . [facility] GrapevineKqihwndNVBGGVTXMA2805-34-49 16:19:00 Test Item Value Reference Range Interpretation Comments Segs (test code = Segs) 70.1 45.0-75.0 [facility] GrapevineXfrtjqoDNLQFUDICV3071-85-47 16:19:00 Test Item Value Reference Range Interpretation Comments MPV (test code = MPV) 9.8 7.4-10.4 [facility] GrapevineDabsjbuSULRLXFQNA8542-63-28 16:19:00 Test Item Value Reference Range Interpretation Comments Platelet (test code = Platelet) 192 133-450 [facility] GrapevineNyweudbPBDLFGLYHI1662-52-21 16:19:00 Test Item Value Reference Range Interpretation Comments RBC (test code = RBC) 4.06 4.20-5.40 [facility] GrapevineKmlmygpAXPPSOOBUG6410-00-81 16:19:00 Test Item Value Reference Range Interpretation Comments Hgb (test code = Hgb) 12.3 12.0-16.0 [facility] GrapevineKsepcdjCPINHZWTER2127-40-42 16:19:00 Test Item Value Reference Range Interpretation Comments Hct (test code = Hct) 36.8 36.0-48.0 [facility] GrapevinePnujjgrVPFTTOMXIA6480-03-93 16:19:00 Test Item Value Reference Range Interpretation Comments MCV (test code = MCV) 90.6 80.0-98.0 [facility] GrapevineQodzvyjYBSVFLHTRN8083-57-27 16:19:00 Test Item Value Reference Range Interpretation Comments RDW (test code = RDW) 14.6 11.5-14.5 [facility] GrapevineNttpldhXPYCPIEAWH5040-86-70 16:19:00 Test Item Value Reference Range Interpretation Comments MCH (test code = MCH) 30.2 pg 27.0-31.0 [facility] GrapevineCaaeayeVCAABTYERA3288-53-55 16:19:00 Test Item Value Reference Range Interpretation Comments MCHC (test code = MCHC) 33.3 32.0-36.0 [facility] [facility] [place]GmtoeutUHVODNAFCU1387-34-68 16:19:00 Test Item Value Reference Range Interpretation Comments WBC (test code = WBC) 8.6 3.7-10.4 [facility]vineEoovpmmEXIFVZUVAU4028-59-31 16:19:00 Test Item Value Reference Range Interpretation Comments Lymphocytes # (test code = Lymphocytes 1.5 1.0-5.5 #) [facility] [place]vineIhyogikHHSXTULQTM1203-10-15 16:19:00 Test Item Value Reference Range Interpretation Comments Monocytes # (test code 0.8 See_Comment [Aut omated message] The = Monocytes #) system which generated this result tra nsmitted reference range : <=0.8. The reference r olu was not used to int erpret this result as normal/abnormal . [facility]vineEykcsqtIXQWEWXBUH1772-03-34 16:19:00 Test Item Value Reference Range Interpretation Comments Eosinophils # (test code 0.3 See_Comment [A utomated message] The = Eosinophils #) system whic h generated this result tra nsmitted reference range : <=0.5. The reference r olu was not used to int erpret this result as normal/abnormal . [facility] [place]vinePftstsiDOKLINNOHW9825-03-57 16:19:00 Test Item Value Reference Range Interpretation Comments Lymphocytes (test code = Lymphocytes) 17.7 20.0-40.0 [facility] [place]vineRcptltmIXBZNDQZXD1053-56-40 16:19:00 Test Item Value Reference Range Interpretation Comments Monocytes (test code = Monocytes) 8.8 2.0-12.0 [facility] [place]vineEtranjtXOPIWRIDXC1541-10-31 16:19:00 Test Item Value Reference Range Interpretation Comments Eosinophils (test code = 3.0 See_Comment [A utomated message] The Eosinophils) system which ge nerated this result tra nsmitted reference range : <=4.0. The reference r olu was not used to int erpret this result as normal/abnormal . [facility] [place]vineDytqpmrZPARWDVBYV8149-70-56 16:19:00 Test Item Value Reference Range Interpretation Comments Neutrophils # (test code = Neutrophils 6.0 1.5-8.1 #) [facility] [place]vineXacbxzcSXBJYYDUQM5335-72-81 16:19:00 Test Item Value Reference Range Interpretation Comments Basophils (test code = 0.4 See_Comment [Aut omated message] The Basophils) system which ge nerated this result tra nsmitted reference range : <=1.0. The reference r olu was not used to int erpret this result as normal/abnormal . [facility] [place]vinePtxhobnVZDWKUJUVX9785-62-71 16:19:00 Test Item Value Reference Range Interpretation Comments Segs (test code = Segs) 70.1 45.0-75.0 [facility] [place]vineHpiwzkpTRCPRPWTGX8079-79-73 16:19:00 Test Item Value Reference Range Interpretation Comments MPV (test code = MPV) 9.8 7.4-10.4 [facility] [place]vineZknmghuWSJMBKKZZW6461-48-00 16:19:00 Test Item Value Reference Range Interpretation Comments Platelet (test code = Platelet) 192 133-450 [facility] [place]vineOvqrrpzYEEGJRGVWP1072-96-70 16:19:00 Test Item Value Reference Range Interpretation Comments RBC (test code = RBC) 4.06 4.20-5.40 [facility] [place]vineXepkvouMFTHLYASDJ2566-53-05 16:19:00 Test Item Value Reference Range Interpretation Comments Hgb (test code = Hgb) 12.3 12.0-16.0 [facility] [place]vineXnkcntlXVTNXXTYFI2554-54-95 16:19:00 Test Item Value Reference Range Interpretation Comments Hct (test code = Hct) 36.8 36.0-48.0 [facility] [place]vineUwtslqgBIFXEUQBQE5988-73-71 16:19:00 Test Item Value Reference Range Interpretation Comments MCV (test code = MCV) 90.6 80.0-98.0 [facility] [place]vineYmyedjaBOYTUFTISM2537-01-82 16:19:00 Test Item Value Reference Range Interpretation Comments RDW (test code = RDW) 14.6 11.5-14.5 [facility] [place]vineFvozndzYCUMQRWLLE3690-21-10 16:19:00 Test Item Value Reference Range Interpretation Comments MCH (test code = MCH) 30.2 pg 27.0-31.0 [facility]vineCvzpjivKIDPDWUZJE4838-15-88 16:19:00 Test Item Value Reference Range Interpretation Comments MCHC (test code = MCHC) 33.3 32.0-36.0 [facility] [place]vineXaunvylDADTGVEJHJ6847-69-95 16:19:00 Test Item Value Reference Range Interpretation Comments WBC (test code = WBC) 8.6 3.7-10.4 [facility]vineHjvprtnFMPGBXJVNR3470-47-88 16:19:00 Test Item Value Reference Range Interpretation Comments Lymphocytes # (test code = Lymphocytes 1.5 1.0-5.5 #) [facility] [place]vineVzgskfnZRLQXCBYYR5066-22-74 16:19:00 Test Item Value Reference Range Interpretation Comments Monocytes # (test code 0.8 See_Comment [Aut omated message] The = Monocytes #) system which generated this result tra nsmitted reference range : <=0.8. The reference r olu was not used to int erpret this result as normal/abnormal . [facility] [place]vineVllvxvxYGRECOJQNZ9089-62-88 16:19:00 Test Item Value Reference Range Interpretation Comments Eosinophils # (test code 0.3 See_Comment [A utomated message] The = Eosinophils #) system whic h generated this result tra nsmitted reference range : <=0.5. The reference r olu was not used to int erpret this result as normal/abnormal . [facility] [place]vineNdrqstbEJYEMXMGLL1404-86-78 16:19:00 Test Item Value Reference Range Interpretation Comments Lymphocytes (test code = Lymphocytes) 17.7 20.0-40.0 [facility] [place]vineJfbxcqqWCPLPRZFGG0825-35-56 16:19:00 Test Item Value Reference Range Interpretation Comments Monocytes (test code = Monocytes) 8.8 2.0-12.0 [facility] [place]vineCdgmrvuPEXXXSZFMN6116-89-84 16:19:00 Test Item Value Reference Range Interpretation Comments Eosinophils (test code = 3.0 See_Comment [A utomated message] The Eosinophils) system which ge nerated this result tra nsmitted reference range : <=4.0. The reference r olu was not used to int erpret this result as normal/abnormal . [facility]vineKefjftyWZNZRRDBJN8900-57-34 16:19:00 Test Item Value Reference Range Interpretation Comments Neutrophils # (test code = Neutrophils 6.0 1.5-8.1 #) [facility]vineHeqnfqkSZRKKIKJEA8263-64-59 16:19:00 Test Item Value Reference Range Interpretation Comments Basophils (test code = 0.4 See_Comment [Aut omated message] The Basophils) system which ge nerated this result tra nsmitted reference range : <=1.0. The reference r olu was not used to int erpret this result as normal/abnormal . [facility] [place]vineXxadepdKCODVWQQHS9718-09-84 16:19:00 Test Item Value Reference Range Interpretation Comments Segs (test code = Segs) 70.1 45.0-75.0 [facility] [place]vineMfoszoaDADHEXCPNR9181-31-26 10:23:00 Test Item Value Reference Range Interpretation Comments RBC (test code = RBC) 3.65 4.20-5.40 [facility] [place]vineOxbbmvyCWJPFRUUCC9274-05-75 10:23:00 Test Item Value Reference Range Interpretation Comments Hgb (test code = Hgb) 11.1 12.0-16.0 [facility] [place]rapevineYccltafJYOEGITTND1646-76-82 10:23:00 Test Item Value Reference Range Interpretation Comments Platelet (test code = Platelet) 158 133-450 [facility] [place]vineGnxiejyVPTLBNUNAZ4947-11-92 10:23:00 Test Item Value Reference Range Interpretation Comments RDW (test code = RDW) 14.5 11.5-14.5 [facility] [place]vineBgbcodaMHGPSYWAYV2475-87-37 10:23:00 Test Item Value Reference Range Interpretation Comments MCV (test code = MCV) 90.8 80.0-98.0 [facility] [place]rapevineRccasexXRYPGITICW4155-16-10 10:23:00 Test Item Value Reference Range Interpretation Comments MCH (test code = MCH) 30.4 pg 27.0-31.0 [facility] [place]vineSfqmiieAOLVXCWHHB1366-50-15 10:23:00 Test Item Value Reference Range Interpretation Comments MPV (test code = MPV) 9.5 7.4-10.4 [facility] [place]vineOixmcgxSWZXRFEIVY5379-23-71 10:23:00 Test Item Value Reference Range Interpretation Comments Hct (test code = Hct) 33.1 36.0-48.0 [facility] [place]vineMqjhwxsADMAJSQYSI9473-20-66 10:23:00 Test Item Value Reference Range Interpretation Comments WBC (test code = WBC) 7.1 3.7-10.4 [facility] [place]vineXcfeqsdGJAXIYZEMA5079-12-15 10:23:00 Test Item Value Reference Range Interpretation Comments MCHC (test code = MCHC) 33.5 32.0-36.0 [facility] [place]vineMgbyojkNTAJJHXQCV9085-89-16 10:23:00 Test Item Value Reference Range Interpretation Comments Segs (test code = Segs) 68.7 45.0-75.0 [facility] [place]vineZevlqjiBKJLOHHLVZ7010-57-60 10:23:00 Test Item Value Reference Range Interpretation Comments Lymphocytes (test code = Lymphocytes) 20.3 20.0-40.0 [facility] [place]rapevineHhgiugyGERSPNPQMU9356-42-93 10:23:00 Test Item Value Reference Range Interpretation Comments Monocytes (test code = Monocytes) 9.2 2.0-12.0 [facility] [place]vineNojfhkpJTKAKIZECE8780-71-80 10:23:00 Test Item Value Reference Range Interpretation Comments Eosinophils (test code = 1.3 See_Comment [A utomated message] The Eosinophils) system which ge nerated this result tra nsmitted reference range : <=4.0. The reference r olu was not used to int erpret this result as normal/abnormal . [facility] [place]vineAnkeqwmGENCXDKCED9713-79-78 10:23:00 Test Item Value Reference Range Interpretation Comments Basophils (test code = 0.5 See_Comment [Aut omated message] The Basophils) system which ge nerated this result tra nsmitted reference range : <=1.0. The reference r olu was not used to int erpret this result as normal/abnormal . [facility] [place]vineOmjuchsGMAUWDMYBA6824-42-25 10:23:00 Test Item Value Reference Range Interpretation Comments Eosinophils # (test code 0.1 See_Comment [A utomated message] The = Eosinophils #) system whic h generated this result tra nsmitted reference range : <=0.5. The reference r olu was not used to int erpret this result as normal/abnormal . [facility] [place]vineMhscoueILRZSDACFF7887-34-54 10:23:00 Test Item Value Reference Range Interpretation Comments Neutrophils # (test code = Neutrophils 4.9 1.5-8.1 #) [facility]vineLcqjdnjETMFDLDBMY2753-62-55 10:23:00 Test Item Value Reference Range Interpretation Comments Lymphocytes # (test code = Lymphocytes 1.5 1.0-5.5 #) [facility] [place]vineCspeoopTNEEHNCRHR6094-06-59 10:23:00 Test Item Value Reference Range Interpretation Comments Monocytes # (test code 0.7 See_Comment [Aut omated message] The = Monocytes #) system which generated this result tra nsmitted reference range : <=0.8. The reference r olu was not used to int erpret this result as normal/abnormal . [facility]rapevineDbbkfmrGAPWQIHOVZ4079-33-52 10:23:003.65[facility] 10:23:0011.1[facility] LfwqwpsCICIUPJNZL4757-42-13 10:23:00485Ckjsrrqx VpfkcpbLJNXGPPULX1145-91-84 10:23:0014.5[facility] ItosyfbMWBOQCBOAT0472-59-33 10:23:0090.8[facility] ZndwmwhQXSOCJUPID1943-93-27 10:23:00 Test Item Value Reference Range Interpretation Comments MCH (test code = MCH) 30.4 pg 27.0-31.0 [facility] WsrevjjZWXBOFTIMC0394-00-06 10:23:009.5[facility]annHE[facility] 2018-[facility]-23 10:23:0033.1[facility] HhnvepbMAMKDADFOM7224-79-77 10:23:007.1[facility] HcrpzdhGLMQLEWWTZ9989-71-62 10:23:0033.5[facility] EhktamzHIJAMHDZAG6003-90-92 10:23:0068.7[facility] HixlxffZLGMBHZBOW0694-82-65 10:23:0020.3[facility] HBNDYBAYPI7851-93-10 10:23:009.2[facility] ZhsxtizEVRHQEMIEI2234-10-70 10:23:001.3 [facility] QfuwxdwPAKMSPDSGM4878-12-91 10:23:000.5[facility]annHEMATOLOGY 2018-06-23 10:23:000.1[facility] OyltbcjZUBYQASFLH4621-76-74 10:23:004.9[facility] GevsfjrAMWQVTGTLO5702-63-60 10:23:001.5[facility] GbdunaxNLVHDTPHOS5900-02-36 10:23:000.7[facility] DusheimFTZNQVNNUT0998-46-77 10:23:00 Test Item Value Reference Range Interpretation Comments RBC (test code = RBC) 3.65 4.20-5.40 [facility] YusfxmsTMRVSAZJAB1800-57-91 10:23:00 Test Item Value Reference Range Interpretation Comments Hgb (test code = Hgb) 11.1 12.0-16.0 [facility] XwtaheqWRZZVGWFIR9498-65-73 10:23:00 Test Item Value Reference Range Interpretation Comments Platelet (test code = Platelet) 158 133-450 [facility] WorthRagwzrtFPFAZOGKNQ2907-56-17 10:23:00 Test Item Value Reference Range Interpretation Comments RDW (test code = RDW) 14.5 11.5-14.5 [facility] CsqcgpsFRZAVBJJSN1068-76-79 10:23:00 Test Item Value Reference Range Interpretation Comments MCV (test code = MCV) 90.8 80.0-98.0 [facility]vineHxwdjejFVRSVRWUEP9316-49-63 10:23:00 Test Item Value Reference Range Interpretation Comments MCH (test code = MCH) 30.4 pg 27.0-31.0 [facility]vineFzsrywpBXEEDTGCCJ6430-53-18 10:23:00 Test Item Value Reference Range Interpretation Comments MPV (test code = MPV) 9.5 7.4-10.4 [facility] [place]vinePkafwtzYJAVUQGYRL5869-20-66 10:23:00 Test Item Value Reference Range Interpretation Comments Hct (test code = Hct) 33.1 36.0-48.0 [facility]rapevineJubtyyiDVSIGWXUEV5093-47-84 10:23:00 Test Item Value Reference Range Interpretation Comments WBC (test code = WBC) 7.1 3.7-10.4 [facility] [place]vinePyavlzpYSLRGBZCLL9423-85-96 10:23:00 Test Item Value Reference Range Interpretation Comments MCHC (test code = MCHC) 33.5 32.0-36.0 [facility]vineHblawxaGHGTJXVLJI8408-44-83 10:23:00 Test Item Value Reference Range Interpretation Comments Segs (test code = Segs) 68.7 45.0-75.0 [facility]vineOtdonqzZMKMZNYVFZ9031-34-23 10:23:00 Test Item Value Reference Range Interpretation Comments Lymphocytes (test code = Lymphocytes) 20.3 20.0-40.0 [facility]vineWnsntwiFUPTUUEARE9763-20-51 10:23:00 Test Item Value Reference Range Interpretation Comments Monocytes (test code = Monocytes) 9.2 2.0-12.0 [facility]rapevineRfhvepqWHHSKLASZJ1451-35-43 10:23:00 Test Item Value Reference Range Interpretation Comments Eosinophils (test code = 1.3 See_Comment [A utomated message] The Eosinophils) system which ge nerated this result tra nsmitted reference range : <=4.0. The reference r olu was not used to int erpret this result as normal/abnormal . [facility]rapevineLqupwbeSRWPVFIIOP6828-84-96 10:23:00 Test Item Value Reference Range Interpretation Comments Basophils (test code = 0.5 See_Comment [Aut omated message] The Basophils) system which ge nerated this result tra nsmitted reference range : <=1.0. The reference r olu was not used to int erpret this result as normal/abnormal . [facility]vinePdyrnmcJKFAMGKRQQ5315-89-17 10:23:00 Test Item Value Reference Range Interpretation Comments Eosinophils # (test code 0.1 See_Comment [A utomated message] The = Eosinophils #) system whic h generated this result tra nsmitted reference range : <=0.5. The reference r olu was not used to int erpret this result as normal/abnormal . [facility]vineTkyaqzdIGFCGAMJVR2136-21-60 10:23:00 Test Item Value Reference Range Interpretation Comments Neutrophils # (test code = Neutrophils 4.9 1.5-8.1 #) [facility]vineTetqubcVPRXDZRZFB5643-18-38 10:23:00 Test Item Value Reference Range Interpretation Comments Lymphocytes # (test code = Lymphocytes 1.5 1.0-5.5 #) [facility]vineGrsnylpFJNRQBORIT2441-77-57 10:23:00 Test Item Value Reference Range Interpretation Comments Monocytes # (test code 0.7 See_Comment [Aut omated message] The = Monocytes #) system which generated this result tra nsmitted reference range : <=0.8. The reference r olu was not used to int erpret this result as normal/abnormal . [facility]vineCimppuaMRERKLNJSF9270-02-08 10:23:00 Test Item Value Reference Range Interpretation Comments RBC (test code = RBC) 3.65 4.20-5.40 [facility]vineEiknlukBZAOVLKRZW8984-71-57 10:23:00 Test Item Value Reference Range Interpretation Comments Hgb (test code = Hgb) 11.1 12.0-16.0 [facility]rapevineIqupyjzHYNZFIBMAC4785-05-11 10:23:00 Test Item Value Reference Range Interpretation Comments Platelet (test code = Platelet) 158 133-450 [facility] [place]rapevineAxtdfiqOLCYQXDBSV9832-41-77 10:23:00 Test Item Value Reference Range Interpretation Comments RDW (test code = RDW) 14.5 11.5-14.5 [facility]rapevineOfxndugLCLCTNBNZH3750-69-31 10:23:00 Test Item Value Reference Range Interpretation Comments MCV (test code = MCV) 90.8 80.0-98.0 [facility] [place]vineDerajvyDYKHLITVCV3259-97-11 10:23:00 Test Item Value Reference Range Interpretation Comments MCH (test code = MCH) 30.4 pg 27.0-31.0 [facility]vineApgvpacSJXEOHUEEC6053-69-30 10:23:00 Test Item Value Reference Range Interpretation Comments MPV (test code = MPV) 9.5 7.4-10.4 [facility] [place]vineOsutmzwHTWAABOLJW4162-07-51 10:23:00 Test Item Value Reference Range Interpretation Comments Hct (test code = Hct) 33.1 36.0-48.0 [facility]vineAtbvyxhWRTDIZVEAN1646-48-76 10:23:00 Test Item Value Reference Range Interpretation Comments WBC (test code = WBC) 7.1 3.7-10.4 [facility]rapevineKtboqyyWTAHZVNNWR2453-67-40 10:23:00 Test Item Value Reference Range Interpretation Comments MCHC (test code = MCHC) 33.5 32.0-36.0 [facility]rapevineNlrkujzBEUFNQLTQB8091-95-69 10:23:00 Test Item Value Reference Range Interpretation Comments Segs (test code = Segs) 68.7 45.0-75.0 [facility] [place]vineFtaepygRQVYNIWLVK9735-72-77 10:23:00 Test Item Value Reference Range Interpretation Comments Lymphocytes (test code = Lymphocytes) 20.3 20.0-40.0 [facility]vineLgpcgzcFAUJFJJTKP0193-33-66 10:23:00 Test Item Value Reference Range Interpretation Comments Monocytes (test code = Monocytes) 9.2 2.0-12.0 [facility]vineDkffjzgOIIWWOLTIC9539-80-60 10:23:00 Test Item Value Reference Range Interpretation Comments Eosinophils (test code = 1.3 See_Comment [A utomated message] The Eosinophils) system which ge nerated this result tra nsmitted reference range : <=4.0. The reference r olu was not used to int erpret this result as normal/abnormal . [facility]rapevineHvvxbeiORAHOGUVVZ5067-74-84 10:23:00 Test Item Value Reference Range Interpretation Comments Basophils (test code = 0.5 See_Comment [Aut omated message] The Basophils) system which ge nerated this result tra nsmitted reference range : <=1.0. The reference r olu was not used to int erpret this result as normal/abnormal . [facility]vineXlxoymzNVJDRTZFTJ6378-83-91 10:23:00 Test Item Value Reference Range Interpretation Comments Eosinophils # (test code 0.1 See_Comment [A utomated message] The = Eosinophils #) system whic h generated this result tra nsmitted reference range : <=0.5. The reference r olu was not used to int erpret this result as normal/abnormal . [facility]vineXjxqqwoJXTTBAGAIC4514-66-68 10:23:00 Test Item Value Reference Range Interpretation Comments Neutrophils # (test code = Neutrophils 4.9 1.5-8.1 #) [facility]vineNuemdmuMWFFRXNPBR5783-32-08 10:23:00 Test Item Value Reference Range Interpretation Comments Lymphocytes # (test code = Lymphocytes 1.5 1.0-5.5 #) [facility]vineDcjgrvaMQLUFKKIHV9530-74-96 10:23:00 Test Item Value Reference Range Interpretation Comments Monocytes # (test code 0.7 See_Comment [Aut omated message] The = Monocytes #) system which generated this result tra nsmitted reference range : <=0.8. The reference r olu was not used to int erpret this result as normal/abnormal . [facility]vineVixftpjIADQFIBARE9130-55-57 10:23:00 Test Item Value Reference Range Interpretation Comments RBC (test code = RBC) 3.65 4.20-5.40 [facility] [place]vineScgagfuOGEVZAMPMW0356-98-43 10:23:00 Test Item Value Reference Range Interpretation Comments Hgb (test code = Hgb) 11.1 12.0-16.0 [facility]rapevineUpeclidZNWQPEHTJT6390-13-81 10:23:00 Test Item Value Reference Range Interpretation Comments Platelet (test code = Platelet) 158 133-450 [facility] [place]rapevineUltcyrdSKSKVCRNSP0959-99-56 10:23:00 Test Item Value Reference Range Interpretation Comments RDW (test code = RDW) 14.5 11.5-14.5 [facility]vineGcgcwmkUZBQCTUDXH6391-06-50 10:23:00 Test Item Value Reference Range Interpretation Comments MCV (test code = MCV) 90.8 80.0-98.0 [facility] [place]vineTpvgxdqYRCJLVOMRR7886-70-27 10:23:00 Test Item Value Reference Range Interpretation Comments MCH (test code = MCH) 30.4 pg 27.0-31.0 [facility]rapevineBtricyiEKDLZEZOJY3889-91-03 10:23:00 Test Item Value Reference Range Interpretation Comments MPV (test code = MPV) 9.5 7.4-10.4 [facility]vineAmsobdtOFEYOBPPLR6629-11-94 10:23:00 Test Item Value Reference Range Interpretation Comments Hct (test code = Hct) 33.1 36.0-48.0 [facility]rapevineOonklvcTFCUCXFLGT8221-35-26 10:23:00 Test Item Value Reference Range Interpretation Comments WBC (test code = WBC) 7.1 3.7-10.4 [facility]rapevineExhipwcJAZIBEAQZU0848-41-59 10:23:00 Test Item Value Reference Range Interpretation Comments MCHC (test code = MCHC) 33.5 32.0-36.0 [facility]rapevineOkezqljXPYTSAMZJD9694-10-29 10:23:00 Test Item Value Reference Range Interpretation Comments Segs (test code = Segs) 68.7 45.0-75.0 [facility]rapevineUkejmunEWRJZMNNZG8035-32-30 10:23:00 Test Item Value Reference Range Interpretation Comments Lymphocytes (test code = Lymphocytes) 20.3 20.0-40.0 [facility]rapevineQmmvjyiPKULEGMMBW0913-48-07 10:23:00 Test Item Value Reference Range Interpretation Comments Monocytes (test code = Monocytes) 9.2 2.0-12.0 [facility]rapevineZotrqfeBYQUIYNSKX9043-49-86 10:23:00 Test Item Value Reference Range Interpretation Comments Eosinophils (test code = 1.3 See_Comment [A utomated message] The Eosinophils) system which ge nerated this result tra nsmitted reference range : <=4.0. The reference r olu was not used to int erpret this result as normal/abnormal . [facility]vineAsvvakwXFFBYZLHAJ4176-90-14 10:23:00 Test Item Value Reference Range Interpretation Comments Basophils (test code = 0.5 See_Comment [Aut omated message] The Basophils) system which ge nerated this result tra nsmitted reference range : <=1.0. The reference r olu was not used to int erpret this result as normal/abnormal . [facility]rapevineFlhwlcyUQWAUANZAP3019-36-94 10:23:00 Test Item Value Reference Range Interpretation Comments Eosinophils # (test code 0.1 See_Comment [A utomated message] The = Eosinophils #) system whic h generated this result tra nsmitted reference range : <=0.5. The reference r olu was not used to int erpret this result as normal/abnormal . [facility]rapevineFrakgqtWYULTJOIVL5005-31-04 10:23:00 Test Item Value Reference Range Interpretation Comments Neutrophils # (test code = Neutrophils 4.9 1.5-8.1 #) [id number] 10:23:00 Test Item Value Reference Range Interpretation Comments Lymphocytes # (test code = Lymphocytes 1.5 1.0-5.5 #) [facility]vineKliwrplJXLBFZMJID2200-24-07 10:23:00 Test Item Value Reference Range Interpretation Comments Monocytes # (test code 0.7 See_Comment [Aut omated message] The = Monocytes #) system which generated this result tra nsmitted reference range : <=0.8. The reference r olu was not used to int erpret this result as normal/abnormal . [facility]vineYtuemgzBHCQAVBVAQ1687-11-53 10:23:00 Test Item Value Reference Range Interpretation Comments RBC (test code = RBC) 3.65 4.20-5.40 [facility]vineSvnxxisKSQBYVTLDW3061-70-25 10:23:00 Test Item Value Reference Range Interpretation Comments Hgb (test code = Hgb) 11.1 12.0-16.0 [facility]vineJcmvjzsHXMUUBVGPE5728-20-65 10:23:00 Test Item Value Reference Range Interpretation Comments Platelet (test code = Platelet) 158 133-450 [facility]rapevineAgrqmywUDOIBEURGB6092-91-43 10:23:00 Test Item Value Reference Range Interpretation Comments RDW (test code = RDW) 14.5 11.5-14.5 [facility]vineMegmviwNPYPADRWGJ6403-85-32 10:23:00 Test Item Value Reference Range Interpretation Comments MCV (test code = MCV) 90.8 80.0-98.0 [facility]rapevineQaslpuyPPGPACQISK3274-28-78 10:23:00 Test Item Value Reference Range Interpretation Comments MCH (test code = MCH) 30.4 pg 27.0-31.0 [facility]vineEuvtxblJJRLRAORLU0207-58-93 10:23:00 Test Item Value Reference Range Interpretation Comments MPV (test code = MPV) 9.5 7.4-10.4 [facility]vineMuqbqndNJPOYWNDVF6588-05-23 10:23:00 Test Item Value Reference Range Interpretation Comments Hct (test code = Hct) 33.1 36.0-48.0 [facility]vineAvaerfxVKNCJIYICJ1059-32-58 10:23:00 Test Item Value Reference Range Interpretation Comments WBC (test code = WBC) 7.1 3.7-10.4 [facility]vineXiuhfguDLSERMVNOJ7183-50-95 10:23:00 Test Item Value Reference Range Interpretation Comments MCHC (test code = MCHC) 33.5 32.0-36.0 [facility]vineKrbfwuyVIFBYOUFOO3090-24-93 10:23:00 Test Item Value Reference Range Interpretation Comments Segs (test code = Segs) 68.7 45.0-75.0 [facility]rapevineLjnfrgyDKXQYBHZXZ8144-38-71 10:23:00 Test Item Value Reference Range Interpretation Comments Lymphocytes (test code = Lymphocytes) 20.3 20.0-40.0 [facility]vineQjdfqeiTBRUSCAJLF1473-80-91 10:23:00 Test Item Value Reference Range Interpretation Comments Monocytes (test code = Monocytes) 9.2 2.0-12.0 [facility]vineGrrpvaoLZIGJMFLDL8107-88-60 10:23:00 Test Item Value Reference Range Interpretation Comments Eosinophils (test code = 1.3 See_Comment [A utomated message] The Eosinophils) system which ge nerated this result tra nsmitted reference range : <=4.0. The reference r olu was not used to int erpret this result as normal/abnormal . [facility]vineRhjgfjgYVCNAFIZGU9162-20-80 10:23:00 Test Item Value Reference Range Interpretation Comments Basophils (test code = 0.5 See_Comment [Aut omated message] The Basophils) system which ge nerated this result tra nsmitted reference range : <=1.0. The reference r olu was not used to int erpret this result as normal/abnormal . [facility]vineTawopniKVYLIDFDHR7888-45-92 10:23:00 Test Item Value Reference Range Interpretation Comments Eosinophils # (test code 0.1 See_Comment [A utomated message] The = Eosinophils #) system [facility] generated this result tra nsmitted reference range : <=0.5. The reference r olu was not used to int erpret this result as normal/abnormal . [facility]vinePtbefrlOLPWORCPLH4852-04-17 10:23:00 Test Item Value Reference Range Interpretation Comments Neutrophils # (test code = Neutrophils 4.9 1.5-8.1 #) [facility]vineLcrdjzdOWSUQJRMVQ8537-91-61 10:23:00 Test Item Value Reference Range Interpretation Comments Lymphocytes # (test code = Lymphocytes 1.5 1.0-5.5 #) [facility]vineDlmvtvjZITYDJJQJZ1414-78-76 10:23:00 Test Item Value Reference Range Interpretation Comments Monocytes # (test code 0.7 See_Comment [Aut omated message] The = Monocytes #) system which generated this result tra nsmitted reference range : <=0.8. The reference r olu was not used to int erpret this result as normal/abnormal . [facility]vineEsumvmwIVICXLYTSL5828-17-16 10:23:00 Test Item Value Reference Range Interpretation Comments RBC (test code = RBC) 3.65 4.20-5.40 [facility]rapevineHuoghuoUSRIKBCQAE5901-89-29 10:23:00 Test Item Value Reference Range Interpretation Comments Hgb (test code = Hgb) 11.1 12.0-16.0 [facility]vineYfyaczoCTJYADRMES5767-13-74 10:23:00 Test Item Value Reference Range Interpretation Comments Platelet (test code = Platelet) 158 133-450 [facility]rapevineZhtmvxyOGIAJNZYHU0163-83-07 10:23:00 Test Item Value Reference Range Interpretation Comments RDW (test code = RDW) 14.5 11.5-14.5 [facility]vineJanyqexJKNZUDQSTR4116-58-25 10:23:00 Test Item Value Reference Range Interpretation Comments MCV (test code = MCV) 90.8 80.0-98.0 [facility]vineMqllfrrFQAVNSJVUL7443-69-67 10:23:00 Test Item Value Reference Range Interpretation Comments MCH (test code = MCH) 30.4 pg 27.0-31.0 [facility]rapevineZxltjzxSROSLAFBNR8591-39-33 10:23:00 Test Item Value Reference Range Interpretation Comments MPV (test code = MPV) 9.5 7.4-10.4 [facility]vineDtiewncQORVLTYICL0463-92-49 10:23:00 Test Item Value Reference Range Interpretation Comments Hct (test code = Hct) 33.1 36.0-48.0 [facility]vineCghvfruSUGYJXMQTF1873-83-18 10:23:00 Test Item Value Reference Range Interpretation Comments WBC (test code = WBC) 7.1 3.7-10.4 [facility]vineEsehooxUJXGSFJIWN6942-11-64 10:23:00 Test Item Value Reference Range Interpretation Comments MCHC (test code = MCHC) 33.5 32.0-36.0 [facility]rapevineYynmawlALSVZQCGIM8516-77-12 10:23:00 Test Item Value Reference Range Interpretation Comments Segs (test code = Segs) 68.7 45.0-75.0 [facility]vineOgnqvcgQVGZMOEGTU5382-77-65 10:23:00 Test Item Value Reference Range Interpretation Comments Lymphocytes (test code = Lymphocytes) 20.3 20.0-40.0 [facility]vineKjyfzviOOWVDNTIWZ2957-23-89 10:23:00 Test Item Value Reference Range Interpretation Comments Monocytes (test code = Monocytes) 9.2 2.0-12.0 [facility]rapevineDydiodoMGXQXGEXDF9945-86-18 10:23:00 Test Item Value Reference Range Interpretation Comments Eosinophils (test code = 1.3 See_Comment [A utomated message] The Eosinophils) system which ge nerated this result tra nsmitted reference range : <=4.0. The reference r olu was not used to int erpret this result as normal/abnormal . [facility]rapevineDbydbpcXXCLJXDIVE1856-34-09 10:23:00 Test Item Value Reference Range Interpretation Comments Basophils (test code = 0.5 See_Comment [Aut omated message] The Basophils) system which ge nerated this result tra nsmitted reference range : <=1.0. The reference r olu was not used to int erpret this result as normal/abnormal . [facility]vineKcbfwowFXMNZUZNPK8348-07-31 10:23:00 Test Item Value Reference Range Interpretation Comments Eosinophils # (test code 0.1 See_Comment [A utomated message] The = Eosinophils #) system whic h generated this result tra nsmitted reference range : <=0.5. The reference r olu was not used to int erpret this result as normal/abnormal . [facility]vineNvsqcfpCDQDRKEUQA1619-19-37 10:23:00 Test Item Value Reference Range Interpretation Comments Neutrophils # (test code = Neutrophils 4.9 1.5-8.1 #) [facility]vineKewvpylGHQSFZINIL5676-79-85 10:23:00 Test Item Value Reference Range Interpretation Comments Lymphocytes # (test code = Lymphocytes 1.5 1.0-5.5 #) [facility]vineOtektepACRHBLOBJO3616-02-40 10:23:00 Test Item Value Reference Range Interpretation Comments Monocytes # (test code 0.7 See_Comment [Aut omated message] The = Monocytes #) system which generated this result tra nsmitted reference range : <=0.8. The reference r olu was not used to int erpret this result as normal/abnormal . [facility] AND [id number] 15:53:00 Test Item Value Reference Range Interpretation Comments UA Glucose (test code Negative (06/17/18 9:53 = UA Glucose) AM) [facility] AND [id number] 15:53:00 Test Item Value Reference Range Interpretation Comments UA Protein (test code Negative (06/17/18 9:53 = UA Protein) AM) [facility] AND [id number] 15:53:00 Test Item Value Reference Range Interpretation Comments UA Bili (test code = Negative *NA*(06/17/18 UA Bili) 9:53 AM) [facility] AND [id number] 15:53:00 Test Item Value Reference Range Interpretation Comments UA Ketones (test code Negative *NA*(06/17/18 = UA Ketones) 9:53 AM) [facility] AND [id number] 15:53:00 Test Item Value Reference Range Interpretation Comments UA pH (test code = UA pH) 6.0 1 5.0-8.0 [facility] AND [id number] 15:53:00 Test Item Value Reference Range Interpretation Comments UA Spec Grav (test code = UA Spec 1.020 1 Grav) [facility] AND [id number] 15:53:00 Test Item Value Reference Range Interpretation Comments UA Leuk Est (test Negative (06/17/18 9:53 code = UA Leuk Est) AM) [facility] AND [id number] 15:53:00 Test Item Value Reference Range Interpretation Comments UA WBC (test code = 1 See_Comment [Automa светлана message] The UA WBC) system which ge nerated this result transmit светлана reference range : <=5. The reference range was not used to interpr et this result as luci l/abnormal. [facility] AND [id number] 15:53:00 Test Item Value Reference Range Interpretation Comments UA Blood (test code = Small *ABN*(06/17/18 UA Blood) 9:53 AM) [facility] AND [id number] 15:53:00 Test Item Value Reference Range Interpretation Comments UA Nitrite (test code Negative (06/17/18 9:53 = UA Nitrite) AM) [facility] AND [id number] 15:53:00 Test Item Value Reference Range Interpretation Comments UA Sq Epi (test code = [facility]A Sq Occasional /LPF Epi) [facility] [id number] 15:53:00 Test Item Value Reference Range Interpretation Comments UA Urobilinogen (test code = UA 0.2 0.1-1.0 Urobilinogen) [facility] [id number] 15:53:00 Test Item Value Reference Range Interpretation Comments UA Bacteria (test code = UA Occasional /HPF Bacteria) [facility] [id number] 15:53:00 Test Item Value Reference Range Interpretation Comments UA RBC (test code = 3 See_Comment [Automa светлана message] The UA RBC) system which ge nerated this result transmit светлана reference range : <=2. The reference range was not used to interpr et this result as luci l/abnormal. [facility] [id number] 15:53:00 Test Item Value Reference Range Interpretation Comments UA Turbidity (test code = Clear (06/17/18 9:53 UA Turbidity) AM) [facility] [id number] 15:53:00 Test Item Value Reference Range Interpretation Comments UA Color (test code = Yellow *NA*(06/17/18 UA Color) 9:53 AM) [facility] [id number] 15:53:00Negative (06/17/18 9:53 AM) [facility] [id number] 15:53:00Negative (06/17/18 9:53 AM) [facility] [id number] 15:53:00Negative *NA*(06/17/18 9:53 AM) [facility] [id number] 15:53:00Negative *NA*(06/17/18 9:53 AM) [facility] [id number] 15:53:00 Test Item Value Reference Range Interpretation Comments UA pH (test code = UA pH) 6.0 1 5.0-8.0 [facility] [id number] 15:53:00 Test Item Value Reference Range Interpretation Comments UA Spec Grav (test code = UA Spec 1.020 1 Grav) [facility] [id number] 15:53:00Negative (06/17/18 9:53 AM) [facility] [id number] 15:53:001[facility] [id number] 15:53:00Small *ABN*(06/17/18 9:53 AM)[facility] [id number] 15:53:00Negative (06/17/18 9:53 AM)[facility] [id number] 15:53:000.2[facility] [id number] 15:53:003 [facility] [id number] 15:53:00Clear (06/17/18 9:53 AM) [facility] [id number] 15:53:00Yellow *NA*(06/17/18 9:53 AM) [facility] [id number] 15:53:00 Test Item Value Reference Range Interpretation Comments UA Glucose (test code Negative (06/17/18 9:53 = UA Glucose) AM) [facility] [id number] 15:53:00 Test Item Value Reference Range Interpretation Comments UA Protein (test code Negative (06/17/18 9:53 = UA Protein) AM) [facility] [id number] 15:53:00 Test Item Value Reference Range Interpretation Comments UA Bili (test code = Negative *NA*(06/17/18 UA Bili) 9:53 AM) [facility] [id number] 15:53:00 Test Item Value Reference Range Interpretation Comments UA Ketones (test code Negative *NA*(06/17/18 = UA Ketones) 9:53 AM) [facility] [id number] 15:53:00 Test Item Value Reference Range Interpretation Comments UA pH (test code = UA pH) 6.0 1 5.0-8.0 [facility] [id number] 15:53:00 Test Item Value Reference Range Interpretation Comments UA Spec Grav (test code = UA Spec 1.020 1 Grav) [facility] [id number] 15:53:00 Test Item Value Reference Range Interpretation Comments UA Leuk Est (test Negative (06/17/18 9:53 code = UA Leuk Est) AM) [facility] AND [id number] 15:53:00 Test Item Value Reference Range Interpretation Comments UA WBC (test code = 1 See_Comment [Automa светлана message] The UA WBC) system which ge nerated this result transmit светлана reference range : <=5. The reference range was not used to interpr et this result as luci l/abnormal. [facility] AND [id number] 15:53:00 Test Item Value Reference Range Interpretation Comments UA Blood (test code = Small *ABN*(06/17/18 UA Blood) 9:53 AM) [facility] AND [id number] 15:53:00 Test Item Value Reference Range Interpretation Comments UA Nitrite (test code Negative (06/17/18 9:53 = UA Nitrite) AM) [facility] AND [id number] 15:53:00 Test Item Value Reference Range Interpretation Comments UA Sq Epi (test code = UA Sq Occasional /LPF Epi) [facility] AND [id number] 15:53:00 Test Item Value Reference Range Interpretation Comments UA Urobilinogen (test code = UA 0.2 0.1-1.0 Urobilinogen) [facility] AND [id number] 15:53:00 Test Item Value Reference Range Interpretation Comments UA Bacteria (test code = UA Occasional /HPF Bacteria) [facility] AND [id number] 15:53:00 Test Item Value Reference Range Interpretation Comments UA RBC (test code = 3 See_Comment [Automa светлана message] The UA RBC) system which ge nerated this result transmit светлана reference range : <=2. The reference range was not used to interpr et this result as luci l/abnormal. [facility] AND [id number] 15:53:00 Test Item Value Reference Range Interpretation Comments UA Turbidity (test code = Clear (06/17/18 9:53 UA Turbidity) AM) [facility] AND [id number] 15:53:00 Test Item Value Reference Range Interpretation Comments UA Color (test code = Yellow *NA*(06/17/18 UA Color) 9:53 AM) [facility] AND [id number] 15:53:00 Test Item Value Reference Range Interpretation Comments UA Glucose (test code Negative (06/17/18 9:53 = UA Glucose) AM) [facility] AND [id number] 15:53:00 Test Item Value Reference Range Interpretation Comments UA Protein (test code Negative (06/17/18 9:53 = UA Protein) AM) [facility] AND [id number] 15:53:00 Test Item Value Reference Range Interpretation Comments UA Bili (test code = Negative *NA*(06/17/18 UA Bili) 9:53 AM) [facility] AND [id number] 15:53:00 Test Item Value Reference Range Interpretation Comments UA Ketones (test code Negative *NA*(06/17/18 = UA Ketones) 9:53 AM) [facility] AND [id number] 15:53:00 Test Item Value Reference Range Interpretation Comments UA pH (test code = UA pH) 6.0 1 5.0-8.0 [facility] AND [id number] 15:53:00 Test Item Value Reference Range Interpretation Comments UA Spec Grav (test code = UA Spec 1.020 1 Grav) [facility] AND [id number] 15:53:00 Test Item Value Reference Range Interpretation Comments UA Leuk Est (test Negative (06/17/18 9:53 code = UA Leuk Est) AM) [facility] AND [id number] 15:53:00 Test Item Value Reference Range Interpretation Comments UA WBC (test code = 1 See_Comment [Automa светлана message] The UA WBC) system which ge nerated this result transmit светлана reference range : <=5. The reference range was not used to interpr et this result as luci l/abnormal. [facility] AND [id number] 15:53:00 Test Item Value Reference Range Interpretation Comments UA Blood (test code = Small *ABN*(06/17/18 UA Blood) 9:53 AM) [facility] AND [id number] 15:53:00 Test Item Value Reference Range Interpretation Comments UA Nitrite (test code Negative (06/17/18 9:53 = UA Nitrite) AM) [facility] AND [id number] 15:53:00 Test Item Value Reference Range Interpretation Comments UA Sq Epi (test code = UA Sq Occasional /LPF Epi) [facility] AND [id number] 15:53:00 Test Item Value Reference Range Interpretation Comments UA Urobilinogen (test code = UA 0.2 0.1-1.0 Urobilinogen) [facility] AND [id number] 15:53:00 Test Item Value Reference Range Interpretation Comments UA Bacteria (test code = UA Occasional /HPF Bacteria) [facility] AND [id number] 15:53:00 Test Item Value Reference Range Interpretation Comments UA RBC (test code = 3 See_Comment [Automa светлана message] The UA RBC) system which ge nerated this result transmit светлана reference range : <=2. The reference range was not used to interpr et this result as luci l/abnormal. [facility] AND [id number] 15:53:00 Test Item Value Reference Range Interpretation Comments UA Turbidity (test code = Clear (06/17/18 9:53 UA Turbidity) AM) [facility] AND [id number] 15:53:00 Test Item Value Reference Range Interpretation Comments UA Color (test code = Yellow *NA*(06/17/18 UA Color) 9:53 AM) [facility] AND [id number] 15:53:00 Test Item Value Reference Range Interpretation Comments UA Glucose (test code Negative (06/17/18 9:53 = UA Glucose) AM) [facility] AND [id number] 15:53:00 Test Item Value Reference Range Interpretation Comments UA Protein (test code Negative (06/17/18 9:53 = UA Protein) AM) [facility] AND [id number] 15:53:00 Test Item Value Reference Range Interpretation Comments UA Bili (test code = Negative *NA*(06/17/18 UA Bili) 9:53 AM) [facility] AND [id number] 15:53:00 Test Item Value Reference Range Interpretation Comments UA Ketones (test code Negative *NA*(06/17/18 = UA Ketones) 9:53 AM) [facility] AND [id number] 15:53:00 Test Item Value Reference Range Interpretation Comments UA pH (test code = UA pH) 6.0 1 5.0-8.0 [facility] AND [id number] 15:53:00 Test Item Value Reference Range Interpretation Comments UA Spec Grav (test code = UA Spec 1.020 1 Grav) [facility] AND [id number] 15:53:00 Test Item Value Reference Range Interpretation Comments UA Leuk Est (test Negative (06/17/18 9:53 code = UA Leuk Est) AM) [facility] AND [id number] 15:53:00 Test Item Value Reference Range Interpretation Comments UA WBC (test code = 1 See_Comment [Automa светлана message] The UA WBC) system which ge nerated this result transmit светлана reference range : <=5. The reference range was not used to interpr et this result as luci l/abnormal. [facility] AND [id number] 15:53:00 Test Item Value Reference Range Interpretation Comments UA Blood (test code = Small *ABN*(06/17/18 UA Blood) 9:53 AM) [facility] AND [id number] 15:53:00 Test Item Value Reference Range Interpretation Comments UA Nitrite (test code Negative (06/17/18 9:53 = UA Nitrite) AM) [facility] AND [id number] 15:53:00 Test Item Value Reference Range Interpretation Comments UA Sq Epi (test code = UA Sq Occasional /LPF Epi) [facility] AND [id number] 15:53:00 Test Item Value Reference Range Interpretation Comments UA Urobilinogen (test code = UA 0.2 0.1-1.0 Urobilinogen) [facility] AND [id number] 15:53:00 Test Item Value Reference Range Interpretation Comments UA Bacteria (test code = UA Occasional /HPF Bacteria) [facility] AND [id number] 15:53:00 Test Item Value Reference Range Interpretation Comments UA RBC (test code = 3 See_Comment [Automa светлана message] The UA RBC) system which ge nerated this result transmit светлана reference range : <=2. The reference range was not used to interpr et this result as luci l/abnormal. [facility] AND [id number] 15:53:00 Test Item Value Reference Range Interpretation Comments UA Turbidity (test code = Clear (06/17/18 9:53 UA Turbidity) AM) [facility] AND [id number] 15:53:00 Test Item Value Reference Range Interpretation Comments UA Color (test code = Yellow *NA*(06/17/18 UA Color) 9:53 AM) [facility] AND [id number] 15:53:00 Test Item Value Reference Range Interpretation Comments UA Glucose (test code Negative (06/17/18 9:53 = UA Glucose) AM) [facility] AND [id number] 15:53:00 Test Item Value Reference Range Interpretation Comments UA Protein (test code Negative (06/17/18 9:53 = UA Protein) AM) [facility] AND [id number] 15:53:00 Test Item Value Reference Range Interpretation Comments UA Bili (test code = Negative *NA*(06/17/18 UA Bili) 9:53 AM) [facility] AND [id number] 15:53:00 Test Item Value Reference Range Interpretation Comments UA Ketones (test code Negative *NA*(06/17/18 = UA Ketones) 9:53 AM) [facility] AND [id number] 15:53:00 Test Item Value Reference Range Interpretation Comments UA pH (test code = UA pH) 6.0 1 5.0-8.0 [facility] AND [id number] 15:53:00 Test Item Value Reference Range Interpretation Comments UA Spec Grav (test code = UA Spec 1.020 1 Grav) [facility] AND [id number] 15:53:00 Test Item Value Reference Range Interpretation Comments UA Leuk Est (test Negative (06/17/18 9:53 code = UA Leuk Est) AM) [facility] AND [id number] 15:53:00 Test Item Value Reference Range Interpretation Comments UA WBC (test code = 1 See_Comment [Automa светлана message] The UA WBC) system which ge nerated this result transmit светлана reference range : <=5. The reference range was not used to interpr et this result as luci l/abnormal. [facility] AND [id number] 15:53:00 Test Item Value Reference Range Interpretation Comments UA Blood (test code = Small *ABN*(06/17/18 UA Blood) 9:53 AM) [facility] AND [id number] 15:53:00 Test Item Value Reference Range Interpretation Comments UA Nitrite (test code Negative (06/17/18 9:53 = UA Nitrite) AM) [facility] AND [id number] 15:53:00 Test Item Value Reference Range Interpretation Comments UA Sq Epi (test code = UA Sq Occasional /LPF Epi) [facility] AND [id number] 15:53:00 Test Item Value Reference Range Interpretation Comments UA Urobilinogen (test code = UA 0.2 0.1-1.0 Urobilinogen) [facility] AND [id number] 15:53:00 Test Item Value Reference Range Interpretation Comments UA Bacteria (test code = UA Occasional /HPF Bacteria) [facility] AND [id number] 15:53:00 Test Item Value Reference Range Interpretation Comments UA RBC (test code = 3 See_Comment [Automa светлана message] The UA RBC) system which ge nerated this result transmit светлана reference range : <=2. The reference range was not used to interpr et this result as luci l/abnormal. [facility] AND [id number] 15:53:00 Test Item Value Reference Range Interpretation Comments UA Turbidity (test code = Clear (06/17/18 9:53 UA Turbidity) AM) [facility] AND [id number] 15:53:00 Test Item Value Reference Range Interpretation Comments UA Color (test code = Yellow *NA*(06/17/18 UA Color) 9:53 AM) [facility] AND [id number] 15:53:00 Test Item Value Reference Range Interpretation Comments UA Glucose (test code Negative (06/17/18 9:53 = UA Glucose) AM) [facility] AND [id number] 15:53:00 Test Item Value Reference Range Interpretation Comments UA Protein (test code Negative (06/17/18 9:53 = UA Protein) AM) [facility] AND [id number] 15:53:00 Test Item Value Reference Range Interpretation Comments UA Bili (test code = Negative *NA*(06/17/18 UA Bili) 9:53 AM) [facility] AND [id number] 15:53:00 Test Item Value Reference Range Interpretation Comments UA Ketones (test code Negative *NA*(06/17/18 = UA Ketones) 9:53 AM) [facility] AND [id number] 15:53:00 Test Item Value Reference Range Interpretation Comments UA pH (test code = UA pH) 6.0 1 5.0-8.0 [facility] AND [id number] 15:53:00 Test Item Value Reference Range Interpretation Comments UA Spec Grav (test code = UA Spec 1.020 1 Grav) [facility] AND [id number] 15:53:00 Test Item Value Reference Range Interpretation Comments UA Leuk Est (test Negative (06/17/18 9:53 code = UA Leuk Est) AM) [facility] AND [id number] 15:53:00 Test Item Value Reference Range Interpretation Comments UA WBC (test code = 1 See_Comment [Automa светлана message] The UA WBC) system which ge nerated this result transmit светлана reference range : <=5. The reference range was not used to interpr et this result as luci l/abnormal. [facility] AND [id number] 15:53:00 Test Item Value Reference Range Interpretation Comments UA Blood (test code = Small *ABN*(06/17/18 UA Blood) 9:53 AM) [facility] AND [id number] 15:53:00 Test Item Value Reference Range Interpretation Comments UA Nitrite (test code Negative (06/17/18 9:53 = UA Nitrite) AM) [facility] AND [id number] 15:53:00 Test Item Value Reference Range Interpretation Comments UA Sq Epi (test code = UA Sq Occasional /LPF Epi) [facility] AND [id number] 15:53:00 Test Item Value Reference Range Interpretation Comments UA Urobilinogen (test code = UA 0.2 0.1-1.0 Urobilinogen) [facility] AND [id number] 15:53:00 Test Item Value Reference Range Interpretation Comments UA Bacteria (test code = UA Occasional /HPF Bacteria) [facility] AND [id number] 15:53:00 Test Item Value Reference Range Interpretation Comments UA RBC (test code = 3 See_Comment [Automa светлана message] The UA RBC) system which ge nerated this result transmit светлана reference range : <=2. The reference range was not used to interpr et this result as luci l/abnormal. [facility] AND [id number] 15:53:00 Test Item Value Reference Range Interpretation Comments UA Turbidity (test code = Clear (06/17/18 9:53 UA Turbidity) AM) [facility] [id number] 15:53:00 Test Item Value Reference Range Interpretation Comments UA Color (test code = Yellow *NA*(06/17/18 UA Color) 9:53 AM) [facility] [id number] 15:36:00 Test Item Value Reference Range Interpretation Comments Antibody Scrn (test Negative (06/17/18 9:36 code = Antibody Scrn) AM) [facility] [id number] 15:36:00 Test Item Value Reference Range Interpretation Comments ABO/Rh (test code = ABO/Rh) A POS [facility] [id number] 15:36:00 Test Item Value Reference Range Interpretation Comments Hgb A1C (test code = Hgb A1C) 6.7 [facility] [id number] 15:36:00Negative (06/17/18 9:36 AM) [facility]2019-02-28 15:36:006.[facility] [id number] 15:36:00 Test Item Value Reference Range Interpretation Comments Antibody Scrn (test Negative (06/17/18 9:36 code = Antibody Scrn) AM) [facility] [id number] 15:36:00 Test Item Value Reference Range Interpretation Comments ABO/Rh (test code = ABO/Rh) [facility] [id number] 15:36:00 Test Item Value Reference Range Interpretation Comments Hgb A1C (test code = Hgb A1C) 6.7 [facility] [id number] 15:36:00 Test Item Value Reference Range Interpretation Comments Antibody Scrn (test Negative (06/17/18 9:36 code = Antibody Scrn) AM) [facility] [id number] 15:36:00 Test Item Value Reference Range Interpretation Comments ABO/Rh (test code = ABO/Rh) [facility] [id number] 15:36:00 Test Item Value Reference Range Interpretation Comments Hgb A1C (test code = Hgb A1C) 6.7 [employer] [id number] 15:36:00 Test Item Value Reference Range Interpretation Comments Antibody Scrn (test Negative (06/17/18 9:36 code = Antibody Scrn) AM) [employer] [id number] 15:36:00 Test Item Value Reference Range Interpretation Comments ABO/Rh (test code = ABO/Rh) [facility] [id number] 15:36:00 Test Item Value Reference Range Interpretation Comments Hgb A1C (test code = Hgb A1C) 6.7 [employer] [id number] 15:36:00 Test Item Value Reference Range Interpretation Comments Antibody Scrn (test Negative (06/17/18 9:36 code = Antibody Scrn) AM) [employer] [id number] 15:36:00 Test Item Value Reference Range Interpretation Comments ABO/Rh (test code = ABO/Rh) [facility] [id number] 15:36:00 Test Item Value Reference Range Interpretation Comments Hgb A1C (test code = Hgb A1C) 6.7 [employer] [id number] 15:36:00 Test Item Value Reference Range Interpretation Comments Antibody Scrn (test Negative (06/17/18 9:36 code = Antibody Scrn) AM) [employer] [id number] 15:36:00 Test Item Value Reference Range Interpretation Comments ABO/Rh (test code = ABO/Rh) [facility] [id number] 15:36:00 Test Item Value Reference Range Interpretation Comments Hgb A1C (test code = Hgb A1C) 6.7 [facility] [place] [employer] Date/Time Note Provider Source 2018-06-22 09:18:00-00:00 Patient Name: AJAY CORTEZ [facility] : 1940; Age: 78 years y/o Female MR: [id number] PELVIS, 1 view, portable, postoperative HISTORY: Postoperative study, following left hip arthroplasty. TECHNIQUE: A single portable postoperative frontal view of the pelvis was obtained. IMPRESSION: The left total hip prosthesi s is in good position. There is no evidence of unexpected fracture or other complication. There is postoperative soft tissue gas. The right hip prosthesis is also noted. SL: [id number] 2018-06-22 08:15:00-00:00 Patient Name: AJAY CORTEZ [facility] : 1940; Age: 78 years y/o Female MR: [id number] * PELVIS, 1 view, intraoperative HISTORY: Intraoperative radiograph obtained duri left hip arthroplasty. TECHNIQUE: A single portable intraoperative frontal view of the pelvis was obtained. IMPRESSION: There has been resection of the left femoral head and neck. The acetabular component has been placed. There is a femoral sizing component. There is no evidence of unexpected fracture. There is operative soft tissue gas. A right hip prosthesis is noted. SL: [id number]
[2022-10-14] MEDS ORDERED: ONDANSETRON 4 MG/2 ML VIAL ONE (20:02)
[2022-10-14] MEDS ORDERED: FAMOTIDINE 20 MG/2 ML VIAL IV ONE (20:02)
[2022-10-14 20:12] LABS: Absolute Lymphocytes (CBC) 0.7 K/uL (0.7-4.9); Hematocrit 40.7 % (36.0-45.0); Lymphocytes % 2.6 % (15.3-44.8); MCV 91.9 fL (80-100); MPV 9.1 fL (7.6-11.3); RBC Red Blood Cell Count 4.43 M/uL (3.86-4.86)
[2022-10-14] MEDS ORDERED: DICYCLOMINE HCL 20 MG/2 ML AMP IM ONE (20:20)
[2022-10-14 20:27] LABS: Albumin 3.3 g/dL (3.4-5.0); Bilirubin Total 0.8 mg/dL (0.2-1.0); Potassium 3.7 mEq/L (3.5-5.1)
[2022-10-14 21:15] LABS: Specific Gravity 1.024 (1.005-1.030); Urine Bacteria 20-50 /HPF (<20); Urine Bilirubin NEGATIVE (Negative); Urine Blood 3+ (OVER) (Negative); Urine Clarity Extremely Turbid (Clear); Urine Color Yellow (Yellow); Urine Crystals Unidentified Few /HPF (None Seen); Urine Glucose NEGATIVE (Negative); Urine Mucus Slight /HPF (None Seen); Urine Protein 1+ (Negative); Urine RBC >50 /HPF (None Seen); Urine Urobilinogen Normal (Normal); Urine WBC Clump Occasional /HPF (None Seen)
--- NOTE | 2022-10-14 21:25 | RAD REPORT ---
EXAM DESCRIPTION: Liort Single View10/14/2022 9:12 pm CLINICAL HISTORY: ABDOMINAL DISTENTION COMPARISON: Chest Pa And Lat (2 Views) dated 02/25/2020; Chest Single View dated 08/30/2019; Chest Pa And Lat (2 Views) dated 05/28/2018; Chest Single View dated 10/01/2016 TECHNIQUE: Portable AP view of the chest. FINDINGS: Stable patchy left basilar opacification, could reflect atelectasis. No new focal airspace opacity. No pneumothorax or effusion. The cardiomediastinal contours are unremarkable. IMPRESSION: Stable left basilar opacification as above.
--- NOTE | 2022-10-14 21:38 | RAD REPORT ---
EXAM DESCRIPTION: CT - Abdomen Pelvis Wo Contrast - 10/14/2022 9:07 pm CLINICAL HISTORY: Abd pain;Abdominal distention COMPARISON: Abdomen Pelvis W Contrast dated 04/01/2018; Abdomen Pelvis W Contrast dated 06/22/2016 TECHNIQUE: Thin cut axial CT imaging of the abdomen and pelvis was performed without IV contrast. Mu ltiplanar reformats were generated and reviewed. All CT scans are performed using dose optimization technique as appropriate and may include automated exposure control or mA/KV adjustment according to patient size. FINDINGS: No suspicious findings in the lung bases. The liver, spleen, and pancreas show no suspicious findings. Gallbladder is mildly decompressed with mildly hyperdense sludge present Symmetric renal contour, without suspicious parenchymal findings within limits of noncontrast techniq ue. Mild left hydroureteronephrosis. Marked beam hardening artifact along the pelvis related to bilateral hip arthroplasty hardware. Suspected 3 millimeter calculus which may course of the distal left urete r, not well evaluated given the artifact. 2 millimeter nonobstructing calculus at the left lower pole . No radiopaque calculi or hydroureteronephrosis on the right. No dilated bowel loops or bowel wall thickening. Colonic diverticulosis. No free air, free fluid or i nflammatory stranding. No hernia, mass or bulky lymphadenopathy. The urinary bladder is decompressed, limiting evaluation. No suspicious bony findings. IMPRESSION: Mild hydroureteronephrosis, could be related to a distal left ureteric calcific focus wh ich may be along the course of the left ureter, measured at 3 millimeter. Marked beam hardening artif act related to bilateral hip arthroplasty hardware limits evaluation. Other incidental findings as above, including a nonobstructing left lower pole 2 millimeter calculus. The findings were communicated to Beau Moore on 10/14/2022 at 21:33 hours.
[2022-10-14] MEDS ORDERED: NA CHLORIDE 0.9% 500 ML ONE (22:16)
[2022-10-14] MEDS ORDERED: NA CHLORIDE 0.9% 100 ML ONE (22:30)
[2022-10-14] MEDS ORDERED: Meropenem 1000 MG/VIAL IV ONE (22:30)
--- NOTE | 2022-10-14 22:34 | ER ---
Nurse's Notes [facility] Name: Aida Robertson Age: 82 yrs Sex: Female : 1940 Arrival Date: 10/14/2022 Time: 19:26 Bed 8 Private MD: Diagnosis: Acute kidney failure, unspecified;UTI/ Urinary tract infection, site not specified;Sepsis, unspecified organism Presentation: 10/14 19:39 Chief complaint: EMS states: Toned out for nausea, bloating, and abdominal pain, pt ll3 states symptoms began 3-4 days ago with N/V/D, denies diarrhea today, states pain is 7/10. Coronavirus screen: Vaccine status: Patient reports receiving the 2nd dose of the covid vaccine. nausea, vomiting. Ebola Screen: No symptoms or risks identified at this time. Initial Sepsis Screen: Does the patient meet any 2 criteria? HR > 90 bpm. Yes Does the patient have a suspected source of infection? No. Patient's initial sepsis screen is negative. Risk Assessment: Do you want to hurt yourself or someone else? Patient reports no desire to harm self or others. Onset of symptoms was October 11, 2022. Care prior to arrival: Medication(s) given: zofran 4 mg, IV initiated. 20 GA, in the left forearm. 19:39 Method Of Arrival: EMS: [facility] ll3 19:39 Acuity: MIRAN 3 ll3 Triage Assessment: 19:42 General: Appears uncomfortable, Behavior is calm, cooperative. Pain: Complains of pain ll3 in abdomen Pain does not radiate. Pain currently is 7 out of 10 on a pain scale. Quality of pain is described as crampy, Pain began 2-3 days ago. Is continuous. Neuro: Level of Consciousness is awake, alert, obeys commands, Oriented to person, place, time, situation. GI: Abdomen is round distended, Reports lower abdominal pain, upper abdominal pain, bloating, diarrhea, nausea, vomiting. Derm: Skin is pink, warm \T\ dry. Historical: - Allergies: 19:42 Aspirin; ll3 19:42 Vancomycin; sensitivity; ll3 - PMHx: 19:42 Arthritis; breast cancer; c-pap; Diabetes - NIDDM; Glaucoma; Hyperlipidemia; ll3 Hypertension; Internal Shingles; Lymphadema Right Arm; lymphedema to R arm s/p breast cancer radiation; Migraines; scoliosis; - Immunization history:: Client reports receiving the 2nd dose of the Covid vaccine. - Social history:: Smoking status: Patient denies any tobacco usage or history of. Screenin:36 [facility] ED Fall Risk Assessment (Adult) History of falling in the last 3 months, ll3 including since admission No falls in past 3 months (0 pts) Confusion or Disorientation No (0 pts) Intoxicated or Sedated No (0 pts) Impaired Gait No (0 pts) Mobility Assist Device Used No (0 pt) Altered Elimination No (0 pt) Score/Fall Risk Level 0 - 2 = Low Risk Oriented to surroundings, Maintained a safe environment, Educated pt \T\ family on fall prevention, incl call for assistance when getting out of bed. Abuse screen: Denies threats or abuse. Denies injuries from another. Nutritional screening: No deficits noted. Tuberculosis screening: No symptoms or risk factors identified. Assessment: 19:42 General: See triage assessment. ll3 20:35 Reassessment: Patient and/or family updated on plan of care and expected duration. Pain ha1 level reassessed. Patient is alert, oriented x 3, equal unlabored respirations, skin warm/dry/pink. 21:36 Reassessment: Patient and/or family updated on plan of care and expected duration. Pain ll3 level reassessed. Patient is alert, oriented x 3, equal unlabored respirations, skin warm/dry/pink. Patient states feeling better. Patient states symptoms have improved. 22:30 Reassessment: Patient and/or family updated on plan of care and expected duration. Pain ha1 level reassessed. Patient is alert, oriented x 3, equal unlabored respirations, skin warm/dry/pink. 23:30 Reassessment: Patient and/or family updated on plan of care and expected duration. Pain ha1 level reassessed. Patient is alert, oriented x 3, equal unlabored respirations, skin warm/dry/pink. 10/15 00:30 Reassessment: Patient and/or family updated on plan of care and expected duration. Pain ha1 level reassessed. Patient is alert, oriented x 3, equal unlabored respirations, skin warm/dry/pink. Patient states feeling better. Patient states symptoms have improved. 00:48 Reassessment: report given to ANNE Zheng. ha1 Vital Signs: 10/14 19:39 BP 131 / 74; Pulse 93; Resp 16; Temp 98.8(O); Pulse Ox 99% on R/A; Weight 68.04 kg (R); ll3 Height 5 ft. 0 in. (R); Pain 7/10; 20:15 BP 121 / 61; Pulse 91; Resp 17 S; Pulse Ox 98% ; ha1 21:36 BP 104 / 59; Pulse 98; Resp 18; Pulse Ox 97% on R/A; ll3 22:30 BP 107 / 55; Pulse 94; Resp 16 S; Pulse Ox 98% on R/A; ha1 23:30 BP 117 / 68; Pulse 93; Resp 16 S; Pulse Ox 98% on R/A; ha1 19:39 Body Mass Index 29.29 (68.04 kg, 152.4 cm) ll3 19:39 Pain Scale: Adult ll3 ED Course: 19:34 Patient arrived in ED. ha1 19:42 Beau Katz PA is PHCP. cp 19:42 Eliceo Gray MD is Attending Physician. cp 19:42 Triage completed. ll3 19:42 Arm band placed on Patient placed in an exam room, on a stretcher, on pulse oximetry. ll3 21:09 Abdomen In Process Unspecified. EDMS 21:14 XRAY Chest (1 view) In Process Unspecified. EDMS 21:36 Patient has correct armband on for positive identification. Bed in low position. Call ll3 light in reach. Side rails up X 1. Adult w/ patient. 22:11 Blood Culture Adult (2) Sent. ha1 22:11 Lactate w/ 2H reflex if indic. Sent. ha1 22:30 Noel Richardson MD is Hospitalizing Provider. cp 22:31 Blood Culture Adult (2) Sent. ha1 22:31 Lactate w/ 2H reflex if indic. Sent. ha1 22:31 Urine Culture Sent. 1 10/15 00:47 No provider procedures requiring assistance completed. Patient admitted, IV remains in ha1 place. Administered Medications: 10/14 20:01 Drug: Famotidine IVP 20 mg Route: IVP; Site: left forearm; ll3 20:01 Drug: Ondansetron IVP 4 mg Route: IVP; Site: left forearm; ll3 20:20 Drug: Dicyclomine IM 20 mg Route: IM; Site: right gluteus; ll3 22:11 Drug: NS 0.9% IV 500 ml Route: IV; Rate: 500 ml/hr; Site: left forearm; ha1 22:31 Drug: Meropenem IV 1 grams Route: IV; Rate: calculated rate; Site: left forearm; ha1 Medication: 10/15 00:48 VIS not applicable for this client. ha1 Outcome: 10/14 22:34 Decision to Hospitalize by Provider. robby 10/15 00:47 Admitted to Med/surg accompanied by nurse, via stretcher, room 211. ha1 Condition: stable Discharge instructions given to patient, family, Instructed on the need for admit, Demonstrated understanding of instructions. 01:07 Patient left the ED. ha1 Signatures: Dispatcher [employer] EDMS Beau Katz PA PA cp Loubet, Lynsea, RN RN 3 Casandra Loaiza RN RN ha1
--- NOTE | 2022-10-14 22:34 | EDPHYS ---
Physician Documentation [facility] Name: Aida Robertson Age: 82 yrs Sex: Female : 1940 Arrival Date: 10/14/2022 Time: 19:26 Bed 8 Private MD: ED Physician Eliceo Gray HPI: 10/14 20:00 This 82 yrs old Female presents to ER via EMS with complaints of Abdominal Distension, cp Nausea and Vomiting. 20:00 The patient presents with abdominal pain abdominal distention that is diffuse. The cp patient presents to the emergency department with nausea, with "dry heaves", vomiting, that is intermittent. Onset: The symptoms/episode began/occurred 2 day(s) ago. 20:00 Associated signs and symptoms: Pertinent positives: constipation, abdominal distention, cp Pertinent negatives: diarrhea, fever, GI bleeding. Historical: - Allergies: 19:42 Aspirin; ll3 19:42 Vancomycin; sensitivity; ll3 - PMHx: 19:42 Arthritis; breast cancer; c-pap; Diabetes - NIDDM; Glaucoma; Hyperlipidemia; ll3 Hypertension; Internal Shingles; Lymphadema Right Arm; lymphedema to R arm s/p breast cancer radiation; Migraines; scoliosis; - Immunization history:: Client reports receiving the 2nd dose of the Covid vaccine. - Social history:: Smoking status: Patient denies any tobacco usage or history of. ROS: 20:05 Constitutional: Positive for poor PO intake, Negative for fever. cp 20:05 Eyes: Negative for injury, pain, redness, and discharge. cp 20:05 ENT: Negative for drainage from ear(s), ear pain, sore throat, difficulty swallowing, difficulty handling secretions. 20:05 Cardiovascular: Negative for chest pain. 20:05 Respiratory: Negative for cough, shortness of breath, wheezing. 20:05 Abdomen/GI: Positive for abdominal pain, nausea and vomiting, constipation, abdominal distension, Negative for diarrhea, hematemesis, black/tarry stool, rectal bleeding. 20:05 Neuro: Negative for altered mental status, headache. 20:05 All other systems are negative. Exam: 20:10 Constitutional: The patient appears in no acute distress, alert, awake, cp non-diaphoretic, non-toxic, well developed, well nourished, uncomfortable. 20:10 Head/Face: Normocephalic, atraumatic. cp 20:10 Eyes: Periorbital structures: appear normal, Conjunctiva: normal, no exudate, no injection, Sclera: no appreciated abnormality, Lids and lashes: appear normal, bilaterally. 20:10 ENT: External ear(s): are unremarkable, Nose: is normal, Mouth: Lips: moist, Oral mucosa: pink and intact, moist, Posterior pharynx: is normal, airway is patent, no erythema, no exudate. 20:10 Neck: ROM/movement: is normal, is supple, without pain, no range of motions limitations, no meningismus, no nuchal rigidity. 20:10 Chest/axilla: Inspection: normal. 20:10 Cardiovascular: Rate: normal, Rhythm: regular, Edema: is not appreciated, JVD: is not appreciated. 20:10 Respiratory: the patient does not display signs of respiratory distress, Respirations: normal, no use of accessory muscles, no retractions, labored breathing, is not present, Breath sounds: are clear throughout, no decreased breath sounds, no stridor, no wheezing. 20:10 Abdomen/GI: Inspection: distension, that is moderate, Bowel sounds: active, all quadrants, Palpation: soft, in all quadrants, moderate abdominal tenderness, in the anterior aspect of right lateral abdomen, anterior aspect of left lateral abdomen and abdomen diffusely, rebound tenderness, is not appreciated, voluntary guarding, is elicited in all quadrants. 20:10 Back: CVA tenderness, is absent. 20:10 Skin: cellulitis, is not appreciated, no rash present. 20:10 Neuro: Orientation: to person, place \\T\\ time. Mentation: is normal, Motor: moves all fours, strength is normal. Vital Signs: 19:39 BP 131 / 74; Pulse 93; Resp 16; Temp 98.8(O); Pulse Ox 99% on R/A; Weight 68.04 kg (R); ll3 Height 5 ft. 0 in. (R); Pain 7/10; 20:15 BP 121 / 61; Pulse 91; Resp 17 S; Pulse Ox 98% ; ha1 21:36 BP 104 / 59; Pulse 98; Resp 18; Pulse Ox 97% on R/A; ll3 22:30 BP 107 / 55; Pulse 94; Resp 16 S; Pulse Ox 98% on R/A; ha1 23:30 BP 117 / 68; Pulse 93; Resp 16 S; Pulse Ox 98% on R/A; ha1 19:39 Body Mass Index 29.29 (68.04 kg, 152.4 cm) ll3 19:39 Pain Scale: Adult ll3 MDM: 19:50 Patient medically screened. cp 20:30 Differential diagnosis: appendicitis, bowel obstruction, cholecystitis, Cholelithiasis, cp pancreatitis, Pyelonephritis, Ureterolithiasis, urinary tract infection. 22:00 I considered the following discharge prescriptions or medication management in the emergency department Medications were administered in the Emergency Department. See JUN. 22:00 Consideration of Admission/Observation Patient was admitted/placed on observation. Management of patient was discussed with the following: Instructor Watch Assembly: DR Parker concerning CT findings and concern for ureteral calculus. Care significantly affected by the following chronic conditions: Diabetes, Hypertension. Response to treatment: the patient's symptoms have markedly improved after treatment. 22:00 ED course: patient qualifies for sepsis. Source of infection is urine, WBC >24 and HR cp >90. 22:27 Data reviewed: vital signs, nurses notes, lab test result(s), radiologic studies, CT cp scan. 22:28 Management of patient was discussed with the following: Primary Care Provider: DR Richardson who will admit. 10/14 19:51 Order name: CBC with Diff; Complete Time: 21:53 10/14 21:53 Interpretation: Normal except: WBC 24.90; JEANETTE% 93.4; LYM% 2.6; NEUT A 23.2. 10/14 19:51 Order name: CMP; Complete Time: 21:53 10/14 21:53 Interpretation: Normal except: NA 133; GLUC 173; BUN 55; CRE 1.60; GFR 32; ALB 3.3; cp GLOB 3.7; A/G 0.9. 10/14 19:51 Order name: Lipase; Complete Time: 21:53 10/14 19:51 Order name: Urinalysis w/ reflexes; Complete Time: 21:53 10/14 21:53 Interpretation: Normal except: [facility] Extremely Turbid; UKET 2+; UBLD 3+ (OVER); UPROT cp 1+; UESTR 500; UWBC >50; URBC >50; UBACT 20-50; UWBC Clump Occasional. 10/14 21:18 Order name: Urine Culture EDMN 10/14 21:56 Order name: Lactate w/ 2H reflex if indic.; Complete Time: 23:27 cp 10/14 23:28 Interpretation: Reviewed. 10/14 21:56 Order name: Blood Culture Adult (2) 10/15 00:21 Order name: Basic Metabolic Panel EDMN 10/15 00:21 Order name: Basic Metabolic Panel EDMN 10/15 00:21 Order name: CBC with Automated Diff EDMN 10/15 00:21 Order name: CBC with Automated Diff EDMN 10/15 00:21 Order name: Lipase EDMN 10/15 00:21 Order name: Lipase EDMN 10/15 00:21 Order name: Liver (Hepatic) Function EDMN 10/15 00:21 Order name: Liver (Hepatic) Function EDMN 10/14 19:51 Order name: XRAY Chest (1 view); Complete Time: 21:53 10/14 20:36 Order name: Abdomen ; Complete Time: 21:53 EDMN 10/14 19:51 Order name: EKG; Complete Time: 19:51 10/15 00:21 Order name: CONS Physician Consult EDMN 10/15 00:21 Order name: NPO EDMN 10/14 19:51 Order name: IV Saline Lock; Complete Time: 20:01 10/14 19:51 Order name: Labs collected and sent; Complete Time: 20:01 10/14 19:51 Order name: EKG - Nurse/Tech; Complete Time: 20:07 10/14 22:10 Order name: NPO; Complete Time: 22:21 cp Administered Medications: 20:01 Drug: Famotidine IVP 20 mg Route: IVP; Site: left forearm; ll3 20:01 Drug: Ondansetron IVP 4 mg Route: IVP; Site: left forearm; ll3 20:20 Drug: Dicyclomine IM 20 mg Route: IM; Site: right gluteus; ll3 22:11 Drug: NS 0.9% IV 500 ml Route: IV; Rate: 500 ml/hr; Site: left forearm; ha1 22:31 Drug: Meropenem IV 1 grams Route: IV; Rate: calculated rate; Site: left forearm; ha1 Disposition Summary: 06/27/23 22:34 Hospitalization Ordered Hospitalization Status: Inpatient Admission cp Provider: Noel Richardson cp Location: Telemetry/[facility]Sur (Inpatient) cp Condition: Fair cp Problem: new cp Symptoms: have improved cp Bed/Room Type: Standard cp Room Assignment: 211(10/15/22 00:25) cg Diagnosis - Acute kidney failure, unspecified cp - UTI/ Urinary tract infection, site not specified cp - Sepsis, unspecified organism cp Forms: - Medication Reconciliation Form cp - SBAR form cp Signatures: Dispatcher [employer] EDMN Beau Katz PA PA cp Marya Kohler, RN RN cg Sabrina Croft RN RN ll3 Casandra Loaiza RN RN ha1 Corrections: (The following items were deleted from the chart) 20:36 19:54 Abdomen Pelvis W Con+CT.RAD.BRZ ordered. [facility] 10/15 00:25 10/14 22:34 cp cg
[2022-10-15] MEDS ORDERED: ONDANSETRON 4 MG/2 ML VIAL IV PRN (00:15)
[2022-10-15 02:47] VITALS: BMI 29.5
[2022-10-15] MEDS: NA CHLORIDE 0.9% 1,000 ML IV SCH ×2 (03:11→18:25)
[2022-10-15] MEDS ORDERED: NA CHLORIDE 0.9% 1,000 ML ONE (06:14)
[2022-10-15] MEDS ORDERED: FENTANYL CITR 100 MCG/2 ML ONE (06:20)
[2022-10-15] MEDS ORDERED: LIDOCAINE 1% MPF 5 ML VIAL ONE (06:20)
[2022-10-15] MEDS ORDERED: propofoL 200 MG/20 ML VIAL IV ONE (06:20)
[2022-10-15] MEDS ORDERED: ONDANSETRON 4 MG/2 ML VIAL ONE (06:21)
--- NOTE | 2022-10-15 07:04 | P.CNS ---
Date of Consult: 10/15/22 Reason for Consult: Left hydronephrosis Requesting Physician: Beau Katz Chief Complaint: Left flank pain History of Present Illness: 82-year-old woman with arthritis, breast cancer, DM 2, glaucoma, hyperlipidemia, hypertension, and lymphedema p radiation for breast cancer who presents to the emergency department with abdominal pain, nausea and vomiting associated with signs of SIRS/suspected sepsis potentially secondary to an obstructing distal left ureteral calculus. She describes flank pain that had been present for about 24 hours, though the patient is clearly a very poor historian. She specifically was unable to affirm the presence of fever, but she did acknowledge feeling some chills at home. She denies any prior episodes of kidney stones. Past medical history as above Allergies: Aspirin and vancomycin listed the patient also expresses some concern about fluoroquinolone sensitivity without specific side effect discussed/known Examination: Somewhat confused appearing Alert and awake No dyspnea or sign of respiratory distress No cervical/supraclavicular adenopathy or thyromegaly Abdomen soft, minimally tender Pulse regular and 2+ radial No Geovani sign bilaterally lying in a stretcher White count 24.9, hemoglobin 13.1, platelets 178, creatinine 1.6 above baseline less than 1 Urinalysis 2+ leukocyte Estrace, greater than 50 WBCs, 20-50 bacteria, greater than [address] imaging reviewed abdomen and pelvis without contrast 10/14/2022: Impression: Mild hydroureteronephrosis suspected due to distal left ureteral calculus measured at 3 mm. Left lower pole 2 mm calculus also seen. Findings: No lung findings. Liver spleen and pancreas no suspicious findings. Symmetric renal contour without suspicious parenchymal finding. Colonic diverticulosis. No free air. No mass or bulky adenopathy. Assessment and recommendation: 82-year-old woman with arthritis, breast cancer, DM 2, glaucoma, hyperlipidemia, hypertension, and lymphedema p radiation for breast cancer with left hydron ephrosis, SIRS/suspected sepsis, likely secondary to distal left ureteral calculus in the setting of complicated UTI. -Recommend cystoscopy with left retrograde pyelography and stent placement. I counseled the patient on the procedure and explained in detail specifically explaining the presence of a foreign body that must be removed with an additional surgery required to manage the stones. Allergies aspirin Allergy (Intermediate, Verified 10/08/18 09:34) STOMACH PROBLEMS NSAIDS (Non-Steroidal Anti-Inflamma Allergy (Verified 10/08/18 09:34) stomach problems vancomycin Allergy (Verified 10/08/18 09:34) migraine Home Medications: Bimatoprost [Lumigan] 1 drop EACH EYE BEDTIME 09/26/16 Metformin HCl [Glucophage*] 500 mg PO BIDWM 09/26/16 Levothyroxine Sodium 25 mcg PO DAILY 03/06/17 Losartan Potassium [Cozaar] 100 mg PO DAILY 10/15/22 Metoprolol Succinate 50 mg PO DAILY 10/15/22 Naltrexone 3 mg PO DAILY 10/15/22 Spironolactone 25 mg PO DAILY 10/15/22 Tramadol HCl [Ultram] 50 mg PO BID PRN 10/15/22 - Past Medical/Surgical History Diabetic: Yes -: htn -: right breast cancer lymph nodes removed -: diabetes -: Glaucoma -: YOUNG on CPAP -: Migraines -: Right sided breast cancer hx with lumpectomy -: isolated skin cancer right shoulder -: hammer toes 2017 -: isabel cataract 2017 -: cyst of lt ring finger 2016 -: right foot surg. 2017 -: 2009 right hip replacement -: left knee replacement 2004 -: 1998 right lymph nodes removed - Family History Mother Medical History: Hypertension Notes: scoliosis Father Medical History: Heart disease - Social History Smoking Status: Never smoker Alcohol use: No CD- Drugs: No Caffeine use: No Place of Residence: Home Physical Examination Temp Pulse Resp BP Pulse Ox 97.0 F 97 H 18 126/66 96 10/15/22 04:00 10/15/22 04:00 10/15/22 04:00 10/15/22 04:00 10/15/22 04:00 Laboratory Data (last 24 hrs) 10/14/22 19:55: Sodium 133 L, Potassium 3.7, BUN 55 H, Creatinine 1.60 H, Glucose 173 H, Total Bilirubin 0.8, AST 22, ALT 19, Alkaline Phosphatase 69, Lipase 13 10/14/22 19:55: WBC 24.90 H, Hgb 13.1, Hct 40.7, Plt Count 178 Conclusions/Impression: see HPI Critical Care: No Time Spent Managing Pts care (In Minutes): 15
--- NOTE | 2022-10-15 07:36 | P.OP ---
Preoperative diagnosis: Left hydronephrosis, obstructive pyelonephritis, SIRS/suspected sepsis Postoperative diagnosis: same + left nephroureterolithiasis Primary procedure: Cystoscopy, left retrograde pyelography, left ureteral stent placement Anesthesia: LMA general Estimated blood loss: Negligible Specimen: Urine culture Findings: Papillary necrosis Operative Technique: The patient was consented in the preoperative holding area before being transferred to the operative suite where general anesthesia was induced. She was treated with meropenem via the emergency department just hours earlier, and pneumoboots were provided for DVT prophylaxis. She was placed in the lithotomy position, padded and secured to the table appropriately, and her genitalia was prepped with Hibiclens and draped in standard fashion. The case was begun using a 22 Kittitian rigid cystoscope to traverse the urethra and into the bladder with ease. The bladder was decompressed of fluid and urine. The left ureteral orifice was identified after a brief survey of the bladder revealed the absence of any foreign bodies, tumors or stones. The ureteral orifice was cannulated using the tip of a sensor wire and the 5 Kittitian ureteral access catheter. A retrograde pyelography study was then performed. Left retrograde pyelography: Using a 70: 30 mixture of Omnipaque and saline, contrast was injected via the lumen of the 5 Kittitian ureteral access catheter and did propagate up a mild to moderately ureteronephrotic distal with delayed transit into the mid and proximal ureter before entering a hydronephrotic left kidney with pelvocaliectasis. Care was taken to minimize the bolus of contrast given to just identify the pelvic calyceal system given the marked tortuosity of the left ureter observed. I then passed the sensor wire via the 5 [place] ureteral access catheter and successfully navigated up the ureter into the upper pole of the left kidney. Over the wire, I passed a 6 [place] by 24 cm double-J ureteral stent and observed to coil fluoroscopically in the upper pole of the left kidney with 1 cystoscopically formed in her bladder. After placement of the wire, there was eflux of bloody and papillary necrotic appearing urine from the left collecting system. As a result, I remove the cystoscope and placed a 16 [place]itian urethral Xiao catheter which would later be used to collect a sample of that urine for culture. The patient was then taken out of the lithotomy position, awakened from general anesthesia, transferred to a stretcher, and then transferred to the recovery room in good condition. Discharge disposition: The patient should follow-up with me in the urology clinic upon discharge and resolution of her infection. We would then plan definitive evaluation and management of her nephroureterolithiasis. The urethral Xiao catheter was placed to aid in decompression of her left upper tract. It may be removed within 48 hours, or upon clinical resolution of her SIRS/sepsis. Complications: None Drain(s): Urinary catheter Implants: 6 Kittitian by 24 cm double-J left ureteral stent Transferred to: Recovery Room Condition: Fair
[2022-10-15] MEDS: Meropenem 1,000 MG in NA CHLORIDE 0.9% 100 ML IV SCH ×2 (08:37→21:32)
[2022-10-15] MEDS: FAMOTIDINE 20 MG/2 ML VIAL IV SCH (08:37)
[2022-10-15 08:47] LABS: Urine Bacteria None Seen /HPF (<20); Urine RBC >50 /HPF (None Seen)
[2022-10-15] MEDS ORDERED: Meropenem 500 MG in NA CHLORIDE 0.9% 100 ML IV SCH (09:00)
[2022-10-15] MEDS ORDERED: Meropenem 1,000 MG in NA CHLORIDE 0.9% 100 ML IV SCH (09:00)
--- NOTE | 2022-10-15 10:45 | RAD REPORT ---
EXAM DESCRIPTION: RAD - Urethrocystogrphy Retrograde - 10/15/2022 10:33 am CLINICAL HISTORY: ICD N 20.0 FINDINGS: A 7 fluoroscopic spot images obtained. Fluoroscopy time 0.16 minutes Left ureter was cannulated and contrast administered. Subsequently an ureteral stent was placed. Exam ination was performed by Dr Parker
--- NOTE | 2022-10-15 18:10 | EKG ---
Test Date: 2022-10-14 Test Time: 20:01:32 Chainstitch Seat Joiner: SEBASTIAN MEASUREMENT RESULTS: Intervals: Rate: 93 WA: 190 QRSD: 64 QT: 362 QTc: 450 Oakes: P: 36 WA: 190 QRS: 55 T: 14 INTERPRETIVE STATEMENTS: Normal sinus rhythm Low voltage QRS Cannot rule out Anterior infarct, age undetermined Abnormal ECG Compared to ECG 08/30/2019 23:17:37 Low QRS voltage now present Myocardial infarct finding still present Electronically Signed On 10-15-22 18:08:41 CDT by Estevan Ramires
[2022-10-15] MEDS ORDERED: TRAMADOL HCL 50 MG TAB PO PRN (21:14)
--- NOTE | 2022-10-15 21:14 | P.HP ---
Certification for Inpatient Patient admitted to: Inpatient With expected LOS: >2 Midnights Practitioner: I am a practitioner with admitting privileges, knowledge of patient current condition, hospital course, and medical plan of care. Services: Services provided to patient in accordance with Admission requirements found in Title 42 Section 412.3 of the Code of Federal Regulations Patient History Date of Service: 10/15/22 Reason for admission: Left flank pain History of Present Illness: AJAY HAD SUDDEN LSIDE ABDOMEN PAIN, REPORTS TO ER, FOUND TO HAVE L HYDROURETER AND HAD STENT PLACED BY DR BRADSHAW URGENTLY. SHE IS LOT BETTER NOW. Allergies aspirin Allergy (Intermediate, Verified 10/08/18 09:34) STOMACH PROBLEMS NSAIDS (Non-Steroidal Anti-Inflamma Allergy (Verified 10/08/18 09:34) stomach problems vancomycin Allergy (Verified 10/08/18 09:34) migraine Home Medications: Bimatoprost [Lumigan] 1 drop EACH EYE BEDTIME 09/26/16 Metformin HCl [Glucophage*] 500 mg PO BIDWM 09/26/16 Levothyroxine Sodium 25 mcg PO DAILY 03/06/17 Losartan Potassium [Cozaar] 100 mg PO DAILY 10/15/22 Metoprolol Succinate 50 mg PO DAILY 10/15/22 Naltrexone 3 mg PO DAILY 10/15/22 Spironolactone 25 mg PO DAILY 10/15/22 Tramadol HCl [Ultram] 50 mg PO BID PRN 10/15/22 - Past Medical/Surgical History Has patient received pneumonia vaccine in the past: Yes Diabetic: Yes -: htn -: right breast cancer lymph nodes removed -: diabetes -: Glaucoma -: YOUNG on CPAP -: Migraines -: Right sided breast cancer hx with lumpectomy -: isolated skin cancer right shoulder -: hammer toes 2017 -: isabel cataract 2017 -: cyst of lt ring finger 2017 -: right foot surg. 2017 -: 2009 right hip replacement -: left knee replacement 2004 -: 1998 right lymph nodes removed - Family History Mother -: Hypertension Notes: scoliosis Father -: Heart disease - Social History Smoking Status: Never smoker Alcohol use: No CD- Drugs: No Caffeine use: No Place of Residence: Home Review of Systems 10-point ROS is otherwise unremarkable General: Weakness Physical Examination - Vital Signs Temperature: 97.2 F Blood Pressure: 124/73 Pulse: 102 Respirations: 18 Pulse Ox (%): 94 - Physical Exam General: Oriented x3, Mild distress HEENT: Atraumatic, PERRLA, Mucous membr. moist/pink, EOMI, Sclerae nonicteric Neck: Supple, 2+ carotid pulse no bruit, No LAD, Without JVD or thyroid abnormality Respiratory: Clear to auscultation bilaterally, Normal air movement Cardiovascular: Regular rate/rhythm, Normal S1 S2 Gastrointestinal: Normal bowel sounds, No tenderness Musculoskeletal: No tenderness Integumentary: No rashes Neurological: Normal gait, Normal speech, Normal strength at 5/5 x4 extr, Normal tone, Normal affect Lymphatics: No axilla or inguinal lymphadenopathy - Studies Microbiology Data (last 24 hrs): 10/14/22 22:08 Blood - Blood Anaerobic Blood Culture - Final Assessment and Plan - Problems (Diagnosis) (1) Ureteral calculus, left Current Visit: Yes Status: Acute Plan: STENT PLACED PAIN CONTROL. (2) Hydronephrosis, left Current Visit: Yes Status: Acute Plan: ABOVE. (3) Acute pyelonephritis without lesion of renal medullary necrosis Current Visit: Yes Status: Acute Plan: IV MERREM CULTURE PENDING WILL BEABLE TO DOWNGRADE ANTIBIOTIC. (4) General weakness Current Visit: Yes Status: Acute Plan: CONSULT PT. - Advance Directives Does patient have a Living Will: No Does patient have a Durable POA for Healthcare: Yes
[2022-10-16] MEDS: NA CHLORIDE 0.9% 1,000 ML IV SCH (03:33)
[2022-10-16 04:07] LABS: Absolute Lymphocytes (CBC) 1.3 K/uL (0.7-4.9); Hematocrit 32.8 % (36.0-45.0); Lymphocytes % 10.7 % (15.3-44.8); MCV 91.9 fL (80-100); MPV 9.9 fL (7.6-11.3); RBC Red Blood Cell Count 3.56 M/uL (3.86-4.86)
[2022-10-16 04:18] LABS: Albumin 2.4 g/dL (3.4-5.0); Bilirubin Direct 0.1 mg/dL (0-0.2); Bilirubin Indirect, Calculated 0.5 mg/dL (0.2-0.8); Bilirubin Total 0.6 mg/dL (0.2-1.0); Potassium 3.5 mEq/L (3.5-5.1); Protein, Total 5.5 g/dL (6.4-8.2)
[2022-10-16 05:03] LABS: Blood Morphology Comment NOT SEEN (NOT SEEN); Platelet Estimate ADEQ
[2022-10-16] MEDS ORDERED: Meropenem 1000 MG/VIAL IV ONE (08:27)
[2022-10-16] MEDS ORDERED: NA CHLORIDE 0.9% 0 ML ONE (08:28)
[2022-10-16] MEDS ORDERED: ENOXAPARIN 30 MG/0.3 ML SQ SCH (09:00)
[2022-10-16] MEDS ORDERED: LEVOTHYROXINE SOD 0.025 MG TAB PO SCH (09:00)
[2022-10-16] MEDS: Meropenem 1,000 MG in NA CHLORIDE 0.9% 100 ML IV SCH (09:00)
[2022-10-16] MEDS: FAMOTIDINE 20 MG/2 ML VIAL IV SCH (09:00)
[2022-10-16] MEDS ORDERED: METOPROLOL XL 50 MG TAB PO SCH (09:00)
[2022-10-16 10:31] VITALS: O2SAT 96
[2022-10-16 12:16] VITALS: BP 133/64; TEMP 97.7
[2022-10-16] MEDS ORDERED: BIMATOPROST OPTH SCH (21:00)
--- NOTE | 2022-10-16 21:27 | P.DS ---
Admission Date: 10/15/22 Discharge Date: 10/16/22 Disposition: ROUTINE DISCHARGE Reason for Admission: Left flank pain - Problems (1) Ureteral calculus, left Status: Acute (2) Hydronephrosis, left Status: Acute (3) Acute pyelonephritis without lesion of renal medullary necrosis Status: Acute (4) General weakness Status: Acute Brief History of Present Illness: AJAY HAD SUDDEN LSIDE ABDOMEN PAIN, REPORTS TO ER, FOUND TO HAVE L HYDROURETER AND HAD STENT PLACED BY DR BRADSHAW URGENTLY. SHE IS LOT BETTER NOW. Hospital Course: AJAY IS DOING GREAT. SHE HAD STENT FOR URETERIC STONE. SHE IS ON ORAL ABX FO RHOME STABLE TO GO HOME. Vital Signs/Physical Exam: Temp Pulse Resp BP Pulse Ox 97.7 F 95 H 16 133/64 95 10/16/22 11:40 10/16/22 11:40 10/16/22 11:40 10/16/22 11:40 10/16/22 11:40 Laboratory Data at Discharge: WBC 12.00 thou/uL (4.3-10.9) H 10/16/22 02:17 Hgb 10.8 g/dL (12.0-15.0) L 10/16/22 02:17 Hct 32.8 % (36.0-45.0) L 10/16/22 02:17 Plt Count 155 thou/uL (152-406) 10/16/22 02:17 Sodium 138 mEq/L (136-145) 10/16/22 02:17 Potassium 3.5 mEq/L (3.5-5.1) 10/16/22 02:17 BUN 34 mg/dL (7-18) H 10/16/22 02:17 Creatinine 0.76 mg/dL (0.55-1.02) 10/16/22 02:17 Glucose 137 mg/dL (74-106) H 10/16/22 02:17 Total Bilirubin 0.6 mg/dL (0.2-1.0) 10/16/22 02:17 AST 11 U/L (15-37) L 10/16/22 02:17 ALT 14 U/L (13-56) 10/16/22 02:17 Alkaline Phosphatase 65 U/L (45-117) 10/16/22 02:17 Lipase 12 U/L (13-75) L 10/16/22 02:17 Home Medications: Bimatoprost [Lumigan] 1 drop EACH EYE BEDTIME 09/26/16 Metformin HCl [Glucophage*] 500 mg PO BIDWM 09/26/16 Levothyroxine Sodium 25 mcg PO DAILY 03/06/17 Losartan Potassium [Cozaar] 100 mg PO DAILY 10/15/22 Metoprolol Succinate 50 mg PO DAILY 10/15/22 Naltrexone 3 mg PO DAILY 10/15/22 Spironolactone 25 mg PO DAILY 10/15/22 Tramadol HCl [Ultram] 50 mg PO BID PRN 10/15/22 Smz./Tmp. [Bactrim Ds 800 MG/160 MG*] 1 tab PO BID #14 tab 10/16/22 New Medications: Smz./Tmp. [Bactrim Ds 800 MG/160 MG*] 1 tab PO BID #14 tab Followup: Noel Richardson MD [ACTIVE - CAN ADMIT] - 1 Week (Please call to schedule an appoinment. ) Dionicio Bradshaw [ACTIVE - CAN ADMIT] - 1 Week (Please call to schedule an appoin tment. )
== END 2022-10-16 12:01 | disposition home or self-care (01) | DRG 854 ==
LOC: ER 19:26 → 2ND 10-15 00:13
PROVIDERS: ADMIT Internal Medicine; ATTEND Internal Medicine
PROC: BT1F1ZZ Fluoroscopy of Left Kidney, Ureter and Bladder using Low Osmolar Contrast (ICD-10-PCS; 2022-10-15)
PROC: 0T778DZ Dilation of Left Ureter with Intraluminal Device, Via Natural or Artificial Opening Endoscopic (ICD-10-PCS; principal; 2022-10-15 06:30)
DX: A41.9 Sepsis, unspecified organism (principal); N10 Acute pyelonephritis; N17.9 Acute kidney failure, unspecified; E11.9 Type 2 diabetes mellitus without complications; E78.5 Hyperlipidemia, unspecified; I10 Essential (primary) hypertension; Z92.3 Personal history of irradiation; Z88.1 Allergy status to other antibiotic agents; Z85.3 Personal history of malignant neoplasm of breast; Z88.6 Allergy status to analgesic agent; Z79.84 Long term (current) use of oral hypoglycemic drugs; Z79.899 Other long term (current) drug therapy; Z96.652 Presence of left artificial knee joint; Z96.641 Presence of right artificial hip joint; Z79.890 Hormone replacement therapy
CPT/HCPCS: 36415; 51610; 71045; 74176; 74450; 80048; 80053; 80076; 81001; 81015; 82947; 83605; 83690; 85025; 87040; 87077; 87086; 87088; 87186; 93005; 96372; 96374; 96375; 99285; J0500; J1650; J2001; J2185; J2405; J2704; J3010; J7030; J7040

== ENCOUNTER 2022-11-25 06:52 | Day surgery (SDC) | payer OTHER ==
[2022-11-21 13:28] LABS: Absolute Lymphocytes (CBC) 1.4 K/uL (0.7-4.9); Hematocrit 43.8 % (36.0-45.0); Lymphocytes % 16.8 % (15.3-44.8); MCV 91.9 fL (80-100); MPV 8.5 fL (7.6-11.3); Platelets 322 thou/uL (152-406); RBC Red Blood Cell Count 4.76 M/uL (3.86-4.86)
[2022-11-21 13:39] LABS: Protime INR 0.86
[2022-11-21 13:45] LABS: Potassium 3.7 mEq/L (3.5-5.1)
[2022-11-25] MEDS ORDERED: NA CHLORIDE 0.9% 1,000 ML ONE (07:09)
[2022-11-25] MEDS ORDERED: propofoL 200 MG/20 ML VIAL IV ONE (07:32)
[2022-11-25] MEDS ORDERED: FENTANYL CITR 100 MCG/2 ML ONE (07:32)
[2022-11-25] MEDS ORDERED: LIDOCAINE 1% MPF 5 ML VIAL ONE (07:32)
[2022-11-25] MEDS ORDERED: AMPICILLIN SODIUM 2 GM/VIAL VIAL ONE (07:33)
[2022-11-25] MEDS ORDERED: GENTAMICIN 80 MG/100 ML BAG 160 MG/200 ML BAG IV ONE (07:33)
[2022-11-25] MEDS ORDERED: ONDANSETRON 4 MG/2 ML VIAL ONE (07:51)
[2022-11-25] MEDS ORDERED: dexAMETHasone 10 MG/ML VIAL ONE (07:51)
[2022-11-25] MEDS ORDERED: EPHEDRINE SULF 50 MG/ML VIAL ONE (07:51)
[2022-11-25] MEDS ORDERED: NS 0.9% VIAL 10 ML ONE ×2 (07:52→08:02)
[2022-11-25] MEDS ORDERED: Phenylephrine HCl 10 MG/ML 1 ML VIAL ONE (08:01)
[2022-11-25] MEDS ORDERED: Mastisol Adhesive Liq ONE (08:09)
--- NOTE | 2022-11-25 09:34 | RAD REPORT ---
EXAM DESCRIPTION: RAD - Urethrocystogrphy Retrograde - 11/25/2022 9:28 am CLINICAL HISTORY: LT STENT EXCHANGE COMPARISON: Urethrocystogrphy Retrograde dated 10/15/2022 FINDINGS: Total fluoro time: 0.14 minutes
[2022-11-25 10:22] VITALS: O2SAT 97
[2022-11-25 10:23] VITALS: BP 120/66; TEMP 97
--- NOTE | 2022-11-25 13:09 | OP ---
Surgeon: RUEL BRADSHAW Preoperative Diagnosis: Left ureteral calculus, 3 mm. Postoperative Diagnoses: 1.Left ureteral calculus, 3 mm. 2.Encrusted left ureteral stent. 3.Left hydronephrosis. Principal Procedures: 1.Cystoscopy. 2.Left ureteroscopy with stone basketing. 3.Left retrograde pyelography. 4.Left ureteral stent exchange. There was no laser lithotripsy performed. Indication For Procedure: Ms. Robertson presented to the emergency department with signs of sepsis associ ated with an obstructing 3 mm distal ureteral calculus. She underwent placement of a left ureteral s tent in September and presents today for definitive management of the stone. Procedure In Detail: The patient was consented in the preoperative holding area before being transfe rred to operative suite where general anesthesia was induced. She was given ampicillin 2 g and genta micin 160 mg IV antimicrobial prophylaxis, and pneumo boots were provided for DVT prophylaxis. She w as placed in the lithotomy position, padded and secured to the table appropriately. Her genitalia we re prepped with Hibiclens and she was draped in standard fashion. The case was begun using a 22-Fren ch rigid cystoscope to traverse the urethra and into her bladder. The bladder was decompressed of fl uid and urine, and the ureteral stent was emanating from her left ureteral orifice and was significan tly encrusted within the bladder. The coil of the stent was grasped releasing some of the crusted ma terial, and the stent was delivered to the meatus, leaving the proximal end of the stent in the mid u reter. Attempts to pass a Sensor wire up the stent were thwarted due to significant encrustation of the stent present despite cutting off the distal several inches of the stent. As a result, leaving t he distal end of the stent hanging out of the urethral meatus, I placed the cystoscope alongside it b ack into the bladder and utilized a 5-[place] ureteral access catheter to pass a Sensor wire via the 5 -[place] ureteral access catheter alongside the indwelling stent up into the collecting system with a coil observed fluoroscopically. I then removed the stent under direct vision without issue, and deco mpressed her bladder of fluid and urine before utilizing a semi-rigid ureteroscope to directly melchor se the meatus and urethra and into the bladder before entering the left ureteral orifice using pressu rized saline irrigant. Within the distal ureter, the 3 mm calculus was immediately noted, and was gr asped using a 1.9-[place] 0 tipped Nitinol basket. There was additional crust from the encrusted sten t along the entirety of the course of the ureter; so after removing the calculus, I placed the ureter oscope back into her distal and navigated it into the mid and proximal ureter before sweeping a lot o f that stone dust from the stent out of the left ureter. Of note, there was a slight degree of scar tissue noted within the distal ureter where the stone was impacted, but this was not significantly ob structive in appearance at this time. As a result, I removed the ureteroscope after performing a ret rograde pyelogram via the ureteroscope. Left retrograde pyelography: Using initially a 70:30 mixture of Omnipaque and saline, contrast was injected via the irrigation inf usion port of the semi-rigid ureteroscope and did propagate into the mid proximal ureter where there was evidence of ureteronephrosis, but the contrast did not enter the collecting system. As a result, I switched to full-strength contrast and again injected it via the semi-rigid ureteroscope this time delineating the calyces and renal pelvis where there was moderate pelvicaliectasis indicative of the encrusted and obstructed left ureteral stent. As a result, I removed the semi-rigid ureteroscope no ting the entirety of the ureter was intact without extravasation, and then I back-loaded the cystosco pe over the indwelling safety wire. I then passed a 6-[place] by 24 cm double-J ureteral stent over t he wire successfully coiling it in the upper pole of the left kidney before securing the tether of th e stent to her introitus after decompressing her bladder, using Mastisol and Steri-Strips. She was t hen taken out of the lithotomy position, awakened from general anesthesia, transferred to a stretcher , and then transferred to the recovery room in good condition. Complications: None. Discharge Disposition: Given the slight degree of stricture noted in the distal ureter where the sto ne had gotten stuck, I recommend leaving the stent for about a week. As a result, I will discharge h er with a prescription for Macrobid 100 mg daily to take every day until the stent is removed next Mo . We will schedule her for followup on Thursday to have the tethered left ureteral stent extracted . Since this is her first stone forming event, but it is clear she encrusted foreign bodies like martha nts significantly and thus is likely a significant stone forming risk, I counseled her to increase th e volume of fluid, she drinks to decrease her risk of future stone forming of it. JERE/BELLA Voice ID: [id number] Report ID: [id number]
== END 2022-11-25 10:30 | disposition home or self-care (01) ==
LOC: OR 06:52
PROVIDERS: ATTEND Urology
PROC: 0T778DZ Dilation of Left Ureter with Intraluminal Device, Via Natural or Artificial Opening Endoscopic (ICD-10-PCS; 2022-11-25)
PROC: 0TC78ZZ Extirpation of Matter from Left Ureter, Via Natural or Artificial Opening Endoscopic (ICD-10-PCS; principal; 2022-11-25 07:30)
DX: N20.1 Calculus of ureter (principal); N20.0 Calculus of kidney; N13.30 Unspecified hydronephrosis; E11.9 Type 2 diabetes mellitus without complications; E78.5 Hyperlipidemia, unspecified; I10 Essential (primary) hypertension; Z85.3 Personal history of malignant neoplasm of breast
CPT/HCPCS: 87088; 85025; 87086; 80048; 36415; 85610; 82947 ×2; 74450; 51610; 52352; 52332; A4216 ×2; J2704; J2001; J2371; J3010; J1100; J2405; J0290; J7030; J1580

== ENCOUNTER → 2023-06-08 | Emergency (ER) | payer OTHER ==
--- NOTE | 2023-06-09 01:25 | ER ---
Nurse's Notes [facility] Name: Aida Robertson Age: 83 yrs Sex: Female : 1940 Arrival Date: 06/08/2023 Time: 23:12 Bed IW9 Private MD: Diagnosis: Inhalational fluid in the trachea , acute choking on a fluid Presentation: 06/08 23:30 Chief complaint: Patient states: I was drinking my nightly tea and I swallowed too much vc1 and started choking. I just want to make sure I didn't get anything in my lungs. I feel like something is there still. Coronavirus screen: Vaccine status: Patient reports receiving the 2nd dose of the covid vaccine. Client denies travel out of the [place] in the last 14 days. At this time, the client does not indicate any symptoms associated with coronavirus-19. Ebola Screen: Patient negative for fever greater than or equal to 101.5 degrees Fahrenheit, and additional compatible Ebola Virus Disease symptoms Patient denies exposure to infectious person. Patient denies travel to an Ebola-affected area in the 21 days before illness onset. No symptoms or risks identified at this time. Risk Assessment: Do you want to hurt yourself or someone else? Patient reports no desire to harm self or others. Onset of symptoms was June 08, 2023. 23:30 Method Of Arrival: Ambulatory vc1 23:30 Acuity: MIRNA 4 vc1 23:40 Initial Sepsis Screen: Does the patient meet any 2 criteria? No. Patient's initial jj7 sepsis screen is negative. Does the patient have a suspected source of infection? No. Patient's initial sepsis screen is negative. Triage Assessment: 23:37 General: Appears in no apparent distress. comfortable, Behavior is calm, cooperative, vc1 appropriate for age. Pain: Complains of pain in mid-sternal area. EENT: No deficits noted. No signs and/or symptoms were reported regarding the EENT system. Neuro: Level of Consciousness is awake, alert, obeys commands, Oriented to person, place, time, situation, Appropriate for age. Cardiovascular: No deficits noted. Heart tones S1 S2. Respiratory: Airway is patent Respiratory effort is even, unlabored, Respiratory pattern is regular, symmetrical, Breath sounds are clear. GI: No deficits noted. No signs and/or symptoms were reported involving the gastrointestinal system. : No deficits noted. No signs and/or symptoms were reported regarding the genitourinary system. Derm: No deficits noted. No signs and/or symptoms reported regarding the dermatologic system. Musculoskeletal: No deficits noted. No signs and/or symptoms reported regarding the musculoskeletal system. Historical: - Allergies: 23:34 Aspirin; vc1 23:34 Vancomycin; sensitivity; vc1 - PMHx: 23:34 Arthritis; breast cancer; Diabetes - NIDDM; Glaucoma; Hyperlipidemia; Hypertension; vc1 Internal Shingles; lymphedema to R arm s/p breast cancer radiation; Migraines; scoliosis; - Immunization history:: Client reports receiving the 2nd dose of the Covid vaccine. - Social history:: Smoking status: Patient denies any tobacco usage or history of. - Family history:: not pertinent. Screenin:36 [facility] ED Fall Risk Assessment (Adult) History of falling in the last 3 months, vc1 including since admission No falls in past 3 months (0 pts) Confusion or Disorientation No (0 pts) Intoxicated or Sedated No (0 pts) Impaired Gait No (0 pts) Mobility Assist Device Used No (0 pt) Altered Elimination No (0 pt) Score/Fall Risk Level 0 - 2 = Low Risk Oriented to surroundings, Maintained a safe environment, Educated pt \T\ family on fall prevention, incl call for assistance when getting out of bed. Abuse screen: Denies threats or abuse. Nutritional screening: No deficits noted. Tuberculosis screening: No symptoms or risk factors identified. Assessment: 23:57 General: Appears in no apparent distress. comfortable, Behavior is calm, cooperative, jj7 appropriate for age. Vital Signs: 23:30 Weight 69.4 kg; Height 4 ft. 10 in. ; vc1 23:46 BP 173 / 85; Pulse 60; Resp 13; Temp 98.8; Pulse Ox 96% ; vc1 06/09 00:30 BP 169 / 87; Pulse 61; Resp 16; Pulse Ox 97% ; jj7 01:30 BP 165 / 83; Pulse 17; Resp 14; Pulse Ox 96% ; Pain 0/10; jj7 06/08 23:30 Body Mass Index 31.98 (69.40 kg, 147.32 cm) vc1 01:30 Pain Scale: Adult [facility] ED Course: 06/08 23:12 Patient arrived in ED. jj6 23:22 Dax Maya MD is Attending Physician. sp4 23:34 Triage completed. vc1 23:36 Arm band placed on left wrist. vc1 23:57 Per Noyola, RN is Primary Nurse. jj7 23:57 Patient has correct armband on for positive identification. Call light in reach. jj7 23:57 No provider procedures requiring assistance completed. jj7 06/09 00:02 Chest Pa And Lat (2 Views) XRAY In Process Unspecified. EDMS 01:30 Patient did not have IV access during this emergency room visit. intact. jj7 Administered Medications: No medications were administered Medication: 06/08 23:57 VIS not applicable for this client. jj7 Outcome: 06/09 01:25 Discharge ordered by . sp4 01:30 Discharged to home ambulatory, with significant other, jj7 01:30 Condition: good 01:30 Discharge instructions given to patient, Instructed on discharge instructions, Demonstrated understanding of instructions, 02:46 Patient left the ED. jj7 Signatures: Dispatcher [employer] EDKS Diana Puga jj6 Elly Rider RN RN vc1 Per Noyola, ANNE RN jj7 Dax Maya MD MD sp4 Corrections: (The following items were deleted from the chart) 06/08 23:36 23:34 PMHx: c-pap; vc1 vc1 23:36 23:34 PMHx: Lymphadema Right Arm; vc1 vc1 06/09 02:44 02:43 Patient did not have IV access during this emergency room visit. intact, jj7 jj7
--- NOTE | 2023-06-09 01:26 | EDPHYS ---
Physician Documentation [facility] Name: Aida Robertson Age: 83 yrs Sex: Female : 1940 Arrival Date: 06/08/2023 Time: 23:12 Bed IW9 Private MD: ED Physician Dax Maya HPI: 06/08 23:22 This 83 yrs old Other Female presents to ER via Unassigned with complaints of sp4 Choked/Choking. 06/09 01:36 83-year-old female very pleasant, female presents with concern after she accidentally sp4 choked on her tea. Patient states she was drinking bedtime to see when she choked on it and inhaled some of it into her trachea. Patient is here for evaluation. . Historical: - Allergies: 06/08 23:34 Aspirin; vc1 23:34 Vancomycin; sensitivity; vc1 - PMHx: 23:34 Arthritis; breast cancer; Diabetes - NIDDM; Glaucoma; Hyperlipidemia; Hypertension; vc1 Internal Shingles; lymphedema to R arm s/p breast cancer radiation; Migraines; scoliosis; - Immunization history:: Client reports receiving the 2nd dose of the Covid vaccine. - Social history:: Smoking status: Patient denies any tobacco usage or history of. - Family history:: not pertinent. ROS: 06/09 01:36 Constitutional: Negative for fever, chills, and weight loss, positive for choking and sp4 inhalation All other systems are negative, Exam: 01:53 Constitutional: This is a well developed, well nourished patient who is awake, alert, sp4 and in no acute distress. Head/Face: Normocephalic, atraumatic. Eyes: Pupils equal round and reactive to light, extra-ocular motions intact. Lids and lashes normal. Conjunctiva and sclera are not injected. Cornea within normal limits. Periorbital areas with no swelling, redness, or edema. ENT: Nares patent. No nasal discharge, no septal abnormalities noted. Tympanic membranes are normal and external auditory canals are clear. Oropharynx with no redness, swelling, or masses, exudates, or evidence of obstruction, uvula midline. Mucous membranes moist. Neck: Trachea midline, no thyromegaly or masses palpated, and no cervical lymphadenopathy. Supple, full range of motion without nuchal rigidity, or vertebral point tenderness. Chest/axilla: Normal chest wall appearance and motion. Nontender with no deformity. No lesions are appreciated. Cardiovascular: Regular rate and rhythm with a normal S1 and S2. No gallops, murmurs, or rubs. Normal PMI, no JVD. No pulse deficits. Respiratory: Lungs have equal breath sounds bilaterally, clear to auscultation and percussion. No rales, rhonchi or wheezes noted. No increased work of breathing, no retractions or nasal flaring. Abdomen/GI: Soft, with normal bowel sounds. No distension or tympany. No guarding or rebound. No evidence of tenderness throughout. Back: No spinal tenderness. No costovertebral tenderness. Skin: Warm, dry with normal turgor. Normal color with no rashes, no lesions, and no evidence of cellulitis. MS/ Extremity: Pulses equal, no cyanosis. Neurovascular intact. Full, normal range of motion. Neuro: Awake and alert, GCS 15, oriented to person, place, time, and situation. Cranial nerves II-XII grossly intact. Motor strength 5/5 in all extremities. Sensory grossly intact. Psych: Awake, alert, with orientation to person, place and time. Behavior, mood, and affect are within normal limits Vital Signs: 06/08 23:30 Weight 69.4 kg; Height 4 ft. 10 in. ; vc1 23:46 BP 173 / 85; Pulse 60; Resp 13; Temp 98.8; Pulse Ox 96% ; vc1 06/09 00:30 BP 169 / 87; Pulse 61; Resp 16; Pulse Ox 97% ; jj7 01:30 BP 165 / 83; Pulse 17; Resp 14; Pulse Ox 96% ; Pain 0/10; jj7 06/08 23:30 Body Mass Index 31.98 (69.40 kg, 147.32 cm) vc1 01:30 Pain Scale: Adult jj7 MDM: 06/08 23:32 Patient medically screened. sp4 06/09 01:53 Differential Diagnosis pneumonitis . Data reviewed: vital signs, nurses notes, sp4 radiologic studies, plain films. ED course: X-ray is negative patient is stable for discharge home. ED course: EXAM: XR Chest, 2 Views CLINICAL HISTORY: COUGH TECHNIQUE: Frontal and lateral views of the chest. COMPARISON: No relevant prior studies available. FINDINGS: Lungs: Hyperinflation. Coarsened interstitial markings. No focal consolidation. Pleural space: Unremarkable. No pneumothorax. Heart: Unremarkable. No cardiomegaly. Mediastinum: Unremarkable. Normal mediastinal contour. Bones/joints: Unremarkable. No acute fracture. Soft tissues: Left axillary/chest surgical clips. Vasculature: Thoracic aortic atherosclerosis. IMPRESSION: No acute disease. . 06/08 23:45 Order name: Chest Pa And Lat (2 Views) XRAY sp4 Administered Medications: No medications were administered Disposition Summary: 06/09/23 01:25 Discharge Ordered Notes: Location: Home sp4 Problem: new sp4 Symptoms: have improved sp4 Condition: Stable sp4 Diagnosis - Inhalational fluid in the trachea , acute choking on a fluid sp4 Followup: sp4 - With: Private Physician - When: As needed - Reason: Recheck today's complaints Discharge Instructions: - Discharge Summary Sheet sp4 - Medical Screening Exam sp4 Forms: - Patient Portal Instructions sp4 Signatures: Dispatcher [employer] Elly Bradley RN RN vc1 Dax Maya MD MD sp4 Corrections: (The following items were deleted from the chart) 06/08 23:36 23:34 PMHx: c-pap; vc1 vc1 23:36 23:34 PMHx: Lymphadema Right Arm; vc1 vc1
[2023-06-09 03:20] VITALS: BP 165/83; TEMP 98.8; O2SAT 96
--- NOTE | 2023-06-09 18:03 | RAD REPORT ---
EXAM DESCRIPTION: XR Chest, 2 Views CLINICAL HISTORY: COUGH TECHNIQUE: Frontal and lateral views of the chest. COMPARISON: No relevant prior studies available. FINDINGS: Lungs: Hyperinflation. Coarsened interstitial markings. No focal consolidation. Pleural space: Unremarkable. No pneumothorax. Heart: Unremarkable. No cardiomegaly. Mediastinum: Unremarkable. Normal mediastinal contour. Bones/joints: Unremarkable. No acute fracture. Soft tissues: Left axillary/chest surgical clips. Vasculature: Thoracic aortic atherosclerosis. IMPRESSION: No acute disease. Electronically signed by: Cem Gan MD 06/09/2023 12:37 AM BUSINESS INFORMATION ANALYST Due to temporary technical issues with the PACS/Fluency reporting system, reports are being signed by the in house radiologists without review as a courtesy to insure prompt reporting. The interpreting radiologist is fully responsible for the content of the report.
== END ==
LOC: ER 23:12
DX: T17.490A Other foreign object in trachea causing asphyxiation, initial encounter (principal); Z88.1 Allergy status to other antibiotic agents; Z88.6 Allergy status to analgesic agent; E11.9 Type 2 diabetes mellitus without complications; E78.5 Hyperlipidemia, unspecified; I10 Essential (primary) hypertension; H40.9 Unspecified glaucoma; I89.0 Lymphedema, not elsewhere classified; Z85.3 Personal history of malignant neoplasm of breast; M19.90 Unspecified osteoarthritis, unspecified site
CPT/HCPCS: 71046

== ENCOUNTER 2024-01-30 12:19 | Emergency (ER) | payer OTHER, SELFPAY ==
[2024-01-30 13:33] LABS: Absolute Basophils 0.1 K/uL (0-0.5); Absolute Eosinophils 0.1 K/uL (0-0.5); Absolute Lymphocytes (CBC) 1.2 K/uL (0.7-4.9); Absolute Monocytes 0.5 K/uL (0.1-1.3); Absolute Neutrophil 6.7 K/uL (1.8-8.0); Basophils % 0.7 % (0-1.3); Eosinophils % 0.8 % (0-4.4); Hematocrit 42.1 % (36.0-45.0); Hemoglobin 13.7 g/dL (12.0-15.0); Lymphocytes % 13.9 % (15.3-44.8); MCHC 32.6 g/dL (32.0-36.0); MCV 91.9 fL (80-100); Monocytes % 6.4 % (3.3-12.3); Neutrophils % 78.2 % (41.7-73.7); Platelets 232 thou/uL (152-406); RBC Red Blood Cell Count 4.58 M/uL (3.86-4.86); Red Cell Distribution Width 14.2 % (12.1-15.2)
[2024-01-30 13:49] LABS: Albumin 3.8 g/dL (3.4-5.0); Albumin/Globulin Ratio 1.4 (1.1-1.8); Anion Gap 9.1 mEq/L (5.0-15.0); Bilirubin Total 0.6 mg/dL (0.2-1.0); Globulin 2.7 g/dL (2.3-3.5); Protein, Total 6.5 g/dL (6.4-8.2)
[2024-01-30 13:50] LABS: Potassium 4.1 mEq/L (3.5-5.1)
--- NOTE | 2024-01-30 13:52 | RAD REPORT ---
EXAMINATION: CT ABDOMEN AND PELVIS WITHOUT CONTRAST CLINICAL INDICATION: FLANK PAIN TECHNIQUE: CT abdomen and pelvis was performed, without IV contrast, as per department protocol. Axia l, sagittal and coronal reconstructions were obtained. One or more of the following dose reduction techniques were used: Automated exposure control, adjustment of the mA and kV according to the patien t size, and iterative reconstruction. Unless otherwise specified, incidental findings do not require dedicated imaging follow-up. COMPARISON: 10/14/2022 FINDINGS: The lack of intravenous contrast limits the sensitivity of this exam for evaluation of solid visceral organs, vascular structures, and retroperitoneum. LOWER CHEST: Grossly clear. LIVER:Small low-density lesion left lobe liver likely benign. No worrisome liver lesions seen. No wor risome areas of biliary dilatation evident. Grossly unremarkable gallbladder. SPLEEN: Normal size. No focal lesion. PANCREAS: No mass, ductal dilation, or fady-pancreatic fluid. 2 cm duodenal diverticulum near the ampulla. ADRENALS: Normal; no mass. KIDNEYS AND URETERS: Normal size and contour. No hydronephrosis. URINARY BLADDER: Poorly assessed due to streak artifact from hip hardware. GASTROINTESTINAL TRACT: No evidence of bowel obstruction, significant free fluid, free air or abscess . Moderate diverticulosis coli of the sigmoid colon. APPENDIX: Normal appendix. LYMPH NODES: No lymphadenopathy. MUSCULOSKELETAL: Mild multilevel spinal degenerative changes. Moderate dextroscoliosis. ADDITIONAL FINDINGS: None. IMPRESSION: No acute or concerning abnormalities in the abdomen or pelvis, with evaluation limited by lack of IV contrast. Moderate sigmoid diverticulosis coli without diverticulitis findings. Assessment of the lower pelvis and urinary bladder significantly limited by streak artifact from hip hardware.
[2024-01-30 14:52] LABS: Specific Gravity 1.009 (1.005-1.030); Sqamous Epithelial <5 /HPF (None Seen); Urine Bacteria None Seen /HPF (<20); Urine Bilirubin NEGATIVE (Negative); Urine Blood 3+ (Negative); Urine Clarity Turbid (Clear); Urine Color Colorless (Yellow); Urine Crystals Unidentified Few /HPF (None Seen); Urine Culture Reflex Order NOT NEEDED; Urine Glucose NEGATIVE (Negative); Urine Ketones TRACE (Negative); Urine Microscopic Reflex YN ORDER UMIC; Urine Mucus Slight /HPF (None Seen); Urine Nitrite NEGATIVE (Negative); Urine Protein NEGATIVE (Negative); Urine RBC >50 /HPF (None Seen); Urine Urobilinogen Normal (Normal); Urine WBC <5 /HPF (<5); Urine WBC Clump Rare /HPF (None Seen); Urine Yeast (Budding) Trace /HPF (None Seen); Urine pH 5.5 (5.0-7.0)
--- NOTE | 2024-01-30 14:54 | EDPHYS ---
Physician Documentation [facility] Name: Aida Robertson Age: 84 yrs Sex: Female : 1940 Arrival Date: 01/30/2024 Time: 12:19 Bed 18 Private MD: ED Physician Jose Hollins HPI: 01/29 13:58 This 84 yrs old Female presents to ER via EMS with complaints of Flank Pain. ec2 13:58 Arrives today for evaluation of right flank pain. Reports flank pain started earlier ec2 today. Reports history of kidney stone. Some nausea, no vomiting, reports no active pain at this time. Reports some questionable urinary discomfort.. Historical: - Allergies: 12:33 Aspirin; ph 12:33 Vancomycin; sensitivity; ph - PMHx: 12:33 Arthritis; breast cancer; Diabetes - NIDDM; Glaucoma; Hyperlipidemia; Hypertension; ph Internal Shingles; lymphedema to R arm s/p breast cancer radiation; Migraines; scoliosis; - Immunization history:: Adult Immunizations unknown. - Infectious Disease History:: Denies. - Social history:: Smoking status: Patient denies any tobacco usage or history of. ROS: 13:58 Constitutional: as per hpi ec2 Exam: 13:58 Constitutional: GEN: NAD Head: atraumatic Eyes: EOMI Ears: External ears are ec2 normal. CV: regular rate LUNGS: no respiratory distress ABD: non-distended, right upper abdominal TTP, right flank TTP. SKIN: no evidence of rashes MSK: no evidence of trauma Vital Signs: 12:32 BP 111 / 78; Pulse 74; Resp 18; Temp 97.4; Pulse Ox 96% on R/A; Weight 68.04 kg; Height ph 4 ft. 11 in. ; 14:00 BP 105 / 70; Pulse 69; Resp 16; Pulse Ox 99% on R/A; ph 15:18 BP 118 / 72; Pulse 71; Resp 18; Temp 97.5; Pulse Ox 98% on R/A; ph 12:32 Body Mass Index 30.30 (68.04 kg, 149.86 cm) ph MDM: 13:58 Data reviewed: vital signs. ED course: Patient arrives today for evaluation of right ec2 flank pain. Examination remarkable for well-appearing nontoxic individual otherwise in no acute distress. Will obtain urine studies, CT imaging, lab work. Differential includes cholelithiasis, ureteral stone, urinary tract infection.. 14:07 ED course: Metabolic profile reassuring. Lipase within normal ranges. CT imaging shows ec2 no acute intra-abdominal process. . 14:53 ED course: Urine is noninfectious appearing. On reassessment patient remains ec2 well-appearing no acute distress. Will discharge home. Return precautions given. . 14:54 Patient medically screened. ec2 01/29 12:33 Order name: CBC with Diff; Complete Time: 13:38 ec2 01/29 12:33 Order name: CMP; Complete Time: 14:07 ec2 01/29 12:33 Order name: Lipase; Complete Time: 14:07 ec2 01/29 12:33 Order name: Urinalysis w/ reflexes; Complete Time: 14:53 ec2 01/29 12:45 Order name: CT Abd/Pelvis - Without Contrast; Complete Time: 14:07 ec2 01/29 12:33 Order name: IV Saline Lock; Complete Time: 13:39 ec2 01/29 12:33 Order name: Labs collected and sent; Complete Time: 13:39 ec2 Administered Medications: 14:15 Drug: NS 0.9% IV 1000 ml IV at 1000 ml once; to be given as a bolus over 60 minutes ph Route: IV; Rate: 1000 ml; Site: left antecubital; 15:24 Follow up: Response: No adverse reaction; IV Status: Completed infusion; IV Intake: ph 1000ml Disposition Summary: 01/30/24 14:54 Discharge Ordered Notes: Location: Home ec2 Condition: Stable ec2 Diagnosis - Upper abdominal pain, unspecified ec2 Followup: ec2 - With: Private Physician - When: - Reason: Re-evaluation by your physician Followup: ec2 - With: Mohit Avila MD - When: - Reason: Recheck today's complaints Discharge Instructions: - Discharge Summary Sheet ec2 - Abdominal Pain, Adult ec2 Forms: - Medication Reconciliation Form ec2 - Antibiotic Education ec2 - Prescription Opioid Use ec2 - Patient Portal Instructions ec2 - Leadership Thank You Letter ec2 Prescriptions: - Zofran 4 mg Oral Tablet - take 1 tablet ORAL route every 12 hours As needed; 20 tablet; Refills: 0, ec2 Product Selection Permitted Signatures: Dispatcher [employer] Jazmin Jacinto RN RN ph Jose Hollins MD MD ec2 Corrections: (The following items were deleted from the chart) 12:34 12:34 CBC+H.LAB.BRZ ordered. EDMS EDMS 12:34 12:34 COMPREHENSIVE METABOLIC PANEL+C.LAB.BRZ ordered. EDMS EDMS 12:34 12:34 LIPASE+C.LAB.BRZ ordered. EDMS EDMS 12:34 12:34 Urinalysis+U.LAB.BRZ ordered. EDMS EDMS
--- NOTE | 2024-01-30 14:54 | ER ---
Nurse's Notes [facility] Name: Aida Robertson Age: 84 yrs Sex: Female : 1940 Arrival Date: 01/30/2024 Time: 12:19 Bed 18 Private MD: Diagnosis: Upper abdominal pain, unspecified Presentation: 01/29 12:32 Chief complaint: EMS states: Called EMS for R sided flank pain and urinary symptoms, ph denies fever or chills. Coronavirus screen: Vaccine status: Patient reports receiving the 2nd dose of the covid vaccine. Ebola Screen: No symptoms or risks identified at this time. Initial Sepsis Screen: Does the patient meet any 2 criteria? No. Patient's initial sepsis screen is negative. Does the patient have a suspected source of infection? No. Patient's initial sepsis screen is negative. Risk Assessment: Do you want to hurt yourself or someone else? Patient reports no desire to harm self or others. Onset of symptoms was January 30, 2024. 12:32 Method Of Arrival: EMS: [facility] 12:32 Acuity: [facility] 3 ph Triage Assessment: 12:34 Pain: Complains of pain in anterior aspect of right lateral abdomen. Neuro: Level of ph Consciousness is awake, alert, obeys commands, Oriented to person, place, time, situation. Cardiovascular: Capillary refill < 3 seconds in bilateral fingers Patient's skin is warm and dry. Respiratory: Airway is patent Respiratory effort is even, unlabored, Respiratory pattern is regular, symmetrical. GI: Reports lower abdominal pain. : Reports burning with urination, pain in right flank(s), urinary frequency. Historical: - Allergies: 12:33 Aspirin; ph 12:33 Vancomycin; sensitivity; ph - PMHx: 12:33 Arthritis; breast cancer; Diabetes - NIDDM; Glaucoma; Hyperlipidemia; Hypertension; ph Internal Shingles; lymphedema to R arm s/p breast cancer radiation; Migraines; scoliosis; - Immunization history:: Adult Immunizations unknown. - Infectious Disease History:: Denies. - Social history:: Smoking status: Patient denies any tobacco usage or history of. Screenin:38 [facility] ED Fall Risk Assessment (Adult) History of falling in the last 3 months, ph including since admission No falls in past 3 months (0 pts) Confusion or Disorientation No (0 pts) Intoxicated or Sedated No (0 pts) Impaired Gait No (0 pts) Mobility Assist Device Used No (0 pt) Altered Elimination No (0 pt) Score/Fall Risk Level 0 - 2 = Low Risk Oriented to surroundings, Maintained a safe environment, Hourly rounding (assess needs \T\ fall precautionary measures) done. Abuse screen: Denies threats or abuse. Denies injuries from another. Nutritional screening: No deficits noted. Tuberculosis screening: No symptoms or risk factors identified. Assessment: 13:00 General: SEE TRIAGE ASSESSMENT. ph Vital Signs: 12:32 BP 111 / 78; Pulse 74; Resp 18; Temp 97.4; Pulse Ox 96% on R/A; Weight 68.04 kg; Height ph 4 ft. 11 in. ; 14:00 BP 105 / 70; Pulse 69; Resp 16; Pulse Ox 99% on R/A; ph 15:18 BP 118 / 72; Pulse 71; Resp 18; Temp 97.5; Pulse Ox 98% on R/A; ph 12:32 Body Mass Index 30.30 (68.04 kg, 149.86 cm) ph ED Course: 12:27 Patient arrived in ED. ll1 12:29 Jose Hollins MD is Attending Physician. ec2 12:32 Jazmin Jackson, ANNE is Primary Nurse. ph 12:33 Triage completed. ph 12:45 Arm band placed on Patient placed in an exam room, on a stretcher, on pulse oximetry. ph 13:11 Missed attempt(s): 20 gauge in left antecubital area. Bleeding controlled, band aid am7 applied, catheter tip intact. 13:37 Initial lab(s) drawn, by ok, sent to lab. Inserted saline lock: 22 gauge in left ph antecubital area, using aseptic technique. Blood collected. Flushed with 10 mL NS. 13:38 Patient has correct armband on for positive identification. Bed in low position. Call ph light in reach. Side rails up X 1. Pulse ox on. NIBP on. Door closed. Noise minimized. Warm blanket given. 13:40 CT Abd/Pelvis - Without Contrast In Process Unspecified. EDMS 14:54 Mohit Avila MD is Referral Physician. ec2 15:25 No provider procedures requiring assistance completed. IV discontinued, intact, ph bleeding controlled, No redness/swelling at site. Pressure dressing applied. Administered Medications: 14:15 Drug: NS 0.9% IV 1000 ml IV at 1000 ml once; to be given as a bolus over 60 minutes ph Route: IV; Rate: 1000 ml; Site: left antecubital; 15:24 Follow up: Response: No adverse reaction; IV Status: Completed infusion; IV Intake: ph 1000ml Medication: 13:39 VIS not applicable for this client. ph Intake: 15:24 IV: 1000ml; Total: 1000ml. ph Outcome: 14:54 Discharge ordered by MD. keene 15:25 Patient left the ED. ph 15:25 Discharged to home ambulatory, with significant other, ph 15:25 Condition: good 15:25 Discharge instructions given to patient, Instructed on discharge instructions, follow up and referral plans. medication usage, Demonstrated understanding of instructions, follow-up care, medications, Prescriptions given X 1, Signatures: Dispatcher [employer] Jazmin Jacinto RN RN Bryan Iyer RN RN 1 Jose Hollins MD MD ec2 Muraira, Abigail am7 Corrections: (The following items were deleted from the chart) 14:31 14:31 NS 0.9% IV 1000 ml IV at 1000 ml in left antecubital ph ph
[2024-01-30 18:05] VITALS: BP 118/72; TEMP 97.5; O2SAT 98
== END 2024-01-30 15:25 | disposition home or self-care (01) ==
LOC: ER 12:19
DX: R10.11 Right upper quadrant pain (principal); Z87.442 Personal history of urinary calculi
CPT/HCPCS: 36415; 74176; 80053; 81001; 83690; 85025; 96360; 99284

== ENCOUNTER 2024-07-28 11:13 | Emergency (ER) | payer OTHER ==
[2024-07-28] MEDS ORDERED: ONDANSETRON 4 MG/2 ML VIAL ONE (11:19)
[2024-07-28] MEDS ORDERED: KETOROLAC 30 MG/ML INJ ONE (11:19)
[2024-07-28 11:42] LABS: Absolute Basophils 0.1 K/uL (0-0.5); Absolute Lymphocytes (CBC) 0.8 K/uL (0.7-4.9); Absolute Monocytes 0.4 K/uL (0.1-1.3); Basophils % 0.4 % (0-1.3); Eosinophils % 0.4 % (0-4.4); Hematocrit 44.1 % (36.0-45.0); Lymphocytes % 7.4 % (15.3-44.8); MCH 30.3 pg (27.0-35.0); MCV 88.9 fL (80-100); MPV 9.5 fL (7.6-11.3); Monocytes % 3.6 % (3.3-12.3); Neutrophils % 88.2 % (41.7-73.7); Nucleated Red Blood Cells % 0.1 % (0-0); Platelets 238 thou/uL (152-406); RBC Red Blood Cell Count 4.96 M/uL (3.86-4.86); Red Cell Distribution Width 14.1 % (12.1-15.2)
[2024-07-28 11:51] LABS: Albumin 3.8 g/dL (3.4-5.0); Albumin/Globulin Ratio 1.3 (1.1-1.8); Anion Gap 14.1 mEq/L (5.0-15.0); Bilirubin Total 0.8 mg/dL (0.2-1.0); Potassium 4.1 mEq/L (3.5-5.1); Protein, Total 6.8 g/dL (6.4-8.2)
--- NOTE | 2024-07-28 12:15 | RAD REPORT ---
EXAMINATION: CT ABDOMEN AND PELVIS WITHOUT CONTRAST CLINICAL INDICATION: Abdominal pain TECHNIQUE: CT abdomen and pelvis was performed, as per department protocol. IV contrast and oral was not administered.Axial, sagittal and coronal reconstructions were obtained. One or more of the following dose reduction techniques were used: Automated exposure control, adjustment of the mA and/o r kV according to the patient size, and/or iterative reconstruction. Unless otherwise specified, incidental findings do not require dedicated imaging follow-up. [id number]. COMPARISON: 2023 FINDINGS: The lack of intravenous and oral contrast limits evaluation of solid organs, vessels and bowel. Mild to moderate right hydronephrosis has progressed since the prior exam. Small right renal cyst. A renal calculus not seen. No calculus within the proximal or mid right ureter. 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 Mild dilatati on right ureter. A left renal calculus is not seen. Small left renal cyst. Extrarenal pelvis. Questionable tiny gallstone. No gallbladder wall thickening. Small hiatal hernia. Duodenal diverticulum. The liver, spleen, pancreas and adrenals grossly normal Diverticula stem from colon without visualization of evidence of diverticulitis. No adnexal mass. IMPRESSION: Mild to moderate right hydronephrosis has progressed since the prior exam. Limited evaluation to dete ct a distal right ureteral calculus secondary to extensive artifact from bilateral hip arthroplasties.
[2024-07-28 14:43] LABS: Specific Gravity 1.021 (1.005-1.030); Sqamous Epithelial <5 /HPF (None Seen); Urine Bacteria <20 /HPF (<20); Urine Bilirubin NEGATIVE (Negative); Urine Blood 2+ (Negative); Urine Clarity Clear (Clear); Urine Color Light-Yellow (Yellow); Urine Culture Reflex Order NOT NEEDED; Urine Glucose 3+ (Negative); Urine Ketones 2+ (Negative); Urine Microscopic Reflex YN ORDER UMIC; Urine Nitrite NEGATIVE (Negative); Urine Protein NEGATIVE (Negative); Urine Urobilinogen Normal (Normal); Urine WBC <5 /HPF (<5)
--- NOTE | 2024-07-28 15:00 | EDPHYS ---
Physician Documentation [facility] Name: Aida Robertson Age: 84 yrs Sex: Female : 1940 Arrival Date: 07/28/2024 Time: 11:13 Bed 8 Private MD: ED Physician Bhupinder Bermeo HPI: 07/28 11:16 This 84 yrs old Female presents to ER via Unassigned with complaints of right flank ms3 pain. 11:16 84-year-old female with past medical history of diabetes and hypertension presents to [facility] the emergency department for right flank pain that began earlier today via [facility]. Patient endorses nausea and vomiting. She denies fevers or chills. Patient states her pain is 10/10.. Historical: - Allergies: 11:30 Aspirin; ph 11:30 Vancomycin; sensitivity; ph - PMHx: 11:30 Arthritis; breast cancer; Diabetes - NIDDM; Glaucoma; Hyperlipidemia; Hypertension; ph Internal Shingles; lymphedema to R arm s/p breast cancer radiation; Migraines; scoliosis; - Immunization history:: Adult Immunizations unknown. - Infectious Disease History:: Denies. - Social history:: Smoking status: Patient denies any tobacco usage or history of. ROS: 11:16 Constitutional: Negative for fever, and chills. Cardiovascular: Negative for chest ms3 pain, and palpitations. Respiratory: Negative for shortness of breath, cough, wheezing, and pleuritic chest pain, 11:16 MS/Extremity: Negative for injury and deformity, Skin: Negative for injury, rash, and discoloration, 11:16 Abdomen/GI: Positive for abdominal pain, nausea and vomiting, Exam: 11:16 Constitutional: This is a well developed, well nourished patient who is awake, alert, ms3 and in no acute distress. Cardiovascular: Regular rate and rhythm with a normal S1 and S2. No gallops, murmurs, or rubs. Normal PMI, no JVD. No pulse deficits. Respiratory: Lungs have equal breath sounds bilaterally, clear to auscultation and percussion. No rales, rhonchi or wheezes noted. No increased work of breathing, no retractions or nasal flaring. Abdomen/GI: Soft, non-tender, with normal bowel sounds. No distension or tympany. No guarding or rebound. No evidence of tenderness throughout. Skin: Warm, dry with normal turgor. Normal color with no rashes, no lesions, and no evidence of cellulitis. 11:16 Back: CVA tenderness, that is moderate, is noted on the right, vertebral tenderness, is not appreciated, Vital Signs: 12:22 BP 125 / 72; Pulse 84; Resp 18; Temp 97.8; Pulse Ox 95% on R/A; ph 13:30 BP 130 / 72; Pulse 82; Resp 18; Pulse Ox 99% on R/A; ph 14:30 BP 140 / 66; Pulse 87; Resp 18; Pulse Ox 99% on R/A; ph 15:45 BP 155 / 81; Pulse 80; Resp 18; Temp 97.9; Pulse Ox 98% on R/A; ph MDM: 11:15 Medical Screening Exam initiated ms3 11:16 Differential diagnosis: nephrolithiasis, pyelonephritis, UTI. ms3 21:16 Data reviewed: vital signs, nurses notes, lab test result(s), radiologic studies, and ms3 as a result, I will discharge patient. I considered the following discharge prescriptions or medication management in the emergency department Medications were administered in the Emergency Department. See MAR. Historians other than the Patient: EMS: [facility]. Counseling: I had a detailed discussion with the patient and/or guardian regarding the historical points, exam findings, and any diagnostic results supporting the discharge/admit diagnosis, lab results, radiology results, the need for outpatient follow up, to return to the emergency department if symptoms worsen or persist or if there are any questions or concerns that arise at home. Special discussion: Based on the patient's Hx, exam, and Dx evaluation, there is no indication for emergent surgery or inpatient Tx. It is understood by the patient/guardian that if the Sx's persist or worsen they need to return immediately for re-evaluation. ED course: Discussed labs and CT imaging with patient. Patient to follow-up with Dr. Parker in 2 to 3 days. Patient understands and agrees with plan. All questions were answered. Return precautions discussed include fevers, chills, vomiting, worsening symptoms, or any other concerns. On reevaluation patient symptoms improved, patient is alert and orient x 4, no apparent distress, nontoxic-appearing.. 07/28 11:16 Order name: CBC with Diff; Complete Time: 11:57 ms3 07/28 11:16 Order name: CMP; Complete Time: 11:57 ms3 07/28 12:47 Order name: Urinalysis w/ reflexes; Complete Time: 14:46 ms3 07/28 11:16 Order name: CT Abd/Pelvis - Without Contrast; Complete Time: 12:47 ms3 07/28 11:16 Order name: IV Saline Lock; Complete Time: 11:33 ms3 07/28 11:16 Order name: Labs collected and sent; Complete Time: 11:33 ms3 Administered Medications: 11:33 Drug: TORadol - Ketorolac IVP 15 mg IVP once Route: IVP; Site: left antecubital; ph 15:43 Follow up: Response: No adverse reaction ph 11:33 Drug: Ondansetron IVP 4 mg IVP once; over 2 minutes Route: IVP; Site: left antecubital; ph 15:43 Follow up: Response: No adverse reaction ph Disposition Summary: 07/28/24 14:59 Discharge Ordered Notes: Location: Home ms3 Condition: Stable ms3 Diagnosis - Unspecified hydronephrosis ms3 - Hydronephrosis ms3 Followup: ms3 - With: Dionicio Parker MD - When: 2 - 3 days - Reason: Recheck today's complaints Discharge Instructions: - Discharge Summary Sheet ms3 - Hydronephrosis ms3 Forms: - Medication Reconciliation Form ms3 - Antibiotic Education ms3 - Prescription Opioid Use ms3 - Patient Portal Instructions ms3 - Leadership Thank You Letter ms3 Prescriptions: - tamsulosin 0.4 mg Oral capsule - take 1 capsule ORAL route every 24 hours; 15 capsule; Refills: 0, Product ms3 Selection Permitted - Tylenol-Codeine #3 300mg-30mg Oral tablet - take 1 tablet ORAL route every 4 hours As needed; 16 tablet; Refills: 0, ms3 Product Selection Permitted Signatures: Dispatcher [employer] Jazmin Jacinto RN RN ph Bhupinder Bermeo DO DO ms3 Corrections: (The following items were deleted from the chart) 11:16 11:16 CBC+H.LAB.BRZ ordered. EDMS EDMS 11:16 11:16 COMPREHENSIVE METABOLIC PANEL+C.LAB.BRZ ordered. EDMS EDMS 11:16 11:16 Abdomen Pelvis Wo Con+CT.RAD.BRZ ordered. EDMS EDMS
--- NOTE | 2024-07-28 15:00 | ER ---
Nurse's Notes [facility] Name: Aida Robertson Age: 84 yrs Sex: Female : 1940 Arrival Date: 07/28/2024 Time: 11:13 Bed 8 Private MD: Diagnosis: Unspecified hydronephrosis;Hydronephrosis Presentation: 07/28 11:29 Chief complaint: EMS states: Pt c/o R flank pain, N/V, hx of kidney stones, says this ph feels the same. Coronavirus screen: Vaccine status: Patient reports receiving the 2nd dose of the covid vaccine. Ebola Screen: No symptoms or risks identified at this time. Initial Sepsis Screen: Does the patient meet any 2 criteria? No. Patient's initial sepsis screen is negative. Does the patient have a suspected source of infection? No. Patient's initial sepsis screen is negative. Risk Assessment: Do you want to hurt yourself or someone else? Patient reports no desire to harm self or others. Onset of symptoms was July 28, 2024. 11:29 Method Of Arrival: EMS: [facility] 11:29 Acuity: [facility] 3 ph Triage Assessment: 11:31 General: Appears in no apparent distress. uncomfortable, Behavior is calm, cooperative. ph Pain: Complains of pain in R low back Pain radiates to R flank. Neuro: Level of Consciousness is awake, alert, obeys commands, Oriented to person, place, time, situation. Cardiovascular: Capillary refill < 3 seconds in bilateral fingers Patient's skin is warm and dry. Respiratory: Airway is patent Respiratory effort is even, unlabored. GI: Reports lower abdominal pain, nausea. : Reports pain in right flank(s), lower quadrant(s) in lower back. Musculoskeletal: Circulation, motion, and sensation intact. Range of motion: intact in all extremities. Historical: - Allergies: 11:30 Aspirin; ph 11:30 Vancomycin; sensitivity; ph - PMHx: 11:30 Arthritis; breast cancer; Diabetes - NIDDM; Glaucoma; Hyperlipidemia; Hypertension; ph Internal Shingles; lymphedema to R arm s/p breast cancer radiation; Migraines; scoliosis; - Immunization history:: Adult Immunizations unknown. - Infectious Disease History:: Denies. - Social history:: Smoking status: Patient denies any tobacco usage or history of. Screenin:32 [facility] ED Fall Risk Assessment (Adult) History of falling in the last 3 months, ph including since admission No falls in past 3 months (0 pts) Confusion or Disorientation No (0 pts) Intoxicated or Sedated No (0 pts) Impaired Gait No (0 pts) Mobility Assist Device Used No (0 pt) Altered Elimination No (0 pt) Score/Fall Risk Level 0 - 2 = Low Risk Oriented to surroundings, Maintained a safe environment, Hourly rounding (assess needs \T\ fall precautionary measures) done. Abuse screen: Denies threats or abuse. Denies injuries from another. Nutritional screening: No deficits noted. Tuberculosis screening: No symptoms or risk factors identified. Assessment: 11:32 General: SEE TRIAGE ASSESSMENT. ph 13:00 Reassessment: Patient appears in no apparent distress at this time. Patient and/or ph family updated on plan of care and expected duration. Pain level reassessed. Patient is alert, oriented x 3, equal unlabored respirations, skin warm/dry/pink. Patient states feeling better. 14:00 Reassessment: Patient appears in no apparent distress at this time. Patient and/or ph family updated on plan of care and expected duration. Pain level reassessed. Patient is alert, oriented x 3, equal unlabored respirations, skin warm/dry/pink. 15:43 Reassessment: Patient appears in no apparent distress at this time. Patient and/or ph family updated on plan of care and expected duration. Pain level reassessed. Patient is alert, oriented x 3, equal unlabored respirations, skin warm/dry/pink. Patient states feeling better. Vital Signs: 12:22 BP 125 / 72; Pulse 84; Resp 18; Temp 97.8; Pulse Ox 95% on R/A; ph 13:30 BP 130 / 72; Pulse 82; Resp 18; Pulse Ox 99% on R/A; ph 14:30 BP 140 / 66; Pulse 87; Resp 18; Pulse Ox 99% on R/A; ph 15:45 BP 155 / 81; Pulse 80; Resp 18; Temp 97.9; Pulse Ox 98% on R/A; ph ED Course: 11:15 Patient arrived in ED. ms3 11:15 Bhupinder Bermeo DO is Attending Physician. ms3 11:16 Jackson, Jazmin, RN is Primary Nurse. ph 11:30 Triage completed. ph 11:30 Arm band placed on Patient placed in an exam room, on a stretcher, on pulse oximetry. ph 11:31 Initial lab(s) drawn, by me, sent to lab. Inserted saline lock: 22 gauge in left ph antecubital area, using aseptic technique. Blood collected. Flushed with 10 mL NS. 11:32 Patient has correct armband on for positive identification. Bed in low position. Call ph light in reach. Side rails up X 1. Pulse ox on. NIBP on. Door closed. Noise minimized. Warm blanket given. Pillow given. 11:33 CT Abd/Pelvis - Without Contrast In Process Unspecified. EDMS 14:33 Urinalysis w/ reflexes Sent. ph 14:58 Dionicio Parker MD is Referral Physician. ms3 15:43 No provider procedures requiring assistance completed. IV discontinued, intact, ph bleeding controlled, No redness/swelling at site. Pressure dressing applied. Administered Medications: 11:33 Drug: TORadol - Ketorolac IVP 15 mg IVP once Route: IVP; Site: left antecubital; ph 15:43 Follow up: Response: No adverse reaction ph 11:33 Drug: Ondansetron IVP 4 mg IVP once; over 2 minutes Route: IVP; Site: left antecubital; ph 15:43 Follow up: Response: No adverse reaction ph Medication: 11:32 VIS not applicable for this client. ph Outcome: 14:59 Discharge ordered by . ms3 15:44 Discharged to home via wheelchair, with family, ph 15:44 Condition: good 15:44 Discharge instructions given to patient, Instructed on discharge instructions, follow up and referral plans. medication usage, Demonstrated understanding of instructions, follow-up care, medications, Prescriptions given X 2, 15:58 Patient left the ED. ph Signatures: Dispatcher [employer] Jazmin Jacinto RN RN ph Bhupinder Bermeo DO DO ms3
[2024-07-28 16:25] VITALS: BP 155/81; TEMP 97.9; O2SAT 98
== END 2024-07-28 15:58 | disposition home or self-care (01) ==
LOC: ER 11:13
DX: N13.30 Unspecified hydronephrosis (principal); R11.2 Nausea with vomiting, unspecified; I10 Essential (primary) hypertension; E11.9 Type 2 diabetes mellitus without complications; Z85.3 Personal history of malignant neoplasm of breast
CPT/HCPCS: 85025; 81001; 36415; 80053; 74176; 96375; 96374; 99284; J2405